=== PATIENT | female | born 1950 | race Caucasian/White ===

== ENCOUNTER → 2018-07-03 | Outpatient (CLI) | payer MEDICARE, BC ==
[2018-01-06 14:38] VITALS: BP 146/64
[~2018-07-03] MED LIST: ASPI81TA50 PO; CARV3.1210 PO; CEPH-264 PO; DOXY100T PO; ECONAZOLE NITRATE TP; FERR325T14 PO; FLUT1DIS3 INH; FURO40TA4 PO; GLYB5TAB3 PO; HYDR-2761 PO; HYDR12.58 PO; INSU100I13 SQ; Ipratropium/Albuterol Sulfate NEB; LEVO200T PO; METF10007 PO; METF500T16 PO; MULT1TAB52 PO; POTA10TA12 PO; PRAV80TA2 PO; PRED20TA PO; TIOT18CA IH; VENTOLIN HFA18 GM IH
--- NOTE | 2018-07-14 09:59 | SLEEP ---
DATE OF STUDY: 07/03/2018 ATTENDING PHYSICIAN: Dr. Jasper Lowry. The patient is 67 years old who weighs 259 pounds with a BMI of 43. The patient's Chaseley score was 3. The patient uses oxygen at 2 liters continuously at home. The patient underwent sleep study at [facility]. During the night study, the patient spent 415 minutes in bed and slept for 342 minutes with a sleep efficiency of 82%. Sleep latency was 10 minutes with an absent REM sleep. Overall, sleep architecture showed increased stage 1 and stage 2 sleep, normal slow wave and absent REM sleep. During the night study, the patient had no obstructive mixed or central apneas. There were 57 hypopneas. The patient's apnea hypopnea index was 10 per hour, supine index 8 per hour. No REM sleep observed. EKG monitoring revealed normal sinus rhythm, average heart rate was 79 beats per minute. No sustained arrhythmias observed. Nocturnal oximetry study revealed a mean oxygen saturation of 90% with lowest of 75%. 83% of time oxygen saturation remained between 80% and 89% and 16% of time between 70% and 79%. No PLMS were observed. Due to low AHI, the patient did not meet the split night criteria for CPAP initiation. IMPRESSION: 1. Mild sleep apnea-hypopnea syndrome at an apnea hypopnea index of 10 per hour. Absence of rapid eye movement sleep can underestimate the severity of sleep apnea. 2. Moderate to severe nocturnal hypoxia secondary to obstructive sleep apnea and suspected hypoventilation. The patient uses oxygen 2 liters at home continuously and sleep study was performed on room air. 3. No clinically significant periodic limb movements. RECOMMENDATION: 1. The patient has mild sleep apnea. If the patient is clinically symptomatic, then it can be treated with either oral appliance or a trial of CPAP titration. 2. Weight loss is strongly advised. 3. Avoid CONFIGURATION DEVELOPER depressants. 4. The patient should remain on oxygen at nighttime. If the patient undergoes CPAP titration study, then the exact flow of oxygen can be determined at that time. 5. Avoid CONFIGURATION DEVELOPER depressants. 6. Caution regarding driving until symptoms of sleep apnea resolve with above recommendations. EFRA BROWNLEE MD DR: SOLANGE/vishnu JOB#: [id number] / [id number] JASPER Addison MD, SABATO MD
== END | disposition home or self-care (01) ==
LOC: RT 18:00
PROVIDERS: ATTEND Internal Medicine Pulmonary Disease
DX: G47.33 Obstructive sleep apnea (adult) (pediatric) (principal); G47.34 Idiopathic sleep related nonobstructive alveolar hypoventilation
CPT/HCPCS: 95810

== ENCOUNTER 2018-09-15 11:58 | Inpatient (IN) | payer MEDICARE, BC ==
[~2018-09-15] VITALS: Ht 163.8 cm; Wt 119.7 kg
[2018-09-15] MEDS ORDERED: ASPIRIN CHEWABLE 81 MG TABLET. PO ONE (12:30)
[2018-09-15] MEDS ORDERED: IPRATRPIUM/ALBUTEROL 0.5/2.5MG 3 ML NEBU. NEB ONE (12:30)
--- NOTE | 2018-09-15 12:47 | PHYS DOC ---
Past Medical History Past Medical History: CAD, CHF, COPD, Diabetes-Type II, High Cholesterol, Heart Disease, Hypertension, Hypothyroid, Other Additional Past Medical Histor: home oxygen use Past Surgical History: Coronary Bypass Surgery, Tonsillectomy, Other Additional Past Surgical Histo: bilat knee scope, heart cath Alcohol Use: None Drug Use: None Adult General Chief Complaint Chief Complaint: SHORTNESS OF BREATH HPI HPI Patient is a 67-year-old female who presents to the emergency department for evaluation of increasing shortness of breath over the past 24 hours. She has had a mild cough, nonproductive. She denies any chest pain. She reports worsening or shortness of breath with exertion, but no chest pain, either exertional or pleuritic, and no orthopnea. She has, however, had increasing pedal edema. She did increase her oxygen at home from 2.5-3 L, with some improvement in her symptoms. Other than the stated above, there are no alleviating or exacerbating factors to the patient's symptoms. Review of Systems Review of Systems Constitutional: Denies fever or chills [] Eyes: Denies change in visual acuity, redness, or eye pain [] HENT: Denies nasal congestion or sore throat [] Respiratory: No additional information not addressed in HPI [] Cardiovascular: No additional information not addressed in HPI [] GI: Denies abdominal pain, nausea, vomiting, bloody stools or diarrhea [] : Denies dysuria or hematuria [] Musculoskeletal: Denies back pain or joint pain [] Integument: Denies rash or skin lesions [] Neurologic: Denies headache, focal weakness or sensory changes [] Endocrine: Denies polyuria or polydipsia [] All other systems were reviewed and found to be within normal limits, except as documented in this note. Current Medications Current Medications Current Medications Medications (Trade) Dose Ordered Sig/Hannah Start Time Stop Time Status Last Admin Dose Admin Albuterol/ Ipratropium (Duoneb) 3 ml 1X ONCE 09/15/18 12:30 09/15/18 12:31 DC 09/15/18 12:43 3 ML Aspirin (Children'S Aspirin) 324 mg 1X ONCE 09/15/18 12:30 09/15/18 12:31 DC 09/15/18 12:33 324 MG Azithromycin 250 ml @ 250 mls/hr 1X ONCE 09/15/18 13:45 3/12/19 14:44 Ceftriaxone Sodium (Rocephin) 1 gm 1X ONCE 09/15/18 13:45 09/15/18 13:46 DC Furosemide (Lasix) 40 mg 1X ONCE 09/15/18 14:15 09/15/18 14:16 Allergies Allergies Allergies Coded Allergies Type Severity Reaction Last Updated Verified No Known Medication Allergies Allergy Unknown 01/05/18 Yes Penicillins Adverse Reaction Mild yeast infections 09/06/15 Yes Physical Exam Physical Exam PHYSICAL EXAM: CONSTITUTIONAL: Well developed, well nourished HEAD: normocephalic, atraumatic EENT: PERRL, EOMI. Conjunctivae normal color, sclerae non-icteric; moist mucous membranes. NECK: Supple, non-tender; no meningismus. LUNGS: There are globally diminished breath sounds, without rales, wheezes, or rhonchi. HEART: Regular rate and rhythm, there is a soft holosystolic murmur. CHEST: No deformity; non-tender ABDOMEN: The abdomen is soft, and non-tender, no masses or bruits. EXTREM: Normal ROM; no deformity, no calf tenderness. Normal pulses palpable in all extremities. There is 1-2+ bilateral pitting pedal edema. SKIN: No rash; no diaphoresis NEURO: Alert; normal speech and cognition; CN's grossly intact; strength grossly intact without focal deficit. BACK: No CVA TTP. Current Patient Data Vital Signs Vital Signs Date Time Temp Pulse Resp B/P (MAP) Pulse Ox O2 Delivery O2 Flow Rate FiO2 09/15/18 12:44 Nasal Cannula 2.0 09/15/18 12:00 98.9 95 26 177/70 (105) 96 98.9 Lab Values Laboratory Tests Test 09/15/18 12:45 White Blood Count 4.6 x10^3/uL (4.0-11.0) Red Blood Count 4.70 x10^6/uL (3.50-5.40) Hemoglobin 13.2 g/dL (12.0-15.5) Hematocrit 40.5 % (36.0-47.0) Mean Corpuscular Volume 86 fL (79-100) Mean Corpuscular Hemoglobin 28 pg (25-35) Mean Corpuscular Hemoglobin Concent 33 g/dL (31-37) Red Cell Distribution Width 16.0 % (11.5-14.5) H Platelet Count 120 x10^3/uL (140-400) L Neutrophils (%) (Auto) 71 % (31-73) Lymphocytes (%) (Auto) 17 % (24-48) L Monocytes (%) (Auto) 12 % (0-9) H Eosinophils (%) (Auto) 0 % (0-3) Basophils (%) (Auto) 1 % (0-3) Neutrophils # (Auto) 3.3 x10^3uL (1.8-7.7) Lymphocytes # (Auto) 0.8 x10^3/uL (1.0-4.8) L Monocytes # (Auto) 0.5 x10^3/uL (0.0-1.1) Eosinophils # (Auto) 0.0 x10^3/uL (0.0-0.7) Basophils # (Auto) 0.0 x10^3/uL (0.0-0.2) Prothrombin Time 15.2 SEC (11.7-14.0) H Prothrombin Time INR 1.2 (0.8-1.1) H Sodium Level 136 mmol/L (136-145) Potassium Level 3.9 mmol/L (3.5-5.1) Chloride Level 97 mmol/L (98-107) L Carbon Dioxide Level 31 mmol/L (21-32) Anion Gap 8 (6-14) Blood Urea Nitrogen 15 mg/dL (7-20) Creatinine 0.8 mg/dL (0.6-1.0) Estimated GFR (Cockcroft-Gault) 71.8 BUN/Creatinine Ratio 19 (6-20) Glucose Level 200 mg/dL (70-99) H Calcium Level 8.5 mg/dL (8.5-10.1) Total Bilirubin 1.0 mg/dL (0.2-1.0) Aspartate Amino Transferase (AST) 18 U/L (15-37) Alanine Aminotransferase (ALT) 18 U/L (14-59) Alkaline Phosphatase 84 U/L (46-116) Creatine Kinase 58 U/L (26-192) Creatine Kinase MB (Mass) 0.8 ng/mL (0.0-3.6) Creatine Kinase MB Relative Index % (0-4) Troponin I Quantitative 0.032 ng/mL (0.000-0.055) PV-Agk-U-Type Natriuretic Peptide 5627 pg/mL (0-124) H Total Protein 6.3 g/dL (6.4-8.2) L Albumin 3.7 g/dL (3.4-5.0) Albumin/Globulin Ratio 1.4 (1.0-1.7) Laboratory Tests 09/15/18 12:45 Laboratory Tests 09/15/18 12:45 EKG EKG [Normal sinus rhythm at a rate of 72 beats for minute, right axis deviation, first-degree AV block with otherwise normal intervals. There is inferior T-wave inversion and nonspecific ST/T changes, not significantly changed compared to patient's prior EKG from 01/05/18.] Radiology/Procedures Radiology/Procedures [PROCEDURE: PORTABLE CHEST 1V Single view chest dated 09/15/2018. Comparison made to 01/05/2018. CLINICAL INDICATION: Shortness of breath. FINDINGS: Single upright portable exam performed. Heart size mildly enlarged. Patient is status post median sternotomy. There is fullness of the bilateral hilum, unchanged. Some hazy increased density at the lateral left base with blunting of left costophrenic sulcus. Lungs are otherwise clear. No consolidation or pneumothorax. Prominent interstitial markings, unchanged. IMPRESSION: 1. Mild hazy increased density at the lateral left base, atelectasis versus early pneumonia. 2. Otherwise stable findings compared to 01/05/2018.] Course & Med Decision Making Course & Med Decision Making Pertinent Labs and Imaging studies reviewed. (See chart for details) [2:10 PM: The patient's condition remained stable. Her BNP is about 4 times higher than it was about 8 months ago. The exact etiology of her shortness of breath is unclear, as she is feeling better with a DuoNeb. This might be a CHF exacerbation, bronchitis/pneumonia/COPD, or both. I discussed the case with her PCP, who will admit her for further evaluation and treatment.] Dragon Disclaimer Dragon Disclaimer This electronic medical record was generated, in whole or in part, using a voice recognition dictation system. Departure Departure Impression: Primary Impression: Dyspnea Additional Impressions: COPD (chronic obstructive pulmonary disease) CHF (congestive heart failure) Disposition: ADMITTED INPATIENT Admitting Physician: Mike Lowry Condition: STABLE Referrals: MIKE LOWRY MD (PCP) Problem Qualifiers GREENGART,SABINO MD Sep 15, 2018 12:47
[2018-09-15 12:55] LABS: BASO % 1 % (0-3); EOS % 0 % (0-3); HEMATOCRIT 40.5 % (36.0-47.0); HEMOGLOBIN 13.2 g/dL (12.0-15.5); LYMPH # 0.8 x10^3/uL (1.0-4.8); LYMPH % 17 % (24-48); MEAN CORPUSCULAR HEMOGLOBIN 28 pg (25-35); MEAN CORPUSCULAR HGB CONC 33 g/dL (31-37); MEAN CORPUSCULAR VOLUME 86 fL (79-100); MONO # 0.5 x10^3/uL (0.0-1.1); MONO % 12 % (0-9); NEUT # 3.3 x10^3uL (1.8-7.7); NEUT % 71 % (31-73); PLATELET COUNT 120 x10^3/uL (140-400); WHITE BLOOD COUNT 4.6 x10^3/uL (4.0-11.0)
[2018-09-15 13:04] LABS: CALCIUM 8.5 mg/dL (8.5-10.1); CREATININE 0.8 mg/dL (0.6-1.0); GFR 71.8; POTASSIUM 3.9 mmol/L (3.5-5.1); PROTHROMBIN TIME PATIENT 15.2 SEC (11.7-14.0)
[2018-09-15 13:10] LABS: ALBUMIN 3.7 g/dL (3.4-5.0); ALBUMIN/GLOBULIN RATIO 1.4 (1.0-1.7); TOTAL PROTEIN 6.3 g/dL (6.4-8.2)
[2018-09-15 13:18] LABS: CREATINE KINASE 58 U/L (26-192)
--- NOTE | 2018-09-15 13:38 | EKG ---
[facility] [address] [place] [address] Test Date: 2018-09-15 Test Time: 12:42:12 Pat Name: WILDA GRECO Department: Room: Gender: F Jar Filler: : 1950 Requested By: JASPER WISE Order Number: [id number] Reading MD: Mamadou James MD Measurements Intervals [place] Rate: 73 P: 66 AR: 238 QRS: 141 QRSD: 92 T: -10 QT: 388 QTc: 431 Interpretive Statements SINUS RHYTHM PROLONGED AR INTERVAL LIMB LEAD MISPLACEMENT NON-SPECIFIC ST/T CHANGES Electronically Signed On 09-24-2018 9:28:38 CDT by Mamadou James MD
[2018-09-15] MEDS ORDERED: AZITHRMYCN 500MG IVPB FOR OMNI 250 ML IV ONE (13:45)
[2018-09-15] MEDS ORDERED: cefTRIAXone IV Push 1 GM VIAL. IVP ONE (13:45)
[2018-09-15] MEDS ORDERED: FUROSEMIDE 40 MG/4 ML VIAL. IVP ONE (14:15)
[2018-09-15 19:00] VITALS: BP 147/73
[2018-09-15] MEDS: IPRATRPIUM/ALBUTEROL 0.5/2.5MG 3 ML NEBU. NEB SCH (19:34)
[2018-09-15] MEDS: CARVEDILOL 3.125 MG TABLET. PO SCH (21:32)
[2018-09-15] MEDS: hydroCHLOROthiazide 12.5 MG CAPSULE PO SCH (21:32)
[2018-09-15] MEDS: ATORVASTATIN CALCIUM 20 MG TABLET PO SCH (21:32)
[2018-09-15] MEDS: INSULIN GLARGINE 300 UNITS/3 ML INSULN.PEN. SQ SCH (21:35)
[2018-09-15 23:00] VITALS: BP 165/67
[2018-09-16 03:00] VITALS: BP 128/62
[2018-09-16] MEDS: LEVOTHYROXINE 125 MCG TABLET PO SCH (05:57)
[2018-09-16] MEDS: IPRATRPIUM/ALBUTEROL 0.5/2.5MG 3 ML NEBU. NEB SCH ×4 (07:42→19:52)
[2018-09-16 07:48] VITALS: BP 116/53
[2018-09-16] MEDS: MULTIVITAMIN with MINERAL TABLET. PO SCH (08:29)
[2018-09-16] MEDS: ASPIRIN ENTERIC COATED 81 MG TABLET.DR. PO SCH (08:29)
[2018-09-16] MEDS: POTASSIUM CHLORIDE 10 MEQ TABLET.ER. PO SCH (08:30)
[2018-09-16] MEDS ORDERED: NON FORMULARY ITEM (Tiotropium Bromide (Spiriva) 1 CAP) IH SCH (09:00)
[2018-09-16] MEDS ORDERED: FUROSEMIDE 40 MG/4 ML VIAL. IVP ONE (09:00)
--- NOTE | 2018-09-16 09:02 | PDOC ---
Provider Note Provider Note [id number] JASPER HANNAH MD Sep 16, 2018 09:02
--- NOTE | 2018-09-16 10:12 | HP ---
ADMIT DATE: 09/16/2018 CHIEF COMPLAINT: Weakness and shortness of breath. HISTORY OF PRESENT ILLNESS: A 67-year-old white female with known oxygen-dependent COPD and pulmonary hypertension, and diabetes, came in with 2 days of weakness, achiness, fatigue and scant cough. She is short of breath and felt somewhat better after DuoNeb treatments and Lasix. Chest x-ray raised the question of interstitial edema with no obvious infiltrates. She denies chills, fever, hemoptysis, chest pain, orthopnea, or other symptoms, but has been exposed to flu. She states she was tested for flu in the ER, but no report is available of that. PAST HISTORY: Last echo in 2015 showed a good ejection fraction of 55% with pulmonary hypertension present. She has had a coronary bypass in the past since then. ALLERGIES: To PENICILLIN noted. She is insulin-dependent diabetic with good control. Recent A1c 6.7. SOCIAL HISTORY: Quit smoking years ago. . Nondrinker. FAMILY HISTORY: Unremarkable. REVIEW OF SYSTEMS: No other complaints. OBJECTIVE: ENT: All within normal limits. NECK: No masses, nodes or bruits in the neck. CARDIOVASCULAR: Regular rate. Heart rate regular and not rapid. LUNGS: Few basilar crackles, faint expiratory wheezes. ABDOMEN: Obese, soft, benign and nontender. EXTREMITIES: 2+ pretibial edema, pitting in nature bilaterally. Good pedal pulses. NEUROLOGIC: Physiologic, nonfocal, oriented x 4. ASSESSMENT: Malaise and dyspnea. Could be a viral syndrome given her recent exposure to flu. No overt signs of pneumonia or congestive heart failure. PLAN: Lasix because of edema. We will do a flu test and follow clinically. May benefit from another echo. JASPER HANNAH MD DR: EVANGELINA/vishnu JOB#: [id number] / [id number]
[2018-09-16 10:52] LABS: INFLUENZA A PATIENT NEGATIVE (NEGATIVE); INFLUENZA B PATIENT NEGATIVE (NEGATIVE)
[2018-09-16 11:00] VITALS: BP 120/51
[2018-09-16 14:27] VITALS: BP 131/63
[2018-09-16 19:00] VITALS: BP 148/68
[2018-09-16] MEDS ORDERED: SODIUM CHLORIDE 0.65% NASAL SPRAY 45ML BOTTLE. NS PRN (19:15)
[2018-09-16] MEDS ORDERED: SODIUM CHL/ALOE VERA NASAL GEL 14.1GM TUBE. NS PRN (19:15)
[2018-09-16] MEDS: hydroCHLOROthiazide 12.5 MG CAPSULE PO SCH (21:17)
[2018-09-16] MEDS: ATORVASTATIN CALCIUM 20 MG TABLET PO SCH (21:17)
[2018-09-16] MEDS: BENZONATATE 100 MG CAPSULE. PO SCH (21:18)
[2018-09-16] MEDS: CARVEDILOL 3.125 MG TABLET. PO SCH (21:18)
[2018-09-16] MEDS: INSULIN GLARGINE 300 UNITS/3 ML INSULN.PEN. SQ SCH (21:20)
[2018-09-16] MEDS: ACETAMINOPHEN 325 MG TABLET. PO PRN (22:07)
[2018-09-16 23:00] VITALS: BP 131/77
[2018-09-17] MEDS ORDERED: DEXTROSE 50% 25 GM / 50ML DISP.SYRIN. IV PRN (02:45)
[2018-09-17 03:02] VITALS: BP 103/38
[2018-09-17] MEDS: LEVOTHYROXINE 125 MCG TABLET PO SCH (05:23)
[2018-09-17] MEDS ORDERED: FLUTICASONE 50MCG/NASAL SPRAY 16GM BOTTLE. NS PRN (05:45)
[2018-09-17 07:00] VITALS: BP 136/64
[2018-09-17] MEDS: IPRATRPIUM/ALBUTEROL 0.5/2.5MG 3 ML NEBU. NEB SCH ×4 (08:07→20:35)
--- NOTE | 2018-09-17 08:59 | PDOC ---
Provider Note Provider Note feels worse despite lasix, scant cough/sputum- low grade temp x 1 - crackles and a few wheezes- will repeat cbc/cxr/procal, add rocephin and pred for now JASPER HANNAH MD Sep 17, 2018 08:59
--- NOTE | 2018-09-17 09:04 | NUR ---
SW following pt for anticipated dc needs. Chart reviewed. Pt lives home alone and rehab screen indicate no skilled needs as pt is independent with ADLs. Will continue to assess needs.
[2018-09-17] MEDS: ASPIRIN ENTERIC COATED 81 MG TABLET.DR. PO SCH (09:32)
[2018-09-17] MEDS: POTASSIUM CHLORIDE 10 MEQ TABLET.ER. PO SCH (09:33)
[2018-09-17] MEDS: MULTIVITAMIN with MINERAL TABLET. PO SCH (09:33)
[2018-09-17] MEDS: BENZONATATE 100 MG CAPSULE. PO SCH ×3 (09:34→21:15)
[2018-09-17 10:44] LABS: HEMATOCRIT 38.5 % (36.0-47.0); HEMOGLOBIN 12.9 g/dL (12.0-15.5); RED BLOOD COUNT 4.51 x10^6/uL (3.50-5.40); RED CELL DISTRIBUTION WIDTH 16.3 % (11.5-14.5); WHITE BLOOD COUNT 5.4 x10^3/uL (4.0-11.0)
[2018-09-17 11:00] VITALS: BP 134/62
[2018-09-17] MEDS: LACTOBACILLUS RHAMNOSUS GG 1 CAPSULE. PO SCH ×2 (11:02→21:13)
[2018-09-17] MEDS: cefTRIAXone IV Push 1 GM VIAL. IVP SCH (11:20)
[2018-09-17 15:00] VITALS: BP 142/64
--- NOTE | 2018-09-17 16:06 | RAD ---
Chest, 2 views, 09/17/2018: HISTORY: Shortness of breath Comparison is made to a study from 09/15/2018. There has been a previous median sternotomy. The heart is enlarged. The pulmonary vascularity is at the upper limits of normal. No pulmonary infiltrate is seen. There is no evidence of pleural fluid. IMPRESSION: 1. Cardiomegaly with borderline vascular congestion. 2. No acute infiltrates. Electronically signed by: Robbie Palomino MD (09/17/2018 4:03 PM) [facility]
[2018-09-17 19:00] VITALS: BP 145/68
[2018-09-17] MEDS: hydroCHLOROthiazide 12.5 MG CAPSULE PO SCH (21:13)
[2018-09-17] MEDS: CARVEDILOL 3.125 MG TABLET. PO SCH (21:14)
[2018-09-17] MEDS: ATORVASTATIN CALCIUM 20 MG TABLET PO SCH (21:16)
[2018-09-17] MEDS: INSULIN GLARGINE 300 UNITS/3 ML INSULN.PEN. SQ SCH (21:20)
[2018-09-17] MEDS: ACETAMINOPHEN 325 MG TABLET. PO PRN (21:23)
[2018-09-17 23:00] VITALS: BP 137/67
[2018-09-18 03:00] VITALS: BP 129/65
[2018-09-18] MEDS: LEVOTHYROXINE 125 MCG TABLET PO SCH (05:14)
[2018-09-18 07:00] VITALS: BP 142/67
[2018-09-18] MEDS: predniSONE 10 MG TABLET PO SCH (07:59)
[2018-09-18] MEDS: MULTIVITAMIN with MINERAL TABLET. PO SCH (08:00)
[2018-09-18] MEDS: POTASSIUM CHLORIDE 10 MEQ TABLET.ER. PO SCH (08:00)
[2018-09-18] MEDS: LACTOBACILLUS RHAMNOSUS GG 1 CAPSULE. PO SCH ×2 (08:00→22:32)
[2018-09-18] MEDS: BENZONATATE 100 MG CAPSULE. PO SCH ×3 (08:00→22:33)
[2018-09-18] MEDS: ASPIRIN ENTERIC COATED 81 MG TABLET.DR. PO SCH (08:00)
[2018-09-18] MEDS: cefTRIAXone IV Push 1 GM VIAL. IVP SCH (08:01)
[2018-09-18] MEDS: IPRATRPIUM/ALBUTEROL 0.5/2.5MG 3 ML NEBU. NEB SCH ×4 (08:19→21:04)
--- NOTE | 2018-09-18 08:47 | PDOC ---
Provider Note Provider Note feels better- low temp- exam same, wbc/proclac ok- cxr ok- cont rocephin/pred, likely dc 09/19 JASPER HANNAH MD Sep 18, 2018 08:47
[2018-09-18] MEDS: ACETAMINOPHEN 325 MG TABLET. PO PRN (10:17)
[2018-09-18 11:00] VITALS: BP 128/67
[2018-09-18] MEDS ORDERED: FUROSEMIDE 40 MG/4 ML VIAL. IVP ONE (16:45)
--- NOTE | 2018-09-18 16:56 | PDOC2 ---
SHY PARRISH PIPELINES LABORER 09/18/18 1656: CARDIAC CONSULT DATE OF CONSULT Date of Consult DATE: 09/18/18 TIME: 16:24 REASON FOR CONSULT Reason for Consult: CHF REFERRING PHYSICIAN Referring Physician: Alen SOURCE Source: Chart review, Patient HISTORY OF PRESENT ILLNESS HISTORY OF PRESENT ILLNESS This is a pleasant 67 yo female admitted for complains of SOA. She has been increasingly SOA at home despite her O2. She uses about 2-3 LPM continuously but did not increase her rate. She also has longstanding hx of severe pulmonary HTN and COPD, unclear about the stage and she does not have any rescue inhalers nor nebulizers to utilize at home. In the last week she has been feeling weak, no chills and no fever till she got admitted. She has been coughing but very hard to expectorate. She was admitted in 09/15 and was treated for AECOPD. She was also suspected for CHF and hence was given lasix. Reports no orthopnea but + for increased leg swelling. She does have lasix at home but only takes this as PRN. Denies any further smoking quit in 2006. No CP nor palpiations. She was seen in our office by Dr. Cao to which at that time she was doing ok. Currently she still has cough and her leg edema improved as she felt is not as tight as before and also her SOA is better. Reports no excessive salt intake and drinks about 2.5 L a day. PAST MEDICAL HISTORY Cardiovascular: CAD, HTN, Hyperlipidemia, Pulmonary hypertension Pulmonary: COPD, Other (SIMI) CENTRAL NERVOUS SYSTEM: Other (No pertinent history) Psych: Depression Musculoskeletal: Osteoarthritis, Other (morbid obesity) Endocrine: Diabetes (2), Hypothyroidism PAST SURGICAL HISTORY Past Surgical History: Arthroscopy (left and right knee), CABG (RAI to LAD, SVG to OM, diagonal and RCA on 02/28/2014) FAMILY HISTORY Family History: Coronary Artery Disease (father) SOCIAL HISTORY Smoke: Quit (quit in 2006 40 pk yr) ALCOHOL: none Drugs: None Lives: Alone CURRENT MEDICATIONS CURRENT MEDICATIONS Current Medications Medications (Trade) Dose Ordered Sig/Hannah Route PRN Reason Start Time Stop Time Status Last Admin Dose Admin Prednisone (Prednisone) 50 mg DAILY08 PO 09/18/18 08:00 09/18/18 07:59 ALLERGIES ALLERGIES: Coded Allergies: No Known Medication Allergies (Verified Allergy, Unknown, 01/05/18) Penicillins (Verified Adverse Reaction, Mild, yeast infections, 09/06/15) ROS Review of System 14 point ROS evaluated with pertinent positives noted per HPI PHYSICAL EXAM General: Alert, Oriented X3, Cooperative, No acute distress HEENT: Atraumatic, Mucous membr. moist/pink Lungs: Other (diffuse crackles with basilar exp wheeze) Heart: Regular rate (SR), Other (3/6 pansystolic murmur to LLS border) Abdomen: Soft, No tenderness, Other (obese) Extremities: No cyanosis, Other (2+ pedal edema bilaterally) Skin: No breakdown, No significant lesion Neuro: Normal speech, Sensation intact Psych/Mental Status: Mental status NL, Mood NL MUSCULOSKELETAL: Osteoarthritic changes both hands VITALS VITALS Vital Signs Date Time Temp Pulse Resp B/P (MAP) Pulse Ox O2 Delivery O2 Flow Rate FiO2 09/18/18 11:31 95 Nasal Cannula 3.0 09/18/18 11:00 98.5 67 20 128/67 (87) 98.5 LABS Lab: Laboratory Tests Test 09/17/18 16:39 09/17/18 20:26 09/18/18 07:51 09/18/18 11:22 Glucose (Fingerstick) 162 mg/dL (70-99) 247 mg/dL (70-99) 152 mg/dL (70-99) 193 mg/dL (70-99) ECHOCARDIOGRAM ECHOCARDIOGRAM <Conclusion> The Ejection Fraction is 50%. There is mild to moderate concentric left ventricular hypertrophy. There is a flattened septum consistent with right ventricle pressure overload. There is hypokinesis in the septal wall. There is moderate diastolic dysfunction of the LV The right ventricle is dilated. Systolic function is reduced. The left atrium is mildly dilated. The right atrium is moderately dilated. The aortic valve is calcified but opens well. Doppler and Color-flow revealed mild mitral regurgitation. Doppler and Color Flow revealed moderate to severe tricuspid regurgitation. There is severe pulmonary hypertension. The PA pressure was estimated at 91 mmHg. Doppler and Color Flow revealed mild pulmonic valvular regurgitation. There is no evidence of significant pericardial effusion. DATE: 07/03/151904 HEART CATH HEART CATH Coronary Angiography The patient's coronary anatomy is right dominant. The left main coronary artery is a medium size vessel with moderate diffused disease. There is a 75% stenosis in the distal segment. The left main trifurcates to the left anterior descending, circumflex, and ramus. The left anterior descending artery is a medium size vessel with stenosis. There is a 100% stenosis in the proximal segment. The first diagonal branch is a small size vessel with intimal irregularities and without significant stenosis. The second diagonal branch is a medium size vessel with moderate diffused disease. There is a 70% stenosis in the proximal segment. The third diagonal branch is a small size vessel with intimal irregularities and without significant stenosis. The circumflex artery is a small size vessel with moderate-severe diffused disease. There is a 80% stenosis in the proximal segment. The first obtuse marginal branch is a small size vessel with moderate diffused disease. The second obtuse marginal branch is a small size vessel with mild-moderate diffused disease. There is a 60% stenosis in the proximal segment. The third obtuse marginal branch is a small size vessel with severe diffused disease. The ramus intermedius artery is a medium size vessel with mild diffused disease. There is a 50% stenosis in the proximal segment. The right coronary artery is a medium size vessel with moderate-severe diffused disease. There is a 90% stenosis in the mid segment. The right posterior descending artery is a medium size vessel with mild diffused disease. The right posterolateral branch is a small size vessel with moderate diffused disease. The left internal mammary artery to the mid left anterior descending artery segment is patent . The saphenous vein graft to the distal right coronary artery is patent . The saphenous vein graft to the second diagonal branch segment is patent . Left Ventriculography The left ventricle is normal in size with normal contractility. The left ventricular ejection fraction is estimated to be 60%. The left ventricular end diastolic pressure is 25 mmHg. There was no gradient across the aortic valve upon pullback. Right Heart Cath Findings The Right Atrial Pressure is 21/20/17 mmHg. The Right Ventricular Pressure is 95 /21 mmHg. The Pulmonary Artery Pressure is 94/36/59 mmHg. The Pulmonary Catheter Wedge Pressure is 21/20/19 mmHg. Aorta The ascending aortogram showed an aorta that was normal in size and no other graft was seen other than the ones the previously mentioned Conclusion This patient has severe duckwater vessel coronary artery disease and no apparent significant graft disease. There is severe pulmonary hypertension with a PA pressure of 95 mmHg systolic. The left ventricular systolic function was normal. I would recommend the patient to see the event sales representative and see what their recommendations are with regards to further workup and treatment. DATE: 08/10/15 1840 ASSESSMENT/PLAN ASSESSMENT/PLAN 1. AECOPD: does not have any rescue inhalers or nebulizers at home 2. Severe pulmonary HTN 3. SIMI: uses 2-3 LPM at home, no CPAP 4. Morbid obesity 5. Acute on chronic diastolic CHF: improving with lasix, induced by above. 6. CAD: past CABG 2013 and LHC in 2016, clinically stable. 7. HTN: controlled 8. DM2 9. HLP Recommendations 1. BMP and Mg today. Repeat BMP in AM and check lipids. 2. Lasix IV today pending lytes, then start PO tomorrow 3. TTE. Continue secondary prevention measures. 4. Will defer home rescue inhalers/nebulizers to PCP. Encouraged to follow up with outpt event sales representative. 5. Needing wt loss, may benefit on pulmonary rehab and CPAP use. 6. outpt MPI has been scheduled from last weeks appt. HAYLIE CAO MD 09/18/182032: CARDIAC CONSULT ASSESSMENT/PLAN ASSESSMENT/PLAN Patient seen and examined. Agree with AUTOMOTIVE TIRE WORKER's assessment and plan. Acute on chronic diastolic HF improving with lasix CAD status clinically stable Continue current treatment for acute COPD exacerbation Plan ischemic evaluation as outpatient. Thank you for your consultation SHY PARRISH APRN Sep 18, 2018 16:56 HAYLIE CAO MD Sep 18, 2018 20:33
[2018-09-18 17:45] LABS: CALCIUM 8.5 mg/dL (8.5-10.1); CREATININE 0.9 mg/dL (0.6-1.0); GFR 62.6; POTASSIUM 4.2 mmol/L (3.5-5.1)
[2018-09-18] MEDS ORDERED: INSULIN LISPRO 300 UNITS/3 ML INSULN.PEN. SQ ONE (17:45)
[2018-09-18 19:00] VITALS: BP 158/83
[2018-09-18] MEDS ORDERED: INSULIN GLARGINE 300 UNITS/3 ML INSULN.PEN. SQ SCH ×2 (20:00)
[2018-09-18] MEDS: hydroCHLOROthiazide 12.5 MG CAPSULE PO SCH (22:32)
[2018-09-18] MEDS: ATORVASTATIN CALCIUM 20 MG TABLET PO SCH (22:33)
[2018-09-18] MEDS: CARVEDILOL 3.125 MG TABLET. PO SCH (22:34)
[2018-09-18 23:00] VITALS: BP 154/64
[2018-09-19 03:55] VITALS: BP 169/70
[2018-09-19 04:44] LABS: CALCIUM 8.7 mg/dL (8.5-10.1); GFR 55.5; POTASSIUM 3.8 mmol/L (3.5-5.1)
[2018-09-19 04:45] LABS: CHOLESTEROL/HDL RATIO 2.8
[2018-09-19] MEDS: LEVOTHYROXINE 125 MCG TABLET PO SCH (06:31)
[2018-09-19 07:00] VITALS: BP 132/56
[2018-09-19] MEDS: IPRATRPIUM/ALBUTEROL 0.5/2.5MG 3 ML NEBU. NEB SCH ×2 (07:23→11:50)
[2018-09-19] MEDS: ASPIRIN ENTERIC COATED 81 MG TABLET.DR. PO SCH (08:20)
[2018-09-19] MEDS: predniSONE 10 MG TABLET PO SCH (08:20)
[2018-09-19] MEDS: LACTOBACILLUS RHAMNOSUS GG 1 CAPSULE. PO SCH (08:20)
[2018-09-19] MEDS: MULTIVITAMIN with MINERAL TABLET. PO SCH (08:21)
[2018-09-19] MEDS: POTASSIUM CHLORIDE 10 MEQ TABLET.ER. PO SCH (08:21)
[2018-09-19] MEDS: cefTRIAXone IV Push 1 GM VIAL. IVP SCH (08:21)
[2018-09-19] MEDS: BENZONATATE 100 MG CAPSULE. PO SCH (08:21)
[2018-09-19 11:00] VITALS: BP 125/56
--- NOTE | 2018-09-19 11:51 | DISCH ---
DISCHARGE INSTRUCTIONS Condition on Discharge Condition on Discharge: Stable Activity After Discharge Activity Instructions for Disc: No restrictions, Other, see below Lifting Instructions after Dis: Do not lift >10 pounds Exercise Instruction after Dis: Progress as tolerated Driving Instructions after Dis: Other, see below Weight Bearing Status after Di: Other, see below Diet after Discharge Diet after Discharge: Cardiac, Diabetic No Calorie Level Diet Texture: Regular Swallowing Supervision: None needed Wound Incision Care Wound/Incision Care: Other, see below Wound Care Equipment: Dressings Checks after Discharge Checks after discharge: Check blood press - daily, Check blood sugar, ac/hs, Check your Temp as needed Follow-Up Follow up with: dr duane Campos w Treatment/Equipment after DC Adaptive Equipment Issued: None Discharge Respiratory Equipmen: Oxygen JASPER HANNAH MD Sep 19, 2018 11:51
--- NOTE | 2018-09-19 11:56 | PDOC ---
Provider Note Provider Note [id number] JASPER HANNAH MD Sep 19, 2018 11:56
--- NOTE | 2018-09-19 12:09 | DS ---
DATE OF DISCHARGE: 09/19/2018 HOSPITAL SUMMARY: A 67-year-old white female admitted with cough, wheezing, low-grade fever and malaise. Chest x-ray x 2 showed no pulmonary infiltrates. Flu test was negative. CBC and chemistry profile were all unremarkable. Blood cultures had no growth. She was treated with IV steroids and Rocephin and has been feeling better since the addition of the prednisone as well. Lasix was given IV because of peripheral edema, but congestive heart failure was not felt to be a component of this. She has been afebrile for 48 hours, breathing much better and feels comfortable to be discharged and followed as an outpatient. FINAL DIAGNOSES: 1. Acute exacerbation of chronic obstructive pulmonary disease. 2. Empxk-ae-lflsxrn diastolic congestive heart failure, stable. 3. Insulin-dependent diabetes. OPERATIONS, PROCEDURES AND COMPLICATIONS: None. CONSULTATIONS: Dr. Christine's group. DISPOSITION: She will take 6 more days of prednisone taper, Vantin 200 mg twice a day for 5 more days and she wants to try Combivent inhaler at home to use q.i.d. p.r.n. Rest of home meds remain the same. Office followup in 1 week. JASPER HANNAH MD DR: EVANGELINA/vishnu JOB#: [id number] / [id number]
--- NOTE | 2018-09-19 13:11 | NUR ---
Discharge Note: WILDA GRECO Discharge instructions and discharge home medications reviewed with Patient and a copy given. All questions have been answered and understanding verbalized. The following instructions and handouts were given: discharge instructions, education and follow up information. Discontinued lines and drains: Peripheral IV discontinued intact. Patient discharged to Home or Self Care with Family Member via Wheelchair off unit by RN.
== END 2018-09-19 13:12 | disposition home or self-care (01) | DRG 190 ==
LOC: ER 11:58 → 5 NORTH 14:20
PROVIDERS: ADMIT Family Medicine; ATTEND Family Medicine
DX: J44.1 Chronic obstructive pulmonary disease with (acute) exacerbation (principal); I50.33 Acute on chronic diastolic (congestive) heart failure; Z68.41 Body mass index [BMI] 40.0-44.9, adult; I11.0 Hypertensive heart disease with heart failure; I27.20 Pulmonary hypertension, unspecified; E66.01 Morbid (severe) obesity due to excess calories; Z99.81 Dependence on supplemental oxygen; I25.10 Atherosclerotic heart disease of native coronary artery without angina pectoris; E11.9 Type 2 diabetes mellitus without complications; E78.00 Pure hypercholesterolemia, unspecified; E03.9 Hypothyroidism, unspecified; E78.5 Hyperlipidemia, unspecified; G47.33 Obstructive sleep apnea (adult) (pediatric); F32.9 Major depressive disorder, single episode, unspecified; M19.90 Unspecified osteoarthritis, unspecified site; Z20.828 Contact with and (suspected) exposure to other viral communicable diseases; Z95.1 Presence of aortocoronary bypass graft; Z88.0 Allergy status to penicillin; Z79.4 Long term (current) use of insulin; Z87.891 Personal history of nicotine dependence; Z82.49 Family history of ischemic heart disease and other diseases of the circulatory system
CPT/HCPCS: 36415; 71045; 71046; 80048; 80053; 80061; 82553; 82962; 83735; 83880; 84145; 84484; 85025; 85027; 85610; 87040; 87804; 93005; 94640; 94760; 96374; 96375; J0456; J0696; J1815; J1940; J7512; J7620; 99285-25

== ENCOUNTER 2018-11-02 10:00 | Outpatient (CLI) | payer MEDICARE, BC ==
[2018-11-02] VITALS (8 sets, daily range): BP systolic 117–188; BP diastolic 57–117
[~2018-11-02] VITALS: Ht 162.6 cm; Wt 114.3 kg
[2018-11-02 10:46] LABS: HEMATOCRIT 39.2 % (36.0-47.0); HEMOGLOBIN 13.2 g/dL (12.0-15.5); RED BLOOD COUNT 4.56 x10^6/uL (3.50-5.40); RED CELL DISTRIBUTION WIDTH 16.8 % (11.5-14.5); WHITE BLOOD COUNT 6.5 x10^3/uL (4.0-11.0)
[2018-11-02 10:57] LABS: PROTHROMBIN TIME PATIENT 13.4 SEC (11.7-14.0)
[2018-11-02 11:01] LABS: CALCIUM 9.1 mg/dL (8.5-10.1); CREATININE 0.9 mg/dL (0.6-1.0); GFR 62.6; POTASSIUM 4.2 mmol/L (3.5-5.1)
[2018-11-02] MEDS ORDERED: LIDOCAINE 1% Multi-Dose 20 ML VIAL. ONE (11:26)
[2018-11-02] MEDS ORDERED: IODIXANOL 320 MG/ML 100 ML VIAL. ONE ×2 (11:26→12:25)
[2018-11-02] MEDS ORDERED: MIDAZOLAM HCL/PF 2 MG/2 ML VIAL. ONE (11:28)
[2018-11-02] MEDS ORDERED: fentaNYL PF VIAL 100 MCG/2 ML VIAL ONE ×2 (11:28→12:35)
[2018-11-02] MEDS ORDERED: fentaNYL PF VIAL 100 MCG/2 ML VIAL IV ONE (12:30)
[2018-11-02] MEDS ORDERED: LIDOCAINE 1% Multi-Dose 20 ML VIAL. INJ ONE (12:30)
[2018-11-02] MEDS ORDERED: IODIXANOL 320 MG/ML 100 ML VIAL. IART ONE (12:30)
[2018-11-02] MEDS ORDERED: MIDAZOLAM HCL/PF 2 MG/2 ML VIAL. IV ONE (12:30)
[2018-11-02] MEDS ORDERED: ADENOSINE 90 MG/30 ML VIAL. IV ONE ×2 (12:53→13:02)
[2018-11-02] MEDS ORDERED: ADENOSINE 90 MG in IV NORMAL SALINE 50ML 90 ML IV ONE (13:15)
--- NOTE | 2018-11-02 14:24 | CARD ---
MR#: [id number] Date of Study: 11/02/2018 Ordering Physician: HAYLIE KRAUSE, Referring Physician: HAYLIE KRAUSE Tech: RT Dejah (R) APPROVED REPORT Technologist: RT Dejah (R) Nurse: Yoon Francisco R.N. Procedure(s) performed: Right heart catheterization, right ventriculogram and assessment of vasoreact ivity with adenosine infusion Sedation Time: 100 minutes Fluoro Time: 38.3 Minutes Dose: 74.55 Gycm2 Contrast 70 Visi 320 INDICATION The indication(s) include : Pulmonary hypertension. PROCEDURE NARRATIVE After explaining the risks, benefits and alternative options, informed consent was obtained from lennie ent. She was brought to the cardiac Chief Sustainability Officer and her right groin was prepped and draped in the usual fashion. 20 mL of 2% lidocaine was infiltrated into the skin and subcutaneous tissues for local anest hesia. Venous access was obtained in the right common femoral vein an 8 Macedonian sheath was inserted. S mehnaz initial attempts to advance a 7.5 Macedonian Arlington-Domenic catheter into the pulmonary artery were uns uccessful probably due to elevated pressures in the primary vasculature. A 6 Macedonian pigtail catheter was positioned the right ventricle and right ventriculography was performed that showed dilated pulmo nary vasculature with aneurysmal looking main pulmonary artery. Attempts to advance a 6 Macedonian multip urpose catheter into the pulmonary artery again were unsuccessful. A 7 Macedonian Maurilio catheter was then advanced into the pulmonary artery with the help of a Glidewire. Contrast injections were performed in the pulmonary artery to better identify the pulmonary vasculature. The catheter was then exchanged over a 0.025 inch guidewire to the Arlington-Domenic catheter and intracardiac pressures, oxygen saturations and cardiac output by thermodilution method measured. Patient was then administered intravenous manjinder osine infusion per protocol to test vasoreactivity. Patient tolerated the procedure well. Hemostasis was achieved using manual compression. There were no immediate complications. FINDINGS 1. Intracardiac pressures: Mean right atrial pressure 15 mmHg, right ventricular pressure 107/16 mm Hg, coronary artery pressure 103/28 mmHg with mean PA pressure 57 mmHg and primary capillary wedge pr essure 6 mmHg. Pulmonary vascular resistance 9 Wood units. This is consistent with severe pulmonary h ypertension. 2. Oxygen saturations: Right atrium 67.9%, pulmonary artery 71.8%. No evidence of intracardiac shun t. 3. Cardiac output by thermodilution method 5.6 L/m and by Hilary method 4.2 L/m. 4. Vasoreactivity testing after intravenous adenosine infusion per protocol did not show any change in the mean PA pressure. Conclusion Severe pulmonary hypertension without any Vasoreactivity. No evidence of intracardial shunt. Recommendations Medical Therapy Signed by : Haylie Krause, Electronically Approved : 11/02/2018 14:24:05
--- NOTE | 2018-11-02 16:09 | NUR ---
pt A&O x 3. denies pain at this time. rt groin site is clean and dry. no bleeding noted. site is soft and non tender. ambulated to BR w/o problem. tolerating po well. VSS after pt took her home meds. d/c instructions given- questions answered. out to vehicle per w/c. family to drive her home
== END 2018-11-02 16:13 | disposition home or self-care (01) ==
LOC: CCL 10:00
PROVIDERS: ATTEND Internal Medicine Cardiovascular Disease
DX: I27.0 Primary pulmonary hypertension (principal); J44.9 Chronic obstructive pulmonary disease, unspecified; E78.5 Hyperlipidemia, unspecified; E11.9 Type 2 diabetes mellitus without complications; Z95.1 Presence of aortocoronary bypass graft; Z98.890 Other specified postprocedural states; Z86.79 Personal history of other diseases of the circulatory system; Z79.82 Long term (current) use of aspirin; Z79.84 Long term (current) use of oral hypoglycemic drugs; F32.9 Major depressive disorder, single episode, unspecified; Z82.49 Family history of ischemic heart disease and other diseases of the circulatory system; Z87.891 Personal history of nicotine dependence; E03.9 Hypothyroidism, unspecified; Z88.0 Allergy status to penicillin
CPT/HCPCS: 36415; 80048; 85027; 85610; 93451; 93566; 93568; 99152; 99153; C1769; C1773; C1892; J0153; J1644; J2250; J3010; Q9967; 75741

== ENCOUNTER 2018-11-20 17:33 | Inpatient (IN) | payer MEDICARE, BC ==
[~2018-11-20] VITALS: Ht 162.6 cm; Wt 116.1 kg
[2018-11-20] MEDS ORDERED: ONDANSETRON PF 4 MG/2 ML VIAL. IV ONE (18:30)
[2018-11-20] MEDS ORDERED: fentaNYL PF VIAL 100 MCG/2 ML VIAL IV ONE (18:30)
[2018-11-20 18:57] LABS: BASO # 0.1 x10^3/uL (0.0-0.2); BASO % 1 % (0-3); EOS # 0.1 x10^3/uL (0.0-0.7); EOS % 1 % (0-3); HEMATOCRIT 38.9 % (36.0-47.0); LYMPH # 1.9 x10^3/uL (1.0-4.8); LYMPH % 14 % (24-48); MEAN CORPUSCULAR HEMOGLOBIN 29 pg (25-35); MEAN CORPUSCULAR HGB CONC 34 g/dL (31-37); MEAN CORPUSCULAR VOLUME 86 fL (79-100); MONO % 7 % (0-9); NEUT # 10.3 x10^3uL (1.8-7.7); NEUT % 77 % (31-73); PLATELET COUNT 247 x10^3/uL (140-400); RED BLOOD COUNT 4.51 x10^6/uL (3.50-5.40); RED CELL DISTRIBUTION WIDTH 16.6 % (11.5-14.5); WHITE BLOOD COUNT 13.4 x10^3/uL (4.0-11.0)
[2018-11-20 19:06] LABS: CALCIUM 9.2 mg/dL (8.5-10.1); CREATININE 0.9 mg/dL (0.6-1.0); GFR 62.6
[2018-11-20 19:11] LABS: ALBUMIN 3.8 g/dL (3.4-5.0); TOTAL PROTEIN 7.6 g/dL (6.4-8.2)
[2018-11-20 19:52] LABS: BILIRUBIN,URINE NEGATIVE (NEG); CLARITY,URINE CLEAR; COLOR,URINE YELLOW; NITRITE,URINE NEGATIVE (NEG); PROTEIN,URINE NEGATIVE (NEG-TRACE)
[2018-11-20 20:00] LABS: BACTERIA,URINE FEW /HPF (0-FEW); RBC,URINE 0 /HPF (0-2); SQUAMOUS EPITHELIAL CELL,UR OCC /LPF
--- NOTE | 2018-11-20 20:09 | PHYS DOC ---
Past Medical History Past Medical History: CAD, CHF, COPD, Diabetes-Type II, High Cholesterol, Heart Disease, Hypertension, Hypothyroid, Other Additional Past Medical Histor: home oxygen use, PULMONARY HYPERTENSION (VIGNESH PHAM) Past Surgical History: Coronary Bypass Surgery, Tonsillectomy, Other Additional Past Surgical Histo: bilat knee scope, heart cath (VIGNESH PHAM) Alcohol Use: None Drug Use: None (VIGNESH PHAM) Adult General Chief Complaint Chief Complaint: ABDOMINAL PAIN HPI HPI Patient is a 67 year old F who arrives with pain in RUQ region with radiation up to under R breast. She denies N/V/D. She denies fevers. She states this pain came on at 0300 this morning and hasn't let up. She has a hx of similar pain over the last week but this has been more severe today. (VIGNESH PHAM) Review of Systems Review of Systems Constitutional: Denies fever. Reports chills HENT: Denies sore throat, reports congestion. Respiratory: Reports cough. Cardiovascular: Denies chest pain. GI: Denies nausea, vomiting, bloody stools or diarrhea. Reports RUQ abd pain. : Denies dysuria or hematuria Musculoskeletal: Denies back pain or joint pain Integument: Denies rash or skin lesions Neurologic: Denies headache, focal weakness or sensory changes Endocrine: Denies polyuria or polydipsia All other systems were reviewed and found to be within normal limits, except as documented in this note. (VIGNESH PHAM) Current Medications Current Medications Current Medications Medications (Trade) Dose Ordered Sig/Hannah Start Time Stop Time Status Last Admin Dose Admin Albuterol Sulfate (Ventolin Neb Soln) 2.5 mg 1X ONCE 11/20/18 21:30 11/20/18 21:31 DC 11/20/18 21:29 2.5 MG Azithromycin (Zithromax) 500 mg 1X ONCE 11/20/18 21:30 11/20/18 21:31 DC 11/20/18 21:44 500 MG Ceftriaxone Sodium (Rocephin) 1 gm 1X ONCE 11/20/18 21:30 11/20/18 21:31 DC 11/20/18 21:48 1 GM Dextrose (Dextrose 50%-Water Syringe) 12.5 gm PRN Q15MIN PRN 11/20/18 21:45 11/24/18 11:55 DC Fentanyl Citrate (Fentanyl 2ml Vial) 50 mcg PRN Q2HR PRN 11/20/18 21:45 11/21/18 21:44 DC Info (CONTRAST GIVEN -- Rx MONITORING) 1 each PRN DAILY PRN 11/20/18 20:30 11/22/18 20:29 DC Iohexol (Omnipaque 300 Mg/ml) 75 ml 1X ONCE 11/20/18 20:15 11/20/18 20:27 DC 11/20/18 20:31 75 ML Methylprednisolone Sodium Succinate (SOLU-Medrol 125MG VIAL) 125 mg 1X ONCE 11/20/18 21:30 11/20/18 21:31 DC 11/20/18 21:46 125 MG Ondansetron HCl (Zofran) 4 mg PRN Q8HRS PRN 11/20/18 21:45 11/21/18 21:44 DC (RENETTA MÉNDEZ DO) Allergies Allergies Allergies Coded Allergies Type Severity Reaction Last Updated Verified Penicillins Adverse Reaction Mild yeast infections 09/06/15 Yes (RENETTA MÉNDEZ DO) Physical Exam Physical Exam Constitutional: Well developed, well nourished, no acute distress. Pt appears uncomfortable. HENT: Normocephalic, atraumatic, bilateral external ears normal, oropharynx moist, no oral exudates, nose normal. Neck: Normal range of motion, no tenderness, supple, no stridor. Cardiovascular:Heart rate regular rhythm, no murmur Lungs & Thorax: R lower chest pain, worse with deep breath and cough. Abdomen: Bowel sounds normal, soft, no tenderness, no masses, no pulsatile masses. Skin: Warm, dry, no erythema, no rash. Back: No tenderness, no CVA tenderness. Extremities: No tenderness, no cyanosis, no clubbing, ROM intact, no edema. Neurologic: Alert and oriented X 3, normal motor function, normal sensory function, no focal deficits noted. Psychologic: Affect normal, judgement normal, mood normal. (VIGNESH PHAM) Current Patient Data Vital Signs Vital Signs Date Time Temp Pulse Resp B/P (MAP) Pulse Ox O2 Delivery O2 Flow Rate FiO2 11/20/18 21:34 86 Nasal Cannula 3.0 11/20/18 19:50 80 26 148/66 (93) 11/20/18 17:44 99.0 99.0 (RENETTA MÉNDEZ DO) Lab Values Laboratory Tests Test 11/20/18 18:50 11/20/18 19:00 11/20/18 22:00 White Blood Count 13.4 x10^3/uL (4.0-11.0) H Red Blood Count 4.51 x10^6/uL (3.50-5.40) Hemoglobin 13.0 g/dL (12.0-15.5) Hematocrit 38.9 % (36.0-47.0) Mean Corpuscular Volume 86 fL (79-100) Mean Corpuscular Hemoglobin 29 pg (25-35) Mean Corpuscular Hemoglobin Concent 34 g/dL (31-37) Red Cell Distribution Width 16.6 % (11.5-14.5) H Platelet Count 247 x10^3/uL (140-400) Neutrophils (%) (Auto) 77 % (31-73) H Lymphocytes (%) (Auto) 14 % (24-48) L Monocytes (%) (Auto) 7 % (0-9) Eosinophils (%) (Auto) 1 % (0-3) Basophils (%) (Auto) 1 % (0-3) Neutrophils # (Auto) 10.3 x10^3uL (1.8-7.7) H Lymphocytes # (Auto) 1.9 x10^3/uL (1.0-4.8) Monocytes # (Auto) 1.0 x10^3/uL (0.0-1.1) Eosinophils # (Auto) 0.1 x10^3/uL (0.0-0.7) Basophils # (Auto) 0.1 x10^3/uL (0.0-0.2) Sodium Level 139 mmol/L (136-145) Potassium Level 4.0 mmol/L (3.5-5.1) Chloride Level 98 mmol/L (98-107) Carbon Dioxide Level 34 mmol/L (21-32) H Anion Gap 7 (6-14) Blood Urea Nitrogen 18 mg/dL (7-20) Creatinine 0.9 mg/dL (0.6-1.0) Estimated GFR (Cockcroft-Gault) 62.6 BUN/Creatinine Ratio 20 (6-20) Glucose Level 233 mg/dL (70-99) H Calcium Level 9.2 mg/dL (8.5-10.1) Total Bilirubin 1.0 mg/dL (0.2-1.0) Aspartate Amino Transferase (AST) 14 U/L (15-37) L Alanine Aminotransferase (ALT) 17 U/L (14-59) Alkaline Phosphatase 104 U/L (46-116) Total Protein 7.6 g/dL (6.4-8.2) Albumin 3.8 g/dL (3.4-5.0) Albumin/Globulin Ratio 1.0 (1.0-1.7) Lipase 99 U/L (73-393) Urine Color Yellow Urine Clarity Clear Urine pH 8.0 Urine Specific [place] 1.015 Urine Protein Negative mg/dL (NEG-TRACE) Urine Glucose (UA) 250 mg/dL (NEG) Urine Ketones (Stick) Negative mg/dL (NEG) Urine Blood Negative (NEG) Urine Nitrite Negative (NEG) Urine Bilirubin Negative (NEG) Urine Urobilinogen Dipstick 1.0 mg/dL (0.2 mg/dL) Urine Leukocyte Esterase Negative (NEG) Urine RBC 0 /HPF (0-2) Urine WBC 1-4 /HPF (0-4) Urine Squamous Epithelial Cells Occ /LPF Urine Bacteria Few /HPF (0-FEW) Lactic Acid Level 1.1 mmol/L (0.4-2.0) Troponin I Quantitative 0.023 ng/mL (0.000-0.055) XT-Qcy-R-Type Natriuretic Peptide 2958 pg/mL (0-124) H Laboratory Tests 11/20/18 18:50 Laboratory Tests 11/20/18 18:50 Microbiology 11/20/18 Blood Culture - Preliminary, Resulted NO GROWTH AFTER 3 DAYS (RENETTA MÉNDEZ DO) EKG EKG [] (VIGNESH PHAM) Radiology/Procedures Radiology/Procedures CT shows R sided pneumonia (VIGNESH PHAM) Course & Med Decision Making Course & Med Decision Making Pertinent Labs and Imaging studies reviewed. (See chart for details) Location of discomfort correlates with pneumonia found on imaging. Antibiotics started in ER, neb treatment and with leukocytosis and feeling quite ill, will admit to Dr. Lowry for further care. Spoke with him on the phone and he accepts admission. (VIGNESH PHAM) Dragon Disclaimer Dragon Disclaimer This electronic medical record was generated, in whole or in part, using a voice recognition dictation system. (VIGNESH PHAM) Departure Departure Impression: Primary Impression: Pneumonia Disposition: ADMITTED INPATIENT Admitting Physician: Jasper Lowry (VIGNESH PHAM) Condition: IMPROVED Referrals: JASPER LOWRY MD (PCP) Attending Signature Attending Signature I have reviewed the PA/PIECER's note and plan of care. I was available for consultation as needed during the patient's visit in the emergency department. I agree with the clinical impression, plan, and disposition. (RENETTA MÉNDEZ DO) VIGNESH PHAM November 20, 2018 20:09 RENETTA MÉNDEZ DO November 24, 2018 12:19
[2018-11-20] MEDS ORDERED: IOHEXOL 300 MG/ML 100ML VIAL. IV ONE (20:15)
[2018-11-20] MEDS ORDERED: CONTRAST GIVEN. MC PRN (20:30)
--- NOTE | 2018-11-20 20:52 | RAD ---
CT scan of the abdomen and pelvis with contrast 11/20/2018 CLINICAL HISTORY: Right upper quadrant abdominal pain. TECHNIQUE: After the intravenous administration 75 cc of Omnipaque 300, contiguous, 5 mm axial sections were obtained through the abdomen and pelvis. One or more of the following individualized dose reduction techniques were utilized for this study: 1. Automated exposure control. 2. Adjustment of the mA and/or kV according to patient size. 3. Use of iterative reconstruction technique. FINDINGS: Comparison study is dated 05/04/2009. Images through the lung bases demonstrate mild to moderate cardiomegaly. A right middle lobe infiltrate is seen which measures 6.7 cm in greatest diameter. Dependent subsegmental atelectasis is seen involving both lower lobes, right greater than left. A 5 mm calcified granuloma is seen involving the left lower lobe. The liver parenchyma has a decreased attenuation consistent with fatty infiltration. The spleen is mildly enlarged measuring 14.3 cm in length. The pancreas, adrenal glands and kidneys are within normal limits. Atherosclerotic calcification of the abdominal aorta is seen. The abdominal aorta is tortuous but tapers normally. The gallbladder is contracted. No free fluid or free air is seen within the abdomen. There is no evidence of bowel obstruction. Multiple diverticula are seen involving the colon. No inflammatory changes are seen in the adjacent fat. Images through the pelvis demonstrate the urinary bladder distended with urine. Calcifications are seen within the pelvis consistent with phleboliths. No free fluid is seen. No adnexal mass is noted. Degenerative changes are seen involving the thoracic and throughout the lumbar spine and both hips. IMPRESSION: 1. Right middle lobe infiltrate. 2. No acute abnormality is seen involving the abdomen or pelvis. Electronically signed by: Moses Slaughter MD (11/20/2018 8:49 PM) [facility]
[2018-11-20] MEDS ORDERED: cefTRIAXone IV Push 1 GM VIAL. IVP ONE (21:30)
[2018-11-20] MEDS ORDERED: AZITHROMYCIN 250 MG TABLET. PO ONE (21:30)
[2018-11-20] MEDS ORDERED: ALBUTEROL SULFATE 2.5 MG/3 ML NEBU. NEB ONE (21:30)
[2018-11-20] MEDS ORDERED: methylPREDNISolone SOD SUCC PF 125 MG/2 ML VIAL. IV ONE (21:30)
[2018-11-20] MEDS ORDERED: DEXTROSE 50% 25 GM / 50ML DISP.SYRIN. IV PRN (21:45)
[2018-11-20] MEDS ORDERED: fentaNYL PF VIAL 100 MCG/2 ML VIAL IV PRN (21:45)
[2018-11-20] MEDS ORDERED: ONDANSETRON PF 4 MG/2 ML VIAL. IV PRN (21:45)
[2018-11-20] MEDS ORDERED: BENZ200C47 PO (22:55)
[2018-11-20] MEDS ORDERED: FURO40TA4 PO (23:00)
[2018-11-20 23:30] VITALS: BP 119/48
--- NOTE | 2018-11-20 23:45 | RAD ---
PA and lateral chest radiographs 11/20/2018 CLINICAL HISTORY: Cough and right-sided chest pain. PA and lateral digital radiographs of the chest were obtained. Comparison study is dated 09/17/2018. The patient is post CABG procedure. The cardiac silhouette is mildly enlarged. Atherosclerotic calcification of thoracic aorta is seen. A right middle lobe infiltrate is seen. No pneumothorax or pleural effusion is noted. The osseous structures are unchanged. IMPRESSION: Right middle lobe infiltrate. Electronically signed by: Moses Slaughter MD (11/20/2018 11:42 PM) [facility]
[2018-11-21] MEDS: ATORVASTATIN CALCIUM 20 MG TABLET PO SCH ×2 (00:07→20:03)
[2018-11-21] MEDS: BENZONATATE 100 MG CAPSULE. PO SCH ×4 (00:07→20:03)
[2018-11-21] MEDS: hydroCHLOROthiazide 12.5 MG CAPSULE PO SCH ×2 (00:07→20:02)
[2018-11-21] MEDS: INSULIN GLARGINE 300 UNITS/3 ML INSULN.PEN. SQ SCH ×2 (00:15→20:11)
[2018-11-21 03:45] VITALS: BP 136/63
[2018-11-21] MEDS: LEVOTHYROXINE 100 MCG TABLET PO SCH (06:30)
[2018-11-21 07:05] VITALS: BP 130/63
[2018-11-21] MEDS: ASPIRIN ENTERIC COATED 81 MG TABLET.DR. PO SCH (08:00)
--- NOTE | 2018-11-21 08:00 | NUR ---
Rounded on patient; blanket given to patient per request.
[2018-11-21] MEDS: CARVEDILOL 3.125 MG TABLET. PO SCH ×2 (08:11→17:06)
[2018-11-21] MEDS: FUROSEMIDE 40 MG TABLET. PO SCH (08:11)
[2018-11-21] MEDS: MULTIVITAMIN with MINERAL TABLET. PO SCH (08:12)
[2018-11-21] MEDS: POTASSIUM CHLORIDE 10 MEQ TABLET.ER. PO SCH (08:13)
[2018-11-21] MEDS: INSULIN LISPRO 300 UNITS/3 ML INSULN.PEN. SQ SCH ×3 (08:20→17:52)
--- NOTE | 2018-11-21 08:30 | NUR ---
Rounded on patient; emptied BSC of urine.
[2018-11-21 11:00] VITALS: BP 127/48
--- NOTE | 2018-11-21 11:39 | HP ---
ADMIT DATE: 11/20/2018 CHIEF COMPLAINT AND HISTORY OF PRESENT ILLNESS: This is a 67-year-old white female, patient of Dr. Mike Garcia, admitted through the Emergency Room with right upper quadrant pain starting earlier on the day of admission upon awakening. She has had a little bit of a cough, which she has attributed to allergies for the last several days prior to this. She thought it was her gallbladder, was found to have a right middle lobe pneumonia in the Emergency Room and admitted for the same. PAST MEDICAL HISTORY: Remarkable for coronary artery disease, COPD, CHF, diabetes, hyperlipidemia, hypertension, hypothyroidism, pulmonary hypertension with home O2 use. PAST SURGICAL HISTORY: She has had a prior bilateral knee scopes, coronary artery bypass, tonsillectomy. MEDICATIONS: Brought with the patient, listed on the computer and have been addressed. ALLERGIES: She has no known drug allergies. SOCIAL HISTORY: Noncontributory. FAMILY HISTORY: Noncontributory. REVIEW OF SYSTEMS: Negative for shortness of breath, fevers, chills, any relation to her pain related to eating. She again has been coughing, but has attributed this to allergies. PHYSICAL EXAMINATION: GENERAL: She is a well-developed, well-nourished white female, in no acute distress. VITAL SIGNS: Stable. She is afebrile since admission. HEAD, EYES, EARS, NOSE AND THROAT: Unremarkable. O2 is in place. NECK: Supple without adenopathy or thyromegaly. CHEST: Clear to auscultation and percussion. HEART: Regular rate and rhythm without S3, S4, or murmur. ABDOMEN: Soft, nontender, without hepatosplenomegaly or masses. EXTREMITIES: Without cyanosis, clubbing, edema. NEUROLOGIC: She is intact. LABORATORY DATA: She does request a regular diet as she controls her sugars fine at home with the same. Initial white count is elevated at 13,400 with a left shift. Chemistry panel is unremarkable with the exception of a sugar of 233 and urinalysis is unremarkable. Imaging include CT scan of abdomen and pelvis with no intra-abdominal or pelvic pathology, but the right pneumonia. Chest x-ray shows right middle lobe infiltrate in addition. IMPRESSION: 1. Pneumonia. 2. Pain related to pneumonia. 3. Multiple other problems as listed above. PLAN: The patient has been admitted. Antibiotics will be ordered as only one dose was given in the Emergency Room and the patient will be monitored, managed and treated appropriately. LISA LEACH MD DR: Tara JOB#: [id number] / [id number]
--- NOTE | 2018-11-21 12:03 | NUR ---
Humalog sliding scale - Non-administered due to Dr. Rush ordered a One-time increased dose of 10 Units for BS=386 Addendum: 11/21/18 at 1726 by KAREEM RUIZ RN NIA NOLAN
[2018-11-21] MEDS: IPRATRPIUM/ALBUTEROL 0.5/2.5MG 3 ML NEBU. NEB SCH ×3 (12:06→20:06)
[2018-11-21] MEDS ORDERED: INSULIN LISPRO 300 UNITS/3 ML INSULN.PEN. SQ ONE ×2 (12:15→17:45)
--- NOTE | 2018-11-21 15:00 | NUR ---
Rounded on patient; emptied BSC of urine.
[2018-11-21 15:09] VITALS: BP 120/44
--- NOTE | 2018-11-21 17:26 | NUR ---
Paged Dr. Rush for additional insulin - OG=400. TORBV give 15 Units total, see eMar.
--- NOTE | 2018-11-21 18:30 | NUR ---
Patient requested pain medication for headache; paged Dr. Rush.
[2018-11-21 19:33] VITALS: BP 136/70
[2018-11-21] MEDS ORDERED: ACETAMINOPHEN 325 MG TABLET. PO PRN (19:45)
[2018-11-21] MEDS: LACTOBACILLUS RHAMNOSUS GG 1 CAPSULE. PO SCH (20:02)
[2018-11-21] MEDS: cefTRIAXone IV Push 1 GM VIAL. IVP SCH (20:03)
[2018-11-21] MEDS: AZITHROMYCIN 500 MG in IV NORMAL SALINE 250ML 250 ML IV SCH (20:12)
[2018-11-21] MEDS ORDERED: AZITHRMYCN 500MG IVPB FOR OMNI 250 ML IV SCH (21:00)
[2018-11-21 23:02] VITALS: BP 113/48
[2018-11-22 02:55] VITALS: BP 149/61
[2018-11-22] MEDS: LEVOTHYROXINE 100 MCG TABLET PO SCH (05:48)
[2018-11-22 07:00] VITALS: BP 128/63
[2018-11-22] MEDS: IPRATRPIUM/ALBUTEROL 0.5/2.5MG 3 ML NEBU. NEB SCH ×4 (07:21→20:00)
[2018-11-22] MEDS: ASPIRIN ENTERIC COATED 81 MG TABLET.DR. PO SCH (08:00)
[2018-11-22] MEDS: MULTIVITAMIN with MINERAL TABLET. PO SCH (08:30)
[2018-11-22] MEDS: LACTOBACILLUS RHAMNOSUS GG 1 CAPSULE. PO SCH ×2 (08:30→20:39)
[2018-11-22] MEDS: FUROSEMIDE 40 MG TABLET. PO SCH (08:31)
[2018-11-22] MEDS: BENZONATATE 100 MG CAPSULE. PO SCH ×3 (08:31→20:39)
[2018-11-22] MEDS: POTASSIUM CHLORIDE 10 MEQ TABLET.ER. PO SCH (08:31)
[2018-11-22] MEDS: CARVEDILOL 3.125 MG TABLET. PO SCH ×2 (08:32→17:40)
[2018-11-22] MEDS: INSULIN LISPRO 300 UNITS/3 ML INSULN.PEN. SQ SCH ×3 (08:42→17:46)
[2018-11-22 11:35] VITALS: BP 100/53
[2018-11-22] MEDS ORDERED: ACETAMINOPHEN 325 MG TABLET. PO PRN (11:45)
[2018-11-22] MEDS: DOCUSATE SODIUM 100 MG CAPSULE. PO SCH (12:02)
[2018-11-22 15:00] VITALS: BP 135/56
[2018-11-22 19:46] VITALS: BP 131/61
[2018-11-22] MEDS: ATORVASTATIN CALCIUM 20 MG TABLET PO SCH (20:39)
[2018-11-22] MEDS: hydroCHLOROthiazide 12.5 MG CAPSULE PO SCH (20:39)
[2018-11-22] MEDS: AZITHROMYCIN 500 MG in IV NORMAL SALINE 250ML 250 ML IV SCH (20:40)
[2018-11-22] MEDS: INSULIN GLARGINE 300 UNITS/3 ML INSULN.PEN. SQ SCH (20:46)
[2018-11-22] MEDS: cefTRIAXone IV Push 1 GM VIAL. IVP SCH (20:47)
[2018-11-22 23:49] VITALS: BP 146/78
--- NOTE | 2018-11-23 00:13 | PN ---
DATE: 11/22/2018 LOCATION OF THE PATIENT: She is in room 665. SUBJECTIVE: The patient is awake and alert but has not had a bowel movement in a couple of days and would like a stool softener and some Tylenol for headache and will comply with the same. She is still coughing. Her pain, however, in the right upper quadrant, right chest area has markedly decreased. OBJECTIVE: VITAL SIGNS: Stable. She is afebrile. She is awake and alert. CHEST: Essentially clear. HEART: Regular. ABDOMEN: Benign. She attributes her elevated blood sugars, which have been quite elevated to steroids and pneumonia, which I would agree as she states at home she usually runs very good blood sugars on her current regimen of just Lantus daily. IMPRESSION: 1. Right middle lobe pneumonia with resultant pain with improvement. 2. Diabetes with high blood sugars, likely related to infection and steroids. PLAN: We will continue to do sliding scale insulin in the interim and we will add Tylenol and Colace to her regimen. We will repeat a CBC with leukocytosis, present on admission and a chest x-ray tomorrow. LISA LEACH MD DR: JACQUE/vishnu JOB#: [id number] / [id number]
[2018-11-23 03:44] VITALS: BP 139/68
[2018-11-23] MEDS: LEVOTHYROXINE 100 MCG TABLET PO SCH (06:08)
[2018-11-23 07:00] VITALS: BP 124/59
[2018-11-23 07:20] LABS: BASO % 0 % (0-3); EOS # 0.1 x10^3/uL (0.0-0.7); EOS % 2 % (0-3); HEMATOCRIT 34.2 % (36.0-47.0); HEMOGLOBIN 11.8 g/dL (12.0-15.5); LYMPH # 1.7 x10^3/uL (1.0-4.8); LYMPH % 24 % (24-48); MEAN CORPUSCULAR HEMOGLOBIN 30 pg (25-35); MEAN CORPUSCULAR HGB CONC 35 g/dL (31-37); MEAN CORPUSCULAR VOLUME 86 fL (79-100); MONO # 0.6 x10^3/uL (0.0-1.1); MONO % 9 % (0-9); NEUT # 4.6 x10^3uL (1.8-7.7); NEUT % 65 % (31-73); PLATELET COUNT 193 x10^3/uL (140-400); RED BLOOD COUNT 3.95 x10^6/uL (3.50-5.40); RED CELL DISTRIBUTION WIDTH 16.4 % (11.5-14.5); WHITE BLOOD COUNT 7.1 x10^3/uL (4.0-11.0)
[2018-11-23] MEDS: IPRATRPIUM/ALBUTEROL 0.5/2.5MG 3 ML NEBU. NEB SCH ×4 (07:48→20:24)
--- NOTE | 2018-11-23 07:56 | PDOC ---
Provider Note Provider Note feels better ,less pleuritic pain, lots of sputum- rales RLL, labs ok, wbc lower- will review cxr, likely dc in am- needs to be in hospital re RT, dose of meds JASPER HANNAH MD November 23, 2018 07:56
--- NOTE | 2018-11-23 08:01 | RAD ---
Portable chest, 11/23/2018: HISTORY: Pneumonia Comparison is made to a study from 11/20/2018. There has been a previous median sternotomy. The heart is moderately enlarged. There is calcific plaquing of the aorta. The pulmonary vascularity is within normal limits. Right middle lobe infiltrate has largely cleared. No new pulmonary abnormality is seen. There is no evidence of pleural fluid. IMPRESSION: 1. Unchanged cardiomegaly. 2. Resolving right middle lobe infiltrate. Electronically signed by: Robbie Palomino MD (11/23/2018 7:58 AM) [facility]
[2018-11-23] MEDS: POTASSIUM CHLORIDE 10 MEQ TABLET.ER. PO SCH (08:30)
[2018-11-23] MEDS: FUROSEMIDE 40 MG TABLET. PO SCH (08:30)
[2018-11-23] MEDS: LACTOBACILLUS RHAMNOSUS GG 1 CAPSULE. PO SCH ×2 (08:31→20:42)
[2018-11-23] MEDS: ASPIRIN ENTERIC COATED 81 MG TABLET.DR. PO SCH (08:31)
[2018-11-23] MEDS: CARVEDILOL 3.125 MG TABLET. PO SCH ×2 (08:32→17:46)
[2018-11-23] MEDS: DOCUSATE SODIUM 100 MG CAPSULE. PO SCH (08:33)
[2018-11-23] MEDS: MULTIVITAMIN with MINERAL TABLET. PO SCH (08:33)
[2018-11-23 11:00] VITALS: BP 142/67
[2018-11-23 15:00] VITALS: BP 124/66
--- NOTE | 2018-11-23 15:17 | NUR ---
SW following pt for anticipated dc needs. Chart reviewed. Pt lives at home alone and denied need for PT/OT intervention. No other needs noted at this time.
--- NOTE | 2018-11-23 17:30 | NUR ---
Called Dr. Lowry RE: [phone]; waiting director of professional services back.
--- NOTE | 2018-11-23 17:52 | NUR ---
Telephone call back from Dr. Lowry RE: [phone] at dinner time; Dr. Lowry said the long-term blood sugar A1C is stable at < 7 and the current higher blood sugar is temporary due to health plan of care medications and/or health condition, therefore no further insulin orders are given at this time.
[2018-11-23 19:00] VITALS: BP 135/52
[2018-11-23] MEDS: ATORVASTATIN CALCIUM 20 MG TABLET PO SCH (20:41)
[2018-11-23] MEDS: hydroCHLOROthiazide 12.5 MG CAPSULE PO SCH (20:41)
[2018-11-23] MEDS: cefTRIAXone IV Push 1 GM VIAL. IVP SCH (20:42)
[2018-11-23] MEDS: INSULIN GLARGINE 300 UNITS/3 ML INSULN.PEN. SQ SCH (20:49)
[2018-11-23 23:00] VITALS: BP 124/51
[2018-11-24 03:01] VITALS: BP 122/58
[2018-11-24] MEDS: LEVOTHYROXINE 100 MCG TABLET PO SCH (05:07)
[2018-11-24 07:00] VITALS: BP 154/59
[2018-11-24] MEDS: IPRATRPIUM/ALBUTEROL 0.5/2.5MG 3 ML NEBU. NEB SCH (07:36)
--- NOTE | 2018-11-24 08:02 | PDOC ---
Provider Note Provider Note [id number] JASPER HANNAH MD November 24, 2018 08:02
[2018-11-24] MEDS: DOCUSATE SODIUM 100 MG CAPSULE. PO SCH (08:18)
[2018-11-24] MEDS: ASPIRIN ENTERIC COATED 81 MG TABLET.DR. PO SCH (08:18)
[2018-11-24] MEDS: FUROSEMIDE 40 MG TABLET. PO SCH (08:18)
[2018-11-24] MEDS: MULTIVITAMIN with MINERAL TABLET. PO SCH (08:18)
[2018-11-24 08:19] VITALS: BP 122/58
[2018-11-24] MEDS: CARVEDILOL 3.125 MG TABLET. PO SCH (08:19)
[2018-11-24] MEDS: LACTOBACILLUS RHAMNOSUS GG 1 CAPSULE. PO SCH (08:19)
[2018-11-24] MEDS: POTASSIUM CHLORIDE 10 MEQ TABLET.ER. PO SCH (08:19)
--- NOTE | 2018-11-24 09:48 | DS ---
DATE OF DISCHARGE: 11/24/2018 HOSPITAL SUMMARY: A 67-year-old white female with oxygen dependent COPD, presented with cough, pleuritic right-sided upper chest pain and evidence of right middle lobe pneumonia on chest x-ray. Chemistry profile was unremarkable except for elevated blood sugars. CBC and urine normal except for a blood sugar present. Blood culture had no growth. Chest x-ray showed a right middle lobe pneumonia, by the 20th was improving and abdominal CT was normal. She received IV Rocephin and azithromycin while in the hospital and is feeling better, afebrile and pain is largely resolved and comfortable to be followed as an outpatient at this point. FINAL DIAGNOSES: 1. Right middle lobe pneumonia. 2. Type 2 insulin-dependent diabetes mellitus. 3. Oxygen-dependent chronic obstructive pulmonary disease. OPERATIONS, PROCEDURES, COMPLICATIONS AND CONSULTATIONS: None. DISPOSITION: She will take Levaquin 500 mg daily for 5 more days as she has AN ALLERGY TO PENICILLIN. Office followup in 1-2 weeks with another chest x-ray to prove there is no postobstructive infiltrate persisting. She has had screening CTs in the past. No sign of lung cancer so far. Diabetes followup as well. JASPER HANNAH MD DR: EVANGELINA/vishnu JOB#: [id number] / [id number]
--- NOTE | 2018-11-24 10:30 | NUR ---
DISCHARGE INSTRUCTIONS GIVEN, QUESTIONS AND CONCERNS ANSWERED, PATIENT VERBALIZED UNDERSTANDING OF DISCHARGE INFORMATION INCLUDING TAKING ALL MEDICATIONS INSTRUCTED AND FOLLOWING UP WITH HER PRIMARY PROVIDER IN 1-2 WEEKS. SALINE LOCK REMOVED PER THIS [employer] ELECTRICAL DESIGNER, BANDAGE APPLIED.
--- NOTE | 2018-11-24 11:00 | NUR ---
PATIENT LEAVES THE UNIT PER W/C ACCOMPANIED BY THIS TALKBACK HOST AND HER DAUGHTER, EMOTIONAL SUPPORT GIVEN, F/U APPOINTMENTS ENCOURAGED.
== END 2018-11-24 11:00 | disposition home or self-care (01) | DRG 871 ==
LOC: ER 17:33 → 6 SOUTH 22:00
PROVIDERS: ADMIT Family Medicine; ATTEND Family Medicine
DX: A41.9 Sepsis, unspecified organism (principal); J18.1 Lobar pneumonia, unspecified organism; J44.0 Chronic obstructive pulmonary disease with (acute) lower respiratory infection; E11.9 Type 2 diabetes mellitus without complications; I50.9 Heart failure, unspecified; I11.0 Hypertensive heart disease with heart failure; I25.10 Atherosclerotic heart disease of native coronary artery without angina pectoris; E78.00 Pure hypercholesterolemia, unspecified; E78.5 Hyperlipidemia, unspecified; E03.9 Hypothyroidism, unspecified; I27.20 Pulmonary hypertension, unspecified; Z79.4 Long term (current) use of insulin; Z99.81 Dependence on supplemental oxygen; Z95.1 Presence of aortocoronary bypass graft
CPT/HCPCS: 36415; 71045; 71046; 74177; 80053; 81001; 82962; 83605; 83690; 83880; 84484; 85025; 87040; 94640; 94760; 96374; 96375; J0456; J0696; J1815; J2405; J2930; J3010; J7050; J7613; J7620; Q0144; Q9967; 99285-25; J7030

== ENCOUNTER → 2018-12-18 | Outpatient (CLI) | payer MEDICARE, BC ==
[2018-11-24 08:19] VITALS: BP 122/58
[~2018-12-18] MED LIST changes: +BENZ200C47 PO
--- NOTE | 2018-12-18 17:26 | KCIC ---
BILATERAL SCREENING MAMMOGRAM History: Routine screening. Comparison: Bilateral mammogram September 29, 2013. Technique: Routine bilateral digital mammogram views were obtained. Findings: Breast Tissue Density B : There are scattered areas of fibroglandular density. Arterial and nonarterial calcifications are redemonstrated. There are no dominant masses, suspicious microcalcifications, or architectural distortion. IMPRESSION: No mammographic evidence of malignancy. Recommend routine screening. BI-RADS category 2: Benign findings. The images were reviewed with computer aided detection. Patient information is entered into the reminder system with a target due date for the next screening mammogram. Mammography is the most sensitive method for finding small breast cancers, but it does not detect them all and is not a substitute for careful clinical examination. A negative mammogram does not negate a clinically suspicious finding and should not result in delay in biopsying a clinically suspicious abnormality. "Our facility is accredited by the [employer] Mammography Program." Electronically signed by: Moises Singh MD (12/18/2018 5:23 PM) [id number]
== END | disposition home or self-care (01) ==
LOC: KCIC MAMMO 09:48
PROVIDERS: ATTEND Obstetrics & Gynecology
DX: Z12.31 Encounter for screening mammogram for malignant neoplasm of breast (principal); N64.89 Other specified disorders of breast
CPT/HCPCS: 77067

== ENCOUNTER → 2018-12-18 | Outpatient (CLI) | payer MEDICARE, BC ==
[2018-11-24 08:19] VITALS: BP 122/58
--- NOTE | 2018-12-18 16:17 | KCIC ---
Limited abdominal ultrasound HISTORY: Right upper quadrant pain. FINDINGS: Pancreas, inferior vena cava and liver are poorly visualized due to body habitus and bowel gas. The visualized liver does appear to be enlarged at about 20 cm with heterogeneous echotexture compatible with fatty infiltration. No evidence of gallstone or gallbladder wall thickening. No evidence of biliary ductal dilatation. Right kidney measures 11.9 seen longitudinal without hydronephrosis. IMPRESSION: 1. Poor visualization of structures due to body habitus and bowel gas. 2. No evidence of gallstone or gallbladder wall thickening. 3. Hepatomegaly with steatosis. Abdominal aorta aneurysm screening ultrasound Proximal and mid aorta are patent and ectatic without gross aneurysm. Calcified atherosclerotic plaque is seen. The distal aorta is obscured by bowel gas and body habitus. The proximal common iliac arteries are visualized and are patent. IMPRESSION: No evidence of proximal or mid abdominal aortic aneurysm. Distal aorta not visualized due to bowel gas and body habitus. Electronically signed by: Andrey Lua MD (12/18/2018 4:15 PM) [id number]
== END | disposition home or self-care (01) ==
LOC: KCIC US 09:40
PROVIDERS: ATTEND Internal Medicine
DX: Z13.6 Encounter for screening for cardiovascular disorders (principal); E88.89 Other specified metabolic disorders; I77.819 Aortic ectasia, unspecified site; I70.0 Atherosclerosis of aorta; R16.0 Hepatomegaly, not elsewhere classified
CPT/HCPCS: 76705; 76770

== ENCOUNTER 2020-10-12 04:09 | Emergency (ER) | payer MEDICARE, BC ==
[~2020-10-12] VITALS: Ht 162.6 cm; Wt 113.3 kg
[~2020-10-12 04:09] MED LIST changes: +ALBU1.25 NEB; +APIX5TAB PO; +FLUT9.9S NS; +INSU100I17 SQ; +IPRA4AER IH; +LACT1CAP29 PO; +LACT1CAP6 PO; +LEVO-101 PO; +LEVO112T49 PO; +METO25TA4 PO; +MULT-245 PO; +MULT-445 PO; -MULT1TAB52 PO; +NAPR-695 PO
[2020-10-12] MEDS ORDERED: OXYMETAZOLINE 0.05% NASAL SPRAY 30ML BOTTLE. NS ONE (05:30)
--- NOTE | 2020-10-12 06:00 | PHYS DOC ---
Past Medical History Past Medical History: CAD, CHF, COPD, Diabetes-Type II, High Cholesterol, Heart Disease, Hypertension, Hypothyroid, Other Additional Past Medical Histor: home oxygen use, PULMONARY HYPERTENSION (ELIS BRAY DO) Past Surgical History: Coronary Bypass Surgery, Tonsillectomy, Other Additional Past Surgical Histo: bilat knee scope, heart cath (ELSI BRAY DO) Smoking Status: Former Smoker Alcohol Use: None Drug Use: None (ELSI BRAY DO) General Adult EDM: Chief Complaint: NOSEBLEED HPI: HPI: 69 yo F with multiple medical comorbidities, on home oxygen, presents the ED with complaints of right sided nosebleed that started around 130 this morning. Patient states she is not on humidified oxygen and while picking her nose her nosebleed started. Denies being on any blood thinners, has not required any hospitalizations. Daughter is present in ED and reports patient has a history of frequent nosebleeds. Is on 6L NC with no humidifier. Pt does not want rhino rocket. (ELSI BRAY DO) Review of Systems: Review of Systems: Constitutional: Denies fever or chills. [] Eyes: Denies change in visual acuity. [] HENT: Denies nasal congestion or sore throat. [] Respiratory: Denies cough or shortness of breath. [] Cardiovascular: Denies chest pain or edema. [] GI: Denies abdominal pain, nausea, vomiting, bloody stools or diarrhea. [] : Denies dysuria. [] Musculoskeletal: Denies back pain or joint pain. [] Integument: Denies rash. [] Neurologic: Denies headache, focal weakness or sensory changes. [] Endocrine: Denies polyuria or polydipsia. [] Lymphatic: Denies swollen glands. [] Psychiatric: Denies depression or anxiety. [] (ELSI BRAY DO) Heart Score: C/O Chest Pain: No Risk Factors: Risk Factors: DM, Current or recent (<one month) smoker, HTN, HLP, family history of CAD, obesity. Risk Scores: Score 0 - 3: 2.5% MACE over next 6 weeks - Discharge Home Score 4 - 6: 20.3% MACE over next 6 weeks - Admit for Clinical Observation Score 7 - 10: 72.7% MACE over next 6 weeks - Early Invasive Strategies (ELSI BRAY DO) C/O Chest Pain: N/A (CAIT PATTERSON MD) Current Medications: Current Medications Medications (Trade) Dose Ordered Sig/Hannah Start Time Stop Time Status Last Admin Dose Admin Oxymetazoline HCl (Afrin) 2 spray 1X ONCE 10/12/20 05:30 10/12/20 05:31 DC 10/12/20 05:13 2 SPRAY (ELSI BRAY DO) Allergies: Allergies: Allergies Coded Allergies Type Severity Reaction Last Updated Verified Penicillins Adverse Reaction Mild yeast infections 09/06/15 Yes (ELSI BRAY DO) Physical Exam: PE: Constitutional: Well developed, well nourished, no acute distress, non-toxic appearance. HENT: Normocephalic, atraumatic, left nare with no active bleeding, right nare with very scant blood in nare, no brisk bleeding in oropharynx-patient actively clearing blood clots Eyes: EOMI, conjunctiva normal, no discharge. Neck: Normal range of motion, supple, Cardiovascular: S1/2 present, regular rhythm Lungs & Thorax: Speaking in full sentences, bilateral equal chest rise, no tachypnea or increased work of breathing Skin: Warm, dry, no erythema, no rash. [] Extremities: No tenderness, no cyanosis, Neurologic: Alert and oriented X 3, normal motor function, normal sensory function, no focal deficits noted. [] Psychologic: Affect normal, judgement normal, mood normal. [] (ELSI BRAY DO) Current Patient Data: Vital Signs: Vital Signs Date Time Temp Pulse Resp B/P (MAP) Pulse Ox O2 Delivery O2 Flow Rate FiO2 10/12/20 05:10 70 22 96 10/12/20 04:20 98.6 123/56 (78) Nasal Cannula 6.0 98.6 (ELSI BRAY DO) EKG: EKG: [] (ELSI BRAY DO) Radiology/Procedures: Radiology/Procedures: [] (ELSI BRAY DO) Course & Med Decision Making: Course & Med Decision Making Pertinent Labs and Imaging studies reviewed. (See chart for details) Concern for right sided epistaxis, treated with afrin and direct pressure. At shift change patient coughed and blood clot was removed, started to rebleed. Patient is adamant against Rhino Rocket placement. Will order TXA and soaked either cotton ball or gauze and apply with direct pressure. Due to shift change patient was signed out to oncoming physician Dr. Patterson for further medical management and evaluation. (ELSI BRAY DO) Course & Med Decision Making Accepted care at shift change. Patient is still having nasal bleeding attempted to place packing infused with TXA, after 20 minutes was removed and patient continued having bleeding. Use a nasal speculum and attempted cauterization with silver nitrate stick, unable to reach the bleeding area. Patient is resistant to a Rhino Rocket placement. Discussed we will try 1 more time with packing with TXA. After that event observation patient is not bleeding. Discussed we will leave TXA infused packing in the nare due to her rebleeding. Patient stating that she has had a Rhino Rocket placed she will have to be admitted that she cannot manage this at home. Discussed that 24 hours should help and that she can have her primary care remove the packing in the office tomorrow. Discussed that she will need to use her humidifier for her oxygen as well as apply Vaseline to the septum her nares to prevent nosebleeds and drying out from oxygen. (CAIT PATTERSON MD) Dragon Disclaimer: Dragon Disclaimer: This electronic medical record was generated, in whole or in part, using a voice recognition dictation system. (ELSI BRAY DO) Departure Departure Impression: Primary Impression: Anterior epistaxis Disposition: 01 DC HOME SELF CARE/HOMELESS Condition: STABLE Referrals: JASPER HANNAH MD (PCP) Patient Instructions: Nosebleed ELSI BRAY DO Oct 12, 2020 06:00 CAIT PATTERSON MD Oct 12, 2020 09:01
[2020-10-12] MEDS ORDERED: TRANEXAMIC ACID 1,000 MG/10 ML VIAL. TOP ONE (06:30)
[2020-10-12 07:10] VITALS: BP 171/72
[2020-10-12] MEDS ORDERED: SILVER NITRATE STICK TP ONE (07:30)
== END 2020-10-12 09:15 | disposition home or self-care (01) ==
LOC: ER 04:09
DX: R04.0 Epistaxis (principal); I11.0 Hypertensive heart disease with heart failure; I50.9 Heart failure, unspecified; E11.9 Type 2 diabetes mellitus without complications; E03.9 Hypothyroidism, unspecified; J44.9 Chronic obstructive pulmonary disease, unspecified; Z90.89 Acquired absence of other organs; Z98.890 Other specified postprocedural states; Z87.891 Personal history of nicotine dependence; Z88.0 Allergy status to penicillin
CPT/HCPCS: 30901; 99285; J3490

== ENCOUNTER → 2021-02-12 | Outpatient (CLI) | payer MEDICARE, BC ==
[~2021-02-12] MED LIST changes: -LACT1CAP29 PO; +LACT1CAP37 PO
--- NOTE | 2021-02-12 15:07 | KCIC ---
CT of the chest without contrast: Clinical History: Reason: Mediastinal abnormality seen on recent outside study. / Spl. Instructions: Pt. on O2 / History: Past smoker of 40 yrs., quit 2006, SOA. Axial helical images of the chest were obtained without contrast. FINDINGS: There is a anterior mediastinal mass directly anterior to the superior vena cava that measures 6.6 cm x 6.9 cm x 7.3 cm. This slightly compresses the SVC. There is no fat plane between this mass and the SVC or the ascending aorta and this mass abuts the pleura anteriorly and medially. Linear opacities in the lung bases are likely discoid atelectasis. There is a nodular opacity in the left lung base that measures 1.1 x 1.7 cm. There is evidence of previous median sternotomy. There is significant coronary artery calcifications. The aorta has normal caliber. There is no discrete lymphadenopathy. Impression: 1. Large anterior mediastinal mass mildly compressing the SVC. This is likely primary lung cancer suc h as bronchogenic carcinoma. 2. Pulmonary nodule left lung base is nonspecific and could be discoid atelectasis or scar. A second primary cancer is not excluded. 3. Atherosclerotic disease and prior median sternotomy. End impression PQRS Compliance Statement: One or more of the following individualized dose reduction techniques were utilized for this examinat ion: 1. Automated exposure control 2. Adjustment of the mA and/or kV according to patient size 3. Use of iterative reconstruction technique Electronically signed by: Young Avery III, MD (02/12/2021 3:05 PM) [facility]
== END ==
LOC: KCIC CT 10:09
PROVIDERS: ATTEND Physician Assistant Medical
DX: R91.1 Solitary pulmonary nodule (principal); I25.10 Atherosclerotic heart disease of native coronary artery without angina pectoris; I70.90 Unspecified atherosclerosis; Q34.1 Congenital cyst of mediastinum
CPT/HCPCS: 71250

== ENCOUNTER 2021-03-01 08:47 | Outpatient (CLI) | payer MEDICARE, BC ==
[~2021-03-01] VITALS: Ht 162.6 cm; Wt 101.4 kg
[2021-03-01] VITALS (9 sets, daily range): BP systolic 117–178; BP diastolic 66–91
[~2021-03-01 08:47] MED LIST changes: +LIDOCAINE WITH 8.4% SOD BICARB 3 ML DISP.SYRIN. ONE
[2021-03-01 09:31] LABS: BASO # 0.1 x10^3/uL (0.0-0.2); BASO % 1 % (0-3); EOS # 0.2 x10^3/uL (0.0-0.7); EOS % 3 % (0-3); HEMATOCRIT 36.3 % (36.0-47.0); HEMOGLOBIN 12.3 g/dL (12.0-15.5); LYMPH # 1.3 x10^3/uL (1.0-4.8); LYMPH % 16 % (24-48); MEAN CORPUSCULAR HEMOGLOBIN 27 pg (25-35); MEAN CORPUSCULAR HGB CONC 34 g/dL (31-37); MEAN CORPUSCULAR VOLUME 81 fL (79-100); MONO # 0.7 x10^3/uL (0.0-1.1); MONO % 8 % (0-9); NEUT # 5.9 x10^3/uL (1.8-7.7); NEUT % 73 % (31-73); PLATELET COUNT 253 x10^3/uL (140-400); RED CELL DISTRIBUTION WIDTH 18.2 % (11.5-14.5); WHITE BLOOD COUNT 8.1 x10^3/uL (4.0-11.0)
[2021-03-01 09:39] LABS: BLOOD UREA NITROGEN 17 mg/dL (7-20); BUN/CREATININE RATIO 21 (6-20); CALCIUM 9.1 mg/dL (8.5-10.1); CARBON DIOXIDE > 45 mmol/L (21-32); CHLORIDE 95 mmol/L (98-107); CREATININE 0.8 mg/dL (0.6-1.0); GFR 71.1; GLUCOSE 158 mg/dL (70-99); POTASSIUM 3.8 mmol/L (3.5-5.1); SODIUM 137 mmol/L (136-145)
[2021-03-01 09:45] LABS: ALBUMIN 3.5 g/dL (3.4-5.0); ALBUMIN/GLOBULIN RATIO 1.2 (1.0-1.7); ALK PHOS 135 U/L (46-116); ALT (SGPT) 23 U/L (14-59); AST (SGOT) 17 U/L (15-37); TOTAL BILIRUBIN 0.7 mg/dL (0.2-1.0); TOTAL PROTEIN 6.5 g/dL (6.4-8.2)
[2021-03-01 09:47] LABS: PROTHROMBIN TIME PATIENT 13.8 SEC (11.7-14.0)
[2021-03-01] MEDS ORDERED: METO25TA4 PO (09:51)
[2021-03-01] MEDS ORDERED: MIDAZOLAM HCL/PF 2 MG/2 ML VIAL. ONE (10:22)
[2021-03-01] MEDS ORDERED: fentaNYL PF VIAL 100 MCG/2 ML VIAL ONE (10:22)
[2021-03-01] MEDS ORDERED: fentaNYL PF VIAL 100 MCG/2 ML VIAL IV ONE (10:45)
[2021-03-01] MEDS ORDERED: LIDOCAINE WITH 8.4% SOD BICARB 3 ML DISP.SYRIN. IJ ONE (10:45)
[2021-03-01] MEDS ORDERED: MIDAZOLAM HCL/PF 2 MG/2 ML VIAL. IV ONE (10:45)
--- NOTE | 2021-03-01 12:00 | NUR ---
Discharge Note: WILDA GRECO Discharge instructions and discharge home medications reviewed with Patient and daughter Adele; and a copy given. All questions have been answered and understanding verbalized. The following instructions and handouts were given: Moderate sedation and biopsy aftercare Discontinued lines and drains: left hand IV dc'd, tip intact, and bandage applied. Patient discharged to home with daughter and grandson via personal vehicle.
--- NOTE | 2021-03-02 08:32 | RAD ---
CT-guided biopsy, right mediastinal mass March 01, 2021 INDICATION: Mediastinal mass Consent: The procedure was explained in its entirety to the patient or the patients designated repres entative by a member of the treatment team, including a discussion of the risks, benefits and commonl y accepted alternatives to the procedure, as well as the expected consequences of no therapy whatsoev er. Discussion of the risks included, but was not limited to, those that are most frequent and thos e that are rare but possibly severe or life-threatening, as well as the possibility of unforeseen com plications. Discussion: The patient is rotated to the CT scanner and placed in the supine position. A timeout pro cedure was performed. CAD imaging redemonstrates a smoothly marginated anterior mediastinal mass shani uring approximately 7 cm in diameter. The overlying skin was prepped and draped using sterile barrier technique. 1% lidocaine was administered for local anesthesia. Under intermittent CT guidance a 17-g auge needle was advanced to the mass. Core biopsy samples were obtained and sent for culture, cytolog y, and flow cytometry. The guiding needle was removed. Manual pressure was held. Repeat CT demonstrat es no evidence of immediate complication. Sedation: The procedure was performed under conscious sedation including continuous cardiopulmonary m onitoring via a dedicated sedation nurse. Kqvy-xq-lzzt sedation time: 13 minutes IMPRESSION: CT-guided biopsy, anterior right mediastinal mass CT DOSING PQRS STATEMENT: One or more of the following individualized dose reduction techniques were utilized for this examinat ion: 1. Automated exposure control 2. Adjustment of the mA and/or kV according to patient size 3. Use of iterative reconstruction technique Electronically signed by: Ramy Daniels MD (03/02/2021 8:30 AM) [id number]
== END 2021-03-01 12:00 | disposition home or self-care (01) ==
LOC: INTRAD 08:47
PROVIDERS: ATTEND Internal Medicine Critical Care Medicine
DX: J98.59 Other diseases of mediastinum, not elsewhere classified (principal); R91.8 Other nonspecific abnormal finding of lung field; J44.9 Chronic obstructive pulmonary disease, unspecified; E11.9 Type 2 diabetes mellitus without complications; E03.9 Hypothyroidism, unspecified; F41.9 Anxiety disorder, unspecified; F32.9 Major depressive disorder, single episode, unspecified; M19.90 Unspecified osteoarthritis, unspecified site; I25.10 Atherosclerotic heart disease of native coronary artery without angina pectoris; I11.0 Hypertensive heart disease with heart failure; I50.9 Heart failure, unspecified; E78.00 Pure hypercholesterolemia, unspecified; Z87.01 Personal history of pneumonia (recurrent); Z87.891 Personal history of nicotine dependence; Z79.899 Other long term (current) drug therapy; Z95.1 Presence of aortocoronary bypass graft; Z98.890 Other specified postprocedural states
CPT/HCPCS: 32408; 36415; 80053; 85025; 85610; 87071; 87075; 99152; J2250; J3010; J3490; 88184; 88185

== ENCOUNTER 2021-05-07 15:26 | Inpatient (IN) | payer MEDICARE, BC ==
[~2021-05-07] VITALS: Ht 162.6 cm; Wt 104.3 kg
[~2021-05-07 15:26] MED LIST changes: -LIDOCAINE WITH 8.4% SOD BICARB 3 ML DISP.SYRIN. ONE; +LORA5TAB2 PO
[2021-05-07 16:37] LABS: BILIRUBIN,URINE NEGATIVE (NEG); CLARITY,URINE CLEAR; COLOR,URINE YELLOW; NITRITE,URINE NEGATIVE (NEG); PH,URINE 7.5 (<5.0-8.0); PROTEIN,URINE NEGATIVE (NEG-TRACE)
[2021-05-07 16:49] LABS: BASO % 1 % (0-3); EOS # 0.1 x10^3/uL (0.0-0.7); EOS % 1 % (0-3); HEMOGLOBIN 11.2 g/dL (12.0-15.5); LYMPH # 1.3 x10^3/uL (1.0-4.8); LYMPH % 16 % (24-48); MEAN CORPUSCULAR HEMOGLOBIN 27 pg (25-35); MEAN CORPUSCULAR HGB CONC 33 g/dL (31-37); MEAN CORPUSCULAR VOLUME 82 fL (79-100); MONO # 0.7 x10^3/uL (0.0-1.1); MONO % 9 % (0-9); NEUT # 5.9 x10^3/uL (1.8-7.7); NEUT % 74 % (31-73); PLATELET COUNT 223 x10^3/uL (140-400); RED BLOOD COUNT 4.13 x10^6/uL (3.50-5.40); RED CELL DISTRIBUTION WIDTH 18.2 % (11.5-14.5)
--- NOTE | 2021-05-07 16:53 | RAD ---
XR CHEST 1V History: Shortness of breath. Comparison: 05/02/2021. CT 02/12/2021. Technique: Portable AP radiograph of the chest. Findings: Lungs are adequately inflated. Large anterior right lung-mediastinal mass redemonstrated. There are a dditional bilateral basilar lung opacities. No pneumothorax. Enlarged cardiac silhouette. Postsurgica l changes from CABG. Degenerative changes of the shoulders. Soft tissues are unremarkable. Impression: 1. Redemonstrated large right lung-anterior mediastinal mass concerning for malignancy. 2. Bibasilar opacities may represent atelectasis or consolidation. Electronically signed by: Artem Hernandez MD (05/07/2021 4:50 PM) [id number]
[2021-05-07 16:58] LABS: PROTHROMBIN TIME PATIENT 13.6 SEC (11.7-14.0)
[2021-05-07 17:05] LABS: BACTERIA,URINE FEW /HPF (0-FEW)
[2021-05-07 17:06] LABS: RBC,URINE 0 /HPF (0-2)
--- NOTE | 2021-05-07 17:17 | PHYS DOC ---
Past Medical History Past Medical History: CAD, CHF, COPD, Diabetes-Type II, High Cholesterol, Heart Disease, Hypertension, Hypothyroid, Other Additional Past Medical Histor: home oxygen use, PULMONARY HYPERTENSION ,CABG 2013 Past Surgical History: Coronary Bypass Surgery, Tonsillectomy, Other Additional Past Surgical Histo: bilat knee scope, heart cath Smoking Status: Former Smoker Alcohol Use: None Drug Use: None General Adult EDM: Chief Complaint: SHORTNESS OF BREATH HPI: HPI: Patient is a 70 year [id number] female presents to the emergency department chief complaint of increased shortness of breath and lower extremity edema since being discharged from the hospital a few days ago. Patient reports she was admitted for CHF exacerbation, was discharged to home, reports her white spooler wanted her on a higher dose of Lasix and potassium however her primary care physician wanted her on a lower dose, she may have become confused on her dos ing, now thinks that she is in a COPD attack. Patient denies chest pain or chest discomfort, reports shortness of breath and lower extremity swelling. Patient denies recent fever or chills. Patient denies any cough worse than normal. Reports she has received the COVID-19 vaccination series. Patient denies other physical complaints or physical concerns. Review of Systems: Review of Systems: 14 body systems of review of systems have been reviewed. See HPI for pertinent positives and negative responses, otherwise all other systems are negative, nonpertinent or noncontributory. Constitutional: Negative except as outlined in HPI above. Skin: Negative except as outlined in HPI above. Eyes: Negative except as outlined in HPI above. HENT: Negative except as outlined in HPI above. Respiratory: Negative except as outlined in HPI above. Cardiovascular: Negative except as outlined in HPI above. GI: Negative except as outlined in HPI above. : Negative except as outlined in HPI above. Musculoskeletal: Negative except as outlined in HPI above. Integument: Negative except as outlined in HPI above. Neurologic: Negative except as outlined in HPI above. Endocrine: Negative except as outlined in HPI above. Lymphatic: Negative except as outlined in HPI above. Psychiatric: Negative except as outlined in HPI above. Heart Score: C/O Chest Pain: No Risk Factors: Risk Factors: DM, Current or recent (<one month) smoker, HTN, HLP, family history of CAD, obesity. Risk Scores: Score 0 - 3: 2.5% MACE over next 6 weeks - Discharge Home Score 4 - 6: 20.3% MACE over next 6 weeks - Admit for Clinical Observation Score 7 - 10: 72.7% MACE over next 6 weeks - Early Invasive Strategies Allergies: Allergies: Allergies Coded Allergies Type Severity Reaction Last Updated Verified Penicillins Adverse Reaction Mild yeast infections 09/06/15 Yes Physical Exam: PE: Constitutional: Well developed, well nourished, no acute distress, non-toxic appearance. 70-year-old female in no apparent distress. Patient is wearing nasal cannula at 3 L which she reports her normal setting at home. HENT: Normocephalic, atraumatic. Eyes: Conjunctiva normal, no discharge. Neck: Normal range of motion, no stridor. Cardiovascular: No cyanosis appreciated, distal cap refill less than 2 seconds. Lungs & Thorax: Patient does not appear to be in respiratory distress, no audible adventitious lung sounds appreciated however inspiratory/expiratory crackles are appreciated throughout lung berger per auscultation. The patient is not hypoxic. Is 100% on her normal 3 L O2 at all times per nasal cannula. Normal work of breathing Abdomen: Nontender, no abnormalities noted. Skin: Warm, dry, no erythema, no rash. Back: No tenderness, no deformities. Extremities: No tenderness, no cyanosis, no clubbing, ROM intact, bilateral 3+ pitting edema from knee to feet bilaterally. 1+ pedal pulses bilaterally. Distal cap refill is less than 2 seconds. Skin is intact. Neurologic: Alert and oriented X 3, normal motor function, normal sensory function, no focal deficits noted. Psychologic: Affect normal, judgement normal, mood normal. Current Patient Data: Labs: Laboratory Tests Test 05/07/21 16:25 05/07/21 16:40 Urine Collection Type Unknown Urine Color Yellow Urine Clarity Clear Urine pH 7.5 (<5.0-8.0) Urine Specific [place] 1.010 (1.000-1.030) Urine Protein Negative mg/dL (NEG-TRACE) Urine Glucose (UA) 250 mg/dL (NEG) Urine Ketones (Stick) Negative mg/dL (NEG) Urine Blood Negative (NEG) Urine Nitrite Negative (NEG) Urine Bilirubin Negative (NEG) Urine Urobilinogen Dipstick 1.0 mg/dL (0.2 mg/dL) Urine Leukocyte Esterase Negative (NEG) Urine RBC 0 /HPF (0-2) Urine WBC 1-4 /HPF (0-4) Urine Squamous Epithelial Cells Mod /LPF Urine Bacteria Few /HPF (0-FEW) White Blood Count 8.0 x10^3/uL (4.0-11.0) Red Blood Count 4.13 x10^6/uL (3.50-5.40) Hemoglobin 11.2 g/dL (12.0-15.5) L Hematocrit 34.0 % (36.0-47.0) L Mean Corpuscular Volume 82 fL (79-100) Mean Corpuscular Hemoglobin 27 pg (25-35) Mean Corpuscular Hemoglobin Concent 33 g/dL (31-37) Red Cell Distribution Width 18.2 % (11.5-14.5) H Platelet Count 223 x10^3/uL (140-400) Neutrophils (%) (Auto) 74 % (31-73) H Lymphocytes (%) (Auto) 16 % (24-48) L Monocytes (%) (Auto) 9 % (0-9) Eosinophils (%) (Auto) 1 % (0-3) Basophils (%) (Auto) 1 % (0-3) Neutrophils # (Auto) 5.9 x10^3/uL (1.8-7.7) Lymphocytes # (Auto) 1.3 x10^3/uL (1.0-4.8) Monocytes # (Auto) 0.7 x10^3/uL (0.0-1.1) Eosinophils # (Auto) 0.1 x10^3/uL (0.0-0.7) Basophils # (Auto) 0.0 x10^3/uL (0.0-0.2) Prothrombin Time 13.6 SEC (11.7-14.0) Prothrombin Time INR 1.0 (0.8-1.1) Laboratory Tests 05/07/21 16:40 Vital Signs: Vital Signs Date Time Temp Pulse Resp B/P (MAP) Pulse Ox O2 Delivery O2 Flow Rate FiO2 05/07/21 15:45 98.1 65 18 151/73 (99) 100 Nasal Cannula 3.0 98.1 EKG: EKG: EKG performed at 1654 by ED nursing staff shows a normal sinus rhythm, HI interval 0.230, QTc interval 0.427, heart rate 63 bpm, no acute STEMI, no ACS, no acute ischemia appreciated, EKG interpreted by ED attending physician Dr. Smith. Radiology/Procedures: Radiology/Procedures: PATIENT: WILDA GRECO ACCOUNT: [id number] : 1950 LOCATION: ER AGE: 70 SEX: F EXAM STATUS: PRE ER ORD. PHYSICIAN: RENETTA SCHULTZ APRN REASON: Shortness of breath PROCEDURE: CHEST AP ONLY XR CHEST 1V History: Shortness of breath. Comparison: 05/02/2021. CT 02/12/2021. Technique: Portable AP radiograph of the chest. Findings: Lungs are adequately inflated. Large anterior right lung-mediastinal mass redemonstrated. There are additional bilateral basilar lung opacities. No pneumothorax. Enlarged cardiac silhouette. Postsurgical changes from CABG. Degenerative changes of the shoulders. Soft tissues are unremarkable. Impression: 1. Redemonstrated large right lung-anterior mediastinal mass concerning for malignancy. 2. Bibasilar opacities may represent atelectasis or consolidation. Electronically signed by: Artem Hernandez MD (05/07/2021 4:50 PM) [id number] Course & Med Decision Making: Course & Med Decision Making Pertinent Labs and Imaging studies reviewed. (See chart for details) 70-year-old female, vital signs reviewed, presents emergency department concerning a C OPD exacerbation. Physical examination is consistent with patient's fears, will order chest x-ray, EKG, cardiac enzymes, to include BNP, CBC, CMP. PT INR. Patient has a history of type 2 diabetes, COPD, CHF and on 3 L nasal cannula at home. Patient is afebrile and hemodynamically stable satting 100% on her home O2 setting at 3 L per nasal cannula. Patient is not tachycardic and in normal work of breathing. However patient's proBNP elevated, with bilateral lower extremity pitting edema and inspiratory expiratory crackles lung sounds throughout recommended admission to the telemetry unit. Patient is amenable to ED planning. Called and discussed patient case and ED work-up with patient's primary care physician Dr. Hannah who agreed patient's case warrants admission to the telemetry unit, with patient in no apparent respiratory distress, discussed with Dr. Hannah chemistry levels along with pro-NT BNP, Dr. Hannah elected to defer immediate Lasix treatment at this time will reevaluate to consider further Lasix dosing. Patient awaiting room number from household worker at this time. Hannahon Disclaimer: Macy Disclaimer: This electronic medical record was generated, in whole or in part, using a voice recognition dictation system. Departure Departure Impression: Primary Impression: COPD exacerbation Disposition: ADMITTED INPATIENT (Admit to Jasper Hannah to telemetry unit for COPD exacerbation for) Admitting Physician: Jasper Hannah Condition: GUARDED Referrals: JASPER HANNAH MD (PCP) RENETTA SCHULTZ APRN May 07, 2021 17:17
[2021-05-07 17:40] LABS: CALCIUM 8.8 mg/dL (8.5-10.1); CREATININE 0.8 mg/dL (0.6-1.0); GFR 71.1; POTASSIUM 5.3 mmol/L (3.5-5.1)
[2021-05-07 17:46] LABS: ALBUMIN 3.1 g/dL (3.4-5.0); ALBUMIN/GLOBULIN RATIO 0.9 (1.0-1.7); TOTAL BILIRUBIN 0.7 mg/dL (0.2-1.0); TOTAL PROTEIN 6.7 g/dL (6.4-8.2)
[2021-05-07 17:57] LABS: CREATINE KINASE 45 U/L (26-192)
[2021-05-07] MEDS ORDERED: INSULIN GLARGINE SYRINGE. SQ SCH (21:40)
[2021-05-07] MEDS ORDERED: METOPROLOL TART IMMED RELEASE 25 MG TABLET. PO ONE (21:45)
[2021-05-07] MEDS: ATORVASTATIN CALCIUM 20 MG TABLET PO SCH (22:13)
[2021-05-07 23:30] VITALS: BP 186/86
[2021-05-08 03:14] VITALS: BP 135/70
--- NOTE | 2021-05-08 04:58 | EKG ---
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
[2021-05-08 07:00] VITALS: BP 129/59
[2021-05-08] MEDS: ALBUTEROL SULFATE 2.5 MG/3 ML NEBU. NEB SCH ×4 (08:30→21:11)
--- NOTE | 2021-05-08 08:55 | HP ---
DATE OF SERVICE: 05/08/2021 ADMIT DATE: 05/07/2021 CHIEF COMPLAINT: Swelling in legs. HISTORY OF PRESENT ILLNESS: The patient has a history of cor pulmonale, large mediastinal cyst, COPD and chronic edema. She was here last week for weakness which was felt to be due to hyponatremia from diuretic use, taking Lasix twice a day. This resolved with reduction in Lasix. She has had increasing swelling since then. She has used metolazone at home times in the past for swelling, but has not taken any for 2 weeks. In addition, she has a large mediastinal mass per CT and had a biopsy of this in February of this year, which apparently was inconclusive. She has seen a cardiovascular surgeon at [facility] and he declined surgical approach due to high risk. Etiology of this mass is not known to this dictator at this time. PAST MEDICAL HISTORY: Meds listed per the chart. No other serious medical problems. She has a good ejection fraction and cardiac history has been previously documented, atrial fibrillation and cor pulmonale. SOCIAL HISTORY: Quit smoking some years ago, lives alone, , nondrinker. FAMILY HISTORY: Unremarkable. REVIEW OF SYSTEMS: No other complaints. OBJECTIVE: ENT: All within normal limits. NECK: No masses, nodes or bruits. LUNGS: Decreased breath sounds. No wheezing or tachypnea. CARDIOVASCULAR: Regular rate. No irregular beat or murmur. ABDOMEN: Soft, benign and nontender. EXTREMITIES: 2+ pretibial edema diffusely. Good pedal pulses. No joint or skin lesions. NEUROLOGIC: Physiologic. ASSESSMENT: Edema primarily due to cor pulmonale from known chronic obstructive pulmonary disease. She also has mediastinal mass, was indeterminate, quite possibly malignancy but apparently was nonoperable. Known chronic obstructive pulmonary disease, oxygen dependent and other medical problems including mild diabetes, stable. PLAN: Per orders. We will add metolazone at this point. JOY DR: Dave TID: [id number]
[2021-05-08] MEDS: POTASSIUM CHLORIDE 10 MEQ TABLET.ER. PO SCH (09:00)
--- NOTE | 2021-05-08 09:23 | PDOC ---
PULMONARY PROGRESS NOTES DATE: 05/08/21 TIME: 09:22 Vitals Vital Signs Date Time Temp Pulse Resp B/P (MAP) Pulse Ox O2 Delivery O2 Flow Rate FiO2 05/08/21 08:00 Nasal Cannula 3.0 05/08/21 07:00 97.4 67 20 129/59 (82) 99 97.4 General: Alert, Oriented X4 Lungs: Clear Cardiovascular: S1, S2, Other Abdomen: Soft Extremities: No Edema Labs Laboratory Tests Test 05/07/21 16:25 05/07/21 16:40 05/07/21 19:20 05/08/21 08:08 Urine Collection Type Unknown Urine Color Yellow Urine Clarity Clear Urine pH 7.5 (<5.0-8.0) Urine Specific [place] 1.010 (1.000-1.030) Urine Protein Negative mg/dL (NEG-TRACE) Urine Glucose (UA) 250 mg/dL (NEG) Urine Ketones (Stick) Negative mg/dL (NEG) Urine Blood Negative (NEG) Urine Nitrite Negative (NEG) Urine Bilirubin Negative (NEG) Urine Urobilinogen Dipstick 1.0 mg/dL (0.2 mg/dL) Urine Leukocyte Esterase Negative (NEG) Urine RBC 0 /HPF (0-2) Urine WBC 1-4 /HPF (0-4) Urine Squamous Epithelial Cells Mod /LPF Urine Bacteria Few /HPF (0-FEW) White Blood Count 8.0 x10^3/uL (4.0-11.0) Red Blood Count 4.13 x10^6/uL (3.50-5.40) Hemoglobin 11.2 g/dL (12.0-15.5) Hematocrit 34.0 % (36.0-47.0) Mean Corpuscular Volume 82 fL (79-100) Mean Corpuscular Hemoglobin 27 pg (25-35) Mean Corpuscular Hemoglobin Concent 33 g/dL (31-37) Red Cell Distribution Width 18.2 % (11.5-14.5) Platelet Count 223 x10^3/uL (140-400) Neutrophils (%) (Auto) 74 % (31-73) Lymphocytes (%) (Auto) 16 % (24-48) Monocytes (%) (Auto) 9 % (0-9) Eosinophils (%) (Auto) 1 % (0-3) Basophils (%) (Auto) 1 % (0-3) Neutrophils # (Auto) 5.9 x10^3/uL (1.8-7.7) Lymphocytes # (Auto) 1.3 x10^3/uL (1.0-4.8) Monocytes # (Auto) 0.7 x10^3/uL (0.0-1.1) Eosinophils # (Auto) 0.1 x10^3/uL (0.0-0.7) Basophils # (Auto) 0.0 x10^3/uL (0.0-0.2) Prothrombin Time 13.6 SEC (11.7-14.0) Prothromb Time International Ratio 1.0 (0.8-1.1) Sodium Level 134 mmol/L (136-145) Potassium Level 5.3 mmol/L (3.5-5.1) Chloride Level 90 mmol/L (98-107) Carbon Dioxide Level 44 mmol/L (21-32) Anion Gap 0 (6-14) Blood Urea Nitrogen 20 mg/dL (7-20) Creatinine 0.8 mg/dL (0.6-1.0) Estimated GFR (Cockcroft-Gault) 71.1 BUN/Creatinine Ratio 25 (6-20) Glucose Level 283 mg/dL (70-99) Calcium Level 8.8 mg/dL (8.5-10.1) Total Bilirubin 0.7 mg/dL (0.2-1.0) Aspartate Amino Transf (AST/SGOT) 17 U/L (15-37) Alanine Aminotransferase (ALT/SGPT) 29 U/L (14-59) Alkaline Phosphatase 150 U/L (46-116) Creatine Kinase 45 U/L (26-192) Creatine Kinase MB (Mass) 2.0 ng/mL (0.0-3.6) Creatine Kinase MB Relative Index % (0-4) JR-Rnd-G-Type Natriuretic Peptide 4353 pg/mL (0-124) Total Protein 6.7 g/dL (6.4-8.2) Albumin 3.1 g/dL (3.4-5.0) Albumin/Globulin Ratio 0.9 (1.0-1.7) SARS-CoV-2 Antigen (Rapid) Negative (NEGATIVE) Glucose (Fingerstick) 153 mg/dL (70-99) Laboratory Tests Test 05/07/21 16:25 05/07/21 16:40 05/07/21 19:20 05/08/21 08:08 Urine Collection Type Unknown Urine Color Yellow Urine Clarity Clear Urine pH 7.5 (<5.0-8.0) Urine Specific [place] 1.010 (1.000-1.030) Urine Protein Negative mg/dL (NEG-TRACE) Urine Glucose (UA) 250 mg/dL (NEG) Urine Ketones (Stick) Negative mg/dL (NEG) Urine Blood Negative (NEG) Urine Nitrite Negative (NEG) Urine Bilirubin Negative (NEG) Urine Urobilinogen Dipstick 1.0 mg/dL (0.2 mg/dL) Urine Leukocyte Esterase Negative (NEG) Urine RBC 0 /HPF (0-2) Urine WBC 1-4 /HPF (0-4) Urine Squamous Epithelial Cells Mod /LPF Urine Bacteria Few /HPF (0-FEW) White Blood Count 8.0 x10^3/uL (4.0-11.0) Red Blood Count 4.13 x10^6/uL (3.50-5.40) Hemoglobin 11.2 g/dL (12.0-15.5) Hematocrit 34.0 % (36.0-47.0) Mean Corpuscular Volume 82 fL (79-100) Mean Corpuscular Hemoglobin 27 pg (25-35) Mean Corpuscular Hemoglobin Concent 33 g/dL (31-37) Red Cell Distribution Width 18.2 % (11.5-14.5) Platelet Count 223 x10^3/uL (140-400) Neutrophils (%) (Auto) 74 % (31-73) Lymphocytes (%) (Auto) 16 % (24-48) Monocytes (%) (Auto) 9 % (0-9) Eosinophils (%) (Auto) 1 % (0-3) Basophils (%) (Auto) 1 % (0-3) Neutrophils # (Auto) 5.9 x10^3/uL (1.8-7.7) Lymphocytes # (Auto) 1.3 x10^3/uL (1.0-4.8) Monocytes # (Auto) 0.7 x10^3/uL (0.0-1.1) Eosinophils # (Auto) 0.1 x10^3/uL (0.0-0.7) Basophils # (Auto) 0.0 x10^3/uL (0.0-0.2) Prothrombin Time 13.6 SEC (11.7-14.0) Prothromb Time International Ratio 1.0 (0.8-1.1) Sodium Level 134 mmol/L (136-145) Potassium Level 5.3 mmol/L (3.5-5.1) Chloride Level 90 mmol/L (98-107) Carbon Dioxide Level 44 mmol/L (21-32) Anion Gap 0 (6-14) Blood Urea Nitrogen 20 mg/dL (7-20) Creatinine 0.8 mg/dL (0.6-1.0) Estimated GFR (Cockcroft-Gault) 71.1 BUN/Creatinine Ratio 25 (6-20) Glucose Level 283 mg/dL (70-99) Calcium Level 8.8 mg/dL (8.5-10.1) Total Bilirubin 0.7 mg/dL (0.2-1.0) Aspartate Amino Transf (AST/SGOT) 17 U/L (15-37) Alanine Aminotransferase (ALT/SGPT) 29 U/L (14-59) Alkaline Phosphatase 150 U/L (46-116) Creatine Kinase 45 U/L (26-192) Creatine Kinase MB (Mass) 2.0 ng/mL (0.0-3.6) Creatine Kinase MB Relative Index % (0-4) TB-Ube-P-Type Natriuretic Peptide 4353 pg/mL (0-124) Total Protein 6.7 g/dL (6.4-8.2) Albumin 3.1 g/dL (3.4-5.0) Albumin/Globulin Ratio 0.9 (1.0-1.7) SARS-CoV-2 Antigen (Rapid) Negative (NEGATIVE) Glucose (Fingerstick) 153 mg/dL (70-99) Medications Active Scripts Medications Dose Route/Sig Max Daily Dose Days Date Category Dose Instructions Children's Claritin (Loratadine) 5 Mg Tab.chew 1 Tab PO DAILY 30 05/03/21 Reported Metoprolol Tartrate 25 Mg Tablet 0.5 Tab PO BID 03/01/21 Reported Lantus Solostar (Insulin Glargine,Hum.rec.anlog) 100 Unit/1 Ml Insuln.pen 50 Unit SQ QHS 30 09/14/19 Rx Synthroid (Levothyroxine Sodium) 100 Mcg Tablet 100 Mcg PO DAILY06 30 09/13/19 Rx Take in combination with 112mcg tablet to equal 212mcg daily Levothyroxine Sodium 112 Mcg Tablet 112 Mcg PO DAILY06 30 09/13/19 Rx Take in combination with 100mcg tablet to equal 212mcg daily Albuterol Sulfate Neb Soln (Albuterol Sulfate) 1.25 Mg/3 Ml Vial.neb 1 Vial NEB Q6HRS 09/11/19 Reported Combivent Respimat Inhal (Ipratropium/Albuterol Sulfate) 4 Gm Aer.w.adap 2 Inh IH PRN DAILY PRN 09/11/19 Reported Pravastatin Sodium 80 Mg Tablet 1 Tab PO QHS 09/11/19 Reported Multi Vitamin Daily (Multivitamin) 1 Each Tablet 1 Tab PO DAILY 30 09/11/19 Reported Klor-Con 10 (Potassium Chloride) 10 Meq Tablet.er 10 Meq PO DAILY 03/05/14 Reported Impression . FULL CONSULT DICTATED THANKS WILLIAM CANELA MD May 08, 2021 09:23
[2021-05-08] MEDS: LEVOTHYROXINE 100 MCG TABLET PO SCH (09:35)
[2021-05-08] MEDS: METOPROLOL TART IMMED RELEASE 25 MG TABLET. PO SCH ×2 (09:35→19:57)
[2021-05-08] MEDS: LEVOTHYROXINE 112 MCG TABLET PO SCH (09:35)
[2021-05-08] MEDS: metOLazone 2.5 MG TABLET PO SCH (09:35)
[2021-05-08 11:00] VITALS: BP 146/76
--- NOTE | 2021-05-08 11:41 | NUR ---
SS following for discharge planning. SS reviewed pt chart and discussed with pt RN. Pt is from home and is currently requiring oxygen at three liters nasal canula. COVID19 negative. Pt has home oxygen. SS will continue to follow for discharge planning.
[2021-05-08] MEDS ORDERED: NON FORMULARY ITEM (Albuterol Sulfate (Albuterol Sulfate Neb Soln) 1 VIAL) NEB SCH (12:00)
--- NOTE | 2021-05-08 12:03 | NUR ---
Telemetry strips interpreted by MADELAINE Reddy
[2021-05-08] MEDS: FUROSEMIDE 40 MG TABLET. PO SCH (13:04)
[2021-05-08 15:00] VITALS: BP 152/61
[2021-05-08 19:00] VITALS: BP 146/77
[2021-05-08] MEDS: ATORVASTATIN CALCIUM 20 MG TABLET PO SCH (19:57)
--- NOTE | 2021-05-08 20:34 | CONS ---
DATE OF CONSULTATION: 05/08/2021 ATTENDING PHYSICIAN: Dr. Mike Lowry. CONSULTING PHYSICIAN: Shayne Kamara MD REASON FOR CONSULTATION: The patient is seen in pulmonary consultation at the request of Dr. Lowry for increasing shortness of breath. HISTORY OF PRESENT ILLNESS: The patient is a 70-year-old that follows Dr. Willis in the office. She has underlying history of severe pulmonary hypertension, who normally follows at [facility]. She has mild sleep apnea, does not require CPAP, wears 3 liters of oxygen supplementation. In the past, she has had abnormal CT chest, which revealed a large anterior mediastinal mass, mildly compressing the superior vena cava. The patient presented today with increasing shortness of breath, lower extremity edema. She has been compliant with Lasix. She quit tobacco 40 years ago. She has no fever, chills, night sweats. No COVID-19 exposures. She has been vaccinated against COVID-19. PAST MEDICAL HISTORY: Severe pulmonary hypertension, mild obstructive sleep apnea. Previous history of abnormal CT chest revealing mediastinal mass. She has had previous biopsy, which was nondiagnostic, she had coronary artery bypass grafting in 2013. PAST SURGICAL HISTORY: Coronary artery bypass grafting, tonsillectomy. SOCIAL HISTORY: She quit tobacco 4 years ago. REVIEW OF SYSTEMS: As indicated above, otherwise a 10-point system was reviewed and negative. FAMILY HISTORY: Noncontributory. CURRENT MEDICATIONS: List was reviewed. PHYSICAL EXAMINATION: VITAL SIGNS: Stable. O2 saturation currently on 3 liters was greater than 92%. HEENT: Eyes, the sclerae were nonicteric. NECK: Unable to assess JVD secondary to body habitus. No lymphadenopathy. CHEST: Full expansion. LUNGS: Adequate flow with no wheezes. CARDIOVASCULAR: Regular rate and rhythm with S1, S2, no S3. ABDOMEN: Soft, obese. EXTREMITIES: 1+ edema. LABORATORY DATA: Serology for COVID-19 was negative. Electrolytes were noted. Potassium was 5.3, white count was 8.0. Chest x-ray reviewed, some bibasilar opacities, infiltrates. There is a large right lung mediastinal mass. IMPRESSION: 1. Progressive dyspnea secondary to acute on chronic cor pulmonale. 2. Previously abnormal CT chest revealing a large anterior mediastinal mass. The patient has had a previous CT-guided biopsy, which was nondiagnostic. 3. Obesity. 4. Mild obstructive sleep apnea. 5. Severe pulmonary hypertension. 6. Chronic respiratory failure. 7. Chronic obstructive pulmonary disease. PLAN: 1. Recommend continue diuresis. 2. Continue oxygen supplementation. 3. The patient to follow up in the office with Dr. iWllis regarding her anterior mediastinal mass, she had previous evaluation by a thoracic surgeon. It was felt that she was not an operative candidate considering her comorbidities. I do appreciate the privilege in sharing in this patient's care. JONE DR: Ramin TID: [id number]
[2021-05-08] MEDS ORDERED: NON FORMULARY ITEM (Pravastatin Sodium 1 TAB) PO SCH (21:00)
[2021-05-08] MEDS: INSULIN GLARGINE SYRINGE. SQ SCH (21:19)
[2021-05-08 22:38] VITALS: BP 133/54
[2021-05-09 02:25] VITALS: BP 134/78
[2021-05-09] MEDS: LEVOTHYROXINE 112 MCG TABLET PO SCH (05:27)
[2021-05-09] MEDS: LEVOTHYROXINE 100 MCG TABLET PO SCH (05:28)
[2021-05-09 07:00] VITALS: BP 134/67
[2021-05-09] MEDS: ALBUTEROL SULFATE 2.5 MG/3 ML NEBU. NEB SCH ×4 (07:29→21:01)
--- NOTE | 2021-05-09 07:46 | PDOC ---
Provider Note Date of Service: DATE: 05/09/21 TIME: 07:45 Provider Note good diuresis on metolozone, vss, lab pending- vss, no change in exam- will use metolozone 1 more day, likely dc in am Justifications for Admission Other Justification JASPER HANNAH MD May 09, 2021 07:46
[2021-05-09] MEDS: POTASSIUM CHLORIDE 10 MEQ TABLET.ER. PO SCH (07:59)
[2021-05-09] MEDS: METOPROLOL TART IMMED RELEASE 25 MG TABLET. PO SCH ×2 (08:01→20:08)
[2021-05-09] MEDS: FUROSEMIDE 40 MG TABLET. PO SCH (08:02)
[2021-05-09] MEDS: metOLazone 2.5 MG TABLET PO SCH (08:02)
[2021-05-09 08:48] LABS: CALCIUM 8.4 mg/dL (8.5-10.1); CREATININE 0.6 mg/dL (0.6-1.0); GFR 99.1
[2021-05-09] MEDS ORDERED: FLU VACC QUAD 21-22 (6MOS+) PF 0.5 ML SYRINGE. VAX IM ONE (09:00)
[2021-05-09] MEDS ORDERED: FUROSEMIDE 40 MG TABLET. PO SCH (09:00)
--- NOTE | 2021-05-09 09:19 | PDOC ---
PULMONARY PROGRESS NOTES DATE: 05/09/21 TIME: 09:19 Subjective Patient no better today continues to be short of breath, not responding to oral diuresis Vitals Vital Signs Date Time Temp Pulse Resp B/P (MAP) Pulse Ox O2 Delivery O2 Flow Rate FiO2 05/09/21 08:01 74 134/78 05/09/21 08:00 Nasal Cannula 3.0 05/09/21 07:29 97 05/09/21 07:00 98.3 20 98.3 ROS: No Nausea, No Chest Pain, No Abdominal Pain, No Increase Cough General: Alert Lungs: Crackles Cardiovascular: S1, S2, Other Abdomen: Soft Neuro Exam: Alert Extremities: Other (Marked edema) Skin: Warm Labs Laboratory Tests Test 05/07/21 16:25 05/07/21 16:40 05/07/21 19:20 05/08/21 08:08 Urine Collection Type Unknown Urine Color Yellow Urine Clarity Clear Urine pH 7.5 (<5.0-8.0) Urine Specific [place] 1.010 (1.000-1.030) Urine Protein Negative mg/dL (NEG-TRACE) Urine Glucose (UA) 250 mg/dL (NEG) Urine Ketones (Stick) Negative mg/dL (NEG) Urine Blood Negative (NEG) Urine Nitrite Negative (NEG) Urine Bilirubin Negative (NEG) Urine Urobilinogen Dipstick 1.0 mg/dL (0.2 mg/dL) Urine Leukocyte Esterase Negative (NEG) Urine RBC 0 /HPF (0-2) Urine WBC 1-4 /HPF (0-4) Urine Squamous Epithelial Cells Mod /LPF Urine Bacteria Few /HPF (0-FEW) White Blood Count 8.0 x10^3/uL (4.0-11.0) Red Blood Count 4.13 x10^6/uL (3.50-5.40) Hemoglobin 11.2 g/dL (12.0-15.5) Hematocrit 34.0 % (36.0-47.0) Mean Corpuscular Volume 82 fL (79-100) Mean Corpuscular Hemoglobin 27 pg (25-35) Mean Corpuscular Hemoglobin Concent 33 g/dL (31-37) Red Cell Distribution Width 18.2 % (11.5-14.5) Platelet Count 223 x10^3/uL (140-400) Neutrophils (%) (Auto) 74 % (31-73) Lymphocytes (%) (Auto) 16 % (24-48) Monocytes (%) (Auto) 9 % (0-9) Eosinophils (%) (Auto) 1 % (0-3) Basophils (%) (Auto) 1 % (0-3) Neutrophils # (Auto) 5.9 x10^3/uL (1.8-7.7) Lymphocytes # (Auto) 1.3 x10^3/uL (1.0-4.8) Monocytes # (Auto) 0.7 x10^3/uL (0.0-1.1) Eosinophils # (Auto) 0.1 x10^3/uL (0.0-0.7) Basophils # (Auto) 0.0 x10^3/uL (0.0-0.2) Prothrombin Time 13.6 SEC (11.7-14.0) Prothromb Time International Ratio 1.0 (0.8-1.1) Sodium Level 134 mmol/L (136-145) Potassium Level 5.3 mmol/L (3.5-5.1) Chloride Level 90 mmol/L (98-107) Carbon Dioxide Level 44 mmol/L (21-32) Anion Gap 0 (6-14) Blood Urea Nitrogen 20 mg/dL (7-20) Creatinine 0.8 mg/dL (0.6-1.0) Estimated GFR (Cockcroft-Gault) 71.1 BUN/Creatinine Ratio 25 (6-20) Glucose Level 283 mg/dL (70-99) Calcium Level 8.8 mg/dL (8.5-10.1) Total Bilirubin 0.7 mg/dL (0.2-1.0) Aspartate Amino Transf (AST/SGOT) 17 U/L (15-37) Alanine Aminotransferase (ALT/SGPT) 29 U/L (14-59) Alkaline Phosphatase 150 U/L (46-116) Creatine Kinase 45 U/L (26-192) Creatine Kinase MB (Mass) 2.0 ng/mL (0.0-3.6) Creatine Kinase MB Relative Index % (0-4) NH-Ojr-Y-Type Natriuretic Peptide 4353 pg/mL (0-124) Total Protein 6.7 g/dL (6.4-8.2) Albumin 3.1 g/dL (3.4-5.0) Albumin/Globulin Ratio 0.9 (1.0-1.7) SARS-CoV-2 RNA (THEODORE) Negative (Negative) SARS-CoV-2 Antigen (Rapid) Negative (NEGATIVE) Glucose (Fingerstick) 153 mg/dL (70-99) Test 05/08/21 11:18 05/08/21 16:35 05/08/21 21:09 05/09/21 07:45 Glucose (Fingerstick) 227 mg/dL (70-99) 282 mg/dL (70-99) 329 mg/dL (70-99) Sodium Level 135 mmol/L (136-145) Potassium Level 3.0 mmol/L (3.5-5.1) Chloride Level 90 mmol/L (98-107) Carbon Dioxide Level 44 mmol/L (21-32) Anion Gap 1 (6-14) Blood Urea Nitrogen 18 mg/dL (7-20) Creatinine 0.6 mg/dL (0.6-1.0) Estimated GFR (Cockcroft-Gault) 99.1 Glucose Level 74 mg/dL (70-99) Calcium Level 8.4 mg/dL (8.5-10.1) Laboratory Tests Test 05/08/21 11:18 05/08/21 16:35 05/08/21 21:09 05/09/21 07:45 Glucose (Fingerstick) 227 mg/dL (70-99) 282 mg/dL (70-99) 329 mg/dL (70-99) Sodium Level 135 mmol/L (136-145) Potassium Level 3.0 mmol/L (3.5-5.1) Chloride Level 90 mmol/L (98-107) Carbon Dioxide Level 44 mmol/L (21-32) Anion Gap 1 (6-14) Blood Urea Nitrogen 18 mg/dL (7-20) Creatinine 0.6 mg/dL (0.6-1.0) Estimated GFR (Cockcroft-Gault) 99.1 Glucose Level 74 mg/dL (70-99) Calcium Level 8.4 mg/dL (8.5-10.1) Medications Active Scripts Medications Dose Route/Sig Max Daily Dose Days Date Category Dose Instructions Children's Claritin (Loratadine) 5 Mg Tab.chew 1 Tab PO DAILY 30 05/03/21 Reported Metoprolol Tartrate 25 Mg Tablet 0.5 Tab PO BID 03/01/21 Reported Lantus Solostar (Insulin Glargine,Hum.rec.anlog) 100 Unit/1 Ml Insuln.pen 50 Unit SQ QHS 30 09/14/19 Rx Synthroid (Levothyroxine Sodium) 100 Mcg Tablet 100 Mcg PO DAILY06 09/13/19 Rx Take in combination with 112mcg tablet to equal 212mcg daily Levothyroxine Sodium 112 Mcg Tablet 112 Mcg PO DAILY06 09/13/19 Rx Take in combination with 100mcg tablet to equal 212mcg daily Albuterol Sulfate Neb Soln (Albuterol Sulfate) 1.25 Mg/3 Ml Vial.neb 1 Vial NEB Q6HRS 09/11/19 Reported Combivent Respimat Inhal (Ipratropium/Albuterol Sulfate) 4 Gm Aer.w.adap 2 Inh IH PRN DAILY PRN 09/11/19 Reported Pravastatin Sodium 80 Mg Tablet 1 Tab PO QHS 09/11/19 Reported Multi Vitamin Daily (Multivitamin) 1 Each Tablet 1 Tab PO DAILY 30 09/11/19 Reported Klor-Con 10 (Potassium Chloride) 10 Meq Tablet.er 10 Meq PO DAILY 03/05/14 Reported Impression . IMPRESSION: 1. Progressive dyspnea secondary to acute on chronic cor pulmonale. 2. Previously abnormal CT chest revealing a large anterior mediastinal mass. The patient has had a previous CT-guided biopsy, which was nondiagnostic. 3. Obesity. 4. Mild obstructive sleep apnea. 5. Severe pulmonary hypertension. 6. Chronic respiratory failure. 7. Chronic obstructive pulmonary disease. Plan . Updated 05/09 diuresis Continue oxygen supplementation Apparently patient has had previous right heart catheterization confirming pulmonary hypertension, she did not respond to vasodilators. May need referral to a tertiary center for pulmonary hypertension, will discuss with Dr. Willis upon discharge PLAN: 1. Recommend continue diuresis. 2. Continue oxygen supplementation. 3. The patient to follow up in the office with Dr. Willis regarding her anterior mediastinal mass, she had previous evaluation by a thoracic surgeon. It was felt that she was not an operative candidate considering her comorbidities. I do appreciate the privilege in sharing in this patient's care. WILLIAM CANELA MD May 09, 2021 09:19
[2021-05-09 11:00] VITALS: BP 123/65
--- NOTE | 2021-05-09 11:57 | NUR ---
NURSING FOR SS PT REQUESTS SOME ASSISTANCE WITH SECURING IN-HOME HELP UPON DISCHARGE.
--- NOTE | 2021-05-09 12:35 | PDOC2 ---
SHY PARRISH [employer] 05/09/21 1235: CARDIAC CONSULT DATE OF CONSULT Date of Consult DATE: 05/09/21 TIME: 12:15 REASON FOR CONSULT Reason for Consult: CHF REFERRING PHYSICIAN Referring Physician: Alen SOURCE Source: Chart review, Patient HISTORY OF PRESENT ILLNESS HISTORY OF PRESENT ILLNESS This is a 70 yo female admitted for complains of increasing SOA and leg swelling. She was here on 05/02 for CHF but was cardiology was not consulted at that time and discharged on 05/05. She is now back with same symptoms as it was a week ago. No fever or chills. She has been vaccinated. Denies any chest pain or palpitations. No dizziness or passing out. PAST MEDICAL HISTORY Past Medical History Cardiovascular: CAD, HTN, Hyperlipidemia, Pulmonary hypertension, cardiomyopathy, severe pulmonary HTN, PAFIB Pulmonary: COPD CENTRAL NERVOUS SYSTEM: No pertinent history Psych: Depression Musculoskeletal: Osteoarthritis, Other Endocrine: Diabetes, Hypothyroidism PAST SURGICAL HISTORY Past Surgical History Arthroscopy, CABG FAMILY HISTORY Family History: Coronary Artery Disease SOCIAL HISTORY Smoke: No ALCOHOL: none Drugs: None Lives: with Family CURRENT MEDICATIONS CURRENT MEDICATIONS Current Medications Medications (Trade) Dose Ordered Sig/Hannah Route PRN Reason Start Time Stop Time Status Last Admin Dose Admin Influenza Virus Vaccine Quadrival (Flulaval Quad [id number] Syringe) 0.5 ml ONCE ONCE VAX IM 05/09/21 09:00 05/09/21 09:01 DC 05/09/21 08:04 Insulin Glargine (Lantus Syringe) 50 unit QHS SQ 05/08/21 21:00 05/08/21 21:19 Furosemide (Lasix) 40 mg DAILY PO 05/08/21 13:00 05/09/21 08:02 ALLERGIES ALLERGIES: Coded Allergies: Penicillins (Verified Adverse Reaction, Mild, yeast infections, 09/06/15) ROS Review of System 14 point ROS evaluated with pertinent positives noted per HPI PHYSICAL EXAM General: Alert, Oriented X3, Cooperative, No acute distress HEENT: Atraumatic, Mucous membr. moist/pink Lungs: Other (diminished throughout) Heart: Regular rate (SR), Other (distant heart sounds) Abdomen: Soft, No tenderness Extremities: No cyanosis, Other (3-4+ bilateral LE pitting edema) Skin: No breakdown Neuro: Normal speech, Sensation intact Psych/Mental Status: Mental status NL, Mood NL MUSCULOSKELETAL: Osteoarthritic changes both hands VITALS/I&O VITALS/I&O: Vital Signs Date Time Temp Pulse Resp B/P (MAP) Pulse Ox O2 Delivery O2 Flow Rate FiO2 05/09/21 11:20 Nasal Cannula 3.0 05/09/21 11:00 98.1 83 20 123/65 (84) 91 98.1 l I & O 05/08/21 05/08/21 05/09/21 15:00 23:00 07:00 Intake Total 400 ml 300 ml Output Total 125 ml 1050 ml 600 ml Balance -125 ml -650 ml -300 ml LABS Lab: Laboratory Tests Test 05/08/21 16:35 05/08/21 21:09 05/09/21 07:45 05/09/21 11:37 Glucose (Fingerstick) 282 mg/dL (70-99) H 329 mg/dL (70-99) H 152 mg/dL (70-99) H Sodium Level 135 mmol/L (136-145) L Potassium Level 3.0 mmol/L (3.5-5.1) L Chloride Level 90 mmol/L (98-107) L Carbon Dioxide Level 44 mmol/L (21-32) H Anion Gap 1 (6-14) L Blood Urea Nitrogen 18 mg/dL (7-20) Creatinine 0.6 mg/dL (0.6-1.0) Estimated GFR (Cockcroft-Gault) 99.1 Glucose Level 74 mg/dL (70-99) Calcium Level 8.4 mg/dL (8.5-10.1) L Laboratory Tests 05/09/21 07:45 ECHOCARDIOGRAM ECHOCARDIOGRAM <Conclusion> Left ventricle systolic function is mildly impaired. The Ejection Fraction is 45%. There is a flattened interventricular septum consistent with right ventricle volume/pressure overload. Transmitral Doppler flow pattern is Grade II-pseudonormal filling dynamics. Trace mitral regurgitation. Mild tricuspid regurgitation. There is severe pulmonary hypertension. The PA pressure was estimated at 97 mmHg. There is no evidence of significant pericardial effusion. DATE: 09/28/19 1423 STRESS TEST STRESS TEST Conclusion 1. Regadenoson cardioisotope stress test did not show any evidence of ischemia or infarct. 2. Normal left ventricular systolic function with ejection fraction calculated at 69%. 3. Low risk for cardiac events. DATE: 10/06/18 1315 HEART CATH HEART CATH FINDINGS 1. Intracardiac pressures: Mean right atrial pressure 15 mmHg, right ventricular pressure 107/16 mmHg, coronary artery pressure 103/28 mmHg with mean PA pressure 57 mmHg and primary capillary wedge pressure 6 mmHg. Pulmonary vascular resistance 9 Wood units. This is consistent with severe pulmonary hypertension. 2. Oxygen saturations: Right atrium 67.9%, pulmonary artery 71.8%. No evidence of intracardiac shunt. 3. Cardiac output by thermodilution method 5.6 L/m and by Hilary method 4.2 L/m. 4. Vasoreactivity testing after intravenous adenosine infusion per protocol did not show any change in the mean PA pressure. Conclusion Severe pulmonary hypertension without any Vasoreactivity. No evidence of intracardial shunt. Recommendations Medical Therapy DATE: 11/02/181423 ASSESSMENT/PLAN ASSESSMENT/PLAN 1. Acute on chronic cor pulmonale 2. Acute on chronic systolic/diastolic CHF 3. COPD with severe pulmonary HTN 4. CAD: past CABG, clinically stable 5. Anterior mediastinal mass: followed by pulmonary 6. HTN controlled 7. DM2/HLP 8. PAFIB: Maintaining SR Recommendations 1. Lasix therapy 2. Continue metoprolol. ASA for stroke prevention. Eliquis was discontinued before due to significant epistaxis 3. Will need LAAO, she will be following up with for this 4. Secondary prevention measures 5. TTE today HAYLIE CAO MD 05/09/212030: CARDIAC CONSULT ASSESSMENT/PLAN ASSESSMENT/PLAN Patient seen and examined. Agree with DIRECTOR OF SPECIAL SERVICES's assessment and plan. Continue gentle diuresis for acute on chronic diast HF/cor pulmonale 2D echo showed normal LV systolic function with severe pulm HTN She was evaluated at [facility] pulm HTN clinic in the past - meds proved expensive for her She did receive watchman device at [facility] and is being followed by [facility] CAD clinically stable Thank you for your consultation SHY PARRISH APRN May 09, 2021 12:35 HAYLIE CAO MD May 09, 2021 20:31
[2021-05-09] MEDS ORDERED: POTASSIUM CHLORIDE 20 MEQ TABLET.ER. PO ONE (12:45)
[2021-05-09] MEDS: ASPIRIN ENTERIC COATED 81 MG TABLET.DR. PO SCH (13:13)
[2021-05-09] MEDS ORDERED: FUROSEMIDE 40 MG/4 ML VIAL. IVP ONE (13:15)
--- NOTE | 2021-05-09 14:47 | NUR ---
SS following up with discharge planning. SS reviewed pt chart and discussed with pt RN. Pt is currently requiring oxygen at three liters nasal canula. COVID19 negative. Pt has home oxygen. Pulmonology following. Pt has 3+ edema. Cardiology consulted. Pt on PO Lasix. TTE ordered. SS will continue to follow for discharge planning.
[2021-05-09 15:00] VITALS: BP 142/83
--- NOTE | 2021-05-09 16:51 | CARD ---
MR#: [id number] Date of Study: 05/09/2021 Ordering Physician: SHY PARRISH, Referring Physician: SHY PARRISH Tech: Malu Toussaint [facility] APPROVED REPORT EXAM: Two-dimensional and M-mode echocardiogram with Doppler and color Doppler. Other Information Quality : Technically LimitedHR: 93bpm Rhythm : NSR INDICATION Congestive Heart Failure RISK FACTORS Hypertension Obesity Smoking 2D DIMENSIONS RVDd4.2 (2.9-3.5cm)Left Atrium(2D)4.4 (1.6-4.0cm) IVSd1.3 (0.7-1.1cm)Aortic Root(2D)2.8 (2.0-3.7cm) LVDd3.7 (3.9-5.9cm)LVOT Diameter2.1 (1.8-2.4cm) PWd1.6 (0.7-1.1cm)LVDs1.5 (2.5-4.0cm) FS (%) 58.9 %SV52.1 ml LVEF(%)89.2 (>50%) Aortic Valve AoV Peak Thor.206.6cm/sAoV VTI38.4cm AO Peak GR.17.1mmHgLVOT Peak Thor.130.5cm/s AO Mean GR.8mmHgAVA (VMAX)2.16cm2 Mitral Valve MV E Macyxnkq331.2cm/sMV DECEL YRMR841st MV A Vmtmakxo998.6cm/sE/A Ratio1.2 Pulmonary Valve PV Peak Nxgfvwew063.7cm/s Tricuspid Valve TR P. Wlqryvxr371gi/sTR Peak Gr.63mmHg LEFT VENTRICLE The left ventricle is normal size. There is mild to moderate concentric left ventricular hypertrophy. The left ventricular systolic function is normal. Estimated ejection fraction 55% Transmitral Doppl er flow pattern is Grade II-pseudonormal filling dynamics. RIGHT VENTRICLE The right ventricle is moderately dilated. There is flattening of the ventricular septum demonstratin g right ventricular volume/pressure overload. The right ventricle is mildly hypertrophied. Systolic f unction is mildly reduced. AORTIC VALVE The aortic valve is normal in structure and function. Doppler and Color Flow revealed no significant aortic regurgitation. There is no significant aortic valvular stenosis. MITRAL VALVE The mitral valve is normal in structure and function. There is no evidence of mitral valve prolapse. There is no mitral valve stenosis. Doppler and Color Flow revealed no mitral valve regurgitation note d. TRICUSPID VALVE The tricuspid valve is normal in structure and function. Doppler and Color Flow revealed trace to mil d tricuspid regurgitation. Estimated PAP 77-80 mmHg. There is no tricuspid valve stenosis. GREAT VESSELS The aortic root is normal in size. The ascending aorta is normal in size. The IVC is dilated and martinez apses <50% with inspiration. PERICARDIAL EFFUSION There is no evidence of significant pericardial effusion. Critical Notification Critical Value: No <Conclusion> The left ventricular systolic function is normal. Estimated ejection fraction 55% Flattening of interventricular septum consistent with RV pressure/volume overload. Mild tricuspid regurgitation. Severe pulmonary hypertension with estimated PAP 77-80 mmHg. There is no evidence of significant pericardial effusion. Signed by : Socrates Krause, Electronically Approved : 05/09/2021 16:50:39
[2021-05-09 19:00] VITALS: BP 138/59
[2021-05-09] MEDS: ATORVASTATIN CALCIUM 20 MG TABLET PO SCH (20:07)
[2021-05-09] MEDS: INSULIN GLARGINE SYRINGE. SQ SCH (20:10)
[2021-05-09 22:11] VITALS: BP 144/71
[2021-05-10] VITALS (7 sets, daily range): BP systolic 105–148; BP diastolic 49–76
[2021-05-10] MEDS: LEVOTHYROXINE 100 MCG TABLET PO SCH (04:24)
[2021-05-10] MEDS: LEVOTHYROXINE 112 MCG TABLET PO SCH (04:24)
[2021-05-10] MEDS: ALBUTEROL SULFATE 2.5 MG/3 ML NEBU. NEB SCH ×4 (08:37→20:37)
[2021-05-10] MEDS ORDERED: FUROSEMIDE 40 MG/4 ML VIAL. IVP SCH ×2 (09:00→16:00)
[2021-05-10] MEDS: metOLazone 2.5 MG TABLET PO SCH (09:00)
--- NOTE | 2021-05-10 09:01 | PDOC ---
Provider Note Date of Service: DATE: 05/10/21 TIME: 09:00 Provider Note GOOD DIURESIS, k+ DOWN TO 3- WILL ADD MORE KCL USING DAILY METOLOZONE- SHE WANTS TO CONSIDER REHAB SHE LIVES ALONE, PT CONSULTED- GOOD ECHO NOTED Justifications for Admission Other Justification JASPER HANNAH MD May 10, 2021 09:01
--- NOTE | 2021-05-10 09:18 | PDOC ---
PULMONARY PROGRESS NOTES DATE: 05/10/21 TIME: 09:18 Subjective Patient feels better, responding to diuresis. Vitals Vital Signs Date Time Temp Pulse Resp B/P (MAP) Pulse Ox O2 Delivery O2 Flow Rate FiO2 05/10/21 08:39 96 Nasal Cannula 3.0 05/10/21 07:00 98.0 72 18 124/51 (75) 98.0 ROS: No Nausea, No Chest Pain, No Abdominal Pain, No Increase Cough General: Alert Lungs: Crackles Cardiovascular: S1, S2, Other Abdomen: Soft Neuro Exam: Alert Extremities: Other (Marked edema) Skin: Warm Labs Laboratory Tests Test 05/08/21 11:18 05/08/21 16:35 05/08/21 21:09 05/09/21 07:45 Glucose (Fingerstick) 227 mg/dL (70-99) 282 mg/dL (70-99) 329 mg/dL (70-99) Sodium Level 135 mmol/L (136-145) Potassium Level 3.0 mmol/L (3.5-5.1) Chloride Level 90 mmol/L (98-107) Carbon Dioxide Level 44 mmol/L (21-32) Anion Gap 1 (6-14) Blood Urea Nitrogen 18 mg/dL (7-20) Creatinine 0.6 mg/dL (0.6-1.0) Estimated GFR (Cockcroft-Gault) 99.1 Glucose Level 74 mg/dL (70-99) Calcium Level 8.4 mg/dL (8.5-10.1) Test 05/09/21 11:37 05/09/21 16:47 05/09/21 19:56 05/10/21 06:37 Glucose (Fingerstick) 152 mg/dL (70-99) 246 mg/dL (70-99) 289 mg/dL (70-99) 56 mg/dL (70-99) Test 05/10/21 06:45 05/10/21 07:18 Glucose (Fingerstick) 58 mg/dL (70-99) 103 mg/dL (70-99) Laboratory Tests Test 05/09/21 11:37 05/09/21 16:47 05/09/21 19:56 05/10/21 06:37 Glucose (Fingerstick) 152 mg/dL (70-99) 246 mg/dL (70-99) 289 mg/dL (70-99) 56 mg/dL (70-99) Test 05/10/21 06:45 05/10/21 07:18 Glucose (Fingerstick) 58 mg/dL (70-99) 103 mg/dL (70-99) Medications Active Scripts Medications Dose Route/Sig Max Daily Dose Days Date Category Dose Instructions Children's Claritin (Loratadine) 5 Mg Tab.chew 1 Tab PO DAILY 30 05/03/21 Reported Metoprolol Tartrate 25 Mg Tablet 0.5 Tab PO BID 03/01/21 Reported Lantus Solostar (Insulin Glargine,Hum.rec.anlog) 100 Unit/1 Ml Insuln.pen 50 Unit SQ QHS 30 09/14/19 Rx Synthroid (Levothyroxine Sodium) 100 Mcg Tablet 100 Mcg PO DAILY06 09/13/19 Rx Take in combination with 112mcg tablet to equal 212mcg daily Levothyroxine Sodium 112 Mcg Tablet 112 Mcg PO DAILY06 09/13/19 Rx Take in combination with 100mcg tablet to equal 212mcg daily Albuterol Sulfate Neb Soln (Albuterol Sulfate) 1.25 Mg/3 Ml Vial.neb 1 Vial NEB Q6HRS 09/11/19 Reported Combivent Respimat Inhal (Ipratropium/Albuterol Sulfate) 4 Gm Aer.w.adap 2 Inh IH PRN DAILY PRN 09/11/19 Reported Pravastatin Sodium 80 Mg Tablet 1 Tab PO QHS 09/11/19 Reported Multi Vitamin Daily (Multivitamin) 1 Each Tablet 1 Tab PO DAILY 30 09/11/19 Reported Klor-Con 10 (Potassium Chloride) 10 Meq Tablet.er 10 Meq PO DAILY 03/05/14 Reported Impression . IMPRESSION: 1. Progressive dyspnea secondary to acute on chronic cor pulmonale. 2. Previously abnormal CT chest revealing a large anterior mediastinal mass. The patient has had a previous CT-guided biopsy, which was nondiagnostic. 3. Obesity. 4. Mild obstructive sleep apnea. 5. Severe pulmonary hypertension. 6. Chronic respiratory failure. 7. Chronic obstructive pulmonary disease. Plan . Updated 05/10 Continue diuresis Discussed with Dr. Willis Continue oxygen supplementation Updated 05/09 diuresis Continue oxygen supplementation Apparently patient has had previous right heart catheterization confirming pulmonary hypertension, she did not respond to vasodilators. May need referral to a tertiary center for pulmonary hypertension, will discuss with Dr. Willis upon discharge PLAN: 1. Recommend continue diuresis. 2. Continue oxygen supplementation. 3. The patient to follow up in the office with Dr. Willis regarding her anterior mediastinal mass, she had previous evaluation by a thoracic surgeon. It was felt that she was not an operative candidate considering her comorbidities. I do appreciate the privilege in sharing in this patient's care. WILLIAM CANELA MD May 10, 2021 09:18
[2021-05-10] MEDS: METOPROLOL TART IMMED RELEASE 25 MG TABLET. PO SCH ×2 (10:16→21:12)
[2021-05-10] MEDS: POTASSIUM CHLORIDE 10 MEQ TABLET.ER. PO SCH ×3 (10:18→21:13)
[2021-05-10] MEDS: ASPIRIN ENTERIC COATED 81 MG TABLET.DR. PO SCH (10:18)
--- NOTE | 2021-05-10 11:01 | PDOC ---
SHY PARRISH CONCILIATOR 05/10/21 1101: CARDIO Progress Notes Date and Time Date of Service 05/10/2021 Time of Evaluation 1040 Subjective Subjective: No Chest Pain, No shortness of breath, No Palpitations Vitals Vitals Vital Signs Date Time Temp Pulse Resp B/P (MAP) Pulse Ox O2 Delivery O2 Flow Rate FiO2 05/10/21 10:45 98.3 69 18 140/63 (88) 93 Nasal Cannula 3.0 98.3 Weight Weight [ ] Input and Output Intake and Output Intake and Output 05/10/21 07:00 Intake Total 1070 ml Output Total 3350 ml Balance -2280 ml Intake Oral 1070 ml Output Urine Total 3350 ml # Voids 2 Laboratory Labs Laboratory Tests Test 05/09/21 11:37 05/09/21 16:47 05/09/21 19:56 05/10/21 06:37 Glucose (Fingerstick) 152 mg/dL (70-99) 246 mg/dL (70-99) 289 mg/dL (70-99) 56 mg/dL (70-99) Test 05/10/21 06:45 05/10/21 07:18 Glucose (Fingerstick) 58 mg/dL (70-99) 103 mg/dL (70-99) Physical Exam HEENT: Neck Supple W Full Motion Chest: Symmetric LUNGS: Other (diminished) Heart: RRR (SR) Abdomen: Soft N/T Extremities: Other (4+ bilateral LE pitting edema) Neurology: alert, oriented, follow commands Assessment Assessment 1. Acute on chronic cor pulmonale 2. Acute on chronic diastolic CHF: EF is nml 3. COPD with severe pulmonary HTN: follow with [facility] unable to afford [facility] meds 4. CAD: past CABG, clinically stable 5. Anterior mediastinal mass: followed by pulmonary 6. HTN controlled 7. DM2/HLP 8. PAFIB: Maintaining SR. S/P watchman device follows with Recommendations 1. Lasix therapy, BMP 2. Continue metoprolol. Continue ASA. Eliquis was discontinued before due to significant epistaxis 3. Secondary prevention measures Justicifation of Admission Dx: Justifications for Admission: Justification of Admission Dx: Yes HAYLIE CAO MD 05/11/21 0833: CARDIO Progress Notes Assessment Assessment Patient seen and examined 05/10/2021. Agree with CHANGE CONTROL ANALYST's assessment and plan. Continue gentle diuresis for acute on chronic diast HF/cor pulmonale 2D echo showed normal LV systolic function with severe pulm HTN She was evaluated at pulm HTN clinic in the past - meds proved expensive for her She did receive watchman device at [facility] and is being followed by [facility] CAD clinically stable SHY PARRISH APRN May 10, 2021 11:01 HAYLIE CAO MD May 11, 2021 08:33
[2021-05-10 11:34] LABS: BLOOD UREA NITROGEN 18 mg/dL (7-20); CALCIUM 8.4 mg/dL (8.5-10.1); CHLORIDE 86 mmol/L (98-107); CREATININE 0.7 mg/dL (0.6-1.0); GLUCOSE 171 mg/dL (70-99); POTASSIUM 3.4 mmol/L (3.5-5.1); SODIUM 135 mmol/L (136-145)
[2021-05-10 11:35] LABS: CARBON DIOXIDE > 45 mmol/L (21-32)
[2021-05-10] MEDS: FUROSEMIDE 40 MG/4 ML VIAL. IVP SCH ×2 (11:45→16:02)
--- NOTE | 2021-05-10 13:32 | NUR ---
SS following up with discharge planning. SS reviewed pt chart and discussed with pt RN. Pt is currently requiring oxygen at three liters nasal canula. COVID19 negative. Pt has home oxygen. Cardiology and Pulmonology consulted. Pt on IV Lasix. PT ordered. SS will continue to follow for discharge planning.
[2021-05-10] MEDS ORDERED: INSULIN GLARGINE SYRINGE. SQ SCH (21:00)
[2021-05-10] MEDS: ATORVASTATIN CALCIUM 20 MG TABLET PO SCH (21:12)
[2021-05-11 02:24] VITALS: BP 138/71
[2021-05-11] MEDS: POTASSIUM CHLORIDE 10 MEQ TABLET.ER. PO SCH ×3 (04:04→21:04)
[2021-05-11] MEDS: LEVOTHYROXINE 100 MCG TABLET PO SCH (04:04)
[2021-05-11] MEDS: LEVOTHYROXINE 112 MCG TABLET PO SCH (04:04)
[2021-05-11 07:15] VITALS: BP 121/62
[2021-05-11] MEDS: ALBUTEROL SULFATE 2.5 MG/3 ML NEBU. NEB SCH ×4 (07:42→20:36)
--- NOTE | 2021-05-11 08:09 | PDOC ---
Provider Note Date of Service: DATE: 05/11/21 TIME: 08:07 Provider Note vss, good diuresis w/ dual diuretics- bmp still ok, K+ better- she wants to consider REHAB, rest same Justifications for Admission Other Justification JASPER HANNAH MD May 11, 2021 08:09
[2021-05-11] MEDS: FUROSEMIDE 40 MG/4 ML VIAL. IVP SCH ×5 (08:11→21:03)
[2021-05-11] MEDS: metOLazone 2.5 MG TABLET PO SCH (08:11)
[2021-05-11] MEDS: ASPIRIN ENTERIC COATED 81 MG TABLET.DR. PO SCH (08:11)
[2021-05-11] MEDS: METOPROLOL TART IMMED RELEASE 25 MG TABLET. PO SCH ×2 (08:12→21:05)
--- NOTE | 2021-05-11 08:17 | NUR ---
NURSING PT REFUSED DOSE OF IV LASIX THIS AM. STATES "I FEEL SO DRY. LILLIANE CAN BE UPSET IF HE WANTS."
--- NOTE | 2021-05-11 08:32 | PDOC ---
PULMONARY PROGRESS NOTES DATE: 05/11/21 TIME: 08:32 Subjective Patient with productive cough, continues to be short of breath Vitals Vital Signs Date Time Temp Pulse Resp B/P (MAP) Pulse Ox O2 Delivery O2 Flow Rate FiO2 05/11/21 08:12 94 121/62 05/11/21 07:42 99 Nasal Cannula 3.0 05/11/21 07:15 99.0 18 99.0 ROS: No Nausea, No Chest Pain, No Abdominal Pain, No Increase Cough General: Alert Lungs: Crackles Cardiovascular: S1, S2, Other Abdomen: Soft Neuro Exam: Alert Extremities: Other (Marked edema) Skin: Warm Labs Laboratory Tests Test 05/09/21 11:37 05/09/21 16:47 05/09/21 19:56 05/10/21 06:37 Glucose (Fingerstick) 152 mg/dL (70-99) 246 mg/dL (70-99) 289 mg/dL (70-99) 56 mg/dL (70-99) Test 05/10/21 06:45 05/10/21 07:18 05/10/21 11:08 05/10/21 11:39 Glucose (Fingerstick) 58 mg/dL (70-99) 103 mg/dL (70-99) 208 mg/dL (70-99) Sodium Level 135 mmol/L (136-145) Potassium Level 3.4 mmol/L (3.5-5.1) Chloride Level 86 mmol/L (98-107) Carbon Dioxide Level > 45 mmol/L (21-32) Anion Gap (6-14) Blood Urea Nitrogen 18 mg/dL (7-20) Creatinine 0.7 mg/dL (0.6-1.0) Estimated GFR (Cockcroft-Gault) 83.0 Glucose Level 171 mg/dL (70-99) Calcium Level 8.4 mg/dL (8.5-10.1) Magnesium Level 1.9 mg/dL (1.8-2.4) Test 05/10/21 17:18 05/10/21 20:27 05/11/21 06:25 05/11/21 07:07 Glucose (Fingerstick) 171 mg/dL (70-99) 344 mg/dL (70-99) 166 mg/dL (70-99) Potassium Level 3.0 mmol/L (3.5-5.1) Laboratory Tests Test 05/10/21 11:08 05/10/21 11:39 05/10/21 17:18 05/10/21 20:27 Sodium Level 135 mmol/L (136-145) Potassium Level 3.4 mmol/L (3.5-5.1) Chloride Level 86 mmol/L (98-107) Carbon Dioxide Level > 45 mmol/L (21-32) Anion Gap (6-14) Blood Urea Nitrogen 18 mg/dL (7-20) Creatinine 0.7 mg/dL (0.6-1.0) Estimated GFR (Cockcroft-Gault) 83.0 Glucose Level 171 mg/dL (70-99) Calcium Level 8.4 mg/dL (8.5-10.1) Magnesium Level 1.9 mg/dL (1.8-2.4) Glucose (Fingerstick) 208 mg/dL (70-99) 171 mg/dL (70-99) 344 mg/dL (70-99) Test 05/11/21 06:25 05/11/21 07:07 Potassium Level 3.0 mmol/L (3.5-5.1) Glucose (Fingerstick) 166 mg/dL (70-99) Medications Active Scripts Medications Dose Route/Sig Max Daily Dose Days Date Category Dose Instructions Children's Claritin (Loratadine) 5 Mg Tab.chew 1 Tab PO DAILY 30 05/03/21 Reported Metoprolol Tartrate 25 Mg Tablet 0.5 Tab PO BID 03/01/21 Reported Lantus Solostar (Insulin Glargine,Hum.rec.anlog) 100 Unit/1 Ml Insuln.pen 50 Unit SQ QHS 30 09/14/19 Rx Synthroid (Levothyroxine Sodium) 100 Mcg Tablet 100 Mcg PO DAILY06 30 09/13/19 Rx Take in combination with 112mcg tablet to equal 212mcg daily Levothyroxine Sodium 112 Mcg Tablet 112 Mcg PO DAILY06 09/13/19 Rx Take in combination with 100mcg tablet to equal 212mcg daily Albuterol Sulfate Neb Soln (Albuterol Sulfate) 1.25 Mg/3 Ml Vial.neb 1 Vial NEB Q6HRS 09/11/19 Reported Combivent Respimat Inhal (Ipratropium/Albuterol Sulfate) 4 Gm Aer.w.adap 2 Inh IH PRN DAILY PRN 09/11/19 Reported Pravastatin Sodium 80 Mg Tablet 1 Tab PO QHS 09/11/19 Reported Multi Vitamin Daily (Multivitamin) 1 Each Tablet 1 Tab PO DAILY 30 09/11/19 Reported Klor-Con 10 (Potassium Chloride) 10 Meq Tablet.er 10 Meq PO DAILY 03/05/14 Reported Impression . IMPRESSION: 1. Progressive dyspnea secondary to acute on chronic cor pulmonale. 2. Previously abnormal CT chest revealing a large anterior mediastinal mass. The patient has had a previous CT-guided biopsy, which was nondiagnostic. 3. Obesity. 4. Mild obstructive sleep apnea. 5. Severe pulmonary hypertension. 6. Chronic respiratory failure. 7. Chronic obstructive pulmonary disease. 8. Acute exacerbation of COPD Plan . Updated 05/11 steroids and antibiotics Continue diuresis Continue oxygen supplementation updated 05/10 Continue diuresis Discussed with Dr. Willis Continue oxygen supplementation WILLIAM CANELA MD May 11, 2021 08:32
--- NOTE | 2021-05-11 10:42 | PDOC ---
SHY PARRISH CLIENT SERVICES REPRESENTATIVE 05/11/21 1042: CARDIO Progress Notes Date and Time Date of Service 05/11/2021 Time of Evaluation 1040 Subjective Subjective: No Chest Pain, No shortness of breath, No Palpitations Vitals Vitals Vital Signs Date Time Temp Pulse Resp B/P (MAP) Pulse Ox O2 Delivery O2 Flow Rate FiO2 05/11/21 08:12 94 121/62 05/11/21 08:00 Nasal Cannula 3.0 05/11/21 07:42 99 05/11/21 07:15 99.0 18 99.0 Weight Weight [ ] Input and Output Intake and Output Intake and Output 05/11/21 07:00 Intake Total 350 ml Output Total 2400 ml Balance -2050 ml Intake Oral 350 ml Output Urine Total 2400 ml # Bowel Movements 4 Laboratory Labs Laboratory Tests Test 05/10/21 11:08 05/10/21 11:39 05/10/21 17:18 05/10/21 20:27 Sodium Level 135 mmol/L (136-145) Potassium Level 3.4 mmol/L (3.5-5.1) Chloride Level 86 mmol/L (98-107) Carbon Dioxide Level > 45 mmol/L (21-32) Anion Gap (6-14) Blood Urea Nitrogen 18 mg/dL (7-20) Creatinine 0.7 mg/dL (0.6-1.0) Estimated GFR (Cockcroft-Gault) 83.0 Glucose Level 171 mg/dL (70-99) Calcium Level 8.4 mg/dL (8.5-10.1) Magnesium Level 1.9 mg/dL (1.8-2.4) Glucose (Fingerstick) 208 mg/dL (70-99) 171 mg/dL (70-99) 344 mg/dL (70-99) Test 05/11/21 06:25 05/11/21 07:07 Potassium Level 3.0 mmol/L (3.5-5.1) Glucose (Fingerstick) 166 mg/dL (70-99) Physical Exam HEENT: Neck Supple W Full Motion Chest: Symmetric LUNGS: Other (diminished) Heart: RRR (SR) Abdomen: Soft N/T Extremities: Other (4+ bilateral LE pitting edema) Neurology: alert, oriented, follow commands Assessment Assessment 1. Acute on chronic cor pulmonale 2. Acute on chronic diastolic CHF: EF is nml 3. COPD with severe pulmonary HTN: follow with unable to afford PHTN meds 4. CAD: past CABG, clinically stable 5. Anterior mediastinal mass: followed by pulmonary 6. HTN controlled 7. DM2/HLP 8. PAFIB: Maintaining SR. S/P watchman device follows with Recommendations 1. Lasix therapy, K replacement. Discussed diuretic therapy as she keeps on refusing aggressive diurese begging for half dose 2. Continue metoprolol. Continue ASA. Eliquis was discontinued before due to significant epistaxis 3. Secondary prevention measures Justicifation of Admission Dx: Justifications for Admission: Justification of Admission Dx: Yes HAYLIE CAO MD 05/11/21 1551: CARDIO Progress Notes Assessment Assessment Patient seen and examined. Agree with WELDER FIRST CLASS's assessment and plan. Continue gentle diuresis for acute on chronic diast HF/cor pulmonale 2D echo showed normal LV systolic function with severe pulm HTN She was evaluated at pulm HTN clinic in the past - meds proved expensive for her She did receive watchman device at [facility] and is being followed by [facility] CAD clinically stable SHY PARRISH APRN May 11, 2021 10:42 HAYLIE CAO MD May 11, 2021 15:51
[2021-05-11 10:45] VITALS: BP 141/95
[2021-05-11] MEDS ORDERED: FUROSEMIDE 20 MG/2 ML VIAL. IVP ONE (10:45)
[2021-05-11] MEDS ORDERED: predniSONE 10 MG TABLET PO ONE (12:00)
--- NOTE | 2021-05-11 12:00 | NUR ---
SS following up with discharge planning. SS reviewed pt chart and discussed with pt RN. Pt is currently requiring oxygen at three liters nasal canula. Pt has home oxygen. Pt on IV Lasix. COVID19 negative. PT/OT ordered. PT recommended [facility]. SS met with pt to discuss discharge planning and [facility]. Pt declining [facility] at this time. Pt reported that she was at home with [facility], ; fax [phone], but lately has been unsatisfied with there care. Pt requesting home healthcare at this time and requested informational visit with other home healthcare company. Pt had no preference of company. Referral sent to [facility], ; fax [phone]. SS will continue to follow for discharge planning .
[2021-05-11] MEDS: DOXYCYCLINE HYCLATE 100 MG TABLET PO SCH ×2 (12:10→21:03)
[2021-05-11 15:15] VITALS: BP 119/64
[2021-05-11 18:55] VITALS: BP 121/64
[2021-05-11] MEDS: ATORVASTATIN CALCIUM 20 MG TABLET PO SCH (21:03)
[2021-05-11] MEDS: INSULIN GLARGINE SYRINGE. SQ SCH (21:12)
[2021-05-11 22:23] VITALS: BP 119/62
[2021-05-12 03:05] VITALS: BP 139/59
[2021-05-12] MEDS: LEVOTHYROXINE 112 MCG TABLET PO SCH (04:52)
[2021-05-12] MEDS: LEVOTHYROXINE 100 MCG TABLET PO SCH (04:52)
[2021-05-12] MEDS: POTASSIUM CHLORIDE 10 MEQ TABLET.ER. PO SCH ×4 (04:52→21:24)
[2021-05-12 07:00] VITALS: BP 151/79
--- NOTE | 2021-05-12 07:16 | PDOC ---
PULMONARY PROGRESS NOTES DATE: 05/12/21 TIME: 07:15 Subjective sob better has occ cough on home 02 3lpm Vitals Vital Signs Date Time Temp Pulse Resp B/P (MAP) Pulse Ox O2 Delivery O2 Flow Rate FiO2 05/12/21 03:05 98.3 70 18 139/59 (85) 99 Nasal Cannula 3.0 98.3 ROS: No Nausea, No Chest Pain, No Abdominal Pain, No Increase Cough General: Alert Lungs: Crackles Cardiovascular: S1, S2, Other Abdomen: Soft Neuro Exam: Alert Extremities: Other (Marked edema) Skin: Warm Labs Laboratory Tests Test 05/10/21 07:18 05/10/21 11:08 05/10/21 11:39 05/10/21 17:18 Glucose (Fingerstick) 103 mg/dL (70-99) 208 mg/dL (70-99) 171 mg/dL (70-99) Sodium Level 135 mmol/L (136-145) Potassium Level 3.4 mmol/L (3.5-5.1) Chloride Level 86 mmol/L (98-107) Carbon Dioxide Level > 45 mmol/L (21-32) Anion Gap (6-14) Blood Urea Nitrogen 18 mg/dL (7-20) Creatinine 0.7 mg/dL (0.6-1.0) Estimated GFR (Cockcroft-Gault) 83.0 Glucose Level 171 mg/dL (70-99) Calcium Level 8.4 mg/dL (8.5-10.1) Magnesium Level 1.9 mg/dL (1.8-2.4) Test 05/10/21 20:27 05/11/21 06:25 05/11/21 07:07 05/11/21 11:32 Glucose (Fingerstick) 344 mg/dL (70-99) 166 mg/dL (70-99) 258 mg/dL (70-99) Potassium Level 3.0 mmol/L (3.5-5.1) Test 05/11/21 16:52 05/11/21 20:50 Glucose (Fingerstick) 375 mg/dL (70-99) 437 mg/dL (70-99) Laboratory Tests Test 05/11/21 11:32 05/11/21 16:52 05/11/21 20:50 Glucose (Fingerstick) 258 mg/dL (70-99) 375 mg/dL (70-99) 437 mg/dL (70-99) Medications Active Scripts Medications Dose Route/Sig Max Daily Dose Days Date Category Dose Instructions Children's Claritin (Loratadine) 5 Mg Tab.chew 1 Tab PO DAILY 30 05/03/21 Reported Metoprolol Tartrate 25 Mg Tablet 0.5 Tab PO BID 03/01/21 Reported Lantus Solostar (Insulin Glargine,Hum.rec.anlog) 100 Unit/1 Ml Insuln.pen 50 Unit SQ QHS 30 09/14/19 Rx Synthroid (Levothyroxine Sodium) 100 Mcg Tablet 100 Mcg PO DAILY06 09/13/19 Rx Take in combination with 112mcg tablet to equal 212mcg daily Levothyroxine Sodium 112 Mcg Tablet 112 Mcg PO DAILY06 09/13/19 Rx Take in combination with 100mcg tablet to equal 212mcg daily Albuterol Sulfate Neb Soln (Albuterol Sulfate) 1.25 Mg/3 Ml Vial.neb 1 Vial NEB Q6HRS 09/11/19 Reported Combivent Respimat Inhal (Ipratropium/Albuterol Sulfate) 4 Gm Aer.w.adap 2 Inh IH PRN DAILY PRN 09/11/19 Reported Pravastatin Sodium 80 Mg Tablet 1 Tab PO QHS 09/11/19 Reported Multi Vitamin Daily (Multivitamin) 1 Each Tablet 1 Tab PO DAILY 30 09/11/19 Reported Klor-Con 10 (Potassium Chloride) 10 Meq Tablet.er 10 Meq PO DAILY 03/05/14 Reported Impression . IMPRESSION: 1. Progressive dyspnea secondary to acute on chronic cor pulmonale. 2. Previously abnormal CT chest revealing a large anterior mediastinal mass. The patient has had a previous CT-guided biopsy, which was nondiagnostic. 3. Obesity. 4. Mild obstructive sleep apnea. 5. Severe pulmonary hypertension. 6. Chronic respiratory failure. 7. Chronic obstructive pulmonary disease. 8. Acute exacerbation of COPD Plan . Updated 05/12 02 titration cont steroids pred 20 mg daily cont antibiotics Continue diuresis monitor k, cr Continue oxygen supplementation discussed w pt Updated 05/11 steroids and antibiotics Continue diuresis Continue oxygen supplementation updated 05/10 Continue diuresis Discussed with Dr. Willis Continue oxygen supplementation LORI BOTELLO MD May 12, 2021 07:16
[2021-05-12] MEDS: DOXYCYCLINE HYCLATE 100 MG TABLET PO SCH ×2 (08:30→21:24)
[2021-05-12] MEDS: predniSONE 20 MG TABLET PO SCH (08:30)
[2021-05-12] MEDS: ASPIRIN ENTERIC COATED 81 MG TABLET.DR. PO SCH (08:30)
[2021-05-12] MEDS: metOLazone 2.5 MG TABLET PO SCH (08:30)
[2021-05-12] MEDS: FUROSEMIDE 40 MG/4 ML VIAL. IVP SCH ×2 (08:31→21:24)
[2021-05-12] MEDS: METOPROLOL TART IMMED RELEASE 25 MG TABLET. PO SCH ×2 (08:31→21:25)
[2021-05-12 08:38] LABS: BLOOD UREA NITROGEN 17 mg/dL (7-20); CALCIUM 8.8 mg/dL (8.5-10.1); CHLORIDE 86 mmol/L (98-107); CREATININE 0.7 mg/dL (0.6-1.0); GLUCOSE 190 mg/dL (70-99); SODIUM 132 mmol/L (136-145)
[2021-05-12 08:39] LABS: CARBON DIOXIDE > 45 mmol/L (21-32)
[2021-05-12] MEDS: ALBUTEROL SULFATE 2.5 MG/3 ML NEBU. NEB SCH ×4 (08:57→21:10)
--- NOTE | 2021-05-12 09:23 | PDOC ---
Provider Note Date of Service: DATE: 05/12/21 TIME: 09:22 Provider Note feels ok, good diuresis- K+ still low 3 , inc po to qid- likely dc in am as she is declining rehab Justifications for Admission Other Justification JASPER HANNAH MD May 12, 2021 09:23
[2021-05-12 11:00] VITALS: BP 122/48
--- NOTE | 2021-05-12 12:28 | PDOC ---
PROGRESS NOTES Date of Service: DATE: 05/12/21 TIME: 12:28 Subjective Subjective Continues to feel better with improvement in dyspnea and edema Objective Objective Vital Signs Date Time Temp Pulse Resp B/P (MAP) Pulse Ox O2 Delivery O2 Flow Rate FiO2 05/12/21 11:39 Nasal Cannula 3.0 05/12/21 11:00 98.1 71 18 122/48 (72) 93 98.1 Intake and Output 05/12/21 06:59 Intake Total 1460 ml Output Total 2125 ml Balance -665 ml Intake Oral 1460 ml Output Urine Total 2125 ml # Voids 4 # Bowel Movements 6 Physical Exam Abdomen: Soft, No tenderness Heart: Regular rate (SR), Other (distant heart sounds) Extremities: No cyanosis, Other (3-4+ bilateral LE pitting edema) General: Alert, Oriented X3, Cooperative, No acute distress HEENT: Atraumatic, Mucous membr. moist/pink Lungs: Other (diminished throughout) MUSCULOSKELETAL: Osteoarthritic changes both hands Neuro: Normal speech, Sensation intact Psych/Mental Status: Mental status NL, Mood NL Skin: No breakdown Assessment Assessment 1. Acute on chronic cor pulmonale 2. Acute on chronic diastolic CHF: EF is nml 3. COPD with severe pulmonary HTN: follow [facility] unable to afford [employer] meds 4. CAD: past CABG, clinically stable 5. Anterior mediastinal mass: followed by pulmonary 6. HTN controlled 7. DM2/HLP 8. PAFIB: Maintaining SR. S/P watchman device follows with Recommendations 1. Lasix therapy, K replacement. 2. Continue metoprolol. Continue ASA. Eliquis was discontinued before due to significant epistaxis 3. Secondary prevention measures Comment Review of Relevant I have reviewed the following items yoselyn (where applicable) has been applied. Labs Laboratory Tests Test 05/11/21 16:52 05/11/21 20:50 05/12/21 06:30 05/12/21 07:53 Glucose (Fingerstick) 375 mg/dL (70-99) 437 mg/dL (70-99) 173 mg/dL (70-99) Sodium Level 132 mmol/L (136-145) Potassium Level 3.0 mmol/L (3.5-5.1) Chloride Level 86 mmol/L (98-107) Carbon Dioxide Level > 45 mmol/L (21-32) Anion Gap (6-14) Blood Urea Nitrogen 17 mg/dL (7-20) Creatinine 0.7 mg/dL (0.6-1.0) Estimated GFR (Cockcroft-Gault) 83.0 Glucose Level 190 mg/dL (70-99) Calcium Level 8.8 mg/dL (8.5-10.1) Magnesium Level 2.0 mg/dL (1.8-2.4) Test 05/12/21 11:24 Glucose (Fingerstick) 226 mg/dL (70-99) Medications Current Medications Furosemide (Lasix) 40 mg BID IVP Last administered on 05/12/21at 08:31; Start 05/11/21 at 21:00 Insulin Glargine (Lantus Syringe) 42 unit QHS SQ Last administered on 05/11/21at 21:12; Start 05/11/21 at 21:00 Potassium Chloride (Klor-Con) 20 meq QID PO ; Start 05/12/21 at 13:00 Prednisone (Prednisone) 20 mg DAILY PO Last administered on 05/12/21at 08:30; Start 05/12/21 at 09:00 Vitals/I & O Vital Sign - Last 24 Hours 05/11/21 05/11/21 05/11/21 05/11/21 15:15 18:55 20:00 20:40 Temp 97.3 98.8 97.3 98.8 Pulse 90 92 Resp 18 16 B/P (MAP) 119/64 (82) 121/64 (83) Pulse Ox 96 93 95 O2 Delivery Nasal Cannula Nasal Cannula Nasal Cannula Nasal Cannula O2 Flow Rate 3.0 3.0 3.0 3.0 05/11/21 05/11/21 05/12/21 05/12/21 21:05 22:23 03:05 07:00 Temp 98.5 98.3 97.8 98.5 98.3 97.8 Pulse 92 84 70 64 Resp 18 18 18 B/P (MAP) 121/64 119/62 (81) 139/59 (85) 151/79 (103) Pulse Ox 93 99 95 O2 Delivery Nasal Cannula Nasal Cannula Nasal Cannula O2 Flow Rate 3.0 3.0 3.0 05/12/21 05/12/21 05/12/21 05/12/21 08:00 08:31 08:59 11:00 Temp 98.1 98.1 Pulse 64 71 Resp 18 B/P (MAP) 151/79 122/48 (72) Pulse Ox 96 93 O2 Delivery Nasal Cannula Nasal Cannula Nasal Cannula O2 Flow Rate 3.0 3.0 3.0 05/12/21 11:39 O2 Delivery Nasal Cannula O2 Flow Rate 3.0 Intake and Output 05/11/21 05/11/21 05/12/21 14:59 22:59 06:59 Intake Total 660 ml 280 ml 520 ml Output Total 200 ml 1925 ml Balance 660 ml 80 ml -1405 ml HAYLIE CAO MD May 12, 2021 12:28
[2021-05-12 15:00] VITALS: BP 129/61
[2021-05-12 19:48] VITALS: BP 145/68
[2021-05-12] MEDS: ATORVASTATIN CALCIUM 20 MG TABLET PO SCH (21:25)
[2021-05-12] MEDS: INSULIN GLARGINE SYRINGE. SQ SCH (21:31)
[2021-05-12 22:36] VITALS: BP 142/62
[2021-05-13 02:47] VITALS: BP 146/58
[2021-05-13] MEDS: LEVOTHYROXINE 100 MCG TABLET PO SCH (03:08)
[2021-05-13] MEDS: LEVOTHYROXINE 112 MCG TABLET PO SCH (03:08)
[2021-05-13 07:00] VITALS: BP 118/58
--- NOTE | 2021-05-13 07:33 | PDOC ---
PULMONARY PROGRESS NOTES DATE: 05/13/21 TIME: 07:32 Subjective feels better sob better has occ cough on home 02 3lpm Vitals Vital Signs Date Time Temp Pulse Resp B/P (MAP) Pulse Ox O2 Delivery O2 Flow Rate FiO2 05/13/21 02:47 98.5 66 16 146/58 (87) 99 Nasal Cannula 3.0 98.5 ROS: No Nausea, No Chest Pain, No Abdominal Pain, No Increase Cough General: Alert Lungs: Crackles Cardiovascular: S1, S2, Other Abdomen: Soft Neuro Exam: Alert Extremities: Other (Marked edema) Skin: Warm Labs Laboratory Tests Test 05/11/21 11:32 05/11/21 16:52 05/11/21 20:50 05/12/21 06:30 Glucose (Fingerstick) 258 mg/dL (70-99) 375 mg/dL (70-99) 437 mg/dL (70-99) Sodium Level 132 mmol/L (136-145) Potassium Level 3.0 mmol/L (3.5-5.1) Chloride Level 86 mmol/L (98-107) Carbon Dioxide Level > 45 mmol/L (21-32) Anion Gap (6-14) Blood Urea Nitrogen 17 mg/dL (7-20) Creatinine 0.7 mg/dL (0.6-1.0) Estimated GFR (Cockcroft-Gault) 83.0 Glucose Level 190 mg/dL (70-99) Calcium Level 8.8 mg/dL (8.5-10.1) Magnesium Level 2.0 mg/dL (1.8-2.4) Test 05/12/21 07:53 05/12/21 11:24 05/12/21 16:38 05/12/21 21:05 Glucose (Fingerstick) 173 mg/dL (70-99) 226 mg/dL (70-99) 381 mg/dL (70-99) 451 mg/dL (70-99) Test 05/13/21 03:45 05/13/21 07:19 Potassium Level 3.0 mmol/L (3.5-5.1) Glucose (Fingerstick) 185 mg/dL (70-99) Laboratory Tests Test 05/12/21 07:53 05/12/21 11:24 05/12/21 16:38 05/12/21 21:05 Glucose (Fingerstick) 173 mg/dL (70-99) 226 mg/dL (70-99) 381 mg/dL (70-99) 451 mg/dL (70-99) Test 05/13/21 03:45 05/13/21 07:19 Potassium Level 3.0 mmol/L (3.5-5.1) Glucose (Fingerstick) 185 mg/dL (70-99) Medications Active Scripts Medications Dose Route/Sig Max Daily Dose Days Date Category Dose Instructions Children's Claritin (Loratadine) 5 Mg Tab.chew 1 Tab PO DAILY 30 05/03/21 Reported Metoprolol Tartrate 25 Mg Tablet 0.5 Tab PO BID 03/01/21 Reported Lantus Solostar (Insulin Glargine,Hum.rec.anlog) 100 Unit/1 Ml Insuln.pen 50 Unit SQ QHS 30 09/14/19 Rx Synthroid (Levothyroxine Sodium) 100 Mcg Tablet 100 Mcg PO DAILY06 30 09/13/19 Rx Take in combination with 112mcg tablet to equal 212mcg daily Levothyroxine Sodium 112 Mcg Tablet 112 Mcg PO DAILY06 30 09/13/19 Rx Take in combination with 100mcg tablet to equal 212mcg daily Albuterol Sulfate Neb Soln (Albuterol Sulfate) 1.25 Mg/3 Ml Vial.neb 1 Vial NEB Q6HRS 09/11/19 Reported Combivent Respimat Inhal (Ipratropium/Albuterol Sulfate) 4 Gm Aer.w.adap 2 Inh IH PRN DAILY PRN 09/11/19 Reported Pravastatin Sodium 80 Mg Tablet 1 Tab PO QHS 09/11/19 Reported Multi Vitamin Daily (Multivitamin) 1 Each Tablet 1 Tab PO DAILY 30 09/11/19 Reported Klor-Con 10 (Potassium Chloride) 10 Meq Tablet.er 10 Meq PO DAILY 03/05/14 Reported Impression . IMPRESSION: 1. Progressive dyspnea secondary to acute on chronic cor pulmonale. 2. Previously abnormal CT chest revealing a large anterior mediastinal mass. The patient has had a previous CT-guided biopsy, which was nondiagnostic. 3. Obesity. 4. Mild obstructive sleep apnea. 5. Severe pulmonary hypertension. 6. Chronic respiratory failure. 7. Chronic obstructive pulmonary disease. 8. Acute exacerbation of COPD Plan . Updated titration on home o2 3 lpm cont steroids pred 20 mg daily w taper cont antibiotics for total of 7 days Continue diuresis monitor k, cr Continue oxygen supplementation discussed w pt Updated 05/12 02 titration cont steroids pred 20 mg daily cont antibiotics Continue diuresis monitor k, cr Continue oxygen supplementation discussed w pt Updated 05/11 steroids and antibiotics Continue diuresis Continue oxygen supplementation updated 05/10 Continue diuresis Discussed with Dr. Willis Continue oxygen supplementation LORI BOTELLO MD May 13, 2021 07:33
[2021-05-13] MEDS: ALBUTEROL SULFATE 2.5 MG/3 ML NEBU. NEB SCH ×4 (07:45→21:06)
[2021-05-13] MEDS: metOLazone 2.5 MG TABLET PO SCH (08:34)
[2021-05-13] MEDS: DOXYCYCLINE HYCLATE 100 MG TABLET PO SCH ×2 (08:34→20:07)
[2021-05-13] MEDS: METOPROLOL TART IMMED RELEASE 25 MG TABLET. PO SCH ×2 (08:35→20:07)
[2021-05-13] MEDS: POTASSIUM CHLORIDE 10 MEQ TABLET.ER. PO SCH ×4 (08:35→20:08)
[2021-05-13] MEDS: ASPIRIN ENTERIC COATED 81 MG TABLET.DR. PO SCH (08:35)
[2021-05-13] MEDS: predniSONE 20 MG TABLET PO SCH (08:35)
[2021-05-13] MEDS: FUROSEMIDE 40 MG/4 ML VIAL. IVP SCH ×2 (08:36→20:08)
--- NOTE | 2021-05-13 09:25 | PDOC ---
Provider Note Date of Service: DATE: 05/13/21 TIME: 09:25 Provider Note vss, K+ still low 3- she declines dc today, will go home in am, add more kcl Justifications for Admission Other Justification JASPER HANNAH MD May 13, 2021 09:25
--- NOTE | 2021-05-13 09:35 | PDOC ---
PROGRESS NOTES Date of Service: DATE: 05/13/21 TIME: 09:35 Subjective Subjective Continues to feel better with improvement in dyspnea Objective Objective Vital Signs Date Time Temp Pulse Resp B/P (MAP) Pulse Ox O2 Delivery O2 Flow Rate FiO2 05/13/21 08:35 81 118/58 05/13/21 07:46 98 Nasal Cannula 3.0 05/13/21 07:00 97.7 18 97.7 Intake and Output 05/13/21 06:59 Intake Total 780 ml Output Total 3350 ml Balance -2570 ml Intake Oral 780 ml Output Urine Total 3350 ml # Voids 3 # Bowel Movements 5 Physical Exam Abdomen: Soft, No tenderness Heart: Regular rate (SR), Other (distant heart sounds) Extremities: No cyanosis, Other (3-4+ bilateral LE pitting edema) General: Alert, Oriented X3, Cooperative, No acute distress HEENT: Atraumatic, Mucous membr. moist/pink Lungs: Other (diminished throughout) MUSCULOSKELETAL: Osteoarthritic changes both hands Neuro: Normal speech, Sensation intact Psych/Mental Status: Mental status NL, Mood NL Skin: No breakdown Assessment Assessment 1. Acute on chronic cor pulmonale 2. Acute on chronic diastolic CHF: EF is nml 3. COPD with severe pulmonary HTN: follow [facility] unable to afford PHTN meds 4. CAD: past CABG, clinically stable 5. Anterior mediastinal mass: followed by pulmonary 6. HTN controlled 7. DM2/HLP 8. PAFIB: Maintaining SR. S/P watchman device follows with Recommendations 1. Lasix therapy, K replacement. 2. Continue metoprolol. Continue ASA. Eliquis was discontinued before due to significant epistaxis 3. Secondary prevention measures 4. Possible DC home tomorrow Comment Review of Relevant I have reviewed the following items yoselyn (where applicable) has been applied. Labs Laboratory Tests Test 05/12/21 11:24 05/12/21 16:38 05/12/21 21:05 05/13/21 03:45 Glucose (Fingerstick) 226 mg/dL (70-99) 381 mg/dL (70-99) 451 mg/dL (70-99) Potassium Level 3.0 mmol/L (3.5-5.1) Test 05/13/21 07:19 Glucose (Fingerstick) 185 mg/dL (70-99) Medications Current Medications Insulin Glargine (Lantus Syringe) 44 unit QHS SQ ; Start 05/13/21 at 21:00 Potassium Chloride (Klor-Con) 20 meq QID PO Last administered on 05/13/21at 08:35; Start 05/12/21 at 13:00; Stop 05/13/21 at 09:25; Status DC Potassium Chloride (Klor-Con) 30 meq QID PO ; Start 05/13/21 at 13:00 Vitals/I & O Vital Sign - Last 24 Hours 05/12/21 05/12/21 05/12/21 05/12/21 11:00 11:39 15:00 15:58 Temp 98.1 97.7 98.1 97.7 Pulse 71 81 Resp 18 18 B/P (MAP) 122/48 (72) 129/61 (83) Pulse Ox 93 96 O2 Delivery Nasal Cannula Nasal Cannula Nasal Cannula Nasal Cannula O2 Flow Rate 3.0 3.0 3.0 3.0 05/12/21 05/12/21 05/12/21 05/12/21 19:48 20:00 20:02 21:25 Temp 98.2 98.2 Pulse 87 87 Resp 18 B/P (MAP) 145/68 (93) 145/68 Pulse Ox 93 O2 Delivery Nasal Cannula Nasal Cannula Nasal Cannula O2 Flow Rate 3.0 3.0 3.0 05/12/21 05/13/21 05/13/21 05/13/21 22:36 02:47 07:00 07:46 Temp 98.6 98.5 97.7 98.6 98.5 97.7 Pulse 77 66 81 Resp 20 16 18 B/P (MAP) 142/62 (88) 146/58 (87) 118/58 (78) Pulse Ox 96 99 95 98 O2 Delivery Nasal Cannula Nasal Cannula Nasal Cannula Nasal Cannula O2 Flow Rate 3.0 3.0 3.0 3.0 05/13/21 08:35 Pulse 81 B/P (MAP) 118/58 Intake and Output 05/12/21 05/12/21 05/13/21 14:59 22:59 06:59 Intake Total 480 ml 300 ml 0 ml Output Total 750 ml 1400 ml 1200 ml Balance -270 ml -1100 ml -1200 ml HAYLIE CAO MD May 13, 2021 09:35
[2021-05-13 11:00] VITALS: BP 129/61
[2021-05-13 14:39] VITALS: BP 111/59
[2021-05-13] MEDS ORDERED: INSULIN LISPRO 300 UNITS/3 ML VIAL. SQ ONE (16:30)
[2021-05-13 19:16] VITALS: BP 147/63
[2021-05-13] MEDS: ATORVASTATIN CALCIUM 20 MG TABLET PO SCH (20:07)
[2021-05-13] MEDS ORDERED: INSULIN GLARGINE SYRINGE. SQ SCH (21:00)
[2021-05-13 22:36] VITALS: BP 143/63
[2021-05-14 02:52] VITALS: BP 120/63
[2021-05-14] MEDS: LEVOTHYROXINE 112 MCG TABLET PO SCH (05:48)
[2021-05-14] MEDS: LEVOTHYROXINE 100 MCG TABLET PO SCH (05:48)
[2021-05-14 07:00] VITALS: BP 124/66
[2021-05-14] MEDS: ALBUTEROL SULFATE 2.5 MG/3 ML NEBU. NEB SCH ×2 (07:35→11:38)
--- NOTE | 2021-05-14 08:03 | SNU/HH DC ---
DISCHARGE WITH HOME HEALTH DISCHARGE INFORMATION: Condition on Discharge: Stable CODE STATUS: Code Status: Full HOME HEALTH: Face to Face: I certify this patient is under my care and that I, or a nurse practitioner or physician's certified nursing assistant instructor working with me, had a face to face encounter that meets the physician face to face encounter requirements with this patient on []. Medical Complications: COPD RN For Eval/Treatment: Yes Physical Therapy For: Evalulation/Treatment Pt Meets Homebound Status: Limited distance walking POST DISCHARGE ORDERS: Activity Instructions for Disc: Activity as tolerated Weight Bearing Status after Di: As tolerated Wound/Incision Care: No wound care needed CHECKS AFTER DISCHARGE: Checks after discharge: Check blood sugar, ac/hs TREATMENT/EQUIPMENT ORDERS: Adaptive Equipment Issued: None Discharge Respiratory Equipmen: Oxygen CERTIFICATION STATEMENT: Certification Statement: Certification Statement: Based on the above finding, I certify that this patient is confined to the home and needs intermittent jail care, physical therapy and/or speech therapy, or continues to need occupational therapy.~ This patient is under my care, and I have initiated the establishment of the plan of care.~ This patient will be followed by myself or a community physician who will periodically review the plan of care. Home Meds Active Scripts Insulin Glargine,Hum.rec.anlog (LANTUS SOLOSTAR) 100 Unit/1 Ml Insuln.pen, 50 UNIT SQ QHS for diabetes for 30 Days, #5 SYR 5 Refills Prov:ALEXUS LAZARO MD 09/14/19 Levothyroxine Sodium (SYNTHROID) 100 Mcg Tablet, 100 MCG PO DAILY06 for thyroid for 30 Days, #30 TAB 2 Refills Take in combination with 112mcg tablet to equal 212mcg daily Prov:ALEXUS LAZARO MD 09/13/19 Levothyroxine Sodium (LEVOTHYROXINE SODIUM) 112 Mcg Tablet, 112 MCG PO DAILY06 for thyroid for 30 Days, #30 TAB 2 Refills Take in combination with 100mcg tablet to equal 212mcg daily Prov:ALEXUS LAZARO MD 09/13/19 Reported Medications Loratadine (CHILDREN'S CLARITIN) 5 Mg Tab.chew, 1 TAB PO DAILY for allergy symptoms for 30 Days, #30 TAB 0 Refills 05/03/21 Metoprolol Tartrate (METOPROLOL TARTRATE) 25 Mg Tablet, 0.5 TAB PO BID for heart rate, #180 TAB 1 Refill 03/01/21 Albuterol Sulfate (ALBUTEROL SULFATE NEB SOLN) 1.25 Mg/3 Ml Vial.neb, 1 VIAL NEB Q6HRS for , #150 ML 09/11/19 Ipratropium/Albuterol Sulfate (COMBIVENT RESPIMAT INHAL) 4 Gm Aer.w.adap, 2 INH IH PRN DAILY PRN for SHORTNESS OF BREATH, INHALER 09/11/19 Pravastatin Sodium (PRAVASTATIN SODIUM) 80 Mg Tablet, 1 TAB PO QHS for , #90 TAB 1 Refill 09/11/19 Multivitamin (MULTI VITAMIN DAILY) 1 Each Tablet, 1 TAB PO DAILY for for 30 Days, #30 TAB 0 Refills 09/11/19 Potassium Chloride (KLOR-CON 10) 10 Meq Tablet.er, 10 MEQ PO DAILY for SUPPLEMENT, TAB 03/05/14 JASPER HANNAH MD May 14, 2021 08:03
--- NOTE | 2021-05-14 08:07 | PDOC ---
Provider Note Date of Service: DATE: 05/14/21 TIME: 08:06 Provider Note [id number] Justifications for Admission Other Justification JASPER HANNAH MD May 14, 2021 08:07
--- NOTE | 2021-05-14 08:28 | DS ---
DATE OF DISCHARGE: 05/14/2021 HOSPITAL SUMMARY: The patient came back in with known pulmonary hypertension and cor pulmonale with ongoing edema. Chemistry profile reflected potassium low from diuretic use and at discharge it was 3.0. Renal function was normal. Bicarbonate was high consistent with metabolic compensation. CBC unremarkable as was urinalysis and COVID serology was negative. Chest x-ray showed large right lung anterior mediastinal mass that has been previously biopsied with nondiagnostic tissue, but is still concerning for possible malignancy. She received IV Lasix and oral metolazone daily with gradual, but really good diuresis and significant reduction in swelling. She is comfortable to be followed as an outpatient at this point. FINAL DIAGNOSES: 1. Edema secondary to cor pulmonale. 2. Hypokalemia, drug-induced. OPERATIONS, PROCEDURES AND COMPLICATIONS: None. CONSULTATION: Dr. Willis and Dr. Christine. DISPOSITION: She will increase metolazone from once a week to 3 times a week for now as a more effective drug. Continue Lasix 40 mg daily each afternoon. She will take potassium 20 mEq q.i.d. for 4 more days to replace and then twice a day after that with repeat potassium level in 3 days when she sees Dr. Valdez in our office. Rest of home meds remain the same and she and Dr. Willis are going to discuss possible repeat attempt at lung mass biopsy per Interventional Radiology as certainly at least reasonably possible. This is a nonresectable malignancy. Prognosis is guarded for this reason. NISH DR: Dave TID: [id number]
--- NOTE | 2021-05-14 08:29 | PDOC ---
PULMONARY PROGRESS NOTES DATE: 05/14/21 TIME: 08:27 Subjective feels better sob better has occ cough on home 02 3lpm Vitals Vital Signs Date Time Temp Pulse Resp B/P (MAP) Pulse Ox O2 Delivery O2 Flow Rate FiO2 05/14/21 07:36 96 Nasal Cannula 3.0 05/14/21 02:52 98.0 62 18 120/63 (82) 98.0 ROS: No Nausea, No Chest Pain, No Abdominal Pain, No Increase Cough General: Alert Lungs: Crackles Cardiovascular: S1, S2, Other Abdomen: Soft Neuro Exam: Alert Extremities: Other (Marked edema) Skin: Warm Labs Laboratory Tests Test 05/12/21 11:24 05/12/21 16:38 05/12/21 21:05 05/13/21 03:45 Glucose (Fingerstick) 226 mg/dL (70-99) 381 mg/dL (70-99) 451 mg/dL (70-99) Potassium Level 3.0 mmol/L (3.5-5.1) Test 05/13/21 07:19 05/13/21 10:53 05/13/21 16:08 05/13/21 20:35 Glucose (Fingerstick) 185 mg/dL (70-99) 259 mg/dL (70-99) 369 mg/dL (70-99) 416 mg/dL (70-99) Test 05/14/21 04:55 05/14/21 07:55 Potassium Level 3.0 mmol/L (3.5-5.1) Glucose (Fingerstick) 167 mg/dL (70-99) Laboratory Tests Test 05/13/21 10:53 05/13/21 16:08 05/13/21 20:35 05/14/21 04:55 Glucose (Fingerstick) 259 mg/dL (70-99) 369 mg/dL (70-99) 416 mg/dL (70-99) Potassium Level 3.0 mmol/L (3.5-5.1) Test 05/14/21 07:55 Glucose (Fingerstick) 167 mg/dL (70-99) Medications Active Scripts Medications Dose Route/Sig Max Daily Dose Days Date Category Dose Instructions Children's Claritin (Loratadine) 5 Mg Tab.chew 1 Tab PO DAILY 30 05/03/21 Reported Metoprolol Tartrate 25 Mg Tablet 0.5 Tab PO BID 03/01/21 Reported Lantus Solostar (Insulin Glargine,Hum.rec.anlog) 100 Unit/1 Ml Insuln.pen 50 Unit SQ QHS 30 09/14/19 Rx Synthroid (Levothyroxine Sodium) 100 Mcg Tablet 100 Mcg PO DAILY06 09/13/19 Rx Take in combination with 112mcg tablet to equal 212mcg daily Levothyroxine Sodium 112 Mcg Tablet 112 Mcg PO DAILY06 09/13/19 Rx Take in combination with 100mcg tablet to equal 212mcg daily Albuterol Sulfate Neb Soln (Albuterol Sulfate) 1.25 Mg/3 Ml Vial.neb 1 Vial NEB Q6HRS 09/11/19 Reported Combivent Respimat Inhal (Ipratropium/Albuterol Sulfate) 4 Gm Aer.w.adap 2 Inh IH PRN DAILY PRN 09/11/19 Reported Pravastatin Sodium 80 Mg Tablet 1 Tab PO QHS 09/11/19 Reported Multi Vitamin Daily (Multivitamin) 1 Each Tablet 1 Tab PO DAILY 30 09/11/19 Reported Klor-Con 10 (Potassium Chloride) 10 Meq Tablet.er 10 Meq PO DAILY 03/05/14 Reported Impression . IMPRESSION: 1. Progressive dyspnea secondary to acute on chronic cor pulmonale. 2. Previously abnormal CT chest revealing a large anterior mediastinal mass. The patient has had a previous CT-guided biopsy, which was nondiagnostic. 3. Obesity. 4. Mild obstructive sleep apnea. 5. Severe pulmonary hypertension/ intolerant to vasodilators 6. Chronic respiratory failure. 7. Chronic obstructive pulmonary disease. 8. Acute exacerbation of COPD Plan . Updated 05/14 02 titration on home o2 3 lpm cont steroids pred 20 mg daily w taper cont antibiotics for total of 7 days Continue diuresis monitor k, cr Continue oxygen supplementation d/w patient . will re attempt another ct guided bx as OP/ possible radiation. thoracic surgery declined invasive bx due to severe pulm htn ok to dc home today f/u with me as OP discussed w pt Updated 05/13 02 titration on home o2 3 lpm cont steroids pred 20 mg daily w taper cont antibiotics for total of 7 days Continue diuresis monitor k, cr Continue oxygen supplementation discussed w pt Updated 05/12 02 titration cont steroids pred 20 mg daily cont antibiotics Continue diuresis monitor k, cr Continue oxygen supplementation discussed w pt Updated 05/11 steroids and antibiotics Continue diuresis Continue oxygen supplementation updated 05/10 Continue diuresis Discussed with Dr. Willis Continue oxygen supplementation EFRA WILLIS MD May 14, 2021 08:29
[2021-05-14] MEDS: metOLazone 2.5 MG TABLET PO SCH (08:40)
[2021-05-14] MEDS: DOXYCYCLINE HYCLATE 100 MG TABLET PO SCH (08:40)
[2021-05-14] MEDS: ASPIRIN ENTERIC COATED 81 MG TABLET.DR. PO SCH (08:40)
[2021-05-14] MEDS: POTASSIUM CHLORIDE 10 MEQ TABLET.ER. PO SCH (08:41)
[2021-05-14] MEDS: METOPROLOL TART IMMED RELEASE 25 MG TABLET. PO SCH (08:41)
--- NOTE | 2021-05-14 10:38 | PDOC ---
PROGRESS NOTES Date of Service: DATE: 05/14/21 TIME: 10:38 Subjective Subjective Feeling better with improvement in dyspnea and edema Objective Objective Vital Signs Date Time Temp Pulse Resp B/P (MAP) Pulse Ox O2 Delivery O2 Flow Rate FiO2 05/14/21 08:41 66 124/66 05/14/21 08:00 Nasal Cannula 3.0 05/14/21 07:36 96 05/14/21 07:00 96.9 18 96.9 Intake and Output 05/14/21 07:00 Intake Total 360 ml Output Total 2300 ml Balance -1940 ml Intake Oral 360 ml Output Urine Total 2300 ml # Voids 2 Physical Exam Abdomen: Soft, No tenderness Heart: Regular rate (SR), Other (distant heart sounds) Extremities: No cyanosis, Other (3-4+ bilateral LE pitting edema) General: Alert, Oriented X3, Cooperative, No acute distress HEENT: Atraumatic, Mucous membr. moist/pink Lungs: Other (diminished throughout) MUSCULOSKELETAL: Osteoarthritic changes both hands Neuro: Normal speech, Sensation intact Psych/Mental Status: Mental status NL, Mood NL Skin: No breakdown Assessment Assessment 1. Acute on chronic cor pulmonale 2. Acute on chronic diastolic CHF: EF is nml 3. COPD with severe pulmonary HTN: follow [facility] unable to afford [employer] meds 4. CAD: past CABG, clinically stable 5. Anterior mediastinal mass: followed by pulmonary 6. HTN controlled 7. DM2/HLP 8. PAFIB: Maintaining SR. S/P watchman device follows with Recommendations 1. Lasix therapy, K replacement. 2. Continue metoprolol. Continue ASA. Eliquis was discontinued before due to significant epistaxis 3. Secondary prevention measures 4. DC home today. Follow-up as scheduled. Comment Review of Relevant I have reviewed the following items yoselyn (where applicable) has been applied. Labs Laboratory Tests Test 05/13/21 10:53 05/13/21 16:08 05/13/21 20:35 05/14/21 04:55 Glucose (Fingerstick) 259 mg/dL (70-99) 369 mg/dL (70-99) 416 mg/dL (70-99) Potassium Level 3.0 mmol/L (3.5-5.1) Test 05/14/21 07:55 Glucose (Fingerstick) 167 mg/dL (70-99) Medications Current Medications Insulin Glargine (Lantus Syringe) 44 unit QHS SQ Last administered on 05/13/21at 21:06; Start 05/13/21 at 21:00 Insulin Human Lispro (HumaLOG) 10 units 1X ONCE SQ Last administered on 05/13/21at 16:43; Start 05/13/21 at 16:30; Stop 05/13/21 at 16:31; Status DC Lactobacillus Rhamnosus (Culturelle) 1 cap BID PO ; Start 05/14/21 at 21:00 Potassium Chloride (Klor-Con) 30 meq QID PO Last administered on 05/14/21at 08 :41; Start 05/13/21 at 13:00 Vitals/I & O Vital Sign - Last 24 Hours 05/13/21 05/13/21 05/13/21 05/13/21 11:00 11:23 14:39 15:24 Temp 97.5 97.8 97.5 97.8 Pulse 74 78 Resp 18 18 B/P (MAP) 129/61 (83) 111/59 (76) Pulse Ox 94 93 O2 Delivery Nasal Cannula Nasal Cannula Nasal Cannula Nasal Cannula O2 Flow Rate 3.0 3.0 3.0 3.0 05/13/21 05/13/21 05/13/21 05/13/21 19:16 20:00 20:07 21:08 Temp 98.1 98.1 Pulse 78 78 Resp 16 B/P (MAP) 147/63 (91) 147/63 Pulse Ox 95 99 O2 Delivery Nasal Cannula Nasal Cannula Nasal Cannula O2 Flow Rate 3.0 3.0 3.0 05/13/21 05/14/21 05/14/21 05/14/21 22:36 02:52 07:00 07:36 Temp 98.4 98.0 96.9 98.4 98.0 96.9 Pulse 70 62 66 Resp 16 18 18 B/P (MAP) 143/63 (89) 120/63 (82) 124/66 (85) Pulse Ox 95 99 96 96 O2 Delivery Nasal Cannula Nasal Cannula Nasal Cannula Nasal Cannula O2 Flow Rate 3.0 3.0 3.0 3.0 05/14/21 05/14/21 08:00 08:41 Pulse 66 B/P (MAP) 124/66 O2 Delivery Nasal Cannula O2 Flow Rate 3.0 Intake and Output 05/13/21 05/13/21 05/14/21 15:00 23:00 07:00 Intake Total 180 ml 180 ml 0 ml Output Total 1600 ml 700 ml Balance 180 ml -1420 ml -700 ml HAYLIE CAO MD May 14, 2021 10:38
--- NOTE | 2021-05-14 10:57 | NUR ---
SS following up with discharge planning. SS reviewed pt chart and discussed with pt RN. Pt is currently requiring oxygen at three liters nasal canula. COVID19 negative. Pt has home oxygen. Pt declined jail unit. Pt requesting to discharge to home with [facility], ; fax [phone]. Discharge orders received and phoned and faxed to [facility]. Pt's RN notified.
[2021-05-14 11:00] VITALS: BP 129/62
--- NOTE | 2021-05-14 12:15 | NUR ---
DISCHARGE INSTRUCTIONS GIVEN, QUESTIONS AND CONCERNS ANSWERED, PATIENT VERBALIZED UNDERSTANDING OF DISCHARGE INFORMATION INCLUDING TAKING ALL MEDICATIONS INSTRUCTED AND FOLLOWING UP WITH HER PRIMARY PROVIDER IN 1-2 WEEKS AND /ROLA INSTRUCTED. ALL PERSONAL BELONGINGS GATHERED BY THE PATIENT AND PLACED IN BAGS FOR DISCHARGE. SALINE LOCK REMOVED FROM PATIENTS' LEFT HAND PER THIS ANTENNA DESIGN ENGINEER, PATIENT TOLERATED WITHOUT COMPLAINTS.
[2021-05-14] MEDS ORDERED: LACTOBACILLUS RHAMNOSUS GG 1 CAPSULE. PO SCH (21:00)
== END 2021-05-14 12:50 | disposition home health service (06) | DRG 291 ==
LOC: ER 15:26 → ED HOLD 18:00 → 6 SOUTH 21:27
PROVIDERS: ADMIT Family Medicine; ATTEND Family Medicine
DX: I11.0 Hypertensive heart disease with heart failure (principal); I50.43 Acute on chronic combined systolic (congestive) and diastolic (congestive) heart failure; J44.1 Chronic obstructive pulmonary disease with (acute) exacerbation; J96.11 Chronic respiratory failure with hypoxia; I42.9 Cardiomyopathy, unspecified; I48.0 Paroxysmal atrial fibrillation; E03.9 Hypothyroidism, unspecified; E11.9 Type 2 diabetes mellitus without complications; E66.9 Obesity, unspecified; E78.00 Pure hypercholesterolemia, unspecified; E78.5 Hyperlipidemia, unspecified; E87.6 Hypokalemia; G47.33 Obstructive sleep apnea (adult) (pediatric); I25.10 Atherosclerotic heart disease of native coronary artery without angina pectoris; I27.20 Pulmonary hypertension, unspecified; Z82.49 Family history of ischemic heart disease and other diseases of the circulatory system; Z87.891 Personal history of nicotine dependence; Z95.1 Presence of aortocoronary bypass graft; Z95.818 Presence of other cardiac implants and grafts; Z99.81 Dependence on supplemental oxygen; F32.A Depression, unspecified; M19.90 Unspecified osteoarthritis, unspecified site; Z60.2 Problems related to living alone; Z68.39 Body mass index [BMI] 39.0-39.9, adult; I27.81 Cor pulmonale (chronic)
CPT/HCPCS: 36415; 71045; 80048; 80053; 81001; 82553; 82962; 83735; 83880; 84132; 85025; 85610; 87426; 90471; 90686; 93005; 93306; 94640; 94760; 96372; 99285; J1815; J1940; J7512; U0003; U0005; 97530-GP; G0378; J7613

== ENCOUNTER → 2021-08-20 | Outpatient (CLI) | payer MEDICARE, BC ==
[2021-07-09 10:59] VITALS: BP 137/60
[~2021-08-20] MED LIST changes: +METO2.5T PO; +OMEG1CAP27 PO
--- NOTE | 2021-08-20 12:38 | RAD ---
EXAM: PET/CT skull base to thighs. HISTORY: Lung cancer restaging. TECHNIQUE: CT of the entire body was performed for the purposes of attenuation correction. 13 mCi F-1 8 fluorodeoxyglucose were administered intravenously. Blood glucose level at the time of administrati on was 80 mg/dL. After 45 minutes uptake, positron emission tomography of the entire body was perform ed. The PET and CT data were fused and interpreted in combination on a dedicated workstation. Reporte d standard uptake values (SUV) are the maximum SUV within a lesional volumetric region of interest. S UV normalization is via body mass. COMPARISON: 02/12/2021. FINDINGS: Mediastinal blood pool SUV reference value: 4.6. There is a large right superior paramediastinal radiotracer avid mass with central photopenia. This m easures 9.7 cm in maximum dimension with a maximum SUV of 16.4. There is increased radiotracer activi ty within the right hilum with an SUV of 5.6, possibly due to lesion extension or associated metastat ic lymphadenopathy. There is no additional radiotracer avid mediastinal or hilar lymph node. There is a small focus of increased radiotracer activity within SUV of 9.0 within the distal sigmoid colon at the level of a diverticulum. This may be inflammatory in etiology. There is physiologic acti vity within the bowel and renal collecting system. There is muscular activity involving the vocal cor ds. The CT portion of the exam demonstrates a right superior paramediastinal mass measuring approximately 9.7 cm in maximum transaxial dimension with internal necrosis. The right hilar lymph nodes are not c learly separable from this lesion. There is a 2.8 cm soft tissue lesion within the right paratracheal region likely due to lesion extension or an abutting lymph node. There is a small right pleural effu clinton. There is no pneumothorax. There is medial right middle lobe and left infrahilar atelectasis or infiltrate. There is cardiomegaly. There is coronary artery calcification. There is a suspected left atrial appen dage closure device. There is evidence of prior CABG. There is aortic and aortic branch vessel athero sclerosis. The visualized portions of the brain are unremarkable. There are small maxillary sinus mucous retenti on cysts. There are calcifications within the deep lobes of the parotid glands. There is heavily calc ified atherosclerotic plaque involving the carotid bifurcations. There is no convincing neck lymphade nopathy. There is hepatomegaly. There is suggestion of hepatic surface nodularity. No focal hepatic lesion is seen on this noncontrast exam. The gallbladder, pancreas and adrenal glands are unremarkable. There i s splenomegaly. There is no suspicious renal lesion or hydronephrosis. There is moderate colonic stool. There is colonic diverticulosis. There is mild bladder wall thickeni ng likely due to relative under distention. There are uterine fibroids. The adnexal regions are unrem arkable. There is an infrarenal abdominal aortic aneurysm measuring 3.5 cm. There is aortobiiliac ath erosclerosis. There is degenerative change involving the spine, hips and shoulders. There is scarring within the medial proximal left thigh, likely due to prior vascular surgery. IMPRESSION: 1. Large right superior para mediastinal radiotracer avid mass with internal necrosis measuring 9.7 c m in maximum dimension with an SUV of 16.4. This is increased compared to a measurement of 6.3 cm on a study performed 02/12/2021. The lesion appears to involve the right hilum or there is associated radi otracer avid right hilar lymphadenopathy with a maximum SUV of 5.6. No additional radiotracer avid ly mph node is seen. 2. Small focus of increased radiotracer activity within SUV of 9.0 associated with the distal sigmoid colon, likely due to inflammation at the level of a diverticulum. There is no convincing mass in thi s location on CT. However, correlate with prior colonoscopy findings can be performed to confirm dre gnity. 3. Medial right middle lobe and left infrahilar atelectasis or interstitial infiltrate. This is not a ssociated with significant increased tracer activity above the blood pool. 4. 3.5 cm abdominal aortic aneurysm. 5. Note is made of a previously demonstrated groundglass opacity at the lateral left lung base demons trates no convincing correlate on the current exam. This may be obscured due to aforementioned atelec tasis or infiltrate. 6. Small right pleural effusion. 7. Hepatomegaly and suspected hepatic cirrhosis with changes due to portal hypertension, including sp lenomegaly. Evaluation for lesions in the setting of cirrhosis is limited in the absence of contrast. Electronically signed by: Laine Salinas MD (08/20/2021 12:35 PM) [id number]
== END ==
LOC: PETSC 09:53
PROVIDERS: ATTEND Internal Medicine Critical Care Medicine
DX: C38.1 Malignant neoplasm of anterior mediastinum (principal); I71.4 Abdominal aortic aneurysm, without rupture; J98.11 Atelectasis; R16.0 Hepatomegaly, not elsewhere classified; J90 Pleural effusion, not elsewhere classified; I51.7 Cardiomegaly; I25.10 Atherosclerotic heart disease of native coronary artery without angina pectoris; J34.1 Cyst and mucocele of nose and nasal sinus; I70.0 Atherosclerosis of aorta; K11.8 Other diseases of salivary glands; K57.30 Diverticulosis of large intestine without perforation or abscess without bleeding; R16.1 Splenomegaly, not elsewhere classified; D25.9 Leiomyoma of uterus, unspecified; M47.819 Spondylosis without myelopathy or radiculopathy, site unspecified; M16.0 Bilateral primary osteoarthritis of hip; M19.011 Primary osteoarthritis, right shoulder; M19.012 Primary osteoarthritis, left shoulder; Z95.1 Presence of aortocoronary bypass graft
CPT/HCPCS: 78815; A9552

== ENCOUNTER 2021-08-22 01:06 | Inpatient (IN) | payer MEDICARE, BC ==
[~2021-08-22] VITALS: Ht 162.6 cm; Wt 105.4 kg
[~2021-08-22 01:06] MED LIST changes: -METO2.5T PO; -OMEG1CAP27 PO
--- NOTE | 2021-08-22 01:33 | ED.ADGEN ---
Past Medical History Past Medical History: CAD, CHF, COPD, Diabetes-Type II, High Cholesterol, Heart Disease, Hypertension, Hypothyroid, Other Additional Past Medical Histor: home oxygen use, PULMONARY HYPERTENSION ,CABG 2013 Past Surgical History: Coronary Bypass Surgery, Tonsillectomy, Other Additional Past Surgical Histo: bilat knee scope, heart cath Smoking Status: Former Smoker Alcohol Use: None Drug Use: None General Adult EDM: Chief Complaint: SHORTNESS OF BREATH HPI: HPI: Patient is a 70 year old female coming in from home via EMS for shortness of breath. Patient has a history of COPD and CHF. Patient states that worsening orthopnea. Is on 3 L nasal cannula all the time and has not had to go up on it. Has baseline lower extremity edema. Has had a productive cough of mucus. No fevers or chills. Review of Systems: Review of Systems: All other systems within normal limits except for as noted in the HPI Allergies: Allergies: Allergies Coded Allergies Type Severity Reaction Last Updated Verified Penicillins Adverse Reaction Mild yeast infections 09/06/15 Yes Physical Exam: PE: Constitutional: Well developed, well nourished, no acute distress, non-toxic appearance. [] HENT: Normocephalic, atraumatic, bilateral external ears normal, nose normal. [] Eyes: PERRLA, conjunctiva normal, no discharge. [] Neck: No rigidity, supple, no stridor. [] Cardiovascular: Regular rate and rhythm, brisk cap refill [] Lungs & Thorax: Non labored symmetric respirations, no tachypnea or respiratory distress [] Abdomen: Soft, nondistended. Skin: Warm, dry, no erythema, no rash. [] Back: Unremarkable Extremities: No deformities, range of motion grossly intact, no lower extremity edema [] Neurologic: Alert and oriented X 3, no focal deficits noted. [] Psychologic: Affect normal, judgement normal, mood normal. [] Current Patient Data: Labs: Laboratory Tests Test 08/22/21 02:00 White Blood Count 13.0 x10^3/uL (4.0-11.0) H Red Blood Count 3.92 x10^6/uL (3.50-5.40) Hemoglobin 10.7 g/dL (12.0-15.5) L Hematocrit 32.0 % (36.0-47.0) L Mean Corpuscular Volume 82 fL (79-100) Mean Corpuscular Hemoglobin 27 pg (25-35) Mean Corpuscular Hemoglobin Concent 33 g/dL (31-37) Red Cell Distribution Width 18.3 % (11.5-14.5) H Platelet Count 253 x10^3/uL (140-400) Neutrophils (%) (Auto) 82 % (31-73) H Lymphocytes (%) (Auto) 9 % (24-48) L Monocytes (%) (Auto) 8 % (0-9) Eosinophils (%) (Auto) 0 % (0-3) Basophils (%) (Auto) 1 % (0-3) Neutrophils # (Auto) 10.6 x10^3/uL (1.8-7.7) H Lymphocytes # (Auto) 1.2 x10^3/uL (1.0-4.8) Monocytes # (Auto) 1.1 x10^3/uL (0.0-1.1) Eosinophils # (Auto) 0.0 x10^3/uL (0.0-0.7) Basophils # (Auto) 0.1 x10^3/uL (0.0-0.2) Sodium Level 132 mmol/L (136-145) L Potassium Level 4.4 mmol/L (3.5-5.1) Chloride Level 83 mmol/L (98-107) L Carbon Dioxide Level > 45 mmol/L (21-32) H Anion Gap (6-14) Blood Urea Nitrogen 21 mg/dL (7-20) H Creatinine 0.7 mg/dL (0.6-1.0) Estimated GFR (Cockcroft-Gault) 83.0 BUN/Creatinine Ratio 30 (6-20) H Glucose Level 380 mg/dL (70-99) H Calcium Level 8.5 mg/dL (8.5-10.1) Phosphorus Level 2.7 mg/dL (2.6-4.7) Magnesium Level 2.1 mg/dL (1.8-2.4) Total Bilirubin 0.8 mg/dL (0.2-1.0) Aspartate Amino Transferase (AST) 34 U/L (15-37) Alanine Aminotransferase (ALT) 24 U/L (14-59) Alkaline Phosphatase 209 U/L (46-116) H Troponin I High Sensitivity 39 ng/L (4-50) HP-Pyc-M-Type Natriuretic Peptide 4415 pg/mL (0-124) H Total Protein 6.0 g/dL (6.4-8.2) L Albumin 2.5 g/dL (3.4-5.0) L Albumin/Globulin Ratio 0.7 (1.0-1.7) L Laboratory Tests 08/22/21 02:00 Laboratory Tests 08/22/21 02:00 Vital Signs: Vital Signs Date Time Temp Pulse Resp B/P (MAP) Pulse Ox O2 Delivery O2 Flow Rate FiO2 08/22/21 02:43 78 23 159/67 (97) 96 Nasal Cannula 3.0 08/22/21 01:10 98.6 98.6 EKG: EKG: Sinus rhythm, heart rate 76, right axis deviation, no STEMI [] Heart Score: C/O Chest Pain: No HEART Score for Chest Pain: HEART Score for Chest Pain Response (Comments) Value History Slighlty/Non-Suspicious 0 ECG Nonspecific Repolarizatio 1 Age > 65 2 Risk Factors >3 Risk Factors or Hx CAD 2 Troponin < Normal Limit 0 Total 5 Risk Factors: Risk Factors: DM, Current or recent (<one month) smoker, HTN, HLP, family history of CAD, obesity. Risk Scores: Score 0 - 3: 2.5% MACE over next 6 weeks - Discharge Home Score 4 - 6: 20.3% MACE over next 6 weeks - Admit for Clinical Observation Score 7 - 10: 72.7% MACE over next 6 weeks - Early Invasive Strategies Radiology/Procedures: Radiology/Procedures: [facility] [address] [place], [place] [id number] IMAGING REPORT Signed PATIENT: WILDA GRECO ACCOUNT: [id number] : 1950 LOCATION: ER AGE: 70 SEX: F EXAM STATUS: PRE ER ORD. PHYSICIAN: CAIT STEWART MD REASON: chf PROCEDURE: CHEST AP ONLY XR CHEST 1V INDICATION: chf COMPARISON STUDY: PET/CT 08/20/2021. FINDINGS: Lungs: Normal lung volume. Right perihilar mass. Indistinct central vasculature. Pleura: No pleural effusion or pneumothorax. Heart and Mediastinum: Cardiomegaly. Atherosclerotic thoracic aorta. Median sternotomy. IMPRESSION: 1. Indistinct central vasculature, which may reflect interstitial edema. 2. Right perihilar mass consistent with known lung cancer, better characterized on recent PET/CT Electronically signed by: Lisa Youngblood MD (08/22/2021 1:59 AM) [facility] DICTATED and SIGNED BY: LISA YOUNGBLOOD MD DATE: 08/22/21 [id number] [] Course & Med Decision Making: Course & Med Decision Making Pertinent Labs and Imaging studies reviewed. (See chart for details) Patient has elevated white count and a right middle lobe infiltrate that was identified on PET scan that was performed yesterday. [] Dragon Disclaimer: Dragon Disclaimer: This electronic medical record was generated, in whole or in part, using a voice recognition dictation system. Departure Departure Impression: Primary Impression: CHF (congestive heart failure) Additional Impressions: COPD (chronic obstructive pulmonary disease) Pneumonia Disposition: ADMITTED INPATIENT Admitting Physician: Jasper Hannah Condition: STABLE Referrals: JASPER HANNAH MD (PCP) Problem Qualifiers CAIT STEWART MD Aug 22, 2021 01:33
--- NOTE | 2021-08-22 02:02 | RAD ---
XR CHEST 1V INDICATION: chf COMPARISON STUDY: PET/CT 08/20/2021. FINDINGS: Lungs: Normal lung volume. Right perihilar mass. Indistinct central vasculature. Pleura: No pleural effusion or pneumothorax. Heart and Mediastinum: Cardiomegaly. Atherosclerotic thoracic aorta. Median sternotomy. IMPRESSION: 1. Indistinct central vasculature, which may reflect interstitial edema. 2. Right perihilar mass consistent with known lung cancer, better characterized on recent PET/CT Electronically signed by: Haim Youngblood MD (08/22/2021 1:59 AM) [facility]
[2021-08-22 02:08] LABS: BASO # 0.1 x10^3/uL (0.0-0.2); BASO % 1 % (0-3); EOS % 0 % (0-3); HEMOGLOBIN 10.7 g/dL (12.0-15.5); LYMPH # 1.2 x10^3/uL (1.0-4.8); LYMPH % 9 % (24-48); MEAN CORPUSCULAR HEMOGLOBIN 27 pg (25-35); MEAN CORPUSCULAR HGB CONC 33 g/dL (31-37); MEAN CORPUSCULAR VOLUME 82 fL (79-100); MONO # 1.1 x10^3/uL (0.0-1.1); MONO % 8 % (0-9); NEUT # 10.6 x10^3/uL (1.8-7.7); NEUT % 82 % (31-73); PLATELET COUNT 253 x10^3/uL (140-400); RED BLOOD COUNT 3.92 x10^6/uL (3.50-5.40); RED CELL DISTRIBUTION WIDTH 18.3 % (11.5-14.5)
[2021-08-22 02:21] LABS: BLOOD UREA NITROGEN 21 mg/dL (7-20); BUN/CREATININE RATIO 30 (6-20); CALCIUM 8.5 mg/dL (8.5-10.1); CHLORIDE 83 mmol/L (98-107); CREATININE 0.7 mg/dL (0.6-1.0); GLUCOSE 380 mg/dL (70-99); POTASSIUM 4.4 mmol/L (3.5-5.1); SODIUM 132 mmol/L (136-145)
[2021-08-22 02:23] LABS: CARBON DIOXIDE > 45 mmol/L (21-32)
[2021-08-22 02:26] LABS: ALBUMIN 2.5 g/dL (3.4-5.0); ALBUMIN/GLOBULIN RATIO 0.7 (1.0-1.7); ALK PHOS 209 U/L (46-116); ALT (SGPT) 24 U/L (14-59); AST (SGOT) 34 U/L (15-37); MAGNESIUM 2.1 mg/dL (1.8-2.4); PHOSPHORUS 2.7 mg/dL (2.6-4.7); TOTAL BILIRUBIN 0.8 mg/dL (0.2-1.0)
[2021-08-22 03:09] LABS: INFLUENZA A PATIENT NEGATIVE (NEGATIVE); INFLUENZA B PATIENT NEGATIVE (NEGATIVE)
[2021-08-22] MEDS ORDERED: MORPHINE SULFATE 2 MG/ML INJ. IVP PRN (03:15)
[2021-08-22] MEDS ORDERED: ONDANSETRON PF 4 MG/2 ML VIAL. IVP PRN (03:15)
[2021-08-22] MEDS ORDERED: ACETAMINOPHEN 325 MG TABLET. PO PRN (03:15)
--- NOTE | 2021-08-22 03:46 | EKG ---
[facility] [address] [place] [address] Test Date: 2021-08-22 Test Time: 01:44:23 Pat Name: WILDA GRECO Department: Room: Gender: F Judge Clerk: : 1950 Requested By: CAIT STEWART Order Number: [id number] Reading MD: Socrates Krause Measurements Intervals [place] Rate: 76 P: SD: QRS: 129 QRSD: 92 T: -8 QT: 470 QTc: 534 Interpretive Statements SINUS RHYTHM ST & T ABNORMALITY, CONSIDER INFERIOR ISCHEMIA OR LEFT VENTRICULAR STRAIN Electronically Signed On 08-22-2021 19:58:05 DOUBLER OPERATOR by Socrates Krause
[2021-08-22 04:50] VITALS: BP 146/63
[2021-08-22] MEDS ORDERED: INSU100I13 SQ (05:24)
[2021-08-22] MEDS ORDERED: METO2.5T PO (05:32)
[2021-08-22] MEDS ORDERED: FURO40TA4 PO (05:32)
[2021-08-22] MEDS ORDERED: OMEG1CAP27 PO (05:32)
[2021-08-22 07:00] VITALS: BP 115/42
--- NOTE | 2021-08-22 08:56 | PDOC ---
Provider Note Date of Service: DATE: 08/22/21 TIME: 08:56 Provider Note dictated Justifications for Admission Other Justification JASPER HANNAH MD Aug 22, 2021 08:56
[2021-08-22] MEDS ORDERED: metOLazone 2.5 MG TABLET PO PRN (09:00)
[2021-08-22] MEDS ORDERED: NON FORMULARY ITEM (Albuterol Sulfate (Albuterol Sulfate Neb Soln) 1 VIAL) NEB PRN (09:00)
[2021-08-22] MEDS: LEVOTHYROXINE 100 MCG TABLET PO SCH (09:41)
[2021-08-22] MEDS: FUROSEMIDE 40 MG TABLET. PO SCH ×2 (09:41→16:38)
[2021-08-22] MEDS: LEVOTHYROXINE 112 MCG TABLET PO SCH (09:41)
[2021-08-22] MEDS: POTASSIUM CHLORIDE 10 MEQ TABLET.ER. PO SCH ×3 (09:41→21:12)
[2021-08-22] MEDS: METOPROLOL TART IMMED RELEASE 25 MG TABLET. PO SCH ×2 (09:42→21:12)
--- NOTE | 2021-08-22 10:58 | HP ---
DATE OF SERVICE: 08/22/2021 ADMIT DATE: 08/22/2021 CHIEF COMPLAINT: Cough, hemoptysis. HISTORY OF PRESENT ILLNESS: This lady with known , came in, was told in the ER that we diagnosed with . He had a negative lung biopsy of a right mediastinal lung mass about 6 months ago and had a PET scan done [address] Willis and it has not been totally resolved yet. The result shows a 9 cm necrotic mass in the right lung, mediastinum, highly suspicious for primary lung cancer. She has been losing weight, though I'm not sure what amount and has just general fatigue. PAST MEDICAL HISTORY: Multiple meds listed per the chart. She has known cor pulmonale and sees Dr. Krause as well. SOCIAL HISTORY: Quit smoking many years ago, . Lives by herself to my knowledge. FAMILY HISTORY: Unremarkable. REVIEW OF SYSTEMS: No other complaints except as above. OBJECTIVE: ENT: All within normal limits. NECK: No masses, nodes or bruits. LUNGS: Decreased breath sounds. No wheezes or rhonchi. CARDIOVASCULAR: Regular rate. No irregular beat or tachycardia. ABDOMEN: Obese, soft, nontender. EXTREMITIES: Reasonably good pedal pulses, mild ankle edema, no acute findings. NEUROLOGIC: Physiologic. ASSESSMENT: Right lung mass suspicious for primary cancer per PET scan despite prior negative biopsies. The weight loss and hemoptysis supports this as well. PLAN: As ordered. We will need a bronchoscopy or perhaps a repeat lung biopsy to make a correct diagnosis. BALA DR: EVANGELINA/vishnu TID: [id number]
[2021-08-22 11:00] VITALS: BP 127/67
--- NOTE | 2021-08-22 13:11 | NUR ---
SW following. Discussed with RN, pt from home, 3L (uses oxygen at home), cardiac diet, Rapid COVID-19 negative. PT/OT ordered. RN advised no SW needs at this time. SW will continue to follow.
--- NOTE | 2021-08-22 14:13 | PDOC ---
PULMONARY PROGRESS NOTES DATE: 08/22/21 TIME: 14:13 Vitals Vital Signs Date Time Temp Pulse Resp B/P (MAP) Pulse Ox O2 Delivery O2 Flow Rate FiO2 08/22/21 11:00 98.1 73 18 127/67 (87) 94 98.1 08/22/21 08:00 Nasal Cannula 3.0 General: Alert Lungs: Crackles Cardiovascular: S1, S2, Other Abdomen: Soft Extremities: Other Labs Laboratory Tests Test 08/22/21 02:00 08/22/21 02:48 08/22/21 07:25 White Blood Count 13.0 x10^3/uL (4.0-11.0) Red Blood Count 3.92 x10^6/uL (3.50-5.40) Hemoglobin 10.7 g/dL (12.0-15.5) Hematocrit 32.0 % (36.0-47.0) Mean Corpuscular Volume 82 fL (79-100) Mean Corpuscular Hemoglobin 27 pg (25-35) Mean Corpuscular Hemoglobin Concent 33 g/dL (31-37) Red Cell Distribution Width 18.3 % (11.5-14.5) Platelet Count 253 x10^3/uL (140-400) Neutrophils (%) (Auto) 82 % (31-73) Lymphocytes (%) (Auto) 9 % (24-48) Monocytes (%) (Auto) 8 % (0-9) Eosinophils (%) (Auto) 0 % (0-3) Basophils (%) (Auto) 1 % (0-3) Neutrophils # (Auto) 10.6 x10^3/uL (1.8-7.7) Lymphocytes # (Auto) 1.2 x10^3/uL (1.0-4.8) Monocytes # (Auto) 1.1 x10^3/uL (0.0-1.1) Eosinophils # (Auto) 0.0 x10^3/uL (0.0-0.7) Basophils # (Auto) 0.1 x10^3/uL (0.0-0.2) Sodium Level 132 mmol/L (136-145) Potassium Level 4.4 mmol/L (3.5-5.1) Chloride Level 83 mmol/L (98-107) Carbon Dioxide Level > 45 mmol/L (21-32) Anion Gap (6-14) Blood Urea Nitrogen 21 mg/dL (7-20) Creatinine 0.7 mg/dL (0.6-1.0) Estimated GFR (Cockcroft-Gault) 83.0 BUN/Creatinine Ratio 30 (6-20) Glucose Level 380 mg/dL (70-99) Calcium Level 8.5 mg/dL (8.5-10.1) Phosphorus Level 2.7 mg/dL (2.6-4.7) Magnesium Level 2.1 mg/dL (1.8-2.4) Total Bilirubin 0.8 mg/dL (0.2-1.0) Aspartate Amino Transf (AST/SGOT) 34 U/L (15-37) Alanine Aminotransferase (ALT/SGPT) 24 U/L (14-59) Alkaline Phosphatase 209 U/L (46-116) Troponin I High Sensitivity 39 ng/L (4-50) JH-Xmz-S-Type Natriuretic Peptide 4415 pg/mL (0-124) Total Protein 6.0 g/dL (6.4-8.2) Albumin 2.5 g/dL (3.4-5.0) Albumin/Globulin Ratio 0.7 (1.0-1.7) Influenza Type A Antigen Negative (NEGATIVE) Influenza Type B Antigen Negative (NEGATIVE) SARS-CoV-2 Antigen (Rapid) Negative (NEGATIVE) Glucose (Fingerstick) 275 mg/dL (70-99) Laboratory Tests Test 08/22/21 02:00 08/22/21 02:48 08/22/21 07:25 White Blood Count 13.0 x10^3/uL (4.0-11.0) Red Blood Count 3.92 x10^6/uL (3.50-5.40) Hemoglobin 10.7 g/dL (12.0-15.5) Hematocrit 32.0 % (36.0-47.0) Mean Corpuscular Volume 82 fL (79-100) Mean Corpuscular Hemoglobin 27 pg (25-35) Mean Corpuscular Hemoglobin Concent 33 g/dL (31-37) Red Cell Distribution Width 18.3 % (11.5-14.5) Platelet Count 253 x10^3/uL (140-400) Neutrophils (%) (Auto) 82 % (31-73) Lymphocytes (%) (Auto) 9 % (24-48) Monocytes (%) (Auto) 8 % (0-9) Eosinophils (%) (Auto) 0 % (0-3) Basophils (%) (Auto) 1 % (0-3) Neutrophils # (Auto) 10.6 x10^3/uL (1.8-7.7) Lymphocytes # (Auto) 1.2 x10^3/uL (1.0-4.8) Monocytes # (Auto) 1.1 x10^3/uL (0.0-1.1) Eosinophils # (Auto) 0.0 x10^3/uL (0.0-0.7) Basophils # (Auto) 0.1 x10^3/uL (0.0-0.2) Sodium Level 132 mmol/L (136-145) Potassium Level 4.4 mmol/L (3.5-5.1) Chloride Level 83 mmol/L (98-107) Carbon Dioxide Level > 45 mmol/L (21-32) Anion Gap (6-14) Blood Urea Nitrogen 21 mg/dL (7-20) Creatinine 0.7 mg/dL (0.6-1.0) Estimated GFR (Cockcroft-Gault) 83.0 BUN/Creatinine Ratio 30 (6-20) Glucose Level 380 mg/dL (70-99) Calcium Level 8.5 mg/dL (8.5-10.1) Phosphorus Level 2.7 mg/dL (2.6-4.7) Magnesium Level 2.1 mg/dL (1.8-2.4) Total Bilirubin 0.8 mg/dL (0.2-1.0) Aspartate Amino Transf (AST/SGOT) 34 U/L (15-37) Alanine Aminotransferase (ALT/SGPT) 24 U/L (14-59) Alkaline Phosphatase 209 U/L (46-116) Troponin I High Sensitivity 39 ng/L (4-50) YT-Cua-O-Type Natriuretic Peptide 4415 pg/mL (0-124) Total Protein 6.0 g/dL (6.4-8.2) Albumin 2.5 g/dL (3.4-5.0) Albumin/Globulin Ratio 0.7 (1.0-1.7) Influenza Type A Antigen Negative (NEGATIVE) Influenza Type B Antigen Negative (NEGATIVE) SARS-CoV-2 Antigen (Rapid) Negative (NEGATIVE) Glucose (Fingerstick) 275 mg/dL (70-99) Medications Active Scripts Medications Dose Route/Sig Max Daily Dose Days Date Category Dose Instructions Metolazone 2.5 Mg Tablet 1 Tab PO PRN DAILY PRN 08/22/21 Reported Furosemide 40 Mg Tablet 1 Tab PO BID 08/22/21 Reported Fish Oil 1,000 Mg Softgel ([place]-3 Fatty Acids/Fish Oil) 1 Each Capsule 1 Cap PO DAILY 30 08/22/21 Reported WITH MEALS Lantus Solostar (Insulin Glargine,Hum.rec.anlog) 100 Unit/1 Ml Insuln.pen 47 Unit SQ QHS 08/22/21 Reported Children's Claritin (Loratadine) 5 Mg Tab.chew 1 Tab PO BID 30 05/03/21 Reported Metoprolol Tartrate 25 Mg Tablet 0.5 Tab PO BID 03/01/21 Reported Synthroid (Levothyroxine Sodium) 100 Mcg Tablet 100 Mcg PO DAILY06 09/13/19 Rx Take in combination with 112mcg tablet to equal 212mcg daily Levothyroxine Sodium 112 Mcg Tablet 112 Mcg PO DAILY06 30 09/13/19 Rx Take in combination with 100mcg tablet to equal 212mcg daily Albuterol Sulfate Neb Soln (Albuterol Sulfate) 1.25 Mg/3 Ml Vial.neb 1 Vial NEB PRN Q6HRS PRN 09/11/19 Reported Combivent Respimat Inhal (Ipratropium/Albuterol Sulfate) 4 Gm Aer.w.adap 2 Inh IH PRN DAILY PRN 09/11/19 Reported Pravastatin Sodium 80 Mg Tablet 1 Tab PO QHS 09/11/19 Reported Multi Vitamin Daily (Multivitamin) 1 Each Tablet 1 Tab PO DAILY 30 09/11/19 Reported Klor-Con 10 (Potassium Chloride) 10 Meq Tablet.er 20 Meq PO TID 03/05/14 Reported Impression . Full note to be dictated Abnormal CT chest mediastinal mass Hemoptysis Positive PET scan Reviewed risk benefits and alternatives to bronchoscopy, will proceed with bronchoscopy tomorrow WILLIAM CANELA MD Aug 22, 2021 14:13
[2021-08-22 15:00] VITALS: BP 131/65
[2021-08-22 20:34] VITALS: BP 118/52
[2021-08-22] MEDS: ATORVASTATIN CALCIUM 20 MG TABLET PO SCH (21:12)
[2021-08-22] MEDS: INSULIN GLARGINE SYRINGE. SQ SCH (21:13)
[2021-08-22 23:21] VITALS: BP 110/54
[2021-08-23] VITALS (7 sets, daily range): BP systolic 102–136; BP diastolic 49–75
[2021-08-23] MEDS: LEVOTHYROXINE 112 MCG TABLET PO SCH (02:52)
[2021-08-23] MEDS: LEVOTHYROXINE 100 MCG TABLET PO SCH (02:52)
[2021-08-23] MEDS ORDERED: IV RINGERS,LACTATED 1000ML 1,000 ML IV SCH (07:00)
--- NOTE | 2021-08-23 08:40 | PDOC ---
Provider Note Date of Service: DATE: 08/23/21 TIME: 08:39 Provider Note large Rsided mass, + per PET, prior bx neg but certainly tumor- she has lost weight , 3 weeks hemoptysis, for bronch today Justifications for Admission Other Justification JASPER HANNAH MD Aug 23, 2021 08:40
--- NOTE | 2021-08-23 08:46 | PDOC ---
PULMONARY PROGRESS NOTES DATE: 08/23/21 TIME: 08:46 Subjective Patient continues to have periods of hemoptysis On further discussion she had nasal bleed, that was cauterized Vitals Vital Signs Date Time Temp Pulse Resp B/P (MAP) Pulse Ox O2 Delivery O2 Flow Rate FiO2 08/23/21 03:20 98.6 72 16 112/51 (71) 93 Room Air 98.6 08/22/21 23:21 3.0 ROS: No Nausea, No Chest Pain, No Abdominal Pain General: Alert Lungs: Crackles Cardiovascular: S1, S2, Other Abdomen: Soft Neuro Exam: Alert Extremities: Other Skin: Warm Labs Laboratory Tests Test 08/22/21 02:00 08/22/21 02:48 08/22/21 07:25 08/22/21 21:09 White Blood Count 13.0 x10^3/uL (4.0-11.0) Red Blood Count 3.92 x10^6/uL (3.50-5.40) Hemoglobin 10.7 g/dL (12.0-15.5) Hematocrit 32.0 % (36.0-47.0) Mean Corpuscular Volume 82 fL (79-100) Mean Corpuscular Hemoglobin 27 pg (25-35) Mean Corpuscular Hemoglobin Concent 33 g/dL (31-37) Red Cell Distribution Width 18.3 % (11.5-14.5) Platelet Count 253 x10^3/uL (140-400) Neutrophils (%) (Auto) 82 % (31-73) Lymphocytes (%) (Auto) 9 % (24-48) Monocytes (%) (Auto) 8 % (0-9) Eosinophils (%) (Auto) 0 % (0-3) Basophils (%) (Auto) 1 % (0-3) Neutrophils # (Auto) 10.6 x10^3/uL (1.8-7.7) Lymphocytes # (Auto) 1.2 x10^3/uL (1.0-4.8) Monocytes # (Auto) 1.1 x10^3/uL (0.0-1.1) Eosinophils # (Auto) 0.0 x10^3/uL (0.0-0.7) Basophils # (Auto) 0.1 x10^3/uL (0.0-0.2) Sodium Level 132 mmol/L (136-145) Potassium Level 4.4 mmol/L (3.5-5.1) Chloride Level 83 mmol/L (98-107) Carbon Dioxide Level > 45 mmol/L (21-32) Anion Gap (6-14) Blood Urea Nitrogen 21 mg/dL (7-20) Creatinine 0.7 mg/dL (0.6-1.0) Estimated GFR (Cockcroft-Gault) 83.0 BUN/Creatinine Ratio 30 (6-20) Glucose Level 380 mg/dL (70-99) Calcium Level 8.5 mg/dL (8.5-10.1) Phosphorus Level 2.7 mg/dL (2.6-4.7) Magnesium Level 2.1 mg/dL (1.8-2.4) Total Bilirubin 0.8 mg/dL (0.2-1.0) Aspartate Amino Transf (AST/SGOT) 34 U/L (15-37) Alanine Aminotransferase (ALT/SGPT) 24 U/L (14-59) Alkaline Phosphatase 209 U/L (46-116) Troponin I High Sensitivity 39 ng/L (4-50) JW-Vlo-S-Type Natriuretic Peptide 4415 pg/mL (0-124) Total Protein 6.0 g/dL (6.4-8.2) Albumin 2.5 g/dL (3.4-5.0) Albumin/Globulin Ratio 0.7 (1.0-1.7) Influenza Type A Antigen Negative (NEGATIVE) Influenza Type B Antigen Negative (NEGATIVE) SARS-CoV-2 Antigen (Rapid) Negative (NEGATIVE) Glucose (Fingerstick) 275 mg/dL (70-99) 396 mg/dL (70-99) Test 08/23/21 07:09 Glucose (Fingerstick) 211 mg/dL (70-99) Laboratory Tests Test 08/22/21 21:09 08/23/21 07:09 Glucose (Fingerstick) 396 mg/dL (70-99) 211 mg/dL (70-99) Medications Active Scripts Medications Dose Route/Sig Max Daily Dose Days Date Category Dose Instructions Metolazone 2.5 Mg Tablet 1 Tab PO PRN DAILY PRN 08/22/21 Reported Furosemide 40 Mg Tablet 1 Tab PO BID 08/22/21 Reported Fish Oil 1,000 Mg Softgel ([place]-3 Fatty Acids/Fish Oil) 1 Each Capsule 1 Cap PO DAILY 30 08/22/21 Reported WITH MEALS Lantus Solostar (Insulin Glargine,Hum.rec.anlog) 100 Unit/1 Ml Insuln.pen 47 Unit SQ QHS 08/22/21 Reported Children's Claritin (Loratadine) 5 Mg Tab.chew 1 Tab PO BID 30 05/03/21 Reported Metoprolol Tartrate 25 Mg Tablet 0.5 Tab PO BID 03/01/21 Reported Synthroid (Levothyroxine Sodium) 100 Mcg Tablet 100 Mcg PO DAILY06 30 09/13/19 Rx Take in combination with 112mcg tablet to equal 212mcg daily Levothyroxine Sodium 112 Mcg Tablet 112 Mcg PO DAILY06 09/13/19 Rx Take in combination with 100mcg tablet to equal 212mcg daily Albuterol Sulfate Neb Soln (Albuterol Sulfate) 1.25 Mg/3 Ml Vial.neb 1 Vial NEB PRN Q6HRS PRN 09/11/19 Reported Combivent Respimat Inhal (Ipratropium/Albuterol Sulfate) 4 Gm Aer.w.adap 2 Inh IH PRN DAILY PRN 09/11/19 Reported Pravastatin Sodium 80 Mg Tablet 1 Tab PO QHS 09/11/19 Reported Multi Vitamin Daily (Multivitamin) 1 Each Tablet 1 Tab PO DAILY 30 09/11/19 Reported Klor-Con 10 (Potassium Chloride) 10 Meq Tablet.er 20 Meq PO TID 03/05/14 Reported Impression . Note dictated Hemoptysis, may be related to epistaxis Abnormal CT chest mediastinal mass, status post previous biopsying nondiagnostic Hemoptysis rule out endobronchial lesion Positive PET scan see report Severe pulmonary arterial hypertension Mild obstructive sleep apnea COPD Plan . Reviewed risk benefits and alternatives to bronchoscopy patient consented Proceed with bronc Continue current support Started on Levaquin Continue to WILLIAM Perez MD Aug 23, 2021 08:46
[2021-08-23] MEDS: POTASSIUM CHLORIDE 10 MEQ TABLET.ER. PO SCH ×3 (09:00→21:51)
[2021-08-23] MEDS: FUROSEMIDE 40 MG TABLET. PO SCH ×2 (09:00→16:54)
[2021-08-23] MEDS ORDERED: MULTIVITAMIN with MINERAL TABLET. PO SCH (09:00)
[2021-08-23] MEDS: METOPROLOL TART IMMED RELEASE 25 MG TABLET. PO SCH ×2 (09:00→21:51)
[2021-08-23] MEDS ORDERED: PROPOFOL 10 MG/ML (20ML) VIAL. IV ONE (09:54)
[2021-08-23] MEDS ORDERED: LIDOCAINE 4% TOPICAL 50 ML SOLUTION. MM PRN (10:30)
[2021-08-23] MEDS ORDERED: LIDOCAINE 1% Multi-Dose 20 ML VIAL. INJ PRN (10:30)
[2021-08-23] MEDS ORDERED: EPINEPHrine 1 MG/ML VIAL INJ PRN (10:30)
[2021-08-23] MEDS ORDERED: LIDOCAINE 2% VISCOUS 100 ML BOTTLE. MM PRN (10:30)
[2021-08-23] MEDS ORDERED: ALBUTEROL SULFATE 2.5 MG/3 ML NEBU. NEB PRN (10:30)
[2021-08-23] MEDS: ALBUTEROL SULFATE 2.5 MG/3 ML NEBU. NEB PRN (11:14)
--- NOTE | 2021-08-23 12:43 | PDOC4 ---
Procedure Note Procedure: Bronchoscopy, bronchoalveolar lavage Indications: Patient with a large mediastinal mass presents with hemoptysis risk benefits and alternatives reviewed with patient and she consented Complications: No immediate complications Procedural Details: Patient prepped in usual fashion, Patient sedated with the aid of anesthesia. Vital signs and O2 saturation were maintained within normal limits throughout the procedure. The bronchoscope was passed through the left nares. The vocal cords were visualized moving b ilaterally without any dysfunction. The vocal cords were anesthetized with a total of 5 cc of 4% lidocaine. The bronchoscope was passed through the vocal cords into the proximal trachea. The distal trachea appeared to be normal the right and left segments and subsegments appeared to be normal there was no endobronchial lesion there was no evidence of active bleeding. Upon withdrawing the scope. I inspected the airways there was no evidence of active bleeding. There was an area within the left nares that appeared to be bleeding. I suspect the patient is bleeding from the nares, and coughing up blood as a result. I inspected the posterior pharynx, I did not appreciate any masses, the piriform sinuses were clear. Conclusions: 1. Slight bleeding from the left nares 2. Normal vocal cord 3. Normal posterior pharynx and piriform sinuses 4. No endobronchial lesion 5. No evidence of bleeding within the segments and subsegments of the bronchial tubes We will await BAL performed of the right middle lobe WILLIAM CANELA MD Aug 23, 2021 12:43
--- NOTE | 2021-08-23 13:46 | NUR ---
SS following up with discharge planning. SS reviewed pt chart and discussed with pt RN. Pt is currently requiring oxygen at five liters nasal canula. COVID19 negative. Pt has home oxygen. Bronchoscopy today. PT/OT ordered. SS will continue to follow for discharge planning.
--- NOTE | 2021-08-23 17:48 | CONS ---
DATE OF CONSULTATION: 08/23/2021 ATTENDING PHYSICIAN: Mike Lowry MD REASON FOR CONSULTATION: The patient is seen in pulmonary consultation at the request of Dr. Lowry for hemoptysis, increasing shortness of breath. HISTORY OF PRESENT ILLNESS: The patient is a 70-year-old that has had a previously abnormal CT chest revealing large anterior mediastinal mass, mild compression of the SVC. She has had previous biopsy, which was nondiagnostic. She also has severe pulmonary arterial hypertension, did not tolerate the vasodilators. She is normally on home on oxygen supplementation at 3 liters 24/. She has underlying COPD, quit tobacco many years ago and also mildly obstructive sleep apnea, not requiring treatment. The patient presented with increasing shortness of breath and hemoptysis. No fever, chills or night sweats. She denies any COVID-19 exposures. She was admitted. I was asked to see her in consultation. Her serology for SARS-CoV-2 was negative. I reviewed her imaging studies. The x-ray shows some mild interstitial edema. No change in the right perihilar mass compatible with the previously described anterior mediastinal mass on CT chest. PAST MEDICAL HISTORY: 1. As indicated above, severe pulmonary arterial hypertension, not responsive to vasodilators, mild obstructive sleep apnea. 2. Previously abnormal CT revealing mediastinal mass. She had previous biopsy, which was nondiagnostic, she has been referred to a thoracic surgeon who declined who stated that she was too high risk for possibility of thoracotomy. She has had previous coronary artery bypass grafting in 2013. In addition, she has severe pulmonary arterial hypertension. PAST SURGICAL HISTORY: As above, coronary artery bypass grafting. SOCIAL HISTORY: She quit tobacco 4 years ago. REVIEW OF SYSTEMS: As indicated above, otherwise other systems were reviewed and negative. CURRENT MEDICATIONS: List was reviewed. She is not taking any anticoagulation. Currently, she is on furosemide, insulin, levothyroxine, Zaroxolyn, potassium supplement. PHYSICAL EXAMINATION: VITAL SIGNS: Stable since admission, she has been afebrile. She is currently on 3 liters of oxygen supplementation. HEENT: Eyes: The sclerae were nonicteric. NECK: Jugular venous distention was not elevated. No lymphadenopathy. CHEST: Full expansion. LUNGS: Diminished breath sounds throughout both lung berger. CARDIOVASCULAR: Regular rate and rhythm with S1, S2. No S3. ABDOMEN: Soft. EXTREMITIES: No clubbing, cyanosis or edema. NEUROLOGIC: The patient was awake, alert, following commands. A detailed neuro exam was not performed. IMPRESSION: 1. Hemoptysis. 2. Progressive dyspnea secondary to acute on chronic cor pulmonale. 3. Previously abnormal CT chest revealing large anterior mediastinal mass. Biopsy was nondiagnostic. 4. Mild obstructive sleep apnea. 5. Severe pulmonary arterial hypertension. 6. Chronic obstructive pulmonary disease. 7. Chronic respiratory failure. DISCUSSION: Considering the patient's previously abnormal CT of the chest revealing large anterior mediastinal mass, biopsy was nondiagnostic, now she presents with hemoptysis. We will proceed with diagnostic bronchoscopy. I reviewed the risks, benefits and alternatives to the procedure. She has consented. The patient underwent a PET scan on the 08/20 revealing large right superior paramediastinal uptake with internal necrosis measuring 9.7 cm in dimension. The SUV was 16.4. This has increased in comparison to previous measurement of 6.3 cm on the study from 02/12/2021. There was also uptake in the right lymph node area. Maximum SUV of 5.6. There was a small foci of uptake in the distal sigmoid colon, patient informed me that she had colonoscopy which was negative. There was persistent ground-glass opacities lateral left lung and a small right-sided effusion. PLAN: 1. As indicated above, we will proceed with diagnostic bronchoscopy. 2. Monitor for further hemoptysis. 3. Oxygen supplementation. 4. Empiric antibiotics. 5. Continue home meds. 6. Continue Lasix. I do appreciate the privilege in sharing in patient's care. REBEKAH MORAN: Ramin TID: [id number]
[2021-08-23] MEDS: metOLazone 2.5 MG TABLET PO SCH (18:00)
--- NOTE | 2021-08-23 19:22 | NUR ---
Nurse's note: The patient underwent bronchoscopy today; was back on the unit at 1310. She denies pain, VS were stable O2 sat at 94-95% on 5 liters O2. This nurse gave updates to her daughter. The patient is requesting ENT consult while in-patient, will notify attending physician. Currently, unable to page the Dr, phone number not accepting calls.
[2021-08-23] MEDS: MULTIVITAMIN with MINERAL TABLET. PO SCH (21:00)
[2021-08-23] MEDS: IPRATRPIUM/ALBUTEROL 0.5/2.5MG 3 ML NEBU. NEB SCH (21:03)
[2021-08-23] MEDS: ATORVASTATIN CALCIUM 20 MG TABLET PO SCH (21:51)
[2021-08-23] MEDS: IBUPROFEN 400 MG TABLET. PO PRN (21:51)
[2021-08-23] MEDS: INSULIN GLARGINE SYRINGE. SQ SCH (21:56)
[2021-08-24 03:00] VITALS: BP_SYST 72
[2021-08-24] MEDS: LEVOTHYROXINE 100 MCG TABLET PO SCH (06:06)
[2021-08-24] MEDS: LEVOTHYROXINE 112 MCG TABLET PO SCH (06:06)
[2021-08-24 07:00] VITALS: BP 118/62
[2021-08-24] MEDS: IPRATRPIUM/ALBUTEROL 0.5/2.5MG 3 ML NEBU. NEB SCH ×2 (07:40→11:07)
[2021-08-24] MEDS: POTASSIUM CHLORIDE 10 MEQ TABLET.ER. PO SCH ×3 (08:50→21:26)
[2021-08-24] MEDS: FUROSEMIDE 40 MG TABLET. PO SCH (08:56)
[2021-08-24] MEDS: METOPROLOL TART IMMED RELEASE 25 MG TABLET. PO SCH ×2 (08:56→21:24)
[2021-08-24] MEDS ORDERED: CYCLOBENZAPRINE 10 MG TABLET. PO PRN (09:00)
--- NOTE | 2021-08-24 09:02 | PDOC ---
Provider Note Date of Service: DATE: 08/24/21 TIME: 09:01 Provider Note bronch neg, still has some blood and necrotic medis. mass , likely needs repeat ct guide bx of same- pulm to eval next step Justifications for Admission Other Justification JASPER HANNAH MD Aug 24, 2021 09:02
--- NOTE | 2021-08-24 10:22 | PDOC ---
PULMONARY PROGRESS NOTES DATE: 08/24/21 TIME: 10:22 Subjective Patient more short of breath today, no epistaxis Vitals Vital Signs Date Time Temp Pulse Resp B/P (MAP) Pulse Ox O2 Delivery O2 Flow Rate FiO2 08/24/21 08:56 85 118/62 08/24/21 07:40 95 Nasal Cannula 5.0 08/24/21 07:00 97.6 21 97.6 ROS: No Nausea, No Chest Pain, No Abdominal Pain General: Alert Lungs: Crackles Cardiovascular: S1, S2, Other Abdomen: Soft Neuro Exam: Alert Extremities: Other Skin: Warm Labs Laboratory Tests Test 08/22/21 21:09 08/23/21 07:09 08/23/21 17:06 08/23/21 21:11 Glucose (Fingerstick) 396 mg/dL (70-99) 211 mg/dL (70-99) 256 mg/dL (70-99) 335 mg/dL (70-99) Test 08/24/21 04:49 08/24/21 07:58 Glucose (Fingerstick) 246 mg/dL (70-99) 207 mg/dL (70-99) Laboratory Tests Test 08/23/21 17:06 08/23/21 21:11 08/24/21 04:49 08/24/21 07:58 Glucose (Fingerstick) 256 mg/dL (70-99) 335 mg/dL (70-99) 246 mg/dL (70-99) 207 mg/dL (70-99) Medications Active Scripts Medications Dose Route/Sig Max Daily Dose Days Date Category Dose Instructions Metolazone 2.5 Mg Tablet 1 Tab PO PRN DAILY PRN 08/22/21 Reported Furosemide 40 Mg Tablet 1 Tab PO BID 08/22/21 Reported Fish Oil 1,000 Mg Softgel ([place]-3 Fatty Acids/Fish Oil) 1 Each Capsule 1 Cap PO DAILY 30 08/22/21 Reported WITH MEALS Lantus Solostar (Insulin Glargine,Hum.rec.anlog) 100 Unit/1 Ml Insuln.pen 47 Unit SQ QHS 08/22/21 Reported Children's Claritin (Loratadine) 5 Mg Tab.chew 1 Tab PO BID 30 05/03/21 Reported Metoprolol Tartrate 25 Mg Tablet 0.5 Tab PO BID 03/01/21 Reported Synthroid (Levothyroxine Sodium) 100 Mcg Tablet 100 Mcg PO DAILY06 09/13/19 Rx Take in combination with 112mcg tablet to equal 212mcg daily Levothyroxine Sodium 112 Mcg Tablet 112 Mcg PO DAILY06 09/13/19 Rx Take in combination with 100mcg tablet to equal 212mcg daily Albuterol Sulfate Neb Soln (Albuterol Sulfate) 1.25 Mg/3 Ml Vial.neb 1 Vial NEB PRN Q6HRS PRN 09/11/19 Reported Combivent Respimat Inhal (Ipratropium/Albuterol Sulfate) 4 Gm Aer.w.adap 2 Inh IH PRN DAILY PRN 09/11/19 Reported Pravastatin Sodium 80 Mg Tablet 1 Tab PO QHS 09/11/19 Reported Multi Vitamin Daily (Multivitamin) 1 Each Tablet 1 Tab PO DAILY 30 09/11/19 Reported Klor-Con 10 (Potassium Chloride) 10 Meq Tablet.er 20 Meq PO TID 03/05/14 Reported Impression . IMPRESSION: 1. Hemoptysis./Pseudohemoptysis from epistaxis 2. Progressive dyspnea secondary to acute on chronic cor pulmonale. 3. Previously abnormal CT chest revealing large anterior mediastinal mass. Biopsy was nondiagnostic. 4. Mild obstructive sleep apnea. 5. Severe pulmonary arterial hypertension. 6. Chronic obstructive pulmonary disease. 7. Chronic respiratory failure. 8. Status post bronchoscopy, see report DISCUSSION: Considering the patient's previously abnormal CT of the chest revealing large anterior mediastinal mass, biopsy was nondiagnostic, now she presents with hemoptysis. We will proceed with diagnostic bronchoscopy. I reviewed the risks, benefits and alternatives to the procedure. She has consented. The patient underwent a PET scan on the 08/20 revealing large right superior paramediastinal uptake with internal necrosis measuring 9.7 cm in dimension. The SUV was 16.4. This has increased in comparison to previous measurement of 6.3 cm on the study from 02/12/2021. There was also uptake in the right lymph node area. Maximum SUV of 5.6. There was a small foci of uptake in the distal sigmoid colon, patient informed me that she had colonoscopy which was negative. There was persistent ground-glass opacities lateral left lung and a small right-sided effusion. Plan . Updated 08/24 Patient more short of breath today Pseudohemoptysis related to epistaxis No further epistaxis Continue empiric antibiotics Follow-up on cultures from BAL so far negative PLAN: 1. As indicated above, we will proceed with diagnostic bronchoscopy. 2. Monitor for further hemoptysis. 3. Oxygen supplementation. 4. Empiric antibiotics. 5. Continue home meds. 6. Continue Lasix. I do appreciate the privilege in sharing in patient's care. WILLIAM CANELA MD Aug 24, 2021 10:22
[2021-08-24 11:00] VITALS: BP 99/53
--- NOTE | 2021-08-24 12:37 | PDOC2 ---
SHY PARRISH [place] OPERATOR 08/24/21 1237: CARDIAC CONSULT DATE OF CONSULT Date of Consult DATE: 08/24/21 TIME: 12:18 REASON FOR CONSULT Reason for Consult: cor pulmonale REFERRING PHYSICIAN Referring Physician: Alen SOURCE Source: Chart review, Patient HISTORY OF PRESENT ILLNESS HISTORY OF PRESENT ILLNESS This is a 70 yo female admitted for complains of shortness of breath. Still SOA at home despite 4LPM of O2. She has multiple chronic disease that predisposes her to CHF exacerbation including severe pulmonary HTN, COPD and previously noted possible cirrhosis per PET scan. Her cough has been productive but no fever or chills. She remains SOA and has orthopnea. Denies any chest pain or palpitations. PAST MEDICAL HISTORY Past Medical History Cardiovascular: CAD, HTN, Hyperlipidemia, Pulmonary hypertension, cardiomyopathy, severe pulmonary HTN, PAFIB Pulmonary: COPD, mediastinal mass CENTRAL NERVOUS SYSTEM: No pertinent history Psych: Depression Musculoskeletal: Osteoarthritis, Other Endocrine: Diabetes, Hypothyroidism PAST SURGICAL HISTORY Past Surgical History Arthroscopy, CABG, LAAO FAMILY HISTORY Family History: Heart Disease SOCIAL HISTORY Smoke: No ALCOHOL: none Drugs: None Lives: with Family CURRENT MEDICATIONS CURRENT MEDICATIONS Current Medications Medications (Trade) Dose Ordered Sig/Hannah Route PRN Reason Start Time Stop Time Status Last Admin Dose Admin Levofloxacin (Levaquin) 500 mg DAILY06 PO 08/23/21 13:00 08/24/21 06:06 Albuterol/ Ipratropium (Duoneb) 3 ml RTQID NEB 08/23/21 20:00 08/24/21 07:40 Ibuprofen (Motrin) 400 mg PRN QID PRN PO INFLAMMATION 08/23/21 20:00 08/23/21 21:51 ALLERGIES ALLERGIES: Coded Allergies: Penicillins (Verified Adverse Reaction, Mild, yeast infections, 08/23/21) ROS Review of System 14 point ROS evaluated with pertinent positives noted per HPI PHYSICAL EXAM General: Alert, Oriented X3, Cooperative, mild distress HEENT: Atraumatic, Mucous membr. moist/pink Lungs: Other (diminished bases with upper rhonchi) Heart: Regular rate (SR), Other (distant heart sounds) Abdomen: Soft, No tenderness Extremities: No cyanosis, Other (2+ bilateral Le pitting edema) Skin: No breakdown, No significant lesion Neuro: Sensation intact Psych/Mental Status: Mental status NL, Mood NL MUSCULOSKELETAL: Osteoarthritic changes both hands VITALS/I&O VITALS/I&O: Vital Signs Date Time Temp Pulse Resp B/P (MAP) Pulse Ox O2 Delivery O2 Flow Rate FiO2 08/24/21 08:56 85 118/62 08/24/21 07:40 95 Nasal Cannula 5.0 08/24/21 07:00 97.6 21 97.6 I & O 08/23/21 08/23/21 08/24/21 15:00 23:00 07:00 Intake Total 150 ml Output Total 300 ml Balance 150 ml -300 ml LABS Lab: Laboratory Tests Test 08/23/21 17:06 08/23/21 21:11 08/24/21 04:49 08/24/21 07:58 Glucose (Fingerstick) 256 mg/dL (70-99) H 335 mg/dL (70-99) H 246 mg/dL (70-99) H 207 mg/dL (70-99) H Test 08/24/21 12:05 Glucose (Fingerstick) 319 mg/dL (70-99) H ECHOCARDIOGRAM ECHOCARDIOGRAM <Conclusion> The left ventricular systolic function is normal. Estimated ejection fraction 55% Flattening of interventricular septum consistent with RV pressure/volume overload. Mild tricuspid regurgitation. Severe pulmonary hypertension with estimated PAP 77-80 mmHg. There is no evidence of significant pericardial effusion. DATE: 05/09/21 [id number] HEART CATH HEART CATH FINDINGS 1. Intracardiac pressures: Mean right atrial pressure 15 mmHg, right ventricular pressure 107/16 mmHg, coronary artery pressure 103/28 mmHg with mean PA pressure 57 mmHg and primary capillary wedge pressure 6 mmHg. Pulmonary vascular resistance 9 Wood units. This is consistent with severe pulmonary hypertension. 2. Oxygen saturations: Right atrium 67.9%, pulmonary artery 71.8%. No evidence of intracardiac shunt. 3. Cardiac output by thermodilution method 5.6 L/m and by Hilary method 4.2 L/m. 4. Vasoreactivity testing after intravenous adenosine infusion per protocol did not show any change in the mean PA pressure. Conclusion Severe pulmonary hypertension without any Vasoreactivity. No evidence of intracardial shunt. Recommendations Medical Therapy DATE: 11/02/18 1423 ASSESSMENT/PLAN ASSESSMENT/PLAN 1. Acute on chronic respiratory failure with multiple culprits as noted below 2. AECOPD 3. Acute on chronic cor pulmonale 4. Severe pulmonary HTN: no vasoreactivity per recent RHC 5. Mediastinal mass: S/P bronchoscopy 6. Possible cirrhosis per recent PET scan, defer to PCP 7. PAFIB: could not ascertain burden. SR 8. CAD: past CABG 9. S/P Watchman device 10. DM2/HLP 11. Possible epistaxis: holding ASA Recommendations Switch to Lasix IV therapy. BMP and Mg today Reinforced importance of 2 Gm Na diet and 2000cc FR Daily weight monitoring Continue metoprolol. Consider MCOT ASA therapy resume if no further nosebleed Secondary prevention measures Follow up in our office with Dr. Cao as scheduled HAYLIE CAO MD 08/24/21 1430: CARDIAC CONSULT ASSESSMENT/PLAN ASSESSMENT/PLAN Patient seen and examined. Agree with HAT BLOCKER's assessment and plan. Acute on chronic cor pulmonale -continue diuresis with intravenous Lasix Patient has known history of severe pulmonary hypertension PAF, presently sinus rhythm CAD s/p CABG, clinically stable Thank you for your consultation SHY PARRISH APRN Aug 24, 2021 12:37 HAYLIE CAO MD Aug 24, 2021 14:30
[2021-08-24] MEDS ORDERED: COMBIVENT INH PRN (13:00)
--- NOTE | 2021-08-24 13:07 | NUR ---
SW following. Discussed with RN, pt from home, 3L (uses oxygen at home), regular diet. Cardiology consulted today. Pt refusing to participate with therapy. Pt will have to discharge home when medically stable if continues to refuse therapy. Rapid COVID-19 negative. SW will continue to follow.
[2021-08-24 15:00] VITALS: BP 112/60
[2021-08-24 15:07] LABS: CALCIUM 7.7 mg/dL (8.5-10.1); CREATININE 0.9 mg/dL (0.6-1.0); GFR 62.1; MAGNESIUM 2.3 mg/dL (1.8-2.4); POTASSIUM 5.2 mmol/L (3.5-5.1)
[2021-08-24] MEDS: FUROSEMIDE 40 MG/4 ML VIAL. IVP SCH (16:54)
[2021-08-24 19:00] VITALS: BP 125/59
[2021-08-24] MEDS: MULTIVITAMIN with MINERAL TABLET. PO SCH (21:23)
[2021-08-24] MEDS: ATORVASTATIN CALCIUM 20 MG TABLET PO SCH (21:23)
[2021-08-24] MEDS: INSULIN GLARGINE SYRINGE. SQ SCH (21:30)
[2021-08-24 23:00] VITALS: BP 112/58
[2021-08-25 03:30] VITALS: BP 107/54
[2021-08-25] MEDS: LEVOTHYROXINE 112 MCG TABLET PO SCH (05:35)
[2021-08-25] MEDS: LEVOTHYROXINE 100 MCG TABLET PO SCH (05:35)
[2021-08-25 07:00] VITALS: BP 122/62
--- NOTE | 2021-08-25 07:30 | PDOC ---
PULMONARY PROGRESS NOTES DATE: 08/25/21 TIME: 07:28 Subjective on 02 5 lpm + epistaxis sob better on home 02 3 lpm ent cauterized r nose 3 wks ago Vitals Vital Signs Date Time Temp Pulse Resp B/P (MAP) Pulse Ox O2 Delivery O2 Flow Rate FiO2 08/25/21 03:30 97.6 88 20 107/54 (71) 91 Nasal Cannula 97.6 08/24/21 20:00 5.0 ROS: No Nausea, No Chest Pain, No Abdominal Pain General: Alert HEENT: Other (nc at [facility] ) Lungs: Crackles Cardiovascular: S1, S2, Other Abdomen: Soft Neuro Exam: Alert Extremities: Other Skin: Warm Labs Laboratory Tests Test 08/23/21 17:06 08/23/21 21:11 08/24/21 04:49 08/24/21 07:58 Glucose (Fingerstick) 256 mg/dL (70-99) 335 mg/dL (70-99) 246 mg/dL (70-99) 207 mg/dL (70-99) Test 08/24/21 12:05 08/24/21 14:10 08/24/21 17:15 08/24/21 20:46 Glucose (Fingerstick) 319 mg/dL (70-99) 297 mg/dL (70-99) 353 mg/dL (70-99) Sodium Level 134 mmol/L (136-145) Potassium Level 5.2 mmol/L (3.5-5.1) Chloride Level 87 mmol/L (98-107) Carbon Dioxide Level 45 mmol/L (21-32) Anion Gap 2 (6-14) Blood Urea Nitrogen 23 mg/dL (7-20) Creatinine 0.9 mg/dL (0.6-1.0) Estimated GFR (Cockcroft-Gault) 62.1 Glucose Level 375 mg/dL (70-99) Calcium Level 7.7 mg/dL (8.5-10.1) Magnesium Level 2.3 mg/dL (1.8-2.4) Laboratory Tests Test 08/24/21 07:58 08/24/21 12:05 08/24/21 14:10 08/24/21 17:15 Glucose (Fingerstick) 207 mg/dL (70-99) 319 mg/dL (70-99) 297 mg/dL (70-99) Sodium Level 134 mmol/L (136-145) Potassium Level 5.2 mmol/L (3.5-5.1) Chloride Level 87 mmol/L (98-107) Carbon Dioxide Level 45 mmol/L (21-32) Anion Gap 2 (6-14) Blood Urea Nitrogen 23 mg/dL (7-20) Creatinine 0.9 mg/dL (0.6-1.0) Estimated GFR (Cockcroft-Gault) 62.1 Glucose Level 375 mg/dL (70-99) Calcium Level 7.7 mg/dL (8.5-10.1) Magnesium Level 2.3 mg/dL (1.8-2.4) Test 08/24/21 20:46 Glucose (Fingerstick) 353 mg/dL (70-99) Medications Active Scripts Medications Dose Route/Sig Max Daily Dose Days Date Category Dose Instructions Metolazone 2.5 Mg Tablet 1 Tab PO PRN DAILY PRN 08/22/21 Reported Furosemide 40 Mg Tablet 1 Tab PO BID 08/22/21 Reported Fish Oil 1,000 Mg Softgel ([place]-3 Fatty Acids/Fish Oil) 1 Each Capsule 1 Cap PO DAILY 30 08/22/21 Reported WITH MEALS Lantus Solostar (Insulin Glargine,Hum.rec.anlog) 100 Unit/1 Ml Insuln.pen 47 Unit SQ QHS 08/22/21 Reported Children's Claritin (Loratadine) 5 Mg Tab.chew 1 Tab PO BID 30 05/03/21 Reported Metoprolol Tartrate 25 Mg Tablet 0.5 Tab PO BID 03/01/21 Reported Synthroid (Levothyroxine Sodium) 100 Mcg Tablet 100 Mcg PO DAILY06 30 09/13/19 Rx Take in combination with 112mcg tablet to equal 212mcg daily Levothyroxine Sodium 112 Mcg Tablet 112 Mcg PO DAILY06 30 09/13/19 Rx Take in combination with 100mcg tablet to equal 212mcg daily Albuterol Sulfate Neb Soln (Albuterol Sulfate) 1.25 Mg/3 Ml Vial.neb 1 Vial NEB PRN Q6HRS PRN 09/11/19 Reported Combivent Respimat Inhal (Ipratropium/Albuterol Sulfate) 4 Gm Aer.w.adap 2 Inh IH PRN DAILY PRN 09/11/19 Reported Pravastatin Sodium 80 Mg Tablet 1 Tab PO QHS 09/11/19 Reported Multi Vitamin Daily (Multivitamin) 1 Each Tablet 1 Tab PO DAILY 30 09/11/19 Reported Klor-Con 10 (Potassium Chloride) 10 Meq Tablet.er 20 Meq PO TID 03/05/14 Reported Impression . IMPRESSION: 1. Hemoptysis./Pseudohemoptysis from epistaxis 2. Progressive dyspnea secondary to acute on chronic cor pulmonale. 3. Previously abnormal CT chest revealing large anterior mediastinal mass. Biopsy was nondiagnostic. 4. Mild obstructive sleep apnea. 5. Severe pulmonary arterial hypertension. 6. Chronic obstructive pulmonary disease. 7. Chronic respiratory failure. 8. Status post bronchoscopy, see report DISCUSSION: Considering the patient's previously abnormal CT of the chest revealing large anterior mediastinal mass, biopsy was nondiagnostic, now she presents with hemoptysis. We will proceed with diagnostic bronchoscopy. I reviewed the risks, benefits and alternatives to the procedure. She has consented. The patient underwent a PET scan on the 08/20 revealing large right superior paramediastinal uptake with internal necrosis measuring 9.7 cm in dimension. The SUV was 16.4. This has increased in comparison to previous measurement of 6.3 cm on the study from 02/12/2021. There was also uptake in the right lymph node area. Maximum SUV of 5.6. There was a small foci of uptake in the distal sigmoid colon, patient informed me that she had colonoscopy which was negative. There was persistent ground-glass opacities lateral left lung and a small right-sided effusion. Plan . Updated 08/25 02 titration Pseudohemoptysis related to epistaxis will monitor Continue empiric antibiotics Follow-up on cultures from BAL so far negative discussed w pt rn Updated 08/24 Patient more short of breath today Pseudohemoptysis related to epistaxis No further epistaxis Continue empiric antibiotics Follow-up on cultures from BAL so far negative PLAN: 1. As indicated above, we will proceed with diagnostic bronchoscopy. 2. Monitor for further hemoptysis. 3. Oxygen supplementation. 4. Empiric antibiotics. 5. Continue home meds. 6. Continue Lasix. I do appreciate the privilege in sharing in patient's care. LORI BOTELLO MD Aug 25, 2021 07:30
[2021-08-25] MEDS: metOLazone 2.5 MG TABLET PO SCH (08:42)
[2021-08-25] MEDS: METOPROLOL TART IMMED RELEASE 25 MG TABLET. PO SCH ×2 (08:42→20:53)
[2021-08-25] MEDS: POTASSIUM CHLORIDE 10 MEQ TABLET.ER. PO SCH ×3 (08:43→20:54)
[2021-08-25] MEDS: FUROSEMIDE 40 MG/4 ML VIAL. IVP SCH ×2 (08:43→14:02)
[2021-08-25] MEDS: ALBUTEROL SULFATE 2.5 MG/3 ML NEBU. NEB PRN (10:35)
--- NOTE | 2021-08-25 10:54 | PN ---
DATE: 08/25/2021 DAILY PROGRESS NOTE LOCATION: She is in room 519. SUBJECTIVE: This 70-year-old female hospitalized with hemoptysis and has developed some acute on chronic respiratory failure. She has a large mediastinal mass that has grown to 9 cm with nondiagnostic biopsy done apparently at [facility]. She has had weight loss associated with this. She has also had her nose cauterized several times for nosebleeds and there is a question this could be nasal. She did cough up blood while I was in the room. Blood sugars are elevated. I see no medicines for the same and we will start her on metformin for the same. OBJECTIVE: VITAL SIGNS: Stable. She is afebrile. GENERAL: She is awake and alert. CHEST: Reveals bilateral crackles. HEART: Regular rate and rhythm. ABDOMEN: Benign. EXTREMITIES: Without cyanosis, clubbing or edema. NEUROLOGIC: She is intact. She is COVID and influenza negative and had an elevated white count of 13,000 with a left shift on admission. Pulmonary and Cardiology are following as she has a long history of severe pulmonary hypertension. ASSESSMENT: 1. Hemoptysis. 2. Acute on chronic respiratory failure. 3. Mediastinal necrotic mass. 4. Bronchoscopy showed no endobronchial lesions. PLAN: Continue present care. Probably needs a rebiopsy if possible of the mediastinal mass. O2 titration to the patient's needs. SWAPNIL MORAN: Tara TID: [id number]
--- NOTE | 2021-08-25 11:21 | NUR ---
patients daughter talked to this RN about pt going [facility] at discharge. The patient verbalized to the daughter that she needed to go somewhere and not home. daughter also said that the patient always needs help getting up the 4 steps into the house. pt can step with her right leg but needs help lifting the left leg. RN also stated to the daughter, after reading notes, that if she wishes to go to a rehab facility that she cannot refuse therapy.
[2021-08-25 11:46] VITALS: BP 132/72
--- NOTE | 2021-08-25 14:21 | PDOC ---
PROGRESS NOTES Date of Service: DATE: 08/25/21 TIME: 14:20 Subjective Subjective Dyspnea and edema improving with diuresis Objective Objective Vital Signs Date Time Temp Pulse Resp B/P (MAP) Pulse Ox O2 Delivery O2 Flow Rate FiO2 08/25/21 11:46 97.5 72 20 132/72 (92) 88 Nasal Cannula 4.0 97.5 Intake and Output 08/25/21 07:00 Output Total 200 ml Balance -200 ml Output Urine Total 200 ml # Voids 6 # Bowel Movements 4 Physical Exam Abdomen: Soft, No tenderness Heart: Regular rate (SR), Other (distant heart sounds) Extremities: No cyanosis, Other (1-2+ bilateral Le pitting edema) General: Alert, Oriented X3, Cooperative, mild distress HEENT: Atraumatic, Mucous membr. moist/pink Lungs: Other (diminished bases with upper rhonchi) Neuro: Sensation intact Psych/Mental Status: Mental status NL, Mood NL Skin: No breakdown, No significant lesion Assessment Assessment 1. Acute on chronic respiratory failure, multifactorial. Pulmonary team following. 2. AECOPD 3. Acute on chronic cor pulmonale 4. Severe pulmonary HTN: no vasoreactivity per recent RHC 5. Mediastinal mass: S/P bronchoscopy 6. Possible cirrhosis per recent PET scan, defer to PCP 7. PAFIB: could not ascertain burden. Presently SR 8. CAD: past CABG 9. S/P Watchman device 10. DM2/HLP 11. Possible epistaxis: holding ASA Recommendations Continue intravenous Lasix Reinforced importance of 2 Gm Na diet and 2000cc FR Daily weight monitoring Continue metoprolol. Consider MCOT ASA therapy resume if no further nosebleed Secondary prevention measures Plan Plan of Care Problems Medical Problems: (1) CHF (congestive heart failure) Status: Acute (2) COPD (chronic obstructive pulmonary disease) Status: Acute (3) Pneumonia Status: Acute Comment Review of Relevant I have reviewed the following items yoselyn (where applicable) has been applied. Labs Laboratory Tests Test 08/24/21 17:15 08/24/21 20:46 08/25/21 07:31 08/25/21 10:37 Glucose (Fingerstick) 297 mg/dL (70-99) 353 mg/dL (70-99) 235 mg/dL (70-99) 276 mg/dL (70-99) Microbiology 08/23/21 AFB Specimen Processing Tissue - Final, Resulted 08/23/21 Acid Fast Bacilli Culture, Resulted Pending 08/23/21 Gram Stain - Final, Resulted 08/23/21 Fungal Culture, Resulted Pending 08/23/21 Fungal Culture Result 1, Resulted Pending Vitals/I & O Vital Sign - Last 24 Hours 08/24/21 08/24/21 08/24/21 08/24/21 15:00 19:00 20:00 21:24 Temp 97.7 97.6 97.7 97.6 Pulse 77 91 91 Resp 20 20 B/P (MAP) 112/60 (77) 125/59 (81) 125/59 Pulse Ox 92 92 O2 Delivery Nasal Cannula Nasal Cannula Nasal Cannula O2 Flow Rate 3.0 5.0 08/24/21 08/25/21 08/25/21 08/25/21 23:00 03:30 07:00 08:00 Temp 97.4 97.6 97.7 97.4 97.6 97.7 Pulse 118 88 77 Resp 20 20 20 B/P (MAP) 112/58 (76) 107/54 (71) 122/62 (82) Pulse Ox 91 91 94 O2 Delivery Nasal Cannula Nasal Cannula Nasal Cannula Nasal Cannula O2 Flow Rate 4.0 08/25/21 08/25/21 08/25/21 08/25/21 08:42 08:49 10:35 11:46 Temp 97.5 97.5 Pulse 77 72 Resp 20 B/P (MAP) 122/62 132/72 (92) Pulse Ox 96 89 88 O2 Delivery Nasal Cannula Nasal Cannula Nasal Cannula O2 Flow Rate 5.0 4.0 4.0 Intake and Output 08/24/21 08/24/21 08/25/21 15:00 23:00 07:00 Output Total 200 ml Balance -200 ml HAYLIE CAO MD Aug 25, 2021 14:21
[2021-08-25 14:56] VITALS: BP 128/67
[2021-08-25 19:00] VITALS: BP 116/53
[2021-08-25] MEDS: INSULIN GLARGINE SYRINGE. SQ SCH (20:52)
[2021-08-25] MEDS: MULTIVITAMIN with MINERAL TABLET. PO SCH (20:53)
[2021-08-25] MEDS: ATORVASTATIN CALCIUM 20 MG TABLET PO SCH (20:53)
[2021-08-26] MEDS: LEVOTHYROXINE 100 MCG TABLET PO SCH (05:47)
[2021-08-26] MEDS: LEVOTHYROXINE 112 MCG TABLET PO SCH (05:47)
[2021-08-26 07:00] VITALS: BP 132/70
--- NOTE | 2021-08-26 07:22 | PDOC ---
PULMONARY PROGRESS NOTES DATE: 08/26/21 TIME: 07:21 Subjective on 02 4 lpm + epistaxis less sob better on home 02 3 lpm ent cauterized r nose 3 wks ago Vitals Vital Signs Date Time Temp Pulse Resp B/P (MAP) Pulse Ox O2 Delivery O2 Flow Rate FiO2 08/25/21 20:53 74 128/67 08/25/21 20:00 Nasal Cannula 4.0 08/25/21 19:00 97.2 18 91 97.2 ROS: No Nausea, No Chest Pain, No Abdominal Pain General: Alert HEENT: Other (nc at [facility] ) Lungs: Crackles Cardiovascular: S1, S2, Other Abdomen: Soft Neuro Exam: Alert Extremities: Other Skin: Warm Labs Laboratory Tests Test 08/24/21 07:58 08/24/21 12:05 08/24/21 14:10 08/24/21 17:15 Glucose (Fingerstick) 207 mg/dL (70-99) 319 mg/dL (70-99) 297 mg/dL (70-99) Sodium Level 134 mmol/L (136-145) Potassium Level 5.2 mmol/L (3.5-5.1) Chloride Level 87 mmol/L (98-107) Carbon Dioxide Level 45 mmol/L (21-32) Anion Gap 2 (6-14) Blood Urea Nitrogen 23 mg/dL (7-20) Creatinine 0.9 mg/dL (0.6-1.0) Estimated GFR (Cockcroft-Gault) 62.1 Glucose Level 375 mg/dL (70-99) Calcium Level 7.7 mg/dL (8.5-10.1) Magnesium Level 2.3 mg/dL (1.8-2.4) Test 08/24/21 20:46 08/25/21 07:31 08/25/21 10:37 08/25/21 16:17 Glucose (Fingerstick) 353 mg/dL (70-99) 235 mg/dL (70-99) 276 mg/dL (70-99) 193 mg/dL (70-99) Laboratory Tests Test 08/25/21 07:31 08/25/21 10:37 08/25/21 16:17 Glucose (Fingerstick) 235 mg/dL (70-99) 276 mg/dL (70-99) 193 mg/dL (70-99) Medications Active Scripts Medications Dose Route/Sig Max Daily Dose Days Date Category Dose Instructions Metolazone 2.5 Mg Tablet 1 Tab PO PRN DAILY PRN 08/22/21 Reported Furosemide 40 Mg Tablet 1 Tab PO BID 08/22/21 Reported Fish Oil 1,000 Mg Softgel ([place]-3 Fatty Acids/Fish Oil) 1 Each Capsule 1 Cap PO DAILY 30 08/22/21 Reported WITH MEALS Lantus Solostar (Insulin Glargine,Hum.rec.anlog) 100 Unit/1 Ml Insuln.pen 47 Unit SQ QHS 08/22/21 Reported Children's Claritin (Loratadine) 5 Mg Tab.chew 1 Tab PO BID 30 05/03/21 Reported Metoprolol Tartrate 25 Mg Tablet 0.5 Tab PO BID 03/01/21 Reported Synthroid (Levothyroxine Sodium) 100 Mcg Tablet 100 Mcg PO DAILY06 30 09/13/19 Rx Take in combination with 112mcg tablet to equal 212mcg daily Levothyroxine Sodium 112 Mcg Tablet 112 Mcg PO DAILY06 09/13/19 Rx Take in combination with 100mcg tablet to equal 212mcg daily Albuterol Sulfate Neb Soln (Albuterol Sulfate) 1.25 Mg/3 Ml Vial.neb 1 Vial NEB PRN Q6HRS PRN 09/11/19 Reported Combivent Respimat Inhal (Ipratropium/Albuterol Sulfate) 4 Gm Aer.w.adap 2 Inh IH PRN DAILY PRN 09/11/19 Reported Pravastatin Sodium 80 Mg Tablet 1 Tab PO QHS 09/11/19 Reported Multi Vitamin Daily (Multivitamin) 1 Each Tablet 1 Tab PO DAILY 30 09/11/19 Reported Klor-Con 10 (Potassium Chloride) 10 Meq Tablet.er 20 Meq PO TID 03/05/14 Reported Impression . IMPRESSION: 1. Hemoptysis./Pseudohemoptysis from epistaxis 2. Progressive dyspnea secondary to acute on chronic cor pulmonale. 3. Previously abnormal CT chest revealing large anterior mediastinal mass. Biopsy was nondiagnostic. 4. Mild obstructive sleep apnea. 5. Severe pulmonary arterial hypertension. 6. Chronic obstructive pulmonary disease. 7. Chronic respiratory failure. 8. Status post bronchoscopy, see report DISCUSSION: Considering the patient's previously abnormal CT of the chest revealing large anterior mediastinal mass, biopsy was nondiagnostic, now she presents with hemoptysis. We will proceed with diagnostic bronchoscopy. I reviewed the risks, benefits and alternatives to the procedure. She has consented. The patient underwent a PET scan on the 08/20 revealing large right superior paramediastinal uptake with internal necrosis measuring 9.7 cm in dimension. The SUV was 16.4. This has increased in comparison to previous measurement of 6.3 cm on the study from 02/12/2021. There was also uptake in the right lymph node area. Maximum SUV of 5.6. There was a small foci of uptake in the distal sigmoid colon, patient informed me that she had colonoscopy which was negative. There was persistent ground-glass opacities lateral left lung and a small right-sided effusion. Plan . Updated 08/26 01 titration Pseudohemoptysis related to epistaxis decreased will monitor Continue empiric antibiotics Follow-up on cultures from BAL so far negative discussed w pt rn Updated 08/25 02 titration Pseudohemoptysis related to epistaxis will monitor Continue empiric antibiotics Follow-up on cultures from BAL so far negative discussed w pt rn Updated 08/24 Patient more short of breath today Pseudohemoptysis related to epistaxis No further epistaxis Continue empiric antibiotics Follow-up on cultures from BAL so far negative PLAN: 1. As indicated above, we will proceed with diagnostic bronchoscopy. 2. Monitor for further hemoptysis. 3. Oxygen supplementation. 4. Empiric antibiotics. 5. Continue home meds. 6. Continue Lasix. I do appreciate the privilege in sharing in patient's care. LORI BOTELLO MD Aug 26, 2021 07:22
[2021-08-26] MEDS: POTASSIUM CHLORIDE 10 MEQ TABLET.ER. PO SCH ×3 (09:00→21:09)
[2021-08-26] MEDS: FUROSEMIDE 40 MG/4 ML VIAL. IVP SCH (09:00)
[2021-08-26] MEDS: METOPROLOL TART IMMED RELEASE 25 MG TABLET. PO SCH ×2 (09:00→21:10)
--- NOTE | 2021-08-26 12:09 | PN ---
DATE: 08/26/2021 DAILY PROGRESS NOTE LOCATION: She is in room 519. SUBJECTIVE: This 70-year-old female hospitalized with hemoptysis and has developed some acute on chronic respiratory failure. She has a large mediastinal mass with nondiagnostic biopsy at [facility] recently. She has had weight loss. She has also had her nose cauterized several times for nosebleeds over the last couple of months. She is resting comfortably this morning, diuresing, feels like her breathing is somewhat better. OBJECTIVE: VITAL SIGNS: Stable. She is afebrile. GENERAL: She is awake, alert. CHEST: Reveals distant breath sounds, but clear today. HEART: Regular rate and rhythm. ABDOMEN: Benign. NEUROLOGIC: She is intact. ASSESSMENT: 1. Hemoptysis, could be from epistaxis, although no blood coming out of the nose while she was doing it. 2. Acute on chronic respiratory failure. 3. Necrotic mediastinal mass of uncertain etiology. 4. Bronchoscopy with no endobronchial lesions. PLAN: Continue present antibiotics. O2 titration. She needs to figure out what the mediastinal mass is and likely needs a rebiopsy. SWAPNIL DR: Tara TID: [id number]
--- NOTE | 2021-08-26 12:27 | PDOC ---
PROGRESS NOTES Date of Service: DATE: 08/26/21 TIME: 12:25 Subjective Subjective c/o dyspnea, hemoptysis Objective Objective Vital Signs Date Time Temp Pulse Resp B/P (MAP) Pulse Ox O2 Delivery O2 Flow Rate FiO2 08/26/21 09:00 128 132/70 08/26/21 08:00 Nasal Cannula 3.0 08/26/21 07:41 96 08/26/21 07:00 97.8 17 97.8 Intake and Output 08/26/21 07:00 Intake Total 800 ml Output Total 500 ml Balance 300 ml Intake Oral 800 ml Output Urine Total 500 ml # Voids 8 # Bowel Movements 1 Physical Exam Abdomen: Soft, No tenderness Heart: Regular rate (SR), Other (distant heart sounds) Extremities: No cyanosis, Other (1-2+ bilateral Le pitting edema) General: Alert, Oriented X3, Cooperative, mild distress HEENT: Atraumatic, Mucous membr. moist/pink Lungs: Other (diminished bases with upper rhonchi) Neuro: Sensation intact Psych/Mental Status: Mental status NL, Mood NL Skin: No breakdown, No significant lesion Assessment Assessment 1. Acute on chronic respiratory failure, multifactorial. Pulmonary team following. 2. AECOPD 3. Acute on chronic cor pulmonale 4. Severe pulmonary HTN: no vasoreactivity per recent RHC 5. Mediastinal mass: S/P bronchoscopy 6. Possible cirrhosis per recent PET scan, defer to PCP 7. PAFIB: could not ascertain burden. Presently SR 8. CAD: past CABG 9. S/P Watchman device 10. DM2/HLP 11. Hemoptysis: Patient underwent cauterization by ENT in the recent past. Pulmonary team following. Recommendations Change Lasix to Bumex for better diuresis Reinforced importance of 2 Gm Na diet and 2000cc FR Daily weight monitoring Continue metoprolol. Consider MCOT ASA therapy resume if no further nosebleed Secondary prevention measures Plan Plan of Care Problems Medical Problems: (1) CHF (congestive heart failure) Status: Acute (2) COPD (chronic obstructive pulmonary disease) Status: Acute (3) Pneumonia Status: Acute Comment Review of Relevant I have reviewed the following items yoselyn (where applicable) has been applied. Labs Laboratory Tests Test 08/25/21 16:17 08/26/21 07:51 08/26/21 12:06 Glucose (Fingerstick) 193 mg/dL (70-99) 149 mg/dL (70-99) 266 mg/dL (70-99) Microbiology 08/23/21 AFB Specimen Processing Tissue - Final, Resulted 08/23/21 Acid Fast Bacilli Culture, Resulted Pending 08/23/21 Gram Stain - Final, Resulted 08/23/21 Fungal Culture, Resulted Pending 08/23/21 Fungal Culture Result 1, Resulted Pending Vitals/I & O Vital Sign - Last 24 Hours 08/25/21 08/25/21 08/25/21 08/25/21 14:56 19:00 20:00 20:53 Temp 97.7 97.2 97.7 97.2 Pulse 74 86 74 Resp 20 18 B/P (MAP) 128/67 (87) 116/53 (74) 128/67 Pulse Ox 90 91 O2 Delivery Nasal Cannula Nasal Cannula O2 Flow Rate 4.0 4.0 08/26/21 08/26/21 08/26/21 08/26/21 07:00 07:41 08:00 09:00 Temp 97.8 97.8 Pulse 128 128 Resp 17 B/P (MAP) 132/70 (90) 132/70 Pulse Ox 92 96 O2 Delivery Nasal Cannula Nasal Cannula Nasal Cannula O2 Flow Rate 3.0 5.0 3.0 Intake and Output 08/25/21 08/25/21 08/26/21 15:00 23:00 07:00 Intake Total 450 ml 250 ml 100 ml Output Total 500 ml Balance 450 ml 250 ml -400 ml HAYLIE CAO MD Aug 26, 2021 12:27
[2021-08-26] MEDS: BUMETANIDE 1 MG/4 ML VIAL. IV SCH (14:00)
[2021-08-26 19:00] VITALS: BP 130/73
[2021-08-26] MEDS: LACTOBACILLUS RHAMNOSUS GG 1 CAPSULE. PO SCH (21:00)
[2021-08-26] MEDS: ATORVASTATIN CALCIUM 20 MG TABLET PO SCH (21:09)
[2021-08-26] MEDS: MULTIVITAMIN with MINERAL TABLET. PO SCH (21:09)
[2021-08-26] MEDS: INSULIN GLARGINE SYRINGE. SQ SCH (21:34)
[2021-08-27 07:00] VITALS: BP 137/66
[2021-08-27] MEDS: LEVOTHYROXINE 100 MCG TABLET PO SCH (07:05)
[2021-08-27] MEDS: LEVOTHYROXINE 112 MCG TABLET PO SCH (07:06)
[2021-08-27] MEDS: IBUPROFEN 400 MG TABLET. PO PRN (07:13)
--- NOTE | 2021-08-27 08:56 | PDOC ---
Provider Note Date of Service: DATE: 08/27/21 TIME: 08:55 Provider Note she desires rehab, states she particpate in pt- will discuss w/ dr lyons the need for repeat mediastinal mass biopsy to determine if palliative tx is available Justifications for Admission Other Justification JASPER HANNAH MD Aug 27, 2021 08:56
[2021-08-27] MEDS: metOLazone 2.5 MG TABLET PO SCH (09:00)
[2021-08-27] MEDS: METOPROLOL TART IMMED RELEASE 25 MG TABLET. PO SCH ×2 (09:01→20:53)
[2021-08-27] MEDS: LACTOBACILLUS RHAMNOSUS GG 1 CAPSULE. PO SCH ×2 (09:01→20:53)
[2021-08-27] MEDS: BUMETANIDE 1 MG/4 ML VIAL. IV SCH ×2 (09:01→13:31)
[2021-08-27] MEDS: POTASSIUM CHLORIDE 10 MEQ TABLET.ER. PO SCH ×2 (09:02→13:32)
--- NOTE | 2021-08-27 09:51 | PDOC ---
PULMONARY PROGRESS NOTES DATE: 08/27/21 TIME: 09:42 Subjective continues on O2 4L nc. no epistaxis. complains of mild sob this morning. Vitals Vital Signs Date Time Temp Pulse Resp B/P (MAP) Pulse Ox O2 Delivery O2 Flow Rate FiO2 08/27/21 09:01 72 137/66 08/27/21 07:46 Nasal Cannula 4.0 08/27/21 07:00 97.7 18 90 97.7 ROS: No Nausea, No Chest Pain, No Abdominal Pain General: Alert HEENT: Other (nc at perrl ) Lungs: Crackles Cardiovascular: S1, S2, Other Abdomen: Soft Neuro Exam: Alert Extremities: Other Skin: Warm Labs Laboratory Tests Test 08/25/21 10:37 08/25/21 16:17 08/26/21 07:51 08/26/21 12:06 Glucose (Fingerstick) 276 mg/dL (70-99) 193 mg/dL (70-99) 149 mg/dL (70-99) 266 mg/dL (70-99) Test 08/26/21 17:09 08/26/21 20:17 08/27/21 08:01 Glucose (Fingerstick) 229 mg/dL (70-99) 307 mg/dL (70-99) 151 mg/dL (70-99) Laboratory Tests Test 08/26/21 12:06 08/26/21 17:09 08/26/21 20:17 08/27/21 08:01 Glucose (Fingerstick) 266 mg/dL (70-99) 229 mg/dL (70-99) 307 mg/dL (70-99) 151 mg/dL (70-99) Medications Active Scripts Medications Dose Route/Sig Max Daily Dose Days Date Category Dose Instructions Metolazone 2.5 Mg Tablet 1 Tab PO PRN DAILY PRN 08/22/21 Reported Furosemide 40 Mg Tablet 1 Tab PO BID 08/22/21 Reported Fish Oil 1,000 Mg Softgel ([place]-3 Fatty Acids/Fish Oil) 1 Each Capsule 1 Cap PO DAILY 30 08/22/21 Reported WITH MEALS Lantus Solostar (Insulin Glargine,Hum.rec.anlog) 100 Unit/1 Ml Insuln.pen 47 Unit SQ QHS 08/22/21 Reported Children's Claritin (Loratadine) 5 Mg Tab.chew 1 Tab PO BID 30 05/03/21 Reported Metoprolol Tartrate 25 Mg Tablet 0.5 Tab PO BID 03/01/21 Reported Synthroid (Levothyroxine Sodium) 100 Mcg Tablet 100 Mcg PO DAILY06 09/13/19 Rx Take in combination with 112mcg tablet to equal 212mcg daily Levothyroxine Sodium 112 Mcg Tablet 112 Mcg PO DAILY06 09/13/19 Rx Take in combination with 100mcg tablet to equal 212mcg daily Albuterol Sulfate Neb Soln (Albuterol Sulfate) 1.25 Mg/3 Ml Vial.neb 1 Vial NEB PRN Q6HRS PRN 09/11/19 Reported Combivent Respimat Inhal (Ipratropium/Albuterol Sulfate) 4 Gm Aer.w.adap 2 Inh IH PRN DAILY PRN 09/11/19 Reported Pravastatin Sodium 80 Mg Tablet 1 Tab PO QHS 09/11/19 Reported Multi Vitamin Daily (Multivitamin) 1 Each Tablet 1 Tab PO DAILY 30 09/11/19 Reported Klor-Con 10 (Potassium Chloride) 10 Meq Tablet.er 20 Meq PO TID 03/05/14 Reported Impression . IMPRESSION: 1. Hemoptysis./Pseudohemoptysis from epistaxis 2. Progressive dyspnea secondary to acute on chronic cor pulmonale. 3. Previously abnormal CT chest revealing large anterior mediastinal mass. Biopsy was nondiagnostic. 4. Mild obstructive sleep apnea. 5. Severe pulmonary arterial hypertension. 6. Chronic obstructive pulmonary disease. 7. Chronic respiratory failure. 8. Status post bronchoscopy, see report DISCUSSION: Considering the patient's previously abnormal CT of the chest revealing large anterior mediastinal mass, biopsy was nondiagnostic, now she presents with hemoptysis. We will proceed with diagnostic bronchoscopy. I reviewed the risks, benefits and alternatives to the procedure. She has consented. The patient underwent a PET scan on the 08/20 revealing large right superior paramediastinal uptake with internal necrosis measuring 9.7 cm in dimension. The SUV was 16.4. This has increased in comparison to previous measurement of 6.3 cm on the study from 02/12/2021. There was also uptake in the right lymph node area. Maximum SUV of 5.6. There was a small foci of uptake in the distal sigmoid colon, patient informed me that she had colonoscopy which was negative. There was persistent ground-glass opacities lateral left lung and a small right-sided effusion. Plan . 08/27 titrate O2 as able continue antibiotics, day 6 levaquin pseudohemotysis continues to decrease Will iCloud films to [facility] We will discussed with interventional auxiliary equipment tender, on options Dr. Valdez When patient improves, okay to discharge home she will then follow-up as an outpatient with the interventional radiologist at [facility]. She is not a candidate for direct transfer Updated 08/26 02 titration Pseudohemoptysis related to epistaxis decreased will monitor Continue empiric antibiotics Follow-up on cultures from BAL so far negative discussed w pt WILLIAM Blair MD Aug 27, 2021 09:50
[2021-08-27] MEDS: ALBUTEROL SULFATE 2.5 MG/3 ML NEBU. NEB PRN (10:00)
--- NOTE | 2021-08-27 12:08 | NUR ---
SW following. Discussed with RN, pt from home, uses oxygen at home, regular diet. Pt has been declining therapy since admission, however is now stating she does want to go to SNF - pt declined therapy this morning but said she would work with therapy this afternoon. SW requested PCR COVID for potential placement as pt has only had a rapid COVID. SW will continue to follow.
[2021-08-27 13:29] LABS: ALBUMIN 2.3 g/dL (3.4-5.0); ALBUMIN/GLOBULIN RATIO 0.6 (1.0-1.7); CALCIUM 8.4 mg/dL (8.5-10.1); TOTAL BILIRUBIN 1.1 mg/dL (0.2-1.0); TOTAL PROTEIN 6.1 g/dL (6.4-8.2)
--- NOTE | 2021-08-27 13:33 | NUR ---
Multiple failed attempts to start IV. Paged cardiology to see how they would like to proceed.
[2021-08-27 13:35] LABS: POTASSIUM 6.5 mmol/L (3.5-5.1)
--- NOTE | 2021-08-27 13:45 | NUR ---
Spoke to Stephanie with cardiology. Received orders for oral bumex.
[2021-08-27] MEDS: BUMETANIDE 1 MG TABLET. PO SCH (13:57)
--- NOTE | 2021-08-27 14:05 | NUR ---
Encouraged pt to take metolazone as Dr Lowry requested. Pt declined. Educated pt on importance of taking metolazone. Pt still declines stating she will be fine she only likes to take one diuretic and metolazone makes her feel sick.
[2021-08-27 19:00] VITALS: BP 138/79
[2021-08-27] MEDS: ATORVASTATIN CALCIUM 20 MG TABLET PO SCH (20:53)
[2021-08-27] MEDS: MULTIVITAMIN with MINERAL TABLET. PO SCH (20:53)
[2021-08-27] MEDS: INSULIN GLARGINE SYRINGE. SQ SCH (20:59)
--- NOTE | 2021-08-27 21:44 | PDOC ---
PROGRESS NOTES Date of Service: DATE: 08/27/21 TIME: 21:44 Subjective Subjective Dyspnea and edema improving, no further epistaxis/hemoptysis Objective Objective Vital Signs Date Time Temp Pulse Resp B/P (MAP) Pulse Ox O2 Delivery O2 Flow Rate FiO2 08/27/21 20:53 80 131/56 08/27/21 19:00 98.0 22 91 Nasal Cannula 3.0 98.0 Intake and Output 08/27/21 07:00 Intake Total 550 ml Balance 550 ml Intake Oral 550 ml # Voids 3 # Bowel Movements 3 Physical Exam Abdomen: Soft, No tenderness Heart: Regular rate (SR), Other (distant heart sounds) Extremities: No cyanosis, Other (1-2+ bilateral Le pitting edema) General: Alert, Oriented X3, Cooperative, mild distress HEENT: Atraumatic, Mucous membr. moist/pink Lungs: Other (diminished bases with upper rhonchi) Neuro: Sensation intact Psych/Mental Status: Mental status NL, Mood NL Skin: No breakdown, No significant lesion Assessment Assessment 1. Acute on chronic respiratory failure, multifactorial. Pulmonary team foll owing. 2. AECOPD 3. Acute on chronic cor pulmonale 4. Severe pulmonary HTN: no vasoreactivity per recent RHC 5. Mediastinal mass: S/P bronchoscopy 6. Possible cirrhosis per recent PET scan, defer to PCP 7. PAFIB: could not ascertain burden. Presently SR 8. CAD: past CABG 9. S/P Watchman device 10. DM2/HLP 11. Pseudohemoptysis from epistaxis, patient had cauterization by ENT in the past. Pulmonary team following. Recommendations Continue Bumex for diuresis Continue work-up for mediastinal mass per pulmonary team Plan Plan of Care Problems Medical Problems: (1) CHF (congestive heart failure) Status: Acute (2) COPD (chronic obstructive pulmonary disease) Status: Acute (3) Pneumonia Status: Acute Comment Review of Relevant I have reviewed the following items yoselyn (where applicable) has been applied. Labs Laboratory Tests Test 08/27/21 08:01 08/27/21 11:56 08/27/21 13:00 08/27/21 17:24 Glucose (Fingerstick) 151 mg/dL (70-99) 155 mg/dL (70-99) 141 mg/dL (70-99) Sodium Level 132 mmol/L (136-145) Potassium Level 6.5 mmol/L (3.5-5.1) Chloride Level 90 mmol/L (98-107) Carbon Dioxide Level 39 mmol/L (21-32) Anion Gap 3 (6-14) Blood Urea Nitrogen 46 mg/dL (7-20) Creatinine 1.0 mg/dL (0.6-1.0) Estimated GFR (Cockcroft-Gault) 55.0 BUN/Creatinine Ratio 46 (6-20) Glucose Level 155 mg/dL (70-99) Calcium Level 8.4 mg/dL (8.5-10.1) Total Bilirubin 1.1 mg/dL (0.2-1.0) Aspartate Amino Transf (AST/SGOT) 88 U/L (15-37) Alanine Aminotransferase (ALT/SGPT) 50 U/L (14-59) Alkaline Phosphatase 440 U/L (46-116) Total Protein 6.1 g/dL (6.4-8.2) Albumin 2.3 g/dL (3.4-5.0) Albumin/Globulin Ratio 0.6 (1.0-1.7) Test 08/27/21 20:52 Glucose (Fingerstick) 211 mg/dL (70-99) Microbiology 08/23/21 AFB Specimen Processing Tissue - Final, Resulted 08/23/21 Acid Fast Bacilli Culture, Resulted Pending 08/23/21 Gram Stain - Final, Resulted 08/23/21 Fungal Culture, Resulted Pending 08/23/21 Fungal Culture Result 1, Resulted Pending Medications Current Medications Bumetanide (Bumex) 2 mg DAILY PO Last administered on 08/27/21at 13:57; Start 08/27/21 at 13:45 Vitals/I & O Vital Sign - Last 24 Hours 08/27/21 08/27/21 08/27/21 08/27/21 07:00 07:46 09:01 10:01 Temp 97.7 97.7 Pulse 72 72 Resp 18 B/P (MAP) 137/66 (89) 137/66 Pulse Ox 90 90 O2 Delivery Nasal Cannula Nasal Cannula Nasal Cannula O2 Flow Rate 3.0 4.0 4.0 08/27/21 08/27/21 19:00 20:53 Temp 98.0 98.0 Pulse 81 80 Resp 22 B/P (MAP) 138/79 (98) 131/56 Pulse Ox 91 O2 Delivery Nasal Cannula O2 Flow Rate 3.0 Intake and Output 08/26/21 08/26/21 08/27/21 15:00 23:00 07:00 Intake Total 550 ml Balance 550 ml HAYLIE CAO MD Aug 27, 2021 21:44
[2021-08-27 23:00] VITALS: BP 119/59
--- NOTE | 2021-08-28 00:25 | NUR ---
RT paged for PRN respiratory treatment per Patient's request.
[2021-08-28] MEDS: ALBUTEROL SULFATE 2.5 MG/3 ML NEBU. NEB PRN (00:42)
[2021-08-28 03:00] VITALS: BP 128/67
[2021-08-28] MEDS: IPRATRPIUM/ALBUTEROL 0.5/2.5MG 3 ML NEBU. NEB SCH ×2 (06:18→12:31)
[2021-08-28] MEDS: LEVOTHYROXINE 112 MCG TABLET PO SCH (06:22)
[2021-08-28] MEDS: LEVOTHYROXINE 100 MCG TABLET PO SCH (06:22)
[2021-08-28 07:00] VITALS: BP 123/51
[2021-08-28 07:41] LABS: ALBUMIN 2.4 g/dL (3.4-5.0); ALBUMIN/GLOBULIN RATIO 0.6 (1.0-1.7); CALCIUM 8.2 mg/dL (8.5-10.1); TOTAL BILIRUBIN 0.9 mg/dL (0.2-1.0); TOTAL PROTEIN 6.4 g/dL (6.4-8.2)
--- NOTE | 2021-08-28 08:17 | SNU/HH DC ---
DISCHARGE ORDERS DISCHARGE INFORMATION: FINAL DIAGNOSIS Problems Medical Problems: (1) CHF (congestive heart failure) Status: Acute (2) COPD (chronic obstructive pulmonary disease) Status: Acute (3) Pneumonia Status: Acute CONDITION ON DISCHARGE: Stable CODE STATUS: Code Status: Full SNF: SNF STAY <30 DAYS: Yes POST DISCHARGE ORDERS: ACTIVITY ORDERS: Activity as tolerated WEIGHT BEARING STATUS: Full weight bearing DIET AFTER DISCHARGE: Regular WOUND/INCISION CARE: No wound care needed CHECKS AFTER DISCHARGE: CHECKS AFTER DISCHARGE: Check blood sugar, ac/hs, Check your Temp as needed, Weigh Yourself Daily TREATMENT/EQUIPMENT ORDERS: ADAPTIVE EQUIPMENT NEEDED: None RESPIRATORY EQUIPMENT NEEDED: Oxygen Physical Therapy For: Evalulation/Treatment Occupational Therapy For: Evaluation/Treatment DISCHARGE MEDICATIONS: Home Meds Active Scripts Levothyroxine Sodium (SYNTHROID) 100 Mcg Tablet, 100 MCG PO DAILY06 for thyroid for 30 Days, #30 TAB 2 Refills Take in combination with 112mcg tablet to equal 212mcg daily Prov:ALEXUS LAZARO MD 09/13/19 Levothyroxine Sodium (LEVOTHYROXINE SODIUM) 112 Mcg Tablet, 112 MCG PO DAILY06 for thyroid for 30 Days, #30 TAB 2 Refills Take in combination with 100mcg tablet to equal 212mcg daily Prov:ALEXUS LAZARO MD 09/13/19 Reported Medications Metolazone (METOLAZONE) 2.5 Mg Tablet, 1 TAB PO PRN DAILY PRN for swelling 08/22/21 Furosemide (FUROSEMIDE) 40 Mg Tablet, 1 TAB PO BID for chf 08/22/21 [place]-3 Fatty Acids/Fish Oil (FISH OIL 1,000 MG SOFTGEL) 1 Each Capsule, 1 CAP PO DAILY for vitamin for 30 Days, #30 CAP 0 Refills WITH MEALS 08/22/21 Insulin Glargine,Hum.rec.anlog (LANTUS SOLOSTAR) 100 Unit/1 Ml Insuln.pen, 47 UNIT SQ QHS for diabetes, #15 ML 3 Refills 08/22/21 Loratadine (CHILDREN'S CLARITIN) 5 Mg Tab.chew, 1 TAB PO BID for allergy symptoms for 30 Days, #60 TAB 0 Refills 05/03/21 Metoprolol Tartrate (METOPROLOL TARTRATE) 25 Mg Tablet, 0.5 TAB PO BID for heart rate, #180 TAB 1 Refill 8/26/21 Albuterol Sulfate (ALBUTEROL SULFATE NEB SOLN) 1.25 Mg/3 Ml Vial.neb, 1 VIAL NEB PRN Q6HRS PRN for SHORTNESS OF BREATH, #150 ML 09/11/19 Ipratropium/Albuterol Sulfate (COMBIVENT RESPIMAT INHAL) 4 Gm Aer.w.adap, 2 INH IH PRN DAILY PRN for SHORTNESS OF BREATH, INHALER 09/11/19 Pravastatin Sodium (PRAVASTATIN SODIUM) 80 Mg Tablet, 1 TAB PO QHS for , #90 TAB 1 Refill 09/11/19 Multivitamin (MULTI VITAMIN DAILY) 1 Each Tablet, 1 TAB PO DAILY for for 30 Days, #30 TAB 0 Refills 09/11/19 Potassium Chloride (KLOR-CON 10) 10 Meq Tablet.er, 20 MEQ PO TID for SUPPLEMENT, TAB 03/05/14 JASPER HANNAH MD Aug 28, 2021 08:16
--- NOTE | 2021-08-28 08:19 | PDOC ---
Provider Note Date of Service: DATE: 08/28/21 TIME: 08:17 Provider Note K+ 6.5, now 6 as she has refused her metolozone- is willing to take at different time now- rehab placement pending, meds same , K+ held for now until < 4 Justifications for Admission Other Justification JASPER HANNAH MD Aug 28, 2021 08:18
[2021-08-28] MEDS: LACTOBACILLUS RHAMNOSUS GG 1 CAPSULE. PO SCH (08:23)
[2021-08-28] MEDS: BUMETANIDE 1 MG TABLET. PO SCH (08:23)
[2021-08-28] MEDS: METOPROLOL TART IMMED RELEASE 25 MG TABLET. PO SCH (08:24)
--- NOTE | 2021-08-28 10:40 | PDOC ---
PULMONARY PROGRESS NOTES DATE: 08/28/21 TIME: 10:40 Subjective Feels better today less short of breath no further epistaxis Vitals Vital Signs Date Time Temp Pulse Resp B/P (MAP) Pulse Ox O2 Delivery O2 Flow Rate FiO2 08/28/21 08:24 73 123/57 08/28/21 08:00 Nasal Cannula 4.0 08/28/21 07:00 97.9 18 90 97.9 ROS: No Nausea, No Chest Pain, No Abdominal Pain General: Alert HEENT: Other (nc at perrl ) Lungs: Crackles Cardiovascular: S1, S2, Other Abdomen: Soft Neuro Exam: Alert Extremities: Other Skin: Warm Labs Laboratory Tests Test 08/26/21 12:06 08/26/21 17:09 08/26/21 20:17 08/27/21 08:01 Glucose (Fingerstick) 266 mg/dL (70-99) 229 mg/dL (70-99) 307 mg/dL (70-99) 151 mg/dL (70-99) Test 08/27/21 11:56 08/27/21 12:45 08/27/21 13:00 08/27/21 17:24 Glucose (Fingerstick) 155 mg/dL (70-99) 141 mg/dL (70-99) Coronavirus (COVID-19)(PCR) Not detected (NOT DETECTD) Sodium Level 132 mmol/L (136-145) Potassium Level 6.5 mmol/L (3.5-5.1) Chloride Level 90 mmol/L (98-107) Carbon Dioxide Level 39 mmol/L (21-32) Anion Gap 3 (6-14) Blood Urea Nitrogen 46 mg/dL (7-20) Creatinine 1.0 mg/dL (0.6-1.0) Estimated GFR (Cockcroft-Gault) 55.0 BUN/Creatinine Ratio 46 (6-20) Glucose Level 155 mg/dL (70-99) Calcium Level 8.4 mg/dL (8.5-10.1) Total Bilirubin 1.1 mg/dL (0.2-1.0) Aspartate Amino Transf (AST/SGOT) 88 U/L (15-37) Alanine Aminotransferase (ALT/SGPT) 50 U/L (14-59) Alkaline Phosphatase 440 U/L (46-116) Total Protein 6.1 g/dL (6.4-8.2) Albumin 2.3 g/dL (3.4-5.0) Albumin/Globulin Ratio 0.6 (1.0-1.7) Test 08/27/21 20:52 08/28/21 06:55 08/28/21 07:23 Glucose (Fingerstick) 211 mg/dL (70-99) 169 mg/dL (70-99) Sodium Level 131 mmol/L (136-145) Potassium Level 6.0 mmol/L (3.5-5.1) Chloride Level 87 mmol/L (98-107) Carbon Dioxide Level 38 mmol/L (21-32) Anion Gap 6 (6-14) Blood Urea Nitrogen 41 mg/dL (7-20) Creatinine 1.0 mg/dL (0.6-1.0) Estimated GFR (Cockcroft-Gault) 55.0 BUN/Creatinine Ratio 41 (6-20) Glucose Level 199 mg/dL (70-99) Calcium Level 8.2 mg/dL (8.5-10.1) Total Bilirubin 0.9 mg/dL (0.2-1.0) Aspartate Amino Transf (AST/SGOT) 116 U/L (15-37) Alanine Aminotransferase (ALT/SGPT) 107 U/L (14-59) Alkaline Phosphatase 479 U/L (46-116) Total Protein 6.4 g/dL (6.4-8.2) Albumin 2.4 g/dL (3.4-5.0) Albumin/Globulin Ratio 0.6 (1.0-1.7) Laboratory Tests Test 08/27/21 11:56 08/27/21 12:45 08/27/21 13:00 08/27/21 17:24 Glucose (Fingerstick) 155 mg/dL (70-99) 141 mg/dL (70-99) Coronavirus (COVID-19)(PCR) Not detected (NOT DETECTD) Sodium Level 132 mmol/L (136-145) Potassium Level 6.5 mmol/L (3.5-5.1) Chloride Level 90 mmol/L (98-107) Carbon Dioxide Level 39 mmol/L (21-32) Anion Gap 3 (6-14) Blood Urea Nitrogen 46 mg/dL (7-20) Creatinine 1.0 mg/dL (0.6-1.0) Estimated GFR (Cockcroft-Gault) 55.0 BUN/Creatinine Ratio 46 (6-20) Glucose Level 155 mg/dL (70-99) Calcium Level 8.4 mg/dL (8.5-10.1) Total Bilirubin 1.1 mg/dL (0.2-1.0) Aspartate Amino Transf (AST/SGOT) 88 U/L (15-37) Alanine Aminotransferase (ALT/SGPT) 50 U/L (14-59) Alkaline Phosphatase 440 U/L (46-116) Total Protein 6.1 g/dL (6.4-8.2) Albumin 2.3 g/dL (3.4-5.0) Albumin/Globulin Ratio 0.6 (1.0-1.7) Test 08/27/21 20:52 08/28/21 06:55 08/28/21 07:23 Glucose (Fingerstick) 211 mg/dL (70-99) 169 mg/dL (70-99) Sodium Level 131 mmol/L (136-145) Potassium Level 6.0 mmol/L (3.5-5.1) Chloride Level 87 mmol/L (98-107) Carbon Dioxide Level 38 mmol/L (21-32) Anion Gap 6 (6-14) Blood Urea Nitrogen 41 mg/dL (7-20) Creatinine 1.0 mg/dL (0.6-1.0) Estimated GFR (Cockcroft-Gault) 55.0 BUN/Creatinine Ratio 41 (6-20) Glucose Level 199 mg/dL (70-99) Calcium Level 8.2 mg/dL (8.5-10.1) Total Bilirubin 0.9 mg/dL (0.2-1.0) Aspartate Amino Transf (AST/SGOT) 116 U/L (15-37) Alanine Aminotransferase (ALT/SGPT) 107 U/L (14-59) Alkaline Phosphatase 479 U/L (46-116) Total Protein 6.4 g/dL (6.4-8.2) Albumin 2.4 g/dL (3.4-5.0) Albumin/Globulin Ratio 0.6 (1.0-1.7) Medications Active Scripts Medications Dose Route/Sig Max Daily Dose Days Date Category Dose Instructions Metolazone 2.5 Mg Tablet 1 Tab PO PRN DAILY PRN 08/22/21 Reported Furosemide 40 Mg Tablet 1 Tab PO BID 08/22/21 Reported Fish Oil 1,000 Mg Softgel ([place]-3 Fatty Acids/Fish Oil) 1 Each Capsule 1 Cap PO DAILY 30 08/22/21 Reported WITH MEALS Lantus Solostar (Insulin Glargine,Hum.rec.anlog) 100 Unit/1 Ml Insuln.pen 47 Unit SQ QHS 08/22/21 Reported Children's Claritin (Loratadine) 5 Mg Tab.chew 1 Tab PO BID 30 05/03/21 Reported Metoprolol Tartrate 25 Mg Tablet 0.5 Tab PO BID 03/01/21 Reported Synthroid (Levothyroxine Sodium) 100 Mcg Tablet 100 Mcg PO DAILY06 30 09/13/19 Rx Take in combination with 112mcg tablet to equal 212mcg daily Levothyroxine Sodium 112 Mcg Tablet 112 Mcg PO DAILY06 30 09/13/19 Rx Take in combination with 100mcg tablet to equal 212mcg daily Albuterol Sulfate Neb Soln (Albuterol Sulfate) 1.25 Mg/3 Ml Vial.neb 1 Vial NEB PRN Q6HRS PRN 09/11/19 Reported Combivent Respimat Inhal (Ipratropium/Albuterol Sulfate) 4 Gm Aer.w.adap 2 Inh IH PRN DAILY PRN 09/11/19 Reported Pravastatin Sodium 80 Mg Tablet 1 Tab PO QHS 09/11/19 Reported Multi Vitamin Daily (Multivitamin) 1 Each Tablet 1 Tab PO DAILY 30 09/11/19 Reported Klor-Con 10 (Potassium Chloride) 10 Meq Tablet.er 20 Meq PO TID 03/05/14 Reported Impression . IMPRESSION: 1. Hemoptysis./Pseudohemoptysis from epistaxis 2. Progressive dyspnea secondary to acute on chronic cor pulmonale. 3. Previously abnormal CT chest revealing large anterior mediastinal mass. Biopsy was nondiagnostic. 4. Mild obstructive sleep apnea. 5. Severe pulmonary arterial hypertension., No vasoreactivity on right heart catheterization initial diagnosis made in 2014 6. Chronic obstructive pulmonary disease. 7. Chronic respiratory failure. 8. Status post bronchoscopy, see report, BAL negative for bacterial infection, AFB smear negative DISCUSSION: Considering the patient's previously abnormal CT of the chest revealing large anterior mediastinal mass, biopsy was nondiagnostic, now she presents with hemoptysis. We will proceed with diagnostic bronchoscopy. I reviewed the risks, benefits and alternatives to the procedure. She has consented. The patient underwent a PET scan on the 08/20 revealing large right superior paramediastinal uptake with internal necrosis measuring 9.7 cm in dimension. The SUV was 16.4. This has increased in comparison to previous measurement of 6.3 cm on the study from 02/12/2021. There was also uptake in the right lymph node area. Maximum SUV of 5.6. There was a small foci of uptake in the distal sigmoid colon, patient informed me that she had colonoscopy which was negative. There was persistent ground-glass opacities lateral left lung and a small right-sided effusion. Plan . Updated 08/[address] Lowry today Discussed with interventional mail inserter at [facility], possible outpatient evaluation and biopsy Discussed with patient, she needs to follow-up with me once she gets discharged from [facility] unit 08/27 titrate O2 as able continue antibiotics, day 6 levaquin pseudohemotysis continues to decrease Will iCloud films to [facility] We will discussed with interventional mail inserter, on options Dr. Valdez When patient improves, okay to discharge home she will then follow-up as an o utpatient with the interventional radiologist at [facility]. She is not a candidate for direct transfer WILLIAM CANELA MD Aug 28, 2021 10:40
[2021-08-28 11:00] VITALS: BP 145/68
--- NOTE | 2021-08-28 11:20 | NUR ---
SW following. Discussed with RN, pt from home. Discharge orders for SNF. NENO met with pt, pt agreeable to [facility]. Referral phoned and faxed, pt accepted. NENO notified pt's daughter, Adele (per pt request) ph: [phone], they are working on getting patient into [facility]. COVID-19 negative. Transportation arranged with [facility] transport for 1445. RN notified.
--- NOTE | 2021-08-28 13:50 | PDOC ---
PROGRESS NOTES Date of Service: DATE: 08/28/21 TIME: 13:49 Subjective Subjective No new complaints, edema improved and stable, probably baseline for her Objective Objective Vital Signs Date Time Temp Pulse Resp B/P (MAP) Pulse Ox O2 Delivery O2 Flow Rate FiO2 08/28/21 12:33 90 Nasal Cannula 4.0 08/28/21 11:00 97.6 70 18 145/68 (93) 97.6 Physical Exam Abdomen: Soft, No tenderness Heart: Regular rate (SR), Other (distant heart sounds) Extremities: No cyanosis, Other (1-2+ bilateral Le pitting edema) General: Alert, Oriented X3, Cooperative, mild distress HEENT: Atraumatic, Mucous membr. moist/pink Lungs: Other (diminished bases with upper rhonchi) Neuro: Sensation intact Psych/Mental Status: Mental status NL, Mood NL Skin: No breakdown, No significant lesion Assessment Assessment 1. Acute on chronic respiratory failure, multifactorial. Pulmonary team following. 2. AECOPD 3. Acute on chronic cor pulmonale 4. Severe pulmonary HTN: no vasoreactivity per recent RHC 5. Mediastinal mass: S/P bronchoscopy 6. Possible cirrhosis per recent PET scan, defer to PCP 7. PAFIB: could not ascertain burden. Presently SR 8. CAD: past CABG 9. S/P Watchman device 10. DM2/HLP 11. Pseudohemoptysis from epistaxis, patient had cauterization by ENT in the past. Pulmonary team following. Recommendations Patient lost IV access and unable to get new one - okay to change bumex to PO Continue work-up for mediastinal mass per pulmonary team Plan Plan of Care Problems Medical Problems: (1) CHF (congestive heart failure) Status: Acute (2) COPD (chronic obstructive pulmonary disease) Status: Acute (3) Pneumonia Status: Acute Comment Review of Relevant I have reviewed the following items yoselyn (where applicable) has been applied. Labs Laboratory Tests Test 08/27/21 17:24 08/27/21 20:52 08/28/21 06:55 08/28/21 07:23 Glucose (Fingerstick) 141 mg/dL (70-99) 211 mg/dL (70-99) 169 mg/dL (70-99) Sodium Level 131 mmol/L (136-145) Potassium Level 6.0 mmol/L (3.5-5.1) Chloride Level 87 mmol/L (98-107) Carbon Dioxide Level 38 mmol/L (21-32) Anion Gap 6 (6-14) Blood Urea Nitrogen 41 mg/dL (7-20) Creatinine 1.0 mg/dL (0.6-1.0) Estimated GFR (Cockcroft-Gault) 55.0 BUN/Creatinine Ratio 41 (6-20) Glucose Level 199 mg/dL (70-99) Calcium Level 8.2 mg/dL (8.5-10.1) Total Bilirubin 0.9 mg/dL (0.2-1.0) Aspartate Amino Transf (AST/SGOT) 116 U/L (15-37) Alanine Aminotransferase (ALT/SGPT) 107 U/L (14-59) Alkaline Phosphatase 479 U/L (46-116) Total Protein 6.4 g/dL (6.4-8.2) Albumin 2.4 g/dL (3.4-5.0) Albumin/Globulin Ratio 0.6 (1.0-1.7) Test 08/28/21 11:19 Glucose (Fingerstick) 202 mg/dL (70-99) Microbiology 08/23/21 AFB Specimen Processing Tissue - Final, Resulted 08/23/21 Acid Fast Bacilli Culture, Resulted Pending 08/23/21 Gram Stain - Final, Resulted 08/23/21 Fungal Culture, Resulted Pending 08/23/21 Fungal Culture Result 1, Resulted Pending Medications Current Medications Albuterol/ Ipratropium (Duoneb) 3 ml TID NEB Last administered on 08/28/21at 12:31; Start 08/28/21 at 09:00 Metolazone (Zaroxolyn) 1.25 mg Q48H PO ; Start 08/28/21 at 18:00 Vitals/I & O Vital Sign - Last 24 Hours 08/27/21 08/27/21 08/27/21 08/27/21 19:00 20:10 20:53 23:00 Temp 98.0 98.1 98.0 98.1 Pulse 81 80 68 Resp 22 20 B/P (MAP) 138/79 (98) 131/56 119/59 (79) Pulse Ox 91 96 O2 Delivery Nasal Cannula Nasal Cannula Nasal Cannula O2 Flow Rate 3.0 4.0 4.0 2/2208/28/21 08/28/21 08/28/21 00:46 03:00 06:21 07:00 Temp 98.3 97.9 98.3 97.9 Pulse 63 73 Resp 24 18 B/P (MAP) 128/67 (87) 123/51 (75) Pulse Ox 90 97 90 90 O2 Delivery Nasal Cannula Nasal Cannula Nasal Cannula Nasal Cannula O2 Flow Rate 4.0 4.0 4.0 4.0 08/28/21 08/28/21 08/28/21 08/28/21 08:00 08:24 11:00 12:33 Temp 97.6 97.6 Pulse 73 70 Resp 18 B/P (MAP) 123/57 145/68 (93) Pulse Ox 95 90 O2 Delivery Nasal Cannula Nasal Cannula Nasal Cannula O2 Flow Rate 4.0 4.0 4.0 HAYLIE CAO MD Aug 28, 2021 13:50
--- NOTE | 2021-08-28 15:00 | NUR ---
pt discharged to [facility] via medical transportation. Report called into [facility]. pt transported off the unit via wheelchair with all belongings.
[2021-08-28] MEDS ORDERED: metOLazone 2.5 MG TABLET PO SCH (18:00)
--- NOTE | 2021-08-29 08:58 | DS ---
DATE OF DISCHARGE: 08/28/2021 HOSPITAL SUMMARY: The patient came in with her usual edema, swelling and fluid. She received some diuresis and had reasonably good results. The etiology of her necrotic mediastinal mass is still undetermined and she would transfer to rehab and then consideration for interventional pulmonology evaluation for possible biopsy as an outpatient. Potassium was elevated at 6.5 during the stay as she had declined to use metolazone and then we had to hold her potassium until the level came down to 6 at the time of discharge. FINAL DIAGNOSES: 1. Cor pulmonale secondary to severe pulmonary hypertension. 2. Chronic mediastinal mass, suspected anterior mediastinal malignancy, etiology undetermined. OPERATIONS, PROCEDURES, AND COMPLICATIONS: None. CONSULTATIONS: Dr. Kamara and Dr. Christine. DISPOSITION: Meds remain same per rehab, consideration of possible CT-guided biopsy. Her problems will be discussed with the interventional radiologist here to make a diagnosis of her mediastinal mass, though it is likely she would not be able to tolerate any kind of treatment for same chemoradiation and she is a nonsurgical candidate. ANDI MORAN: Dave TID: [id number]
== END 2021-08-28 15:00 | DRG 204 ==
LOC: ER 01:06 → 5 NORTH 02:45
PROVIDERS: ADMIT Family Medicine; ATTEND Family Medicine
PROC: 0B9D8ZX Drainage of Right Middle Lung Lobe, Via Natural or Artificial Opening Endoscopic, Diagnostic (ICD-10-PCS; principal; 2021-08-23 13:00)
DX: R91.8 Other nonspecific abnormal finding of lung field (principal); J96.20 Acute and chronic respiratory failure, unspecified whether with hypoxia or hypercapnia; R04.2 Hemoptysis; I42.9 Cardiomyopathy, unspecified; J44.0 Chronic obstructive pulmonary disease with (acute) lower respiratory infection; J44.1 Chronic obstructive pulmonary disease with (acute) exacerbation; E03.9 Hypothyroidism, unspecified; E11.9 Type 2 diabetes mellitus without complications; E78.00 Pure hypercholesterolemia, unspecified; E78.5 Hyperlipidemia, unspecified; G47.33 Obstructive sleep apnea (adult) (pediatric); I11.0 Hypertensive heart disease with heart failure; I25.10 Atherosclerotic heart disease of native coronary artery without angina pectoris; I27.21 Secondary pulmonary arterial hypertension; I27.81 Cor pulmonale (chronic); I48.0 Paroxysmal atrial fibrillation; I50.9 Heart failure, unspecified; Z20.822 Contact with and (suspected) exposure to COVID-19; R04.0 Epistaxis; Z87.891 Personal history of nicotine dependence; Z95.1 Presence of aortocoronary bypass graft; Z95.818 Presence of other cardiac implants and grafts; F32.A Depression, unspecified; M19.90 Unspecified osteoarthritis, unspecified site; Z88.0 Allergy status to penicillin
CPT/HCPCS: 31622; 36415; 71045; 78815; 80048; 80053; 82962; 83735; 83880; 84100; 84484; 85025; 87070; 87102; 87116; 87428; 88112; 93005; 94640; 94760; A9552; J1815; J1940; J1956; J2704; J3490; J7120; U0003; 97530-GO; 97530-GP; 97535-GO; 99285-25; G0378; J7613

== ENCOUNTER 2021-08-29 00:40 | Inpatient (IN) | payer MEDICARE, BC ==
[~2021-08-29] VITALS: Ht 162.6 cm; Wt 109.9 kg
[~2021-08-29 00:40] MED LIST changes: +METO2.5T PO; +OMEG1CAP27 PO
--- NOTE | 2021-08-29 01:17 | RAD ---
XR CHEST 1V 08/29/2021 12:56 AM INDICATION: Shortness of air COMPARISON: 08/22/2021 TECHNIQUE: Portable frontal view of the chest is provided. FINDINGS: The cardiomediastinal silhouette is similar in appearance. Median sternotomy changes are present. Inc rease in small left pleural effusion with adjacent compressive atelectasis versus infiltrate. Right h ilar mass appears stable. No pulmonary vascular congestion or pneumothorax. No suspicious osseous abnormality. IMPRESSION: There is suggestion of increased small left pleural effusion with adjacent compressive atelectasis ve rsus infiltrate. Electronically signed by: Yecenia Izquierdo MD (08/29/2021 1:15 AM) JAMI
[2021-08-29 01:19] LABS: BASO # 0.1 x10^3/uL (0.0-0.2); BASO % 1 % (0-3); EOS % 0 % (0-3); HEMOGLOBIN 11.6 g/dL (12.0-15.5); LYMPH # 1.3 x10^3/uL (1.0-4.8); LYMPH % 11 % (24-48); MEAN CORPUSCULAR HEMOGLOBIN 27 pg (25-35); MEAN CORPUSCULAR HGB CONC 32 g/dL (31-37); MEAN CORPUSCULAR VOLUME 83 fL (79-100); MONO # 1.2 x10^3/uL (0.0-1.1); MONO % 10 % (0-9); NEUT # 10.1 x10^3/uL (1.8-7.7); NEUT % 79 % (31-73); PLATELET COUNT 281 x10^3/uL (140-400); RED BLOOD COUNT 4.34 x10^6/uL (3.50-5.40); RED CELL DISTRIBUTION WIDTH 19.3 % (11.5-14.5); WHITE BLOOD COUNT 12.7 x10^3/uL (4.0-11.0)
[2021-08-29 01:29] LABS: CALCIUM 8.3 mg/dL (8.5-10.1); POTASSIUM 5.1 mmol/L (3.5-5.1)
[2021-08-29 01:36] LABS: ALBUMIN 2.8 g/dL (3.4-5.0); ALBUMIN/GLOBULIN RATIO 0.7 (1.0-1.7); TOTAL PROTEIN 6.6 g/dL (6.4-8.2)
[2021-08-29] MEDS ORDERED: FUROSEMIDE 40 MG/4 ML VIAL. IVP ONE (02:15)
--- NOTE | 2021-08-29 03:18 | PHYS DOC ---
Past Medical History Past Medical History: CAD, CHF, COPD, Diabetes-Type II, High Cholesterol, Heart Disease, Hypertension, Hypothyroid, Other Additional Past Medical Histor: 0xygen dependent Past Surgical History: Other Additional Past Surgical Histo: see surgical history Smoking Status: Never Smoker Alcohol Use: None Drug Use: None Adult General Chief Complaint Chief Complaint: SHORTNESS OF BREATH HPI HPI The patient is a comorbid 70-year-old female with multifactorial chronic respiratory failure (COPD, cor pulmonale, severe pulmonary hypertension) on 3 L of nasal cannula oxygen at baseline. Patient also has a history of hypertension, hyperlipidemia, coronary artery disease status post CABG, paroxysmal atrial fibrillation. Ms. Wu was just released from this hospital yesterday to a local rehabilitation facility. No discharge summary is yet available but it appears that she was discharged on oral Bumex, which she states is a new diuretic for her. The patient presents with concern for shortness of breath at the rehabilitation facility. She states that she feels like she cannot get enough air in and like her legs have swollen significantly since yesterday on the new diuretic regimen. She feels fluid overloaded. She is saturating appropriately on her typical home oxygen but states she cannot lay flat and feels quite short of breath. She denies any other focal or specific symptoms and specifically denies fevers, nausea or vomiting, upper respiratory congestion/rhinorrhea, cough, sore throat, chest pain of any kind, abdominal pain of any kind, flank pain, midline back pain, dysuria, hematuria, polyuria or oliguria, weakness, numbness, tingling, pain or swelling to arms or legs. Vital signs are appropriate here and the patient is in no acute distress, appearing slightly tachypneic but speaking comfortably in full sentences. Review of Systems Review of Systems A 12 point review of systems was completed and was negative except where noted in HPI above. Current Medications Current Medications Current Medications Medications (Trade) Dose Ordered Sig/Hannah Start Time Stop Time Status Last Admin Dose Admin Furosemide (Lasix) 40 mg 1X ONCE 08/29/21 02:15 08/29/21 02:16 DC 08/29/21 02:19 40 MG Allergies Allergies Allergies Coded Allergies Type Severity Reaction Last Updated Verified Penicillins Adverse Reaction Mild yeast infections 08/29/21 Yes Physical Exam Physical Exam Older, chronically ill-appearing 70-year-old female appearing nontoxic and in no acute distress. Head is normocephalic and atraumatic. Neck is supple and nontender. Oropharynx is moist. Lungs with mildly diminished breath sounds to all berger but with reasonable air movement bilaterally and no crackles, wheezes or other adventitious sounds heard. Mild tachypnea. There is a normal S1 and S2 without rubs or gallops and capillary refill is appropriate, less than 2 seconds globally. Abdomen is soft, nontender and nondistended. Skin is warm and dry without cyanosis or clubbing. Psychiatrically, the patient demonstrates appropriate mood and affect and is alert. Evaluation of the extremities reveals BUEs and BLEs neurovascularly intact distally with strength 5 out of 5, sensation intact light touch in all nerve distributions, radial, DP and PT pulses 2+ and equal bilaterally, capillary refill less than 2 seconds, hands and feet warm and well-perfused. 2+ dependent pitting peripheral edema to bilateral lower extremities below the level of the knees, symmetric. No calf tenderness or swelling bilaterally. No erythema or significant tenderness to the legs. Homans test is negative bilaterally. Current Patient Data Vital Signs Vital Signs Date Time Temp Pulse Resp B/P (MAP) Pulse Ox O2 Delivery O2 Flow Rate FiO2 08/29/21 02:19 78 22 145/70 (95) 94 Nasal Cannula 4.0 08/29/21 00:40 98.0 98.0 Lab Values Laboratory Tests Test 08/29/21 01:05 White Blood Count 12.7 x10^3/uL (4.0-11.0) H Red Blood Count 4.34 x10^6/uL (3.50-5.40) Hemoglobin 11.6 g/dL (12.0-15.5) L Hematocrit 36.0 % (36.0-47.0) Mean Corpuscular Volume 83 fL (79-100) Mean Corpuscular Hemoglobin 27 pg (25-35) Mean Corpuscular Hemoglobin Concent 32 g/dL (31-37) Red Cell Distribution Width 19.3 % (11.5-14.5) H Platelet Count 281 x10^3/uL (140-400) Neutrophils (%) (Auto) 79 % (31-73) H Lymphocytes (%) (Auto) 11 % (24-48) L Monocytes (%) (Auto) 10 % (0-9) H Eosinophils (%) (Auto) 0 % (0-3) Basophils (%) (Auto) 1 % (0-3) Neutrophils # (Auto) 10.1 x10^3/uL (1.8-7.7) H Lymphocytes # (Auto) 1.3 x10^3/uL (1.0-4.8) Monocytes # (Auto) 1.2 x10^3/uL (0.0-1.1) H Eosinophils # (Auto) 0.0 x10^3/uL (0.0-0.7) Basophils # (Auto) 0.1 x10^3/uL (0.0-0.2) Sodium Level 133 mmol/L (136-145) L Potassium Level 5.1 mmol/L (3.5-5.1) Chloride Level 87 mmol/L (98-107) L Carbon Dioxide Level 45 mmol/L (21-32) H Anion Gap 1 (6-14) L Blood Urea Nitrogen 40 mg/dL (7-20) H Creatinine 1.0 mg/dL (0.6-1.0) Estimated GFR (Cockcroft-Gault) 55.0 BUN/Creatinine Ratio 40 (6-20) H Glucose Level 289 mg/dL (70-99) H Calcium Level 8.3 mg/dL (8.5-10.1) L Total Bilirubin 1.0 mg/dL (0.2-1.0) Aspartate Amino Transferase (AST) 77 U/L (15-37) H Alanine Aminotransferase (ALT) 110 U/L (14-59) H Alkaline Phosphatase 476 U/L (46-116) H Troponin I High Sensitivity 94 ng/L (4-50) H AO-Axf-T-Type Natriuretic Peptide 8176 pg/mL (0-124) H Total Protein 6.6 g/dL (6.4-8.2) Albumin 2.8 g/dL (3.4-5.0) L Albumin/Globulin Ratio 0.7 (1.0-1.7) L Laboratory Tests 08/29/21 01:05 Laboratory Tests 08/29/21 01:05 EKG EKG Sinus rhythm, rate 76, no acute ST elevation, nonspecific ST changes, NJ 168, QRS 94, QTc 393, EP interpretation. Nonischemic tracing. Moderate baseline artifact limits interpretation. Radiology/Procedures Radiology/Procedures XR CHEST 1V 08/29/2021 12:56 AM INDICATION: Shortness of air COMPARISON: 08/22/2021 TECHNIQUE: Portable frontal view of the chest is provided. FINDINGS: The cardiomediastinal silhouette is similar in appearance. Median sternotomy changes are present. Increase in small left pleural effusion with adjacent compr essive atelectasis versus infiltrate. Right hilar mass appears stable. No pulmonary vascular congestion or pneumothorax. No suspicious osseous abnormality. IMPRESSION: There is suggestion of increased small left pleural effusion with adjacent compressive atelectasis versus infiltrate. Electronically signed by: Maryjane Muller MD (08/29/2021 1:15 AM) [facility] DICTATED and SIGNED BY: MARYJANE MULLER MD DATE: 08/29/21 [id number] Course & Med Decision Making Course & Med Decision Making BNP at least twice as high as it was at the patient's recent admission. Left pleural effusion has increased in size somewhat versus what was seen on recent imaging. Peripheral edema is worse than yesterday. Impression is slightly worsened volume overload, perhaps due to insufficient oral diuresis over the last day. Troponin mildly elevated without any chest pain. Will trend. EKG without ST elevation. Have given a dose of IV Lasix and will bring in for further care under Dr. Hannah, who graciously accepts. Dragon Disclaimer Dragon Disclaimer This electronic medical record was generated, in whole or in part, using a voice recognition dictation system. Departure Departure Impression: Primary Impression: Volume overload Additional Impressions: Acute exacerbation of congestive heart failure Chronic respiratory failure Disposition: ADMITTED INPATIENT Admitting Physician: Jasper Hannah Condition: STABLE Referrals: JASPER HANNAH MD (PCP) Problem Qualifiers DAVID MCGRATH MD Aug 29, 2021 03:18
[2021-08-29] MEDS ORDERED: ACETAMINOPHEN 325 MG TABLET. PO PRN (03:30)
[2021-08-29] MEDS ORDERED: ONDANSETRON PF 4 MG/2 ML VIAL. IVP PRN (03:30)
--- NOTE | 2021-08-29 05:08 | EKG ---
[facility] [address] [place] [address] Test Date: 2021-08-29 Test Time: 01:32:26 Pat Name: WILDA GRECO Department: Room: ED HOLD 21 Gender: F [employer]: : 1950 Requested By: DAVID MCGRATH Order Number: [id number] Reading MD: Lawrence Zimmer Measurements Intervals [place] Rate: 76 P: 43 NE: 168 QRS: 124 QRSD: 94 T: -29 QT: 350 QTc: 393 Interpretive Statements SINUS RHYTHM CONSIDER RIGHT VENTRICULAR HYPERTROPHY ST & T ABNORMALITY, CONSIDER INFERIOR ISCHEMIA OR LEFT VENTRICULAR STRAIN Electronically Signed On 09-02-2021 18:11:57 DISPOSAL OPERATOR by Lawrence Zimmer
[2021-08-29 08:00] VITALS: BP 126/64
[2021-08-29] MEDS ORDERED: NON FORMULARY ITEM (Ipratropium/Albuterol Sulfate (Combivent Respimat Inhal) 2 INH) IH PRN (08:30)
--- NOTE | 2021-08-29 08:38 | PDOC ---
Provider Note Date of Service: DATE: 08/29/21 TIME: 08:38 Provider Note [id number] Justifications for Admission Other Justification JASPER HANNAH MD Aug 29, 2021 08:38
--- NOTE | 2021-08-29 08:41 | PDOC ---
Provider Note Date of Service: DATE: 08/29/21 TIME: 08:39 Provider Note [id number] Justifications for Admission Other Justification JASPER HANNAH MD Aug 29, 2021 08:41
[2021-08-29] MEDS ORDERED: ALBUTEROL SULFATE 2.5 MG/3 ML NEBU. NEB PRN (09:00)
[2021-08-29] MEDS: LEVOTHYROXINE 100 MCG TABLET PO SCH (10:03)
[2021-08-29] MEDS: LEVOTHYROXINE 112 MCG TABLET PO SCH (10:03)
[2021-08-29] MEDS: METOPROLOL TART IMMED RELEASE 25 MG TABLET. PO SCH ×2 (10:22→20:56)
[2021-08-29] MEDS: BUMETANIDE 1 MG/4 ML VIAL. IV SCH ×2 (10:23→14:46)
--- NOTE | 2021-08-29 10:25 | PDOC ---
RALF MORRISSEY VP PATIENT 08/29/21 1025: CARDIO Progress Notes Date and Time Date of Service 08/29/21 Time of Evaluation 1020 Subjective Subjective: No Chest Pain, No Palpitations, No Dizziness, Other (breathing improved. C/o cough) Vitals Vitals Vital Signs Date Time Temp Pulse Resp B/P (MAP) Pulse Ox O2 Delivery O2 Flow Rate FiO2 08/29/21 10:22 80 142/73 08/29/21 03:15 18 95 Room Air 08/29/21 02:19 4.0 08/29/21 00:40 98.0 98.0 Weight Weight [ ] Laboratory Labs Laboratory Tests Test 08/29/21 01:05 08/29/21 05:20 08/29/21 08:33 White Blood Count 12.7 x10^3/uL (4.0-11.0) Red Blood Count 4.34 x10^6/uL (3.50-5.40) Hemoglobin 11.6 g/dL (12.0-15.5) Hematocrit 36.0 % (36.0-47.0) Mean Corpuscular Volume 83 fL (79-100) Mean Corpuscular Hemoglobin 27 pg (25-35) Mean Corpuscular Hemoglobin Concent 32 g/dL (31-37) Red Cell Distribution Width 19.3 % (11.5-14.5) Platelet Count 281 x10^3/uL (140-400) Neutrophils (%) (Auto) 79 % (31-73) Lymphocytes (%) (Auto) 11 % (24-48) Monocytes (%) (Auto) 10 % (0-9) Eosinophils (%) (Auto) 0 % (0-3) Basophils (%) (Auto) 1 % (0-3) Neutrophils # (Auto) 10.1 x10^3/uL (1.8-7.7) Lymphocytes # (Auto) 1.3 x10^3/uL (1.0-4.8) Monocytes # (Auto) 1.2 x10^3/uL (0.0-1.1) Eosinophils # (Auto) 0.0 x10^3/uL (0.0-0.7) Basophils # (Auto) 0.1 x10^3/uL (0.0-0.2) Sodium Level 133 mmol/L (136-145) Potassium Level 5.1 mmol/L (3.5-5.1) Chloride Level 87 mmol/L (98-107) Carbon Dioxide Level 45 mmol/L (21-32) Anion Gap 1 (6-14) Blood Urea Nitrogen 40 mg/dL (7-20) Creatinine 1.0 mg/dL (0.6-1.0) Estimated GFR (Cockcroft-Gault) 55.0 BUN/Creatinine Ratio 40 (6-20) Glucose Level 289 mg/dL (70-99) Calcium Level 8.3 mg/dL (8.5-10.1) Total Bilirubin 1.0 mg/dL (0.2-1.0) Aspartate Amino Transf (AST/SGOT) 77 U/L (15-37) Alanine Aminotransferase (ALT/SGPT) 110 U/L (14-59) Alkaline Phosphatase 476 U/L (46-116) Troponin I High Sensitivity 94 ng/L (4-50) 97 ng/L (4-50) LB-Obe-B-Type Natriuretic Peptide 8176 pg/mL (0-124) Total Protein 6.6 g/dL (6.4-8.2) Albumin 2.8 g/dL (3.4-5.0) Albumin/Globulin Ratio 0.7 (1.0-1.7) Glucose (Fingerstick) 148 mg/dL (70-99) Physical Exam HEENT: Neck Supple W Full Motion Chest: Symmetric LUNGS: Other (diminished bases) Heart: RRR Abdomen: Soft N/T, Other (obese) Extremities: Other (1-2+ bilateral LE edema ) Neurology: alert, oriented, follow commands Assessment Assessment Patient discharged to rehab facility yesterday afternoon. Returns to ED 6 hours later with complaints of shortness of breath. Patient reports she was doing well initially upon discharge. Last night, she got up to use to bathroom and became significantly short of breath. Has difficulty breathing and was unable to cath her breath. EMS was called. Assessment 1. Acute on chronic respiratory failure, multifactorial. 2. AECOPD 3. Acute on chronic cor pulmonale; Continue diuresis. Monitor I and O, renal function 4. Severe pulmonary HTN: no vasoreactivity per recent RHC 5. Large mediastinal mass: S/P bronchoscopy. Biopsy nondiagnostic. 6. Possible cirrhosis per recent PET scan, defer to PCP. LFTs mildly elevated 7. PAFIB: could not ascertain burden. Presently SR. S/p Watchman device 8. CAD: past CABG 9. Hyperlipidemia 10. Diabetes, II 11. Pseudohemoptysis from epistaxis, [facility] Justifications for Admission: Justification of Admission Dx: Yes HAYLIE CAO MD 08/29/214: CARDIO Progress Notes Assessment Assessment Patient seen and examined. Agree with MANAGER CRITICAL CARE's assessment and plan as stated above RALF MORRISSEY APRN Aug 29, 2021 10:25 HAYLIE CAO MD Aug 29, 2021 21:44
--- NOTE | 2021-08-29 10:40 | HP ---
DATE OF SERVICE: 08/29/2021 ADMIT DATE: 08/29/2021 CHIEF COMPLAINT: Swelling. HISTORY OF PRESENT ILLNESS: The patient was discharged from [place] to Rehab the day prior to admission, came back in with increasing swelling. She has not been particularly compliant with the diuretic use while in the hospital, increasing swelling, shortness of breath prompted her readmission. PAST MEDICAL HISTORY: Multiple. MEDICATIONS: Listed per the chart. ALLERGIES: PENICILLIN. SOCIAL HISTORY: Nonsmoker lives alone, . FAMILY HISTORY: Unremarkable. REVIEW OF SYSTEMS: No other complaints. OBJECTIVE: ENT: All within normal limits. NECK: No masses, nodes or JVD. LUNGS: Decreased breath sounds bilaterally, scattered wheezes. CARDIOVASCULAR: Regular rate, mild tachycardia. No murmur. Heart tones are distant. ABDOMEN: Obese, soft, nontender. EXTREMITIES: 2+ pitting pretibial edema bilaterally. Pedal pulses are reasonably good. No upper extremity edema. NEUROLOGIC: Physiologic, nonfocal. ASSESSMENT: Chronic peripheral edema secondary to severe intractable pulmonary hypertension from oxygen dependent chronic obstructive pulmonary disease. She also has a necrotic mediastinal mass on CT and PET scans, almost certainly, there is some sort of mediastinal malignancy, whether or other is unclear. Biopsies have been indeterminate. She also has insulin-dependent diabetes. PLAN: IV and oral diuresis. Appropriate consultations, will have interventional radiologist assess, CT for possible consideration of biopsy of her mass if she consents to this. BRYCE MORAN: Dave TID: [id number]
[2021-08-29 11:00] VITALS: BP 142/67
[2021-08-29 14:46] VITALS: BP 130/67
[2021-08-29] MEDS: metOLazone 2.5 MG TABLET PO SCH (16:51)
[2021-08-29 19:00] VITALS: BP 149/74
[2021-08-29] MEDS: ATORVASTATIN CALCIUM 20 MG TABLET PO SCH (20:55)
[2021-08-29] MEDS: INSULIN GLARGINE SYRINGE. SQ SCH (21:02)
[2021-08-29 23:00] VITALS: BP 118/53
[2021-08-30 03:00] VITALS: BP 128/65
[2021-08-30 04:36] LABS: BASO % 0 % (0-3); EOS % 0 % (0-3); HEMATOCRIT 36.8 % (36.0-47.0); HEMOGLOBIN 11.6 g/dL (12.0-15.5); LYMPH # 1.7 x10^3/uL (1.0-4.8); LYMPH % 13 % (24-48); MEAN CORPUSCULAR HEMOGLOBIN 26 pg (25-35); MEAN CORPUSCULAR HGB CONC 32 g/dL (31-37); MEAN CORPUSCULAR VOLUME 83 fL (79-100); MONO # 1.5 x10^3/uL (0.0-1.1); MONO % 11 % (0-9); NEUT # 9.8 x10^3/uL (1.8-7.7); NEUT % 75 % (31-73); PLATELET COUNT 255 x10^3/uL (140-400); RED BLOOD COUNT 4.41 x10^6/uL (3.50-5.40); RED CELL DISTRIBUTION WIDTH 19.8 % (11.5-14.5)
[2021-08-30 05:07] LABS: ALBUMIN 2.6 g/dL (3.4-5.0); ALBUMIN/GLOBULIN RATIO 0.7 (1.0-1.7); CALCIUM 8.1 mg/dL (8.5-10.1); POTASSIUM 4.5 mmol/L (3.5-5.1); TOTAL BILIRUBIN 0.8 mg/dL (0.2-1.0); TOTAL PROTEIN 6.4 g/dL (6.4-8.2)
[2021-08-30 07:00] VITALS: BP 121/61
[2021-08-30] MEDS: LEVOTHYROXINE 100 MCG TABLET PO SCH (07:04)
[2021-08-30] MEDS: LEVOTHYROXINE 112 MCG TABLET PO SCH (07:04)
[2021-08-30] MEDS: IPRATRPIUM/ALBUTEROL 0.5/2.5MG 3 ML NEBU. NEB SCH ×4 (08:09→20:43)
--- NOTE | 2021-08-30 08:32 | PDOC ---
Provider Note Date of Service: DATE: 08/30/21 TIME: 08:31 Provider Note dyspnea better, some diuresis, K+ better, will resume po kcl, dr palomino will have IR reconsider medis bx but poor prognosis regardless as likely malignant per pet findings Justifications for Admission Other Justification JASPER HANNAH MD Aug 30, 2021 08:32
--- NOTE | 2021-08-30 08:43 | NUR ---
Dr. Lowry notified this RN to discontinue telemetry monitoring. Monitor removed from pt by this RN.
[2021-08-30] MEDS: BUMETANIDE 1 MG/4 ML VIAL. IV SCH ×2 (09:03→16:21)
[2021-08-30] MEDS: METOPROLOL TART IMMED RELEASE 25 MG TABLET. PO SCH ×2 (09:03→21:43)
--- NOTE | 2021-08-30 09:07 | NUR ---
Pt requested to have metolazone at 1300. States "I cannot tolerate two diuretics at once." Will hold. Addendum: 08/30/21 at 1615 by NAVDEEP CHAMBERLAIN RN Pt given metolazone at 1341, not wanting to take bumetanide at same time. Bumetanide held, BP obtained. This RN informed pt that she would receive bumetanide if VSS. Pt verbalizes understanding.
[2021-08-30 11:00] VITALS: BP 148/84
--- NOTE | 2021-08-30 11:06 | PDOC ---
PULMONARY PROGRESS NOTES DATE: 08/30/21 TIME: 11:05 Vitals Vital Signs Date Time Temp Pulse Resp B/P (MAP) Pulse Ox O2 Delivery O2 Flow Rate FiO2 08/30/21 09:03 73 121/61 08/30/21 08:30 Nasal Cannula 3.0 08/30/21 08:12 96 08/30/21 07:00 97.3 20 97.3 Labs Laboratory Tests Test 08/29/21 01:05 08/29/21 05:20 08/29/21 08:33 08/29/21 09:50 White Blood Count 12.7 x10^3/uL (4.0-11.0) Red Blood Count 4.34 x10^6/uL (3.50-5.40) Hemoglobin 11.6 g/dL (12.0-15.5) Hematocrit 36.0 % (36.0-47.0) Mean Corpuscular Volume 83 fL (79-100) Mean Corpuscular Hemoglobin 27 pg (25-35) Mean Corpuscular Hemoglobin Concent 32 g/dL (31-37) Red Cell Distribution Width 19.3 % (11.5-14.5) Platelet Count 281 x10^3/uL (140-400) Neutrophils (%) (Auto) 79 % (31-73) Lymphocytes (%) (Auto) 11 % (24-48) Monocytes (%) (Auto) 10 % (0-9) Eosinophils (%) (Auto) 0 % (0-3) Basophils (%) (Auto) 1 % (0-3) Neutrophils # (Auto) 10.1 x10^3/uL (1.8-7.7) Lymphocytes # (Auto) 1.3 x10^3/uL (1.0-4.8) Monocytes # (Auto) 1.2 x10^3/uL (0.0-1.1) Eosinophils # (Auto) 0.0 x10^3/uL (0.0-0.7) Basophils # (Auto) 0.1 x10^3/uL (0.0-0.2) Sodium Level 133 mmol/L (136-145) Potassium Level 5.1 mmol/L (3.5-5.1) Chloride Level 87 mmol/L (98-107) Carbon Dioxide Level 45 mmol/L (21-32) Anion Gap 1 (6-14) Blood Urea Nitrogen 40 mg/dL (7-20) Creatinine 1.0 mg/dL (0.6-1.0) Estimated GFR (Cockcroft-Gault) 55.0 BUN/Creatinine Ratio 40 (6-20) Glucose Level 289 mg/dL (70-99) Calcium Level 8.3 mg/dL (8.5-10.1) Total Bilirubin 1.0 mg/dL (0.2-1.0) Aspartate Amino Transf (AST/SGOT) 77 U/L (15-37) Alanine Aminotransferase (ALT/SGPT) 110 U/L (14-59) Alkaline Phosphatase 476 U/L (46-116) Troponin I High Sensitivity 94 ng/L (4-50) 97 ng/L (4-50) 94 ng/L (4-50) JM-Fmj-L-Type Natriuretic Peptide 8176 pg/mL (0-124) Total Protein 6.6 g/dL (6.4-8.2) Albumin 2.8 g/dL (3.4-5.0) Albumin/Globulin Ratio 0.7 (1.0-1.7) Glucose (Fingerstick) 148 mg/dL (70-99) Test 08/29/21 16:44 08/29/21 19:10 08/30/21 04:00 08/30/21 07:56 Glucose (Fingerstick) 177 mg/dL (70-99) 303 mg/dL (70-99) 168 mg/dL (70-99) White Blood Count 13.0 x10^3/uL (4.0-11.0) Red Blood Count 4.41 x10^6/uL (3.50-5.40) Hemoglobin 11.6 g/dL (12.0-15.5) Hematocrit 36.8 % (36.0-47.0) Mean Corpuscular Volume 83 fL (79-100) Mean Corpuscular Hemoglobin 26 pg (25-35) Mean Corpuscular Hemoglobin Concent 32 g/dL (31-37) Red Cell Distribution Width 19.8 % (11.5-14.5) Platelet Count 255 x10^3/uL (140-400) Neutrophils (%) (Auto) 75 % (31-73) Lymphocytes (%) (Auto) 13 % (24-48) Monocytes (%) (Auto) 11 % (0-9) Eosinophils (%) (Auto) 0 % (0-3) Basophils (%) (Auto) 0 % (0-3) Neutrophils # (Auto) 9.8 x10^3/uL (1.8-7.7) Lymphocytes # (Auto) 1.7 x10^3/uL (1.0-4.8) Monocytes # (Auto) 1.5 x10^3/uL (0.0-1.1) Eosinophils # (Auto) 0.0 x10^3/uL (0.0-0.7) Basophils # (Auto) 0.0 x10^3/uL (0.0-0.2) Sodium Level 132 mmol/L (136-145) Potassium Level 4.5 mmol/L (3.5-5.1) Chloride Level 87 mmol/L (98-107) Carbon Dioxide Level 43 mmol/L (21-32) Anion Gap 2 (6-14) Blood Urea Nitrogen 41 mg/dL (7-20) Creatinine 1.0 mg/dL (0.6-1.0) Estimated GFR (Cockcroft-Gault) 55.0 BUN/Creatinine Ratio 41 (6-20) Glucose Level 253 mg/dL (70-99) Calcium Level 8.1 mg/dL (8.5-10.1) Total Bilirubin 0.8 mg/dL (0.2-1.0) Aspartate Amino Transf (AST/SGOT) 71 U/L (15-37) Alanine Aminotransferase (ALT/SGPT) 97 U/L (14-59) Alkaline Phosphatase 473 U/L (46-116) Total Protein 6.4 g/dL (6.4-8.2) Albumin 2.6 g/dL (3.4-5.0) Albumin/Globulin Ratio 0.7 (1.0-1.7) Laboratory Tests Test 08/29/21 16:44 08/29/21 19:10 08/30/21 04:00 08/30/21 07:56 Glucose (Fingerstick) 177 mg/dL (70-99) 303 mg/dL (70-99) 168 mg/dL (70-99) White Blood Count 13.0 x10^3/uL (4.0-11.0) Red Blood Count 4.41 x10^6/uL (3.50-5.40) Hemoglobin 11.6 g/dL (12.0-15.5) Hematocrit 36.8 % (36.0-47.0) Mean Corpuscular Volume 83 fL (79-100) Mean Corpuscular Hemoglobin 26 pg (25-35) Mean Corpuscular Hemoglobin Concent 32 g/dL (31-37) Red Cell Distribution Width 19.8 % (11.5-14.5) Platelet Count 255 x10^3/uL (140-400) Neutrophils (%) (Auto) 75 % (31-73) Lymphocytes (%) (Auto) 13 % (24-48) Monocytes (%) (Auto) 11 % (0-9) Eosinophils (%) (Auto) 0 % (0-3) Basophils (%) (Auto) 0 % (0-3) Neutrophils # (Auto) 9.8 x10^3/uL (1.8-7.7) Lymphocytes # (Auto) 1.7 x10^3/uL (1.0-4.8) Monocytes # (Auto) 1.5 x10^3/uL (0.0-1.1) Eosinophils # (Auto) 0.0 x10^3/uL (0.0-0.7) Basophils # (Auto) 0.0 x10^3/uL (0.0-0.2) Sodium Level 132 mmol/L (136-145) Potassium Level 4.5 mmol/L (3.5-5.1) Chloride Level 87 mmol/L (98-107) Carbon Dioxide Level 43 mmol/L (21-32) Anion Gap 2 (6-14) Blood Urea Nitrogen 41 mg/dL (7-20) Creatinine 1.0 mg/dL (0.6-1.0) Estimated GFR (Cockcroft-Gault) 55.0 BUN/Creatinine Ratio 41 (6-20) Glucose Level 253 mg/dL (70-99) Calcium Level 8.1 mg/dL (8.5-10.1) Total Bilirubin 0.8 mg/dL (0.2-1.0) Aspartate Amino Transf (AST/SGOT) 71 U/L (15-37) Alanine Aminotransferase (ALT/SGPT) 97 U/L (14-59) Alkaline Phosphatase 473 U/L (46-116) Total Protein 6.4 g/dL (6.4-8.2) Albumin 2.6 g/dL (3.4-5.0) Albumin/Globulin Ratio 0.7 (1.0-1.7) Medications Active Scripts Medications Dose Route/Sig Max Daily Dose Days Date Category Dose Instructions Metolazone 2.5 Mg Tablet 1 Tab PO PRN DAILY PRN 08/22/21 Reported Furosemide 40 Mg Tablet 1 Tab PO BID 08/22/21 Reported Fish Oil 1,000 Mg Softgel ([place]iscoe-3 Fatty Acids/Fish Oil) 1 Each Capsule 1 Cap PO DAILY 30 08/22/21 Reported WITH MEALS Lantus Solostar (Insulin Glargine,Hum.rec.anlog) 100 Unit/1 Ml Insuln.pen 47 Unit SQ QHS 08/22/21 Reported Children's Claritin (Loratadine) 5 Mg Tab.chew 1 Tab PO BID 30 05/03/21 Reported Metoprolol Tartrate 25 Mg Tablet 0.5 Tab PO BID 03/01/21 Reported Synthroid (Levothyroxine Sodium) 100 Mcg Tablet 100 Mcg PO DAILY06 30 09/13/19 Rx Take in combination with 112mcg tablet to equal 212mcg daily Levothyroxine Sodium 112 Mcg Tablet 112 Mcg PO DAILY06 09/13/19 Rx Take in combination with 100mcg tablet to equal 212mcg daily Albuterol Sulfate Neb Soln (Albuterol Sulfate) 1.25 Mg/3 Ml Vial.neb 1 Vial NEB PRN Q6HRS PRN 09/11/19 Reported Combivent Respimat Inhal (Ipratropium/Albuterol Sulfate) 4 Gm Aer.w.adap 2 Inh IH PRN DAILY PRN 09/11/19 Reported Pravastatin Sodium 80 Mg Tablet 1 Tab PO QHS 09/11/19 Reported Multi Vitamin Daily (Multivitamin) 1 Each Tablet 1 Tab PO DAILY 30 09/11/19 Reported Klor-Con 10 (Potassium Chloride) 10 Meq Tablet.er 20 Meq PO TID 03/05/14 Reported Impression . FULL CONSULT DICTATED Discussed with interventional radiology possibly repeat FNA of anterior mediastinal mass, now that we have a PET scan WILLIAM CANELA MD Aug 30, 2021 11:06
[2021-08-30] MEDS: POTASSIUM CHLORIDE 10 MEQ TABLET.ER. PO SCH ×2 (11:46→18:14)
--- NOTE | 2021-08-30 12:53 | NUR ---
SW following. Discussed with RN, pt from [facility] SNF, 3L, regular diet. SW requesting PT/OT from Dr. Lowry. Pulmonology and Cardiology following. Pt will need a COVID PCR to return to [facility]. SW will continue to follow.
[2021-08-30] MEDS: metOLazone 2.5 MG TABLET PO SCH (13:41)
--- NOTE | 2021-08-30 14:48 | PDOC ---
RALF MORRISSEY [employer] VENDOR 08/30/21 1448: CARDIO Progress Notes Date and Time Date of Service 08/30/21 Time of Evaluation 1215 Subjective Subjective: No Chest Pain, No Palpitations, No Dizziness, Other (feels tired today. not more SOA) Vitals Vitals Vital Signs Date Time Temp Pulse Resp B/P (MAP) Pulse Ox O2 Delivery O2 Flow Rate FiO2 08/30/21 09:03 73 121/61 08/30/21 08:30 Nasal Cannula 3.0 08/30/21 08:12 96 08/30/21 07:00 97.3 20 97.3 Weight Weight [ ] Input and Output Intake and Output Intake and Output 08/30/21 07:00 Intake Total 250 ml Output Total 400 ml Balance -150 ml Intake Oral 250 ml Output Urine Total 400 ml # Voids 1 # Bowel Movements 2 Laboratory Labs Laboratory Tests Test 08/29/21 16:44 08/29/21 19:10 08/30/21 04:00 08/30/21 07:56 Glucose (Fingerstick) 177 mg/dL (70-99) 303 mg/dL (70-99) 168 mg/dL (70-99) White Blood Count 13.0 x10^3/uL (4.0-11.0) Red Blood Count 4.41 x10^6/uL (3.50-5.40) Hemoglobin 11.6 g/dL (12.0-15.5) Hematocrit 36.8 % (36.0-47.0) Mean Corpuscular Volume 83 fL (79-100) Mean Corpuscular Hemoglobin 26 pg (25-35) Mean Corpuscular Hemoglobin Concent 32 g/dL (31-37) Red Cell Distribution Width 19.8 % (11.5-14.5) Platelet Count 255 x10^3/uL (140-400) Neutrophils (%) (Auto) 75 % (31-73) Lymphocytes (%) (Auto) 13 % (24-48) Monocytes (%) (Auto) 11 % (0-9) Eosinophils (%) (Auto) 0 % (0-3) Basophils (%) (Auto) 0 % (0-3) Neutrophils # (Auto) 9.8 x10^3/uL (1.8-7.7) Lymphocytes # (Auto) 1.7 x10^3/uL (1.0-4.8) Monocytes # (Auto) 1.5 x10^3/uL (0.0-1.1) Eosinophils # (Auto) 0.0 x10^3/uL (0.0-0.7) Basophils # (Auto) 0.0 x10^3/uL (0.0-0.2) Sodium Level 132 mmol/L (136-145) Potassium Level 4.5 mmol/L (3.5-5.1) Chloride Level 87 mmol/L (98-107) Carbon Dioxide Level 43 mmol/L (21-32) Anion Gap 2 (6-14) Blood Urea Nitrogen 41 mg/dL (7-20) Creatinine 1.0 mg/dL (0.6-1.0) Estimated GFR (Cockcroft-Gault) 55.0 BUN/Creatinine Ratio 41 (6-20) Glucose Level 253 mg/dL (70-99) Calcium Level 8.1 mg/dL (8.5-10.1) Total Bilirubin 0.8 mg/dL (0.2-1.0) Aspartate Amino Transf (AST/SGOT) 71 U/L (15-37) Alanine Aminotransferase (ALT/SGPT) 97 U/L (14-59) Alkaline Phosphatase 473 U/L (46-116) Total Protein 6.4 g/dL (6.4-8.2) Albumin 2.6 g/dL (3.4-5.0) Albumin/Globulin Ratio 0.7 (1.0-1.7) Test 08/30/21 11:26 Glucose (Fingerstick) 348 mg/dL (70-99) Physical Exam HEENT: Neck Supple W Full Motion Chest: Symmetric LUNGS: Other (diminished bases) Heart: RRR Abdomen: Soft N/T, Other (obese) Extremities: Other (2+ bilateral LE edema ) Neurology: alert, oriented, follow commands Assessment Assessment 1. Acute on chronic respiratory failure, multifactorial. 2. AECOPD 3. Acute on chronic cor pulmonale; Continue diuresis. Monitor I and O, renal function 4. Severe pulmonary HTN: no vasoreactivity per recent RHC 5. Large mediastinal mass: S/P bronchoscopy. Biopsy nondiagnostic. 6. Possible cirrhosis per recent PET scan, defer to PCP. LFTs mildly elevated 7. PAFIB: could not ascertain burden. Presently SR. S/p Watchman device 8. CAD: past CABG 9. Hyperlipidemia 10. Diabetes, II 11. Pseudohemoptysis from epistaxis, patient had cauterization by ENT in the past. Justicifation of Admission Dx: Justifications for Admission: Justification of Admission Dx: Yes HAYLIE CAO MD 08/30/213: CARDIO Progress Notes Assessment Assessment Patient seen and examined. Agree with QUALITY CONTROL MICROBIOLOGY SUPERVISOR's assessment and plan. Ac on chr diastolic HF/cor pulmonale continues to be decompensated Patient not wanting to take bumex and metolazone together and currently taking metolazone few hours after bumex We will change metolazone timing to before giving bumex for better diuresis Pulm team planning biopsy for mediastinal mass CAD s/p CABG stable PAF maintaining SR RALF MORRISSEY APRN Aug 30, 2021 14:48 HAYLIE CAO MD Aug 30, 2021 18:13
[2021-08-30 15:00] VITALS: BP 104/67
[2021-08-30 19:00] VITALS: BP 147/68
[2021-08-30] MEDS: ATORVASTATIN CALCIUM 20 MG TABLET PO SCH (21:42)
[2021-08-30] MEDS: INSULIN GLARGINE SYRINGE. SQ SCH (21:47)
--- NOTE | 2021-08-30 22:37 | CONS ---
DATE OF CONSULTATION: 08/30/2021 ATTENDING PHYSICIAN: Mike Lowry MD REASON FOR CONSULTATION: The patient is seen in pulmonary consultation at the request of Dr. Lowry for increasing shortness of breath. HISTORY OF PRESENT ILLNESS: The patient is well known to me. She was recently hospitalized here at [facility] for hemoptysis, underwent bronchoscopy that revealed no endobronchial lesion. She had pseudohemoptysis related to epistaxis, cultures were all negative on the BAL. The patient presents with increasing shortness of breath. She has several reasons to being short of breath. She has underlying COPD, quit tobacco many years ago. She has severe pulmonary hypertension with previous right heart catheterization revealing no evidence of response to vasodilators. She also has a large mediastinal mass with workup in the past with a nondiagnostic biopsy. PAST MEDICAL HISTORY: 1. Pulmonary arterial hypertension. For now, she is not responsive to vasodilator. 2. Mild obstructive sleep apnea. 3. Previously abnormal CT revealing mediastinal mass. She had a biopsy, which was nondiagnostic. 4. Recent admission for hemoptysis/pseudohemoptysis, underwent bronchoscopic evaluation revealed no endobronchial lesion. 5. Coronary artery disease with previous coronary artery bypass grafting. 6. Obesity. 7. Hyperlipidemia. 8. Chronic respiratory failure. PAST SURGICAL HISTORY: As above. ALLERGIES: PENICILLIN. CURRENT MEDICATIONS: List was reviewed. REVIEW OF SYSTEMS: As indicated above, otherwise other systems were reviewed and negative on examination. CURRENT MEDICATIONS: List was reviewed. PHYSICAL EXAMINATION: VITAL SIGNS: Stable. O2 saturation was greater than 92%, currently on 3 liters. HEENT: Eyes: The sclerae were nonicteric. NECK: Jugular venous distention could not be assessed secondary to body habitus. CHEST: Full expansion. LUNGS: Adequate flow with no wheezes. CARDIOVASCULAR: Regular rate and rhythm with S1, S2, no S3. ABDOMEN: Soft, obese. EXTREMITIES: No pitting edema. NEUROLOGIC: She was awake, alert, following commands. A detailed neuro exam was not performed. LABORATORY DATA: Chest x-ray was reviewed. There was some compressive atelectasis in the left base with possible small effusion. No significant vascular congestion. Labs were reviewed. White count was slightly elevated. Electrolytes were noted. BUN was 41, creatinine was 1.0. IMPRESSION: 1. Progressive dyspnea, multifactorial. 2. Chronic respiratory failure. 3. Vkjuw-as-bshassk cor pulmonale. 4. Mediastinal mass. 5. Coronary artery disease with previous coronary artery bypass grafting. 6. Recent hemoptysis status post bronchoscopy. Cultures to date have been negative. 7. 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 8. A 3.5 cm abdominal aortic aneurysm. PLAN: 1. Continue to diurese. 2. Oxygen supplementation. 3. We will review recent PET scan with Dr. Daniels for possible repeat biopsy. DISCUSSION: I have had multiple discussions with interventional hide spreader at [facility]. He informed me that either navigational bronchoscopy or EBUS would not be beneficial in this particular case. He did not think that he could obtain an adequate sample for biopsy. The above has been discussed with Dr. Lowry in the past including the patient. HANNAH/EVETTE/SHIVA DR: Ramin TID: [id number]
[2021-08-30 23:00] VITALS: BP 133/88
[2021-08-31] VITALS (9 sets, daily range): BP systolic 112–156; BP diastolic 49–90
[2021-08-31] MEDS: LEVOTHYROXINE 100 MCG TABLET PO SCH (05:58)
[2021-08-31] MEDS: LEVOTHYROXINE 112 MCG TABLET PO SCH (05:58)
[2021-08-31] MEDS: metOLazone 2.5 MG TABLET PO SCH (07:15)
[2021-08-31] MEDS: IPRATRPIUM/ALBUTEROL 0.5/2.5MG 3 ML NEBU. NEB SCH ×4 (07:48→21:28)
--- NOTE | 2021-08-31 08:42 | PDOC ---
Provider Note Date of Service: DATE: 08/31/21 TIME: 08:41 Provider Note good diuresis w/ 2 meds- K+ 4, status same, cont same care- IR to consider repeat biopsy if she consents Justifications for Admission Other Justification JASPER HANNAH MD Aug 31, 2021 08:42
[2021-08-31] MEDS ORDERED: metOLazone 2.5 MG TABLET PO SCH (09:00)
--- NOTE | 2021-08-31 09:35 | PDOC ---
PULMONARY PROGRESS NOTES DATE: 08/31/21 TIME: 09:35 Subjective Patient at times becomes short of air, no chest pain or pressure Vitals Vital Signs Date Time Temp Pulse Resp B/P (MAP) Pulse Ox O2 Delivery O2 Flow Rate FiO2 08/31/21 07:51 97 Nasal Cannula 3.5 08/31/21 07:15 73 126/58 (80) 08/31/21 07:00 97.8 22 97.8 ROS: No Nausea, No Chest Pain, No Increase Cough General: Alert HEENT: Other Lungs: Clear Cardiovascular: S1, S2, Other Abdomen: Soft Neuro Exam: Alert Extremities: No Edema, Other Skin: Warm Labs Laboratory Tests Test 08/29/21 09:50 08/29/21 16:44 08/29/21 19:10 08/30/21 04:00 Troponin I High Sensitivity 94 ng/L (4-50) Glucose (Fingerstick) 177 mg/dL (70-99) 303 mg/dL (70-99) White Blood Count 13.0 x10^3/uL (4.0-11.0) Red Blood Count 4.41 x10^6/uL (3.50-5.40) Hemoglobin 11.6 g/dL (12.0-15.5) Hematocrit 36.8 % (36.0-47.0) Mean Corpuscular Volume 83 fL (79-100) Mean Corpuscular Hemoglobin 26 pg (25-35) Mean Corpuscular Hemoglobin Concent 32 g/dL (31-37) Red Cell Distribution Width 19.8 % (11.5-14.5) Platelet Count 255 x10^3/uL (140-400) Neutrophils (%) (Auto) 75 % (31-73) Lymphocytes (%) (Auto) 13 % (24-48) Monocytes (%) (Auto) 11 % (0-9) Eosinophils (%) (Auto) 0 % (0-3) Basophils (%) (Auto) 0 % (0-3) Neutrophils # (Auto) 9.8 x10^3/uL (1.8-7.7) Lymphocytes # (Auto) 1.7 x10^3/uL (1.0-4.8) Monocytes # (Auto) 1.5 x10^3/uL (0.0-1.1) Eosinophils # (Auto) 0.0 x10^3/uL (0.0-0.7) Basophils # (Auto) 0.0 x10^3/uL (0.0-0.2) Sodium Level 132 mmol/L (136-145) Potassium Level 4.5 mmol/L (3.5-5.1) Chloride Level 87 mmol/L (98-107) Carbon Dioxide Level 43 mmol/L (21-32) Anion Gap 2 (6-14) Blood Urea Nitrogen 41 mg/dL (7-20) Creatinine 1.0 mg/dL (0.6-1.0) Estimated GFR (Cockcroft-Gault) 55.0 BUN/Creatinine Ratio 41 (6-20) Glucose Level 253 mg/dL (70-99) Calcium Level 8.1 mg/dL (8.5-10.1) Total Bilirubin 0.8 mg/dL (0.2-1.0) Aspartate Amino Transf (AST/SGOT) 71 U/L (15-37) Alanine Aminotransferase (ALT/SGPT) 97 U/L (14-59) Alkaline Phosphatase 473 U/L (46-116) Total Protein 6.4 g/dL (6.4-8.2) Albumin 2.6 g/dL (3.4-5.0) Albumin/Globulin Ratio 0.7 (1.0-1.7) Test 08/30/21 07:56 08/30/21 11:26 08/30/21 16:51 08/30/21 19:53 Glucose (Fingerstick) 168 mg/dL (70-99) 348 mg/dL (70-99) 345 mg/dL (70-99) 173 mg/dL (70-99) Test 08/31/21 05:20 Potassium Level 4.0 mmol/L (3.5-5.1) Laboratory Tests Test 08/30/21 11:26 08/30/21 16:51 08/30/21 19:53 08/31/21 05:20 Glucose (Fingerstick) 348 mg/dL (70-99) 345 mg/dL (70-99) 173 mg/dL (70-99) Potassium Level 4.0 mmol/L (3.5-5.1) Medications Active Scripts Medications Dose Route/Sig Max Daily Dose Days Date Category Dose Instructions Metolazone 2.5 Mg Tablet 1 Tab PO PRN DAILY PRN 08/22/21 Reported Furosemide 40 Mg Tablet 1 Tab PO BID 08/22/21 Reported Fish Oil 1,000 Mg Softgel ([place]-3 Fatty Acids/Fish Oil) 1 Each Capsule 1 Cap PO DAILY 30 08/22/21 Reported WITH MEALS Lantus Solostar (Insulin Glargine,Hum.rec.anlog) 100 Unit/1 Ml Insuln.pen 47 Unit SQ QHS 08/22/21 Reported Children's Claritin (Loratadine) 5 Mg Tab.chew 1 Tab PO BID 30 05/03/21 Reported Metoprolol Tartrate 25 Mg Tablet 0.5 Tab PO BID 03/01/21 Reported Synthroid (Levothyroxine Sodium) 100 Mcg Tablet 100 Mcg PO DAILY06 09/13/19 Rx Take in combination with 112mcg tablet to equal 212mcg daily Levothyroxine Sodium 112 Mcg Tablet 112 Mcg PO DAILY06 30 09/13/19 Rx Take in combination with 100mcg tablet to equal 212mcg daily Albuterol Sulfate Neb Soln (Albuterol Sulfate) 1.25 Mg/3 Ml Vial.neb 1 Vial NEB PRN Q6HRS PRN 09/11/19 Reported Combivent Respimat Inhal (Ipratropium/Albuterol Sulfate) 4 Gm Aer.w.adap 2 Inh IH PRN DAILY PRN 09/11/19 Reported Pravastatin Sodium 80 Mg Tablet 1 Tab PO QHS 09/11/19 Reported Multi Vitamin Daily (Multivitamin) 1 Each Tablet 1 Tab PO DAILY 30 09/11/19 Reported Klor-Con 10 (Potassium Chloride) 10 Meq Tablet.er 20 Meq PO TID 03/05/14 Reported Impression . IMPRESSION: 1. Progressive dyspnea, multifactorial. 2. Chronic respiratory failure. 3. Mgarn-lg-easnqwn cor pulmonale. 4. Mediastinal mass. 5. Coronary artery disease with previous coronary artery bypass grafting. 6. Recent hemoptysis status post bronchoscopy. Cultures to date have been negative. 7. 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 8. A 3.5 cm abdominal aortic aneurysm. Plan . Updated 08/31 Discussed with interventional radiologist, will proceed with repeat FNA Continue diuresis Continue oxygen supplementation PLAN: 1. Continue to diurese. 2. Oxygen supplementation. 3. We will review recent PET scan with Dr. Daniels for possible repeat biopsy. DISCUSSION: I have had multiple discussions with interventional organic section technical lead at [facility]. He informed me that either navigational bronchoscopy or EBUS would not be beneficial in this particular case. He did not think that he could obtain an adequate sample for biopsy. The above has been discussed with Dr. Lowry in the past including the patient. WILLIAM CANELA MD Aug 31, 2021 09:35
[2021-08-31] MEDS: BUMETANIDE 1 MG/4 ML VIAL. IV SCH ×2 (10:25→17:36)
--- NOTE | 2021-08-31 12:07 | PDOC ---
PROGRESS NOTES Date of Service: DATE: 08/31/21 TIME: 12:07 Subjective Subjective Edema improving, still complains of shortness of breath Objective Objective Vital Signs Date Time Temp Pulse Resp B/P (MAP) Pulse Ox O2 Delivery O2 Flow Rate FiO2 08/31/21 11:40 Nasal Cannula 3.5 08/31/21 11:00 97.7 77 18 115/66 (82) 92 97.7 Intake and Output 08/31/21 06:59 Intake Total 480 ml Output Total 1900 ml Balance -1420 ml Intake Oral 480 ml Output Urine Total 1900 ml # Voids 2 # Bowel Movements 2 Assessment Assessment 1. Acute on chronic respiratory failure, multifactorial. 2. AECOPD: Treat per pulmonary team 3. Acute on chronic cor pulmonale; diuresing much better after changing the timing of metolazone in relation to Bumex 4. Severe pulmonary HTN: no vasoreactivity per recent RHC 5. Large mediastinal mass: S/P bronchoscopy. Biopsy nondiagnostic. Plan for repeat biopsy today 6. Possible cirrhosis per recent PET scan, defer to PCP. LFTs mildly elevated 7. PAFIB: could not ascertain burden. Presently SR. S/p Watchman device 8. CAD: past CABG 9. Hyperlipidemia 10. Diabetes, II 11. Pseudohemoptysis from epistaxis, patient had cauterization by ENT in the past. Plan Plan of Care Problems Medical Problems: (1) Acute exacerbation of congestive heart failure Status: Acute (2) Chronic respiratory failure Status: Acute Comment Review of Relevant I have reviewed the following items yoselyn (where applicable) has been applied. Labs Laboratory Tests Test 08/30/21 16:51 08/30/21 19:53 08/31/21 05:20 08/31/21 07:39 Glucose (Fingerstick) 345 mg/dL (70-99) 173 mg/dL (70-99) 249 mg/dL (70-99) Potassium Level 4.0 mmol/L (3.5-5.1) Medications Current Medications Metolazone (Zaroxolyn) 2.5 mg DAILY PO ; Start 08/31/21 at 09:00; Stop 08/30/21 at 16:09; Status DC Metolazone (Zaroxolyn) 2.5 mg DAILY07 PO Last administered on 08/31/21at 07:15; Start 08/31/21 at 07:00 Vitals/I & O Vital Sign - Last 24 Hours 08/30/21 08/30/21 08/30/21 08/30/21 15:00 16:07 19:00 20:00 Temp 97.5 98.0 97.5 98.0 Pulse 77 92 Resp 18 B/P (MAP) 104/67 (79) 147/68 (94) Pulse Ox 91 94 100 O2 Delivery Room Air Nasal Cannula Nasal Cannula Nasal Cannula O2 Flow Rate 3.0 3.0 3.0 08/30/21 08/30/21 08/30/21 08/31/21 20:44 21:43 23:00 03:00 Temp 98.3 98.4 98.3 98.4 Pulse 98 98 77 Resp 20 B/P (MAP) 129/72 133/88 (103) 118/65 (82) Pulse Ox 94 96 90 O2 Delivery Nasal Cannula Nasal Cannula Nasal Cannula O2 Flow Rate 3.0 3.0 3.0 08/31/21 08/31/21 08/31/21 08/31/21 07:00 07:15 07:51 11:00 Temp 97.8 97.7 97.8 97.7 Pulse 72 73 77 Resp 18 B/P (MAP) 112/60 (77) 126/58 (80) 115/66 (82) Pulse Ox 93 97 92 O2 Delivery Nasal Cannula Nasal Cannula O2 Flow Rate 3.5 3.0 08/31/21 11:40 O2 Delivery Nasal Cannula O2 Flow Rate 3.5 Intake and Output 08/30/21 08/30/21 08/31/21 14:59 22:59 06:59 Intake Total 360 ml 120 ml Output Total 600 ml 1300 ml Balance 360 ml -480 ml -1300 ml HAYLIE CAO MD Aug 31, 2021 12:07
[2021-08-31] MEDS ORDERED: MIDAZOLAM HCL/PF 2 MG/2 ML VIAL. ONE (13:07)
[2021-08-31] MEDS ORDERED: fentaNYL PF VIAL 100 MCG/2 ML VIAL ONE (13:07)
[2021-08-31] MEDS ORDERED: LIDOCAINE WITH 8.4% SOD BICARB 3 ML DISP.SYRIN. ONE (13:11)
--- NOTE | 2021-08-31 13:31 | NUR ---
SW following. Discussed with RN, pt having a biopsy today. PT/OT ordered. Pt will need a COVID test prior to return to [facility] - unsure of when this will be at this time. SW will continue to follow.
[2021-08-31] MEDS ORDERED: NALOXONE 0.4 MG/ML VIAL. IV ONE (14:15)
[2021-08-31] MEDS ORDERED: MIDAZOLAM HCL/PF 2 MG/2 ML VIAL. IV ONE (14:15)
[2021-08-31] MEDS ORDERED: LIDOCAINE 1% PF 2 ML VIAL. INJ ONE (14:15)
[2021-08-31] MEDS ORDERED: fentaNYL PF VIAL 100 MCG/2 ML VIAL IV ONE (14:15)
--- NOTE | 2021-08-31 15:25 | RAD ---
CT guided biopsy of right upper mediastinal mass. 08.31.22 Indication: Mass, unknown etiology. Consent: The procedure was explained in its entirety to the patient or the patients designated repres entative by a member of the treatment team, including a discussion of the risks, benefits and commonl y accepted alternatives to the procedure, as well as the expected consequences of no therapy whatsoev er. Discussion of the risks included, but was not limited to, those that are most frequent and thos e that are rare but possibly severe or life-threatening, as well as the possibility of unforeseen com plications. Sedation: The procedure was performed under conscious sedation including continuous cardiopulmonary m onitoring via a dedicated sedation nurse. Jxwi-ow-ozju sedation time: 19 min Procedural detail: The patient was placed in the supine position. A timeout procedure was performed. Anterior chest was prepped and draped using sterile barrier technique. CT imaging demonstrates a larg e mediastinal and right upper chest mass, similar to recent comparison studies. 1% lidocaine was admi nistered for local anesthesia. Under intermittent CT guidance 17-gauge needle was advanced to the mas s. Core biopsy samples were obtained and placed in formalin as well as RPMI fluid. It was removed. Ma nual pressure was held. Repeat CT demonstrates no immediate complication. Sterile dressings were appl ied. IMPRESSION: CT-guided biopsy, right mediastinal/upper chest mass CT DOSING PQRS STATEMENT: One or more of the following individualized dose reduction techniques were utilized for this examinat ion: 1. Automated exposure control 2. Adjustment of the mA and/or kV according to patient size 3. Use of iterative reconstruction technique Electronically signed by: Ramy Daniels MD (08/31/2021 3:23 PM) [id number]
[2021-08-31] MEDS: METOPROLOL TART IMMED RELEASE 25 MG TABLET. PO SCH ×2 (17:36→20:46)
[2021-08-31] MEDS: POTASSIUM CHLORIDE 10 MEQ TABLET.ER. PO SCH ×2 (17:36→18:00)
[2021-08-31] MEDS: ATORVASTATIN CALCIUM 20 MG TABLET PO SCH (20:45)
[2021-08-31] MEDS: INSULIN GLARGINE SYRINGE. SQ SCH (20:49)
[2021-09-01] MEDS: LEVOTHYROXINE 100 MCG TABLET PO SCH (06:32)
[2021-09-01] MEDS: LEVOTHYROXINE 112 MCG TABLET PO SCH (06:32)
[2021-09-01] MEDS: metOLazone 2.5 MG TABLET PO SCH (06:32)
[2021-09-01 07:00] VITALS: BP 122/55
--- NOTE | 2021-09-01 07:32 | PDOC ---
Provider Note Date of Service: DATE: 09/01/21 TIME: 07:30 Provider Note vss, examsmae, still diuresisng bumex/metolozone- plan for repeat medias. mass bx 09/03, cont same for now, follow K+ Justifications for Admission Other Justification JASPER HANNAH MD Sep 01, 2021 07:32
--- NOTE | 2021-09-01 07:47 | PDOC ---
PULMONARY PROGRESS NOTES DATE: 09/01/21 TIME: 07:46 Subjective sob better has occ epistaxis s/p bx yesterday Vitals Vital Signs Date Time Temp Pulse Resp B/P (MAP) Pulse Ox O2 Delivery O2 Flow Rate FiO2 08/31/21 23:27 Nasal Cannula 3.0 08/31/21 20:46 84 118/49 08/31/21 19:42 97.8 24 93 97.8 ROS: No Nausea, No Chest Pain, No Increase Cough General: Alert HEENT: Other Lungs: Clear Cardiovascular: S1, S2, Other Abdomen: Soft Neuro Exam: Alert Extremities: No Edema, Other Skin: Warm Labs Laboratory Tests Test 08/30/21 07:56 08/30/21 11:26 08/30/21 16:51 08/30/21 19:53 Glucose (Fingerstick) 168 mg/dL (70-99) 348 mg/dL (70-99) 345 mg/dL (70-99) 173 mg/dL (70-99) Test 08/31/21 05:20 08/31/21 07:39 08/31/21 12:11 08/31/21 17:02 Potassium Level 4.0 mmol/L (3.5-5.1) Glucose (Fingerstick) 249 mg/dL (70-99) 150 mg/dL (70-99) 192 mg/dL (70-99) Test 08/31/21 20:30 Glucose (Fingerstick) 297 mg/dL (70-99) Laboratory Tests Test 08/31/21 12:11 08/31/21 17:02 08/31/21 20:30 Glucose (Fingerstick) 150 mg/dL (70-99) 192 mg/dL (70-99) 297 mg/dL (70-99) Medications Active Scripts Medications Dose Route/Sig Max Daily Dose Days Date Category Dose Instructions Metolazone 2.5 Mg Tablet 1 Tab PO PRN DAILY PRN 08/22/21 Reported Furosemide 40 Mg Tablet 1 Tab PO BID 08/22/21 Reported Fish Oil 1,000 Mg Softgel ([place]-3 Fatty Acids/Fish Oil) 1 Each Capsule 1 Cap PO DAILY 30 08/22/21 Reported WITH MEALS Lantus Solostar (Insulin Glargine,Hum.rec.anlog) 100 Unit/1 Ml Insuln.pen 47 Unit SQ QHS 08/22/21 Reported Children's Claritin (Loratadine) 5 Mg Tab.chew 1 Tab PO BID 30 05/03/21 Reported Metoprolol Tartrate 25 Mg Tablet 0.5 Tab PO BID 03/01/21 Reported Synthroid (Levothyroxine Sodium) 100 Mcg Tablet 100 Mcg PO DAILY06 09/13/19 Rx Take in combination with 112mcg tablet to equal 212mcg daily Levothyroxine Sodium 112 Mcg Tablet 112 Mcg PO DAILY06 09/13/19 Rx Take in combination with 100mcg tablet to equal 212mcg daily Albuterol Sulfate Neb Soln (Albuterol Sulfate) 1.25 Mg/3 Ml Vial.neb 1 Vial NEB PRN Q6HRS PRN 09/11/19 Reported Combivent Respimat Inhal (Ipratropium/Albuterol Sulfate) 4 Gm Aer.w.adap 2 Inh IH PRN DAILY PRN 09/11/19 Reported Pravastatin Sodium 80 Mg Tablet 1 Tab PO QHS 09/11/19 Reported Multi Vitamin Daily (Multivitamin) 1 Each Tablet 1 Tab PO DAILY 30 09/11/19 Reported Klor-Con 10 (Potassium Chloride) 10 Meq Tablet.er 20 Meq PO TID 03/05/14 Reported Impression . IMPRESSION: 1. Progressive dyspnea, multifactorial. 2. Chronic respiratory failure. 3. Oqlme-xe-gnkqegy cor pulmonale. 4. Mediastinal mass. 5. Coronary artery disease with previous coronary artery bypass grafting. 6. Recent hemoptysis status post bronchoscopy. Cultures to date have been negative. 7. 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 8. A 3.5 cm abdominal aortic aneurysm. Plan . 09/01 02 titration BD s/p ct guided bx fu path keep I<O on home Updated 08/31 Discussed with interventional radiologist, will proceed with repeat FNA Continue diuresis Continue oxygen supplementation PLAN: 1. Continue to diurese. 2. Oxygen supplementation. 3. We will review recent PET scan with Dr. Daniels for possible repeat biopsy. DISCUSSION: I have had multiple discussions with interventional continuing education specialist at [facility]. He informed me that either navigational bronchoscopy or EBUS would not be beneficial in this particular case. He did not think that he could obtain an adequate sample for biopsy. The above has been discussed with Dr. Lowry in the past including the patient. LORI BOTELLO MD Sep 01, 2021 07:47
[2021-09-01] MEDS: IPRATRPIUM/ALBUTEROL 0.5/2.5MG 3 ML NEBU. NEB SCH ×4 (08:36→20:00)
--- NOTE | 2021-09-01 09:35 | NUR ---
ASSESSMENT COMPLETED, PATIENT SLEEPING BUT EASILY AROUSED, DRESSING TO MID CHEST DRY AND INTACT, BILAT. LOWER EXTREMITY EDEMA PERSIST, COMFORT MEASURES AND REQUESTS OF PATIENT COMPLETED, WILL MONITOR.
[2021-09-01 11:00] VITALS: BP 123/62
[2021-09-01] MEDS: POTASSIUM CHLORIDE 10 MEQ TABLET.ER. PO SCH ×2 (11:05→21:18)
[2021-09-01] MEDS: METOPROLOL TART IMMED RELEASE 25 MG TABLET. PO SCH ×2 (11:05→21:19)
[2021-09-01] MEDS: BUMETANIDE 1 MG/4 ML VIAL. IV SCH ×2 (11:06→15:13)
--- NOTE | 2021-09-01 12:57 | PDOC ---
PROGRESS NOTES Date of Service DATE: 09/01/21 TIME: 12:54 Subjective Subjective Patient seen and examined Objective Objective Vital Signs Date Time Temp Pulse Resp B/P (MAP) Pulse Ox O2 Delivery O2 Flow Rate FiO2 09/01/21 12:44 94 Nasal Cannula 5.0 09/01/21 11:05 71 122/55 09/01/21 07:00 97.9 18 97.9 Intake and Output 09/01/21 07:00 Intake Total 710 ml Output Total 1100 ml Balance -390 ml Intake Oral 710 ml Output Urine Total 1100 ml # Voids 2 # Bowel Movements 1 Physical Exam Abdomen: Normal bowel sounds Heart: Regular rate General: mild distress Lungs: Other (Mildly decreased breath sounds) Assessment Assessment Problems Medical Problems: (1) Acute exacerbation of congestive heart failure Status: Acute (2) Chronic respiratory failure Status: Acute Acute on chronic respiratory failure, multifactorial. Slowly improving. 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 Acute on chronic cor pulmonale; diuresing much better after changing the timing of metolazone in relation to Bumex Severe pulmonary HTN: no vasoreactivity per recent RHC Large mediastinal mass: S/P bronchoscopy. Biopsy nondiagnostic. Plan for repeat biopsy possibly Friday. Possible cirrhosis per recent PET scan, defer to PCP. LFTs mildly elevated PAFIB: Presently SR. S/p Watchman device CAD: past CABG Hyperlipidemia Diabetes, II Pseudohemoptysis from epistaxis, patient had cauterization by ENT in the past. Comment Review of Relevant I have reviewed the following items yoselyn (where applicable) has been applied. Labs Laboratory Tests Test 08/30/21 16:51 08/30/21 19:53 08/31/21 05:20 08/31/21 07:39 Glucose (Fingerstick) 345 mg/dL (70-99) 173 mg/dL (70-99) 249 mg/dL (70-99) Potassium Level 4.0 mmol/L (3.5-5.1) Test 08/31/21 12:11 08/31/21 17:02 08/31/21 20:30 09/01/21 07:47 Glucose (Fingerstick) 150 mg/dL (70-99) 192 mg/dL (70-99) 297 mg/dL (70-99) 92 mg/dL (70-99) Test 09/01/21 11:19 Glucose (Fingerstick) 154 mg/dL (70-99) Laboratory Tests Test 08/31/21 17:02 08/31/21 20:30 09/01/21 07:47 09/01/21 11:19 Glucose (Fingerstick) 192 mg/dL (70-99) 297 mg/dL (70-99) 92 mg/dL (70-99) 154 mg/dL (70-99) Medications Current Medications Furosemide (Lasix) 40 mg 1X ONCE IVP Last administered on 08/29/21at 02:19; Start 08/29/21 at 02:15; Stop 08/29/21 at 02:16; Status DC Ondansetron HCl (Zofran) 4 mg PRN Q8HRS PRN IVP NAUSEA/VOMITING; Start 08/29/21 at 03:30; Stop 08/30/21 at 03:29; Status DC Acetaminophen (Tylenol) 650 mg PRN Q4HRS PRN PO FEVER > 100.3'F; Start 08/29/21 at 03:30; Stop 08/30/21 at 03:29; Status DC Levothyroxine Sodium (Synthroid) 112 mcg DAILY06 PO Last administered on 09/01/21at 06:32; Start 08/29/21 at 08:00 Levothyroxine Sodium (Synthroid) 100 mcg DAILY06 PO Last administered on 09/01/21at 06:32; Start 08/29/21 at 08:00 Metoprolol Tartrate (Lopressor) 12.5 mg BID PO Last administered on 09/01/21at 11:05; Start 08/29/21 at 09:00 Albuterol Sulfate (Ventolin Neb Soln) 2.5 mg PRN Q6HRS PRN NEB SHORTNESS OF BREATH; Start 08/29/21 at 09:00 Insulin Glargine (Lantus Syringe) 47 unit QHS SQ Last administered on 08/31/21at 20:49; Start 08/29/21 at 21:00 Non-Formulary Medication (Ipratropium/ Albuterol Sulfate (Combivent Respimat Inhal)) 2 inh PRN DAILY PRN IH SHORTNESS OF BREATH; Start 08/29/21 at 08:30; Status UNV Atorvastatin Calcium (Lipitor) 20 mg QHS PO Last administered on 08/31/21at 20:45; Start 08/29/21 at 21:00 Metolazone (Zaroxolyn) 2.5 mg DAILY PO Last administered on 08/30/21at 13:41; Start 08/29/21 at 17:00; Stop 08/30/21 at 16:08; Status DC Bumetanide (Bumex) 2 mg BID92 IV Last administered on 09/01/21at 11:06; Start 08/29/21 at 09:00 Albuterol/ Ipratropium (Duoneb) 3 ml RTQID NEB Last administered on 09/01/21at 12:43; Start 08/30/21 at 08:00 Potassium Chloride (Klor-Con) 10 meq BID WMEALS PO Last administered on 09/01/21at 11:05; Start 08/30/21 at 12:00 Metolazone (Zaroxolyn) 2.5 mg DAILY PO ; Start 08/31/21 at 09:00; Stop 08/30/21 at 16:09; Status DC Metolazone (Zaroxolyn) 2.5 mg DAILY07 PO Last administered on 09/01/21at 06:32; Start 08/31/21 at 07:00 Midazolam HCl (Versed) 2 mg STK-MED ONCE .ROUTE ; Start 08/31/21 at 13:07; Stop 08/31/21 at 13:07; Status DC Fentanyl Citrate (Fentanyl 2ml Vial) 100 mcg STK-MED ONCE .ROUTE ; Start 08/31/21 at 13:07; Stop 08/31/21 at 13:07; Status DC Lidocaine HCl (Buffered Lidocaine 1%) 3 ml STK-MED ONCE .ROUTE ; Start 08/31/21 at 13:11; Stop 08/31/21 at 13:11; Status DC Midazolam HCl (Versed) 1 mg 1X ONCE IV Last administered on 08/31/21at 13:52; Start 08/31/21 at 14:15; Stop 08/31/21 at 14:16; Status DC Fentanyl Citrate (Fentanyl 2ml Vial) 50 mcg 1X ONCE IV Last administered on 08/31/21at 13:52; Start 08/31/21 at 14:15; Stop 08/31/21 at 14:16; Status DC Lidocaine HCl (Xylocaine-Mpf 1% 2ml Vial) 8 ml 1X ONCE INJ Last administered on 08/31/21at 14:00; Start 08/31/21 at 14:15; Stop 08/31/21 at 14:16; Status DC Naloxone HCl (Narcan) 0.4 mg 1X ONCE IV Last administered on 08/31/21at 13:59; Start 08/31/21 at 14:15; Stop 08/31/21 at 14:16; Status DC Diphenhydramine HCl (Benadryl) 25 mg PRN QHS PRN PO INSOMNIA; Start 08/31/21 at 23:00 Active Scripts Active Synthroid (Levothyroxine Sodium) 100 Mcg Tablet 100 Mcg PO DAILY06 30 Days Take in combination with 112mcg tablet to equal 212mcg daily Levothyroxine Sodium 112 Mcg Tablet 112 Mcg PO DAILY06 30 Days Take in combination with 100mcg tablet to equal 212mcg daily Reported Metolazone 2.5 Mg Tablet 1 Tab PO PRN DAILY PRN Furosemide 40 Mg Tablet 1 Tab PO BID Fish Oil 1,000 Mg Softgel ([place]-3 Fatty Acids/Fish Oil) 1 Each Capsule 1 Cap PO DAILY 30 Days WITH MEALS Lantus Solostar (Insulin Glargine,Hum.rec.anlog) 100 Unit/1 Ml Insuln.pen 47 Unit SQ QHS Children's Claritin (Loratadine) 5 Mg Tab.chew 1 Tab PO BID 30 Days Metoprolol Tartrate 25 Mg Tablet 0.5 Tab PO BID Albuterol Sulfate Neb Soln (Albuterol Sulfate) 1.25 Mg/3 Ml Vial.neb 1 Vial NEB PRN Q6HRS PRN Combivent Respimat Inhal (Ipratropium/Albuterol Sulfate) 4 Gm Aer.w.adap 2 Inh IH PRN DAILY PRN Pravastatin Sodium 80 Mg Tablet 1 Tab PO QHS Multi Vitamin Daily (Multivitamin) 1 Each Tablet 1 Tab PO DAILY 30 Days Klor-Con 10 (Potassium Chloride) 10 Meq Tablet.er 20 Meq PO TID Vitals/I & O Vital Sign - Last 24 Hours 08/31/21 08/31/21 08/31/21 08/31/21 13:49 13:52 13:55 14:02 Pulse 96 86 Resp 14 Pulse Ox 96 78 94 O2 Delivery Nasal Cannula Nasal Cannula Nasal Cannula O2 Flow Rate 4.0 6.0 6.0 08/31/21 08/31/21 08/31/21 08/31/21 14:05 14:39 17:36 19:42 Temp 97.6 97.8 97.6 97.8 Pulse 98 97 97 84 Resp 14 20 24 B/P (MAP) 143/84 (103) 143/84 118/49 (72) Pulse Ox 98 90 93 O2 Delivery Nasal Cannula Nasal Cannula Nasal Cannula O2 Flow Rate 6.0 3.0 3.0 08/31/21 08/31/21 08/31/21 08/31/21 20:00 20:46 21:29 23:27 Pulse 84 B/P (MAP) 118/49 O2 Delivery Nasal Cannula Nasal Cannula Nasal Cannula O2 Flow Rate 3.0 6.0 3.0 09/01/21 09/01/21 09/01/21 09/01/21 07:00 08:00 08:37 11:05 Temp 97.9 97.9 Pulse 71 71 Resp 18 B/P (MAP) 122/55 (77) 122/55 Pulse Ox 95 92 O2 Delivery Nasal Cannula Nasal Cannula Nasal Cannula O2 Flow Rate 3.0 3.0 5.0 09/01/21 12:44 Pulse Ox 94 O2 Delivery Nasal Cannula O2 Flow Rate 5.0 Intake and Output 08/31/21 08/31/21 09/01/21 15:00 23:00 07:00 Intake Total 350 ml 360 ml Output Total 600 ml 500 ml Balance -250 ml -140 ml Justifications for Admission Other Justification NEAL ECHEVARRIA MD Sep 01, 2021 12:57
[2021-09-01 15:00] VITALS: BP 130/49
[2021-09-01 19:00] VITALS: BP 123/73
[2021-09-01] MEDS: ATORVASTATIN CALCIUM 20 MG TABLET PO SCH (21:18)
[2021-09-01] MEDS: INSULIN GLARGINE SYRINGE. SQ SCH (21:30)
[2021-09-01 23:34] VITALS: BP 108/46
[2021-09-02] MEDS: LEVOTHYROXINE 100 MCG TABLET PO SCH (06:29)
[2021-09-02] MEDS: metOLazone 2.5 MG TABLET PO SCH (06:29)
[2021-09-02] MEDS: LEVOTHYROXINE 112 MCG TABLET PO SCH (06:29)
[2021-09-02] MEDS: IPRATRPIUM/ALBUTEROL 0.5/2.5MG 3 ML NEBU. NEB SCH ×4 (07:02→20:13)
--- NOTE | 2021-09-02 07:09 | PDOC ---
PULMONARY PROGRESS NOTES DATE: 09/02/21 TIME: 07:08 Subjective sob better has occ cough has occ epistaxis s/p bx 08/31 Vitals Vital Signs Date Time Temp Pulse Resp B/P (MAP) Pulse Ox O2 Delivery O2 Flow Rate FiO2 09/02/21 07:03 93 Nasal Cannula 4.0 09/01/21 23:34 97.9 97 18 108/46 (66) 97.9 ROS: No Nausea, No Chest Pain, No Increase Cough General: Alert HEENT: Other Lungs: Clear Cardiovascular: S1, S2, Other Abdomen: Soft Neuro Exam: Alert Extremities: No Edema, Other Skin: Warm Labs Laboratory Tests Test 08/31/21 07:39 08/31/21 12:11 08/31/21 17:02 08/31/21 20:30 Glucose (Fingerstick) 249 mg/dL (70-99) 150 mg/dL (70-99) 192 mg/dL (70-99) 297 mg/dL (70-99) Test 09/01/21 07:47 09/01/21 11:19 09/01/21 16:47 09/01/21 19:32 Glucose (Fingerstick) 92 mg/dL (70-99) 154 mg/dL (70-99) 273 mg/dL (70-99) 296 mg/dL (70-99) Laboratory Tests Test 09/01/21 07:47 09/01/21 11:19 09/01/21 16:47 09/01/21 19:32 Glucose (Fingerstick) 92 mg/dL (70-99) 154 mg/dL (70-99) 273 mg/dL (70-99) 296 mg/dL (70-99) Medications Active Scripts Medications Dose Route/Sig Max Daily Dose Days Date Category Dose Instructions Metolazone 2.5 Mg Tablet 1 Tab PO PRN DAILY PRN 08/22/21 Reported Furosemide 40 Mg Tablet 1 Tab PO BID 08/22/21 Reported Fish Oil 1,000 Mg Softgel ([place]-3 Fatty Acids/Fish Oil) 1 Each Capsule 1 Cap PO DAILY 30 08/22/21 Reported WITH MEALS Lantus Solostar (Insulin Glargine,Hum.rec.anlog) 100 Unit/1 Ml Insuln.pen 47 Unit SQ QHS 08/22/21 Reported Children's Claritin (Loratadine) 5 Mg Tab.chew 1 Tab PO BID 30 05/03/21 Reported Metoprolol Tartrate 25 Mg Tablet 0.5 Tab PO BID 03/01/21 Reported Synthroid (Levothyroxine Sodium) 100 Mcg Tablet 100 Mcg PO DAILY06 09/13/19 Rx Take in combination with 112mcg tablet to equal 212mcg daily Levothyroxine Sodium 112 Mcg Tablet 112 Mcg PO DAILY06 09/13/19 Rx Take in combination with 100mcg tablet to equal 212mcg daily Albuterol Sulfate Neb Soln (Albuterol Sulfate) 1.25 Mg/3 Ml Vial.neb 1 Vial NEB PRN Q6HRS PRN 09/11/19 Reported Combivent Respimat Inhal (Ipratropium/Albuterol Sulfate) 4 Gm Aer.w.adap 2 Inh IH PRN DAILY PRN 09/11/19 Reported Pravastatin Sodium 80 Mg Tablet 1 Tab PO QHS 09/11/19 Reported Multi Vitamin Daily (Multivitamin) 1 Each Tablet 1 Tab PO DAILY 30 09/11/19 Reported Klor-Con 10 (Potassium Chloride) 10 Meq Tablet.er 20 Meq PO TID 03/05/14 Reported Impression . IMPRESSION: 1. Progressive dyspnea, multifactorial. 2. Chronic respiratory failure. 3. Xdvyd-jm-fulnxni cor pulmonale. 4. Mediastinal mass. 5. Coronary artery disease with previous coronary artery bypass grafting. 6. Recent hemoptysis status post bronchoscopy. Cultures to date have been negative. 7. 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 8. A 3.5 cm abdominal aortic aneurysm. Plan . 09/02 01 titration to keep sat 90% discussed w her that enough 02 is good not too much BD s/p ct guided bx fu path keep I<O on home 02 increase activity 09/01 02 titration BD s/p ct guided bx fu path keep I<O on home 02 Updated 08/31 Discussed with interventional radiologist, will proceed with repeat FNA Continue diuresis Continue oxygen supplementation PLAN: 1. Continue to diurese. 2. Oxygen supplementation. 3. We will review recent PET scan with Dr. Daniels for possible repeat biopsy. DISCUSSION: I have had multiple discussions with interventional regional liaison at [facility]. He informed me that either navigational bronchoscopy or EBUS would not be beneficial in this particular case. He did not think that he could obtain an adequate sample for biopsy. The above has been discussed with Dr. Lowry in the past including the patient. LORI BOTELLO MD Sep 02, 2021 07:09
[2021-09-02 07:20] VITALS: BP 151/64
[2021-09-02 07:39] LABS: BLOOD UREA NITROGEN 36 mg/dL (7-20); CALCIUM 8.5 mg/dL (8.5-10.1); CHLORIDE 83 mmol/L (98-107); CREATININE 0.9 mg/dL (0.6-1.0); GFR 62.1; GLUCOSE 139 mg/dL (70-99); SODIUM 138 mmol/L (136-145)
[2021-09-02 07:46] LABS: ANION GAP 10 (6-14); CARBON DIOXIDE > 45 mmol/L (21-32)
[2021-09-02] MEDS: METOPROLOL TART IMMED RELEASE 25 MG TABLET. PO SCH ×2 (09:15→21:24)
--- NOTE | 2021-09-02 09:34 | PDOC ---
Provider Note Date of Service: DATE: 09/02/21 TIME: 09:33 Provider Note vss, good diuresis, lots of pedal edema still- K+ now 3 so more of same po- bx report pending Justifications for Admission Other Justification JASPER HANNAH MD Sep 02, 2021 09:34
[2021-09-02] MEDS: BUMETANIDE 1 MG/4 ML VIAL. IV SCH ×2 (09:57→13:22)
[2021-09-02] MEDS: POTASSIUM CHLORIDE 20 MEQ TABLET.ER. PO SCH ×2 (09:57→17:22)
--- NOTE | 2021-09-02 11:15 | NUR ---
Patient had moments of confusion right after waking up from a short nap and stated she thinks this was brought on by the Bumex that was given just prior to her nap. She states that she was just started on this medication and doesn't want to take any more of it. I will hold the afternoon dose as per patient's choice, unless she changes her mind before that time. Will continue to monitor for changes.
[2021-09-02 12:18] VITALS: BP 139/70
--- NOTE | 2021-09-02 14:15 | PDOC ---
PROGRESS NOTES Date of Service DATE: 09/02/21 TIME: 14:13 Subjective Subjective Patient seen and examined She looks and feels better today. Objective Objective Vital Signs Date Time Temp Pulse Resp B/P (MAP) Pulse Ox O2 Delivery O2 Flow Rate FiO2 09/02/21 12:18 98.2 91 18 139/70 (93) 91 Nasal Cannula 3.0 98.2 Intake and Output 09/02/21 07:00 Intake Total 1590 ml Output Total 1850 ml Balance -260 ml Intake Oral 1590 ml Output Urine Total 1850 ml Physical Exam Abdomen: Normal bowel sounds Heart: Regular rate General: mild distress Lungs: Other (Mildly decreased breath sounds) Assessment Assessment Problems Medical Problems: (1) Acute exacerbation of congestive heart failure Status: Acute (2) Chronic respiratory failure Status: Acute Acute on chronic respiratory failure, multifactorial. Slowly improving. 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 Continue present treatment. Acute on chronic cor pulmonale; diuresing much better after changing the timing of metolazone in relation to Bumex Severe pulmonary HTN: no vasoreactivity per recent RHC Large mediastinal mass: S/P bronchoscopy. Biopsy nondiagnostic. Plan for repeat biopsy possibly Friday. Possible cirrhosis per recent PET scan, defer to PCP. LFTs mildly elevated PAFIB: Presently SR. S/p Watchman device CAD: past CABG Hyperlipidemia Diabetes, II Pseudohemoptysis from epistaxis, patient had cauterization by ENT in the past. Hypokalemia. Potassium dose has been increased. BMP in the morning. Comment Review of Relevant I have reviewed the following items yoselyn (where applicable) has been applied. Labs Laboratory Tests Test 08/31/21 17:02 08/31/21 20:30 09/01/21 07:47 09/01/21 11:19 Glucose (Fingerstick) 192 mg/dL (70-99) 297 mg/dL (70-99) 92 mg/dL (70-99) 154 mg/dL (70-99) Test 09/01/21 16:47 09/01/21 19:32 09/02/21 06:35 09/02/21 07:54 Glucose (Fingerstick) 273 mg/dL (70-99) 296 mg/dL (70-99) 140 mg/dL (70-99) Sodium Level 138 mmol/L (136-145) Potassium Level 3.0 mmol/L (3.5-5.1) Chloride Level 83 mmol/L (98-107) Carbon Dioxide Level > 45 mmol/L (21-32) Anion Gap 10 (6-14) Blood Urea Nitrogen 36 mg/dL (7-20) Creatinine 0.9 mg/dL (0.6-1.0) Estimated GFR (Cockcroft-Gault) 62.1 Glucose Level 139 mg/dL (70-99) Calcium Level 8.5 mg/dL (8.5-10.1) Test 09/02/21 11:52 Glucose (Fingerstick) 289 mg/dL (70-99) Laboratory Tests Test 09/01/21 16:47 09/01/21 19:32 09/02/21 06:35 09/02/21 07:54 Glucose (Fingerstick) 273 mg/dL (70-99) 296 mg/dL (70-99) 140 mg/dL (70-99) Sodium Level 138 mmol/L (136-145) Potassium Level 3.0 mmol/L (3.5-5.1) Chloride Level 83 mmol/L (98-107) Carbon Dioxide Level > 45 mmol/L (21-32) Anion Gap 10 (6-14) Blood Urea Nitrogen 36 mg/dL (7-20) Creatinine 0.9 mg/dL (0.6-1.0) Estimated GFR (Cockcroft-Gault) 62.1 Glucose Level 139 mg/dL (70-99) Calcium Level 8.5 mg/dL (8.5-10.1) Test 09/02/21 11:52 Glucose (Fingerstick) 289 mg/dL (70-99) Medications Current Medications Furosemide (Lasix) 40 mg 1X ONCE IVP Last administered on 08/29/21at 02:19; Start 08/29/21 at 02:15; Stop 08/29/21 at 02:16; Status DC Ondansetron HCl (Zofran) 4 mg PRN Q8HRS PRN IVP NAUSEA/VOMITING; Start 08/29/21 at 03:30; Stop 08/30/21 at 03:29; Status DC Acetaminophen (Tylenol) 650 mg PRN Q4HRS PRN PO FEVER > 100.3'F; Start 08/29/21 at 03:30; Stop 08/30/21 at 03:29; Status DC Levothyroxine Sodium (Synthroid) 112 mcg DAILY06 PO Last administered on 09/02/21 06:29; Start 08/29/21 at 08:00 Levothyroxine Sodium (Synthroid) 100 mcg DAILY06 PO Last administered on 09/02/21at 06:29; Start 08/29/21 at 08:00 Metoprolol Tartrate (Lopressor) 12.5 mg BID PO Last administered on 09/02/21at 09:15; Start 08/29/21 at 09:00 Albuterol Sulfate (Ventolin Neb Soln) 2.5 mg PRN Q6HRS PRN NEB SHORTNESS OF BREATH; Start 08/29/21 at 09:00 Insulin Glargine (Lantus Syringe) 47 unit QHS SQ Last administered on 09/01/21at 21:30; Start 08/29/21 at 21:00 Non-Formulary Medication (Ipratropium/ Albuterol Sulfate (Combivent Respimat Inhal)) 2 inh PRN DAILY PRN IH SHORTNESS OF BREATH; Start 08/29/21 at 08:30; Status UNV Atorvastatin Calcium (Lipitor) 20 mg QHS PO Last administered on 09/01/21 21:18; Start 08/29/21 at 21:00 Metolazone (Zaroxolyn) 2.5 mg DAILY PO Last administered on 08/30/21at 13:41; Start 08/29/21 at 17:00; Stop 08/30/21 at 16:08; Status DC Bumetanide (Bumex) 2 mg BID92 IV Last administered on 09/02/21at 09:57; Start 08/29/21 at 09:00 Albuterol/ Ipratropium (Duoneb) 3 ml RTQID NEB Last administered on 09/02/21at 11:35; Start 08/30/21 at 08:00 Potassium Chloride (Klor-Con) 10 meq BID WMEALS PO Last administered on 09/01/21at 21:18; Start 08/30/21 at 12:00; Stop 09/02/21 at 09:15; Status DC Metolazone (Zaroxolyn) 2.5 mg DAILY PO ; Start 08/31/21 at 09:00; Stop 08/30/21 at 16:09; Status DC Metolazone (Zaroxolyn) 2.5 mg DAILY07 PO Last administered on 09/02/21at 06:29; Start 08/31/21 at 07:00 Midazolam HCl (Versed) 2 mg STK-MED ONCE .ROUTE ; Start 08/31/21 at 13:07; Stop 08/31/21 at 13:07; Status DC Fentanyl Citrate (Fentanyl 2ml Vial) 100 mcg STK-MED ONCE .ROUTE ; Start 08/31/21 at 13:07; Stop 08/31/21 at 13:07; Status DC Lidocaine HCl (Buffered Lidocaine 1%) 3 ml STK-MED ONCE .ROUTE ; Start 08/31/21 at 13:11; Stop 08/31/21 at 13:11; Status DC Midazolam HCl (Versed) 1 mg 1X ONCE IV Last administered on 08/31/21at 13:52; Start 08/31/21 at 14:15; Stop 08/31/21 at 14:16; Status DC Fentanyl Citrate (Fentanyl 2ml Vial) 50 mcg 1X ONCE IV Last administered on at 13:52; Start 08/31/21 at 14:15; Stop 08/31/21 at 14:16; Status DC Lidocaine HCl (Xylocaine-Mpf 1% 2ml Vial) 8 ml 1X ONCE INJ Last administered on 08/31/21at 14:00; Start 08/31/21 at 14:15; Stop 08/31/21 at 14:16; Status DC Naloxone HCl (Narcan) 0.4 mg 1X ONCE IV Last administered on 08/31/21at 13:59; Start 08/31/21 at 14:15; Stop 08/31/21 at 14:16; Status DC Diphenhydramine HCl (Benadryl) 25 mg PRN QHS PRN PO INSOMNIA; Start 08/31/21 at 23:00 Potassium Chloride (Klor-Con) 20 meq BID WMEALS PO Last administered on 09/02/21at 09:57; Start 09/02/21 at 10:00 Active Scripts Active Synthroid (Levothyroxine Sodium) 100 Mcg Tablet 100 Mcg PO DAILY06 30 Days Take in combination with 112mcg tablet to equal 212mcg daily Levothyroxine Sodium 112 Mcg Tablet 112 Mcg PO DAILY06 30 Days Take in combination with 100mcg tablet to equal 212mcg daily Reported Metolazone 2.5 Mg Tablet 1 Tab PO PRN DAILY PRN Furosemide 40 Mg Tablet 1 Tab PO BID Fish Oil 1,000 Mg Softgel ([place]-3 Fatty Acids/Fish Oil) 1 Each Capsule 1 Cap PO DAILY 30 Days WITH MEALS Lantus Solostar (Insulin Glargine,Hum.rec.anlog) 100 Unit/1 Ml Insuln.pen 47 Unit SQ QHS Children's Claritin (Loratadine) 5 Mg Tab.chew 1 Tab PO BID 30 Days Metoprolol Tartrate 25 Mg Tablet 0.5 Tab PO BID Albuterol Sulfate Neb Soln (Albuterol Sulfate) 1.25 Mg/3 Ml Vial.neb 1 Vial NEB PRN Q6HRS PRN Combivent Respimat Inhal (Ipratropium/Albuterol Sulfate) 4 Gm Aer.w.adap 2 Inh IH PRN DAILY PRN Pravastatin Sodium 80 Mg Tablet 1 Tab PO QHS Multi Vitamin Daily (Multivitamin) 1 Each Tablet 1 Tab PO DAILY 30 Days Klor-Con 10 (Potassium Chloride) 10 Meq Tablet.er 20 Meq PO TID Vitals/I & O Vital Sign - Last 24 Hours 09/01/21 09/01/21 09/01/21 09/01/21 15:00 17:23 19:00 20:19 Temp 98.3 97.9 98.3 97.9 Pulse 82 95 Resp 18 18 B/P (MAP) 130/49 (76) 123/73 (90) Pulse Ox 93 93 94 O2 Delivery Nasal Cannula Nasal Cannula Nasal Cannula Nasal Cannula O2 Flow Rate 3.0 5.0 3.0 3.0 09/01/21 09/01/21 09/02/21 09/02/21 21:19 23:34 07:03 07:20 Temp 97.9 98.7 97.9 98.7 Pulse 95 97 79 Resp 18 20 B/P (MAP) 123/73 108/46 (66) 151/64 (93) Pulse Ox 94 93 89 O2 Delivery Nasal Cannula Nasal Cannula Nasal Cannula O2 Flow Rate 3.0 4.0 3.0 09/02/21 09/02/21 09/02/21 09/02/21 08:00 09:15 11:35 12:18 Temp 98.2 98.2 Pulse 79 91 Resp 18 B/P (MAP) 151/64 139/70 (93) Pulse Ox 93 91 O2 Delivery Nasal Cannula Nasal Cannula Nasal Cannula O2 Flow Rate 3.0 4.0 3.0 Intake and Output 09/01/21 09/01/21 09/02/21 15:00 23:00 07:00 Intake Total 720 ml 600 ml 270 ml Output Total 900 ml 950 ml Balance -180 ml -350 ml 270 ml Justifications for Admission Other Justification NEAL ECHEVARRIA MD Sep 02, 2021 14:15
[2021-09-02 15:00] VITALS: BP 146/77
[2021-09-02 19:00] VITALS: BP 104/58
[2021-09-02 19:14] LABS: BLOOD UREA NITROGEN 35 mg/dL (7-20); CALCIUM 8.1 mg/dL (8.5-10.1); CHLORIDE 81 mmol/L (98-107); CREATININE 1.1 mg/dL (0.6-1.0); GFR 49.2; GLUCOSE 386 mg/dL (70-99); SODIUM 136 mmol/L (136-145)
[2021-09-02 19:21] LABS: ANION GAP 10 (6-14); CARBON DIOXIDE > 45 mmol/L (21-32)
[2021-09-02 19:30] LABS: POTASSIUM 2.9 mmol/L (3.5-5.1)
[2021-09-02] MEDS: INSULIN GLARGINE SYRINGE. SQ SCH (20:19)
--- NOTE | 2021-09-02 20:20 | NUR ---
Pt. had a critical KCl of 2.9 and BS of 417. Notified Dr. Lowry. He doubled PO KCl earlier and just wants BMP drawn on Friday instead of tomorrow am. He gave one time order for Lantus 50 units and 6 Humalog if pt. will take it.
[2021-09-02] MEDS ORDERED: INSULIN LISPRO 300 UNITS/3 ML VIAL. SQ ONE (20:30)
[2021-09-02] MEDS ORDERED: INSULIN GLARGINE SYRINGE. SQ ONE (21:00)
[2021-09-02] MEDS: ATORVASTATIN CALCIUM 20 MG TABLET PO SCH (21:24)
[2021-09-02] MEDS: diphenhydrAMINE HCL 25 MG CAPSULE PO PRN (21:26)
[2021-09-02 23:27] VITALS: BP 117/69
[2021-09-03] MEDS: LEVOTHYROXINE 100 MCG TABLET PO SCH (06:21)
[2021-09-03] MEDS: LEVOTHYROXINE 112 MCG TABLET PO SCH (06:21)
[2021-09-03] MEDS: metOLazone 2.5 MG TABLET PO SCH (06:21)
[2021-09-03 07:00] VITALS: BP 143/58
[2021-09-03 07:26] LABS: BLOOD UREA NITROGEN 37 mg/dL (7-20); CALCIUM 8.5 mg/dL (8.5-10.1); CHLORIDE 83 mmol/L (98-107); CREATININE 0.8 mg/dL (0.6-1.0); GFR 71.1; GLUCOSE 137 mg/dL (70-99); SODIUM 138 mmol/L (136-145)
[2021-09-03 07:27] LABS: CARBON DIOXIDE > 45 mmol/L (21-32)
--- NOTE | 2021-09-03 07:59 | PDOC ---
Provider Note Date of Service: DATE: 09/03/21 TIME: 07:58 Provider Note STATUS SAME, BX REPORT PENDING- k+ 3 SO UP TO TID kcl, FOLLOW Justifications for Admission Other Justification JASPER HANNAH MD Sep 03, 2021 07:59
[2021-09-03] MEDS: IPRATRPIUM/ALBUTEROL 0.5/2.5MG 3 ML NEBU. NEB SCH ×4 (09:19→21:17)
--- NOTE | 2021-09-03 10:03 | PDOC ---
PULMONARY PROGRESS NOTES DATE: 09/03/21 TIME: 09:59 Subjective The patient was sitting up in her chair this morning on examination, feeling slightly better today then yesterday, SOA better, Occ cough, no overnight events. Would like to discontinue Bumex and restart Lasix, awaiting biopsy results. Vitals Vital Signs Date Time Temp Pulse Resp B/P (MAP) Pulse Ox O2 Delivery O2 Flow Rate FiO2 09/03/21 09:20 100 Nasal Cannula 4.0 09/03/21 07:00 97.8 81 18 143/58 (86) 97.8 ROS: No Nausea, No Chest Pain, No Increase Cough General: Alert HEENT: Other Lungs: Clear Cardiovascular: S1, S2, Other Abdomen: Soft Neuro Exam: Alert Extremities: No Edema, Other (4+ pitting edema bilateral leg, ankle, feet) Skin: Warm Labs Laboratory Tests Test 09/01/21 11:19 09/01/21 16:47 09/01/21 19:32 09/02/21 06:35 Glucose (Fingerstick) 154 mg/dL (70-99) 273 mg/dL (70-99) 296 mg/dL (70-99) Sodium Level 138 mmol/L (136-145) Potassium Level 3.0 mmol/L (3.5-5.1) Chloride Level 83 mmol/L (98-107) Carbon Dioxide Level > 45 mmol/L (21-32) Anion Gap 10 (6-14) Blood Urea Nitrogen 36 mg/dL (7-20) Creatinine 0.9 mg/dL (0.6-1.0) Estimated GFR (Cockcroft-Gault) 62.1 Glucose Level 139 mg/dL (70-99) Calcium Level 8.5 mg/dL (8.5-10.1) Test 09/02/21 07:54 09/02/21 11:52 09/02/21 16:59 09/02/21 18:52 Glucose (Fingerstick) 140 mg/dL (70-99) 289 mg/dL (70-99) 336 mg/dL (70-99) Sodium Level 136 mmol/L (136-145) Potassium Level 2.9 mmol/L (3.5-5.1) Chloride Level 81 mmol/L (98-107) Carbon Dioxide Level > 45 mmol/L (21-32) Anion Gap 10 (6-14) Blood Urea Nitrogen 35 mg/dL (7-20) Creatinine 1.1 mg/dL (0.6-1.0) Estimated GFR (Cockcroft-Gault) 49.2 Glucose Level 386 mg/dL (70-99) Calcium Level 8.1 mg/dL (8.5-10.1) Test 09/02/21 19:49 09/03/21 06:40 09/03/21 08:05 Glucose (Fingerstick) 417 mg/dL (70-99) 128 mg/dL (70-99) Sodium Level 138 mmol/L (136-145) Potassium Level 3.0 mmol/L (3.5-5.1) Chloride Level 83 mmol/L (98-107) Carbon Dioxide Level > 45 mmol/L (21-32) Anion Gap (6-14) Blood Urea Nitrogen 37 mg/dL (7-20) Creatinine 0.8 mg/dL (0.6-1.0) Estimated GFR (Cockcroft-Gault) 71.1 Glucose Level 137 mg/dL (70-99) Calcium Level 8.5 mg/dL (8.5-10.1) Magnesium Level 2.0 mg/dL (1.8-2.4) Laboratory Tests Test 09/02/21 11:52 09/02/21 16:59 09/02/21 18:52 09/02/21 19:49 Glucose (Fingerstick) 289 mg/dL (70-99) 336 mg/dL (70-99) 417 mg/dL (70-99) Sodium Level 136 mmol/L (136-145) Potassium Level 2.9 mmol/L (3.5-5.1) Chloride Level 81 mmol/L (98-107) Carbon Dioxide Level > 45 mmol/L (21-32) Anion Gap 10 (6-14) Blood Urea Nitrogen 35 mg/dL (7-20) Creatinine 1.1 mg/dL (0.6-1.0) Estimated GFR (Cockcroft-Gault) 49.2 Glucose Level 386 mg/dL (70-99) Calcium Level 8.1 mg/dL (8.5-10.1) Test 09/03/21 06:40 09/03/21 08:05 Sodium Level 138 mmol/L (136-145) Potassium Level 3.0 mmol/L (3.5-5.1) Chloride Level 83 mmol/L (98-107) Carbon Dioxide Level > 45 mmol/L (21-32) Anion Gap (6-14) Blood Urea Nitrogen 37 mg/dL (7-20) Creatinine 0.8 mg/dL (0.6-1.0) Estimated GFR (Cockcroft-Gault) 71.1 Glucose Level 137 mg/dL (70-99) Calcium Level 8.5 mg/dL (8.5-10.1) Magnesium Level 2.0 mg/dL (1.8-2.4) Glucose (Fingerstick) 128 mg/dL (70-99) Medications Active Scripts Medications Dose Route/Sig Max Daily Dose Days Date Category Dose Instructions Metolazone 2.5 Mg Tablet 1 Tab PO PRN DAILY PRN 08/22/21 Reported Furosemide 40 Mg Tablet 1 Tab PO BID 08/22/21 Reported Fish Oil 1,000 Mg Softgel ([place]-3 Fatty Acids/Fish Oil) 1 Each Capsule 1 Cap PO DAILY 30 08/22/21 Reported WITH MEALS Lantus Solostar (Insulin Glargine,Hum.rec.anlog) 100 Unit/1 Ml Insuln.pen 47 Unit SQ QHS 08/22/21 Reported Children's Claritin (Loratadine) 5 Mg Tab.chew 1 Tab PO BID 30 05/03/21 Reported Metoprolol Tartrate 25 Mg Tablet 0.5 Tab PO BID 03/01/21 Reported Synthroid (Levothyroxine Sodium) 100 Mcg Tablet 100 Mcg PO DAILY06 30 09/13/19 Rx Take in combination with 112mcg tablet to equal 212mcg daily Levothyroxine Sodium 112 Mcg Tablet 112 Mcg PO DAILY06 30 09/13/19 Rx Take in combination with 100mcg tablet to equal 212mcg daily Albuterol Sulfate Neb Soln (Albuterol Sulfate) 1.25 Mg/3 Ml Vial.neb 1 Vial NEB PRN Q6HRS PRN 09/11/19 Reported Combivent Respimat Inhal (Ipratropium/Albuterol Sulfate) 4 Gm Aer.w.adap 2 Inh IH PRN DAILY PRN 09/11/19 Reported Pravastatin Sodium 80 Mg Tablet 1 Tab PO QHS 09/11/19 Reported Multi Vitamin Daily (Multivitamin) 1 Each Tablet 1 Tab PO DAILY 30 09/11/19 Reported Klor-Con 10 (Potassium Chloride) 10 Meq Tablet.er 20 Meq PO TID 03/05/14 Reported Impression . IMPRESSION: 1. Progressive dyspnea, multifactorial. 2. Chronic respiratory failure. 3. Ghttd-yl-jnimsjn cor pulmonale. 4. Mediastinal mass. 5. Coronary artery disease with previous coronary artery bypass grafting. 6. Recent hemoptysis status post bronchoscopy. Cultures to date have been negative. 7. 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 8. A 3.5 cm abdominal aortic aneurysm. Plan . Updated 09/03 Discussed with pathologist preliminary report malignant special stains pending Discussed with medical oncology, consult placed Continue to titrate FiO2 down; currently on 4L NC Awaiting pathology for Biopsy 08/31 Monitor I&O to keep intake less than output Activity as tolerated Discontinue Bumex and will restart Lasix at 40mg WILLIAM CANELA MD Sep 03, 2021 10:03
[2021-09-03] MEDS: METOPROLOL TART IMMED RELEASE 25 MG TABLET. PO SCH ×2 (10:29→20:49)
[2021-09-03] MEDS: POTASSIUM CHLORIDE 20 MEQ TABLET.ER. PO SCH ×3 (10:30→18:12)
--- NOTE | 2021-09-03 10:31 | PDOC ---
RALF MORRISSEY ADMINISTRATIVE CLERK 09/03/21 1031: CARDIO Progress Notes Date and Time Date of Service 09/03/21 Time of Evaluation 1030 Subjective Subjective: No Chest Pain, No Palpitations, No Dizziness, Other (drowsy, patient thinks Bumex is making her fall asleep) Vitals Vitals Vital Signs Date Time Temp Pulse Resp B/P (MAP) Pulse Ox O2 Delivery O2 Flow Rate FiO2 09/03/21 09:20 100 Nasal Cannula 4.0 09/03/21 07:00 97.8 81 18 143/58 (86) 97.8 Weight Weight [ ] Input and Output Intake and Output Intake and Output 09/03/21 07:00 Intake Total 360 ml Output Total 2800 ml Balance -2440 ml Intake Oral 360 ml Output Urine Total 2800 ml # Voids 2 Laboratory Labs Laboratory Tests Test 09/02/21 11:52 09/02/21 16:59 09/02/21 18:52 09/02/21 19:49 Glucose (Fingerstick) 289 mg/dL (70-99) 336 mg/dL (70-99) 417 mg/dL (70-99) Sodium Level 136 mmol/L (136-145) Potassium Level 2.9 mmol/L (3.5-5.1) Chloride Level 81 mmol/L (98-107) Carbon Dioxide Level > 45 mmol/L (21-32) Anion Gap 10 (6-14) Blood Urea Nitrogen 35 mg/dL (7-20) Creatinine 1.1 mg/dL (0.6-1.0) Estimated GFR (Cockcroft-Gault) 49.2 Glucose Level 386 mg/dL (70-99) Calcium Level 8.1 mg/dL (8.5-10.1) Test 09/03/21 06:40 09/03/21 08:05 Sodium Level 138 mmol/L (136-145) Potassium Level 3.0 mmol/L (3.5-5.1) Chloride Level 83 mmol/L (98-107) Carbon Dioxide Level > 45 mmol/L (21-32) Anion Gap (6-14) Blood Urea Nitrogen 37 mg/dL (7-20) Creatinine 0.8 mg/dL (0.6-1.0) Estimated GFR (Cockcroft-Gault) 71.1 Glucose Level 137 mg/dL (70-99) Calcium Level 8.5 mg/dL (8.5-10.1) Magnesium Level 2.0 mg/dL (1.8-2.4) Glucose (Fingerstick) 128 mg/dL (70-99) Physical Exam HEENT: Neck Supple W Full Motion Chest: Symmetric LUNGS: Other (diminished bases) Heart: RRR (heart tones regular. off tele) Abdomen: Soft N/T, Other (obese) Extremities: Other (3+ bilateral LE edema ) Neurology: alert, other (drowsy, falls asleep talking) Assessment Assessment 1. Acute on chronic respiratory failure, multifactorial. 2. AECOPD: Treat per pulmonary team 3. Acute on chronic cor pulmonale; improved s/p diuresis 4. Severe pulmonary HTN: no vasoreactivity per recent RHC 5. Large mediastinal mass: S/P bronchoscopy. Biopsy nondiagnostic. S/p repeat biopsy, awaiting path 6. Possible cirrhosis per recent PET scan, defer to PCP. LFTs mildly elevated 7. PAFIB: could not ascertain burden. Presently SR. S/p Watchman device. off tele 8. CAD: past CABG 9. Hyperlipidemia 10. Diabetes, II 11. Pseudohemoptysis from epistaxis, patient had cauterization by ENT in the past. 12. Hypokalemia; replacement ongoing Recommendations Check ABG Needs further fluid offloading. Will increase Lasix to 60mg BID (Bumex discontinued as patient refusing- making her fall asleep) Continue metolazone Ongoing pulmonary optimization Secondary prevention Continue metoprolol for rate control Supportive care Justicifation of Admission Dx: Justifications for Admission: Justification of Admission Dx: Yes HAYLIE CAO MD 09/03/21 1539: CARDIO Progress Notes Assessment Assessment Patient seen and examined. Agree with CLINICAL ACCOUNT LIAISON's assessment and plan. Acute on chronic diastolic heart failure/cor pulmonale improved but not resolved Agree with increasing Lasix dose and continue metolazone for better diuresis PAF, presently sinus rhythm CAD s/p CABG clinically stable Continue treatment for acute COPD exacerbation per pulmonary team Pathology report from mediastinal mass biopsy pending RALF MORRISSEY APRN Sep 03, 2021 10:31 HAYLIE CAO MD Sep 03, 2021 15:39
[2021-09-03 11:00] VITALS: BP 150/48
[2021-09-03] MEDS: FUROSEMIDE 40 MG/4 ML VIAL. IVP SCH ×2 (14:53→16:04)
[2021-09-03 17:14] LABS: BASE EXCESS ABG 31 mmol/L (-3-3); HCO3 ABG 61 mmol/L (21-28); PO2 ABG 51 mmHg (65-108); SAT O2 ABG 87 % (92-99)
[2021-09-03 17:16] LABS: PCO2 ABG 89 mmHg (35-46)
[2021-09-03 17:17] LABS: FIO2 ABG 34
[2021-09-03 19:00] VITALS: BP 106/50
[2021-09-03] MEDS: ATORVASTATIN CALCIUM 20 MG TABLET PO SCH (20:48)
[2021-09-03] MEDS: INSULIN GLARGINE SYRINGE. SQ SCH (20:52)
[2021-09-03 23:00] VITALS: BP 123/62
[2021-09-03] MEDS: diphenhydrAMINE HCL 25 MG CAPSULE PO PRN (23:56)
[2021-09-04 03:11] VITALS: BP 110/60
[2021-09-04] MEDS: LEVOTHYROXINE 112 MCG TABLET PO SCH (05:41)
[2021-09-04] MEDS: LEVOTHYROXINE 100 MCG TABLET PO SCH (05:41)
[2021-09-04 07:00] VITALS: BP 137/76
[2021-09-04 08:00] LABS: BLOOD UREA NITROGEN 34 mg/dL (7-20); CALCIUM 8.4 mg/dL (8.5-10.1); CHLORIDE 83 mmol/L (98-107); CREATININE 0.8 mg/dL (0.6-1.0); GFR 71.1; GLUCOSE 130 mg/dL (70-99); SODIUM 140 mmol/L (136-145)
[2021-09-04 08:04] LABS: CARBON DIOXIDE > 45 mmol/L (21-32)
[2021-09-04] MEDS: IPRATRPIUM/ALBUTEROL 0.5/2.5MG 3 ML NEBU. NEB SCH ×3 (08:14→20:10)
--- NOTE | 2021-09-04 08:15 | PDOC ---
Provider Note Date of Service: DATE: 09/04/21 TIME: 08:15 Provider Note status same, K+ still 3 so kcl now tid, onco consult pending, res same Justifications for Admission Other Justification JASPER HANNAH MD Sep 04, 2021 08:15
--- NOTE | 2021-09-04 08:19 | PDOC ---
RALF MORRISSEY MARBLE SETTER 09/04/21 0819: CARDIO Progress Notes Date and Time Date of Service 09/04/21 Time of Evaluation 1150 Subjective Subjective: No Chest Pain, No Palpitations, No Dizziness Vitals Vitals Vital Signs Date Time Temp Pulse Resp B/P (MAP) Pulse Ox O2 Delivery O2 Flow Rate FiO2 09/04/21 03:11 97.8 80 20 110/60 (77) 94 Nasal Cannula 97.8 09/03/21 21:19 3.5 Weight Weight [ ] Input and Output Intake and Output Intake and Output 09/04/21 07:00 Intake Total 460 ml Output Total 250 ml Balance 210 ml Intake Oral 460 ml Output Urine Total 250 ml # Voids 3 Laboratory Labs Laboratory Tests Test 09/03/21 12:10 09/03/21 16:23 09/03/21 16:55 09/03/21 20:25 Glucose (Fingerstick) 155 mg/dL (70-99) 315 mg/dL (70-99) 387 mg/dL (70-99) O2 Saturation 87 % (92-99) Arterial Blood pH 7.45 (7.35-7.45) Arterial Blood pCO2 at Patient Temp 89 mmHg (35-46) Arterial Blood pO2 at Patient Temp 51 mmHg (65-108) Arterial Blood HCO3 61 mmol/L (21-28) Arterial Blood Base Excess 31 mmol/L (-3-3) FiO2 34 Test 09/04/21 06:45 09/04/21 07:59 Sodium Level 140 mmol/L (136-145) Potassium Level 3.0 mmol/L (3.5-5.1) Chloride Level 83 mmol/L (98-107) Carbon Dioxide Level > 45 mmol/L (21-32) Anion Gap (6-14) Blood Urea Nitrogen 34 mg/dL (7-20) Creatinine 0.8 mg/dL (0.6-1.0) Estimated GFR (Cockcroft-Gault) 71.1 Glucose Level 130 mg/dL (70-99) Calcium Level 8.4 mg/dL (8.5-10.1) Glucose (Fingerstick) 114 mg/dL (70-99) Physical Exam HEENT: Neck Supple W Full Motion Chest: Symmetric LUNGS: Other (diminished bases) Heart: RRR (heart tones regular. off tele) Abdomen: Soft N/T, Other (obese) Extremities: Other (3+ bilateral LE edema ) Neurology: alert, oriented, follow commands Assessment Assessment 1. Acute on chronic respiratory failure, multifactorial. 2. AECOPD: Treat per pulmonary team 3. Acute on chronic cor pulmonale; improved s/p diuresis 4. Severe pulmonary HTN: no vasoreactivity per recent RHC 5. Large mediastinal mass: S/P bronchoscopy. Biopsy nondiagnostic. S/p repeat biopsy with non-small cell lung cancer, favoring adenocarcinoma. oncology consulted 6. Possible cirrhosis per recent PET scan, defer to PCP. LFTs mildly elevated 7. PAFIB: could not ascertain burden. Presently SR. S/p Watchman device. off tele 8. CAD: past CABG 9. Hyperlipidemia 10. Diabetes, II 11. Pseudohemoptysis from epistaxis, patient had cauterization by ENT in the past. 12. Hypokalemia; replacement ongoing Recommendations Continue metolazone, Lasix Potassium replacement ongoing Ongoing pulmonary optimization Secondary prevention Continue metoprolol for rate control Supportive care Justicifation of Admission Dx: Justifications for Admission: Justification of Admission Dx: Yes HAYLIE CAO MD 09/04/21 2008: CARDIO Progress Notes Assessment Assessment Patient seen and examined. Agree with BURSAR's assessment and plan. Acute on chronic diastolic heart failure/cor pulmonale improving with diuresis PAF, presently sinus rhythm CAD s/p CABG clinically stable Continue treatment for acute COPD exacerbation per pulmonary team Mediastinal mass biopsy c/w adenocarcinoma - oncology consulted RALF MORRISSEY APRN Sep 04, 2021 08:19 HAYLIE CAO MD Sep 04, 2021 20:08
[2021-09-04] MEDS ORDERED: FUROSEMIDE 40 MG/4 ML VIAL. IVP SCH (09:00)
[2021-09-04] MEDS: POTASSIUM CHLORIDE 20 MEQ TABLET.ER. PO SCH ×3 (09:06→18:16)
[2021-09-04] MEDS: FUROSEMIDE 40 MG/4 ML VIAL. IVP SCH ×2 (09:06→13:41)
[2021-09-04] MEDS: METOPROLOL TART IMMED RELEASE 25 MG TABLET. PO SCH ×2 (09:07→20:52)
--- NOTE | 2021-09-04 09:58 | PDOC ---
PULMONARY PROGRESS NOTES DATE: 09/04/21 TIME: 09:54 Subjective Patient is recommended the chair. Currently on oxygen. Denies any increased shortness of breath. Still has ankle swelling. Vitals Vital Signs Date Time Temp Pulse Resp B/P (MAP) Pulse Ox O2 Delivery O2 Flow Rate FiO2 09/04/21 09:07 77 137/76 09/04/21 08:17 93 Nasal Cannula 3.5 09/04/21 07:00 98.4 20 98.4 ROS: No Nausea, No Chest Pain, No Increase Cough General: Alert, No acute distress Lungs: Clear Cardiovascular: S1, S2, Other Abdomen: Soft Neuro Exam: Alert Extremities: Other (4+ pitting edema bilateral leg, ankle, feet) Skin: Warm Labs Laboratory Tests Test 09/02/21 11:52 09/02/21 16:59 09/02/21 18:52 09/02/21 19:49 Glucose (Fingerstick) 289 mg/dL (70-99) 336 mg/dL (70-99) 417 mg/dL (70-99) Sodium Level 136 mmol/L (136-145) Potassium Level 2.9 mmol/L (3.5-5.1) Chloride Level 81 mmol/L (98-107) Carbon Dioxide Level > 45 mmol/L (21-32) Anion Gap 10 (6-14) Blood Urea Nitrogen 35 mg/dL (7-20) Creatinine 1.1 mg/dL (0.6-1.0) Estimated GFR (Cockcroft-Gault) 49.2 Glucose Level 386 mg/dL (70-99) Calcium Level 8.1 mg/dL (8.5-10.1) Test 09/03/21 06:40 09/03/21 08:05 09/03/21 12:10 09/03/21 16:23 Sodium Level 138 mmol/L (136-145) Potassium Level 3.0 mmol/L (3.5-5.1) Chloride Level 83 mmol/L (98-107) Carbon Dioxide Level > 45 mmol/L (21-32) Anion Gap (6-14) Blood Urea Nitrogen 37 mg/dL (7-20) Creatinine 0.8 mg/dL (0.6-1.0) Estimated GFR (Cockcroft-Gault) 71.1 Glucose Level 137 mg/dL (70-99) Calcium Level 8.5 mg/dL (8.5-10.1) Magnesium Level 2.0 mg/dL (1.8-2.4) Glucose (Fingerstick) 128 mg/dL (70-99) 155 mg/dL (70-99) 315 mg/dL (70-99) Test 09/03/21 16:55 09/03/21 20:25 09/04/21 06:45 09/04/21 07:59 O2 Saturation 87 % (92-99) Arterial Blood pH 7.45 (7.35-7.45) Arterial Blood pCO2 at Patient Temp 89 mmHg (35-46) Arterial Blood pO2 at Patient Temp 51 mmHg (65-108) Arterial Blood HCO3 61 mmol/L (21-28) Arterial Blood Base Excess 31 mmol/L (-3-3) FiO2 34 Glucose (Fingerstick) 387 mg/dL (70-99) 114 mg/dL (70-99) Sodium Level 140 mmol/L (136-145) Potassium Level 3.0 mmol/L (3.5-5.1) Chloride Level 83 mmol/L (98-107) Carbon Dioxide Level > 45 mmol/L (21-32) Anion Gap (6-14) Blood Urea Nitrogen 34 mg/dL (7-20) Creatinine 0.8 mg/dL (0.6-1.0) Estimated GFR (Cockcroft-Gault) 71.1 Glucose Level 130 mg/dL (70-99) Calcium Level 8.4 mg/dL (8.5-10.1) Laboratory Tests Test 09/03/21 12:10 09/03/21 16:23 09/03/21 16:55 09/03/21 20:25 Glucose (Fingerstick) 155 mg/dL (70-99) 315 mg/dL (70-99) 387 mg/dL (70-99) O2 Saturation 87 % (92-99) Arterial Blood pH 7.45 (7.35-7.45) Arterial Blood pCO2 at Patient Temp 89 mmHg (35-46) Arterial Blood pO2 at Patient Temp 51 mmHg (65-108) Arterial Blood HCO3 61 mmol/L (21-28) Arterial Blood Base Excess 31 mmol/L (-3-3) FiO2 34 Test 09/04/21 06:45 09/04/21 07:59 Sodium Level 140 mmol/L (136-145) Potassium Level 3.0 mmol/L (3.5-5.1) Chloride Level 83 mmol/L (98-107) Carbon Dioxide Level > 45 mmol/L (21-32) Anion Gap (6-14) Blood Urea Nitrogen 34 mg/dL (7-20) Creatinine 0.8 mg/dL (0.6-1.0) Estimated GFR (Cockcroft-Gault) 71.1 Glucose Level 130 mg/dL (70-99) Calcium Level 8.4 mg/dL (8.5-10.1) Glucose (Fingerstick) 114 mg/dL (70-99) Medications Active Scripts Medications Dose Route/Sig Max Daily Dose Days Date Category Dose Instructions Metolazone 2.5 Mg Tablet 1 Tab PO PRN DAILY PRN 08/22/21 Reported Furosemide 40 Mg Tablet 1 Tab PO BID 08/22/21 Reported Fish Oil 1,000 Mg Softgel ([place]-3 Fatty Acids/Fish Oil) 1 Each Capsule 1 Cap PO DAILY 30 08/22/21 Reported WITH MEALS Lantus Solostar (Insulin Glargine,Hum.rec.anlog) 100 Unit/1 Ml Insuln.pen 47 Unit SQ QHS 08/22/21 Reported Children's Claritin (Loratadine) 5 Mg Tab.chew 1 Tab PO BID 30 05/03/21 Reported Metoprolol Tartrate 25 Mg Tablet 0.5 Tab PO BID 03/01/21 Reported Synthroid (Levothyroxine Sodium) 100 Mcg Tablet 100 Mcg PO DAILY06 09/13/19 Rx Take in combination with 112mcg tablet to equal 212mcg daily Levothyroxine Sodium 112 Mcg Tablet 112 Mcg PO DAILY06 30 09/13/19 Rx Take in combination with 100mcg tablet to equal 212mcg daily Albuterol Sulfate Neb Soln (Albuterol Sulfate) 1.25 Mg/3 Ml Vial.neb 1 Vial NEB PRN Q6HRS PRN 09/11/19 Reported Combivent Respimat Inhal (Ipratropium/Albuterol Sulfate) 4 Gm Aer.w.adap 2 Inh IH PRN DAILY PRN 09/11/19 Reported Pravastatin Sodium 80 Mg Tablet 1 Tab PO QHS 09/11/19 Reported Multi Vitamin Daily (Multivitamin) 1 Each Tablet 1 Tab PO DAILY 30 09/11/19 Reported Klor-Con 10 (Potassium Chloride) 10 Meq Tablet.er 20 Meq PO TID 03/05/14 Reported Impression . IMPRESSION: 1. Progressive dyspnea, multifactorial. 2. Chronic respiratory failure. On home oxygen at 3 L. 3. Rrqdz-kg-xthilsf cor pulmonale. 4. Mediastinal mass. This has grown progressively. Recent PET scan was positive. Previous mediastinal mass biopsy was nondiagnostic. Status post recent mediastinal mass biopsy. 5. Coronary artery disease with previous coronary artery bypass grafting. 6. Recent hemoptysis status post bronchoscopy. Cultures to date have been negative. 7. 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 8. A 3.5 cm abdominal aortic aneurysm. 9. Severe compensated hypercapnia. Plan . Discussed with pathologist today. The primary diagnosis of mediastinal mass biopsy is non-small cell lung cancer, favoring adenocarcinoma. Likely primary lung. Medical oncology consulted. We will also consult radiation oncology. She is not resectable. I have explained to her about the pulmonary biopsy results Continue to titrate FiO2 down; currently on 4L NC Continue aggressive diuresis. Monitor renal function. Monitor I&O to keep intake less than output Activity as tolerated Monitor for improvement in her feet edema. EFRA BROWNLEE MD Sep 04, 2021 09:58
[2021-09-04] MEDS: metOLazone 2.5 MG TABLET PO SCH (10:49)
[2021-09-04 11:00] VITALS: BP 114/55
[2021-09-04] MEDS ORDERED: POTASSIUM CHLORIDE 20 MEQ TABLET.ER. PO ONE (14:15)
--- NOTE | 2021-09-04 14:25 | NUR ---
SW following. Discussed with RN, Jazz Thompson are declining to accept pt back due to pt continuously declining to participate in physical therapy. New cancer diagnosis - Oncology to see patient tomorrow. SW will continue to follow.
--- NOTE | 2021-09-04 16:09 | PATHOLOGY ---
[facility] Accession Number: [id number] . 01 Material submitted: . lung - RT LUNG MASS CORE. Modifiers: right . 01 Clinical history: . RT LUNG MASS RT LUNG BIOPSY . 02 Diagnosis: Right lung mass, CT guided needle biopsies: - INVOLVEMENT BY POORLY DIFFERENTIATED NON-SMALL CELL CARCINOMA, FAVOR ADENOCARCINOMA. SEE COMMENT. (JPM:pit; 09/04/2021) [facility] 09/04/2021 0940 Local . 02 Comment: Sections of the right lung mass CT guided needle biopsy reveal a malignant epithelial neoplasm. The tumor is composed of sheets of large cells showing no obvious evidence of gland formation or keratinization. The tumor cells have abundant amounts of eosinophilic to focally vacuolated cytoplasm. The tumor cells possess enlarged, moderately pleomorphic hyperchromatic nuclei containing prominent nucleoli. There are scattered admixed lymphocytes within the tumor. A properly controlled panel of immunoperoxidase stains is obtained on A1 and yields the following results: . AE1/AE3: Tumor cells positive Cytokeratin Robbie: Tumor cells positive Cytokeratin 7: Tumor cells negative Cytokeratin 20: Tumor cells negative TTF-1: Tumor cells positive P40: Tumor cells negative CD20: Tumor cells negative CD3: Tumor cells negative; tumor infiltrating lymphocytes positive CD30: Tumor cells negative ALK-1: Tumor cells negative CD15: Tumor cells negative SOX-10 red: Tumor cells negative . The morphologic and immunophenotypic findings are supportive of the diagnosis of poorly differentiated non-small cell carcinoma, favor adenocarcinoma and are consistent with lung origin. . The case is also examined by Dr. Julio César Mccurdy, who concurs with the diagnosis. The results are called to Dr. Willis on 09/04/2021 at 8:54 am. (JPM:alberto; 09/04/2021) . Special stains performed: Immunoperoxidase stains all on A1, AE1/AE3, cytokeratin Robbie, CK7, CK20, TTF-1, p40, CD20, CD3, CD30, ALK-1, CD15, SOX-10 red . 02 Electronically signed: . Lucio Lam MD, Pathologist NPI- [id number] . 01 Gross description: . The specimen is submitted in formalin, labeled "Meri Wu, right lung mass". Received are 5 needle cores of pale fields to dark fields tissue ranging in length from 0.2 cm to 0.8 cm by 0.1 cm in diameter. The specimen is submitted entirely in cassettes A1 to A3.([facility]; 08/31/2021) [facility] 08/31/2021 1749 Local . 02 Pathologist provided ICD-10: C34.91 . 02 CPT . 583211, [id number], [id number] Specimen Comment: A courtesy copy of this report has been sent to [phone], [phone] Specimen Comment: [id number] Specimen Comment: Report sent to / DR MA Specimen Comment: A duplicate report has been generated due to demographic updates. Performed at: 01 [facility] [address], [place], [place] [id number] MD Ashu Garcia MD Phone: [phone] Performed at: 02 [facility] [address], [place] [id number] MD Lucio Lam MD Phone: [phone]
[2021-09-04 19:00] VITALS: BP 124/68
[2021-09-04] MEDS: ATORVASTATIN CALCIUM 20 MG TABLET PO SCH (20:51)
[2021-09-04] MEDS: INSULIN GLARGINE SYRINGE. SQ SCH (20:53)
[2021-09-04] MEDS: IBUPROFEN 200 MG TABLET. PO PRN (21:20)
[2021-09-04 23:00] VITALS: BP 99/64
[2021-09-05] MEDS: LEVOTHYROXINE 100 MCG TABLET PO SCH (05:22)
[2021-09-05] MEDS: LEVOTHYROXINE 112 MCG TABLET PO SCH (05:23)
[2021-09-05 07:00] VITALS: BP 105/56
[2021-09-05] MEDS: IPRATRPIUM/ALBUTEROL 0.5/2.5MG 3 ML NEBU. NEB SCH ×4 (07:46→20:13)
--- NOTE | 2021-09-05 08:19 | PDOC ---
Provider Note Date of Service: DATE: 09/05/21 TIME: 08:19 Provider Note status same, K+ still low so will hold metoozone some, add more kcl- onco consult pending Justifications for Admission Other Justification JASPER HANNAH MD Sep 05, 2021 08:19
[2021-09-05] MEDS: METOPROLOL TART IMMED RELEASE 25 MG TABLET. PO SCH ×2 (08:57→20:37)
[2021-09-05] MEDS: POTASSIUM CHLORIDE 20 MEQ TABLET.ER. PO SCH ×4 (08:57→20:37)
[2021-09-05] MEDS: FUROSEMIDE 40 MG/4 ML VIAL. IVP SCH ×2 (08:58→17:12)
--- NOTE | 2021-09-05 09:59 | PDOC2 ---
CONSULT Date of Consult Date of Consult DATE: 09/05/21 TIME: 09:24 Reason for Consult Reason for Consult: Nonsmall cell lung carcinoma, clinical stage [id number] Referring Physician Referring Physician: Dr Willis Identification/Chief Complaint Chief Complaint Shortness of breath Source Source: Chart review, Patient History of Present Illness Reason for Visit: Mrs. Wu is a 70-year-old woman with oxygen dependent COPD, CAD status post CABG, paroxysmal atrial fibrillation. A scan done at [facility] for her heart procedure found an incidental right lung mass. CT chest at [place] on 02/12/21 confirmed 7.3 cm mass anterior to the superior vena cava. CT-guided biopsy of the right lung mass on 03/01/2021 was nondiagnostic. Patient was scheduled for PET/CT. However, due to logistic issues (patient no- show, high blood sugars, etc), her PET/CT had to be rescheduled several times. On 08/20/2021, PET CT showed 9.7 cm right para mediastinal mass, SUV 16.4. The right hilum showed SUV 5.6. No suspicious hypermetabolic activity outside the chest. She was admitted on 08/21/2021 for dyspnea and hemoptysis. Bronchoscopy on 08/23/2021 showed no endobronchial lesion. No evidence of active bleeding. Vocal cords were moving bilaterally without any dysfunction. She was re-admitted on 08/29/2021 for dyspnea. On 08/31/2021, CT-guided biopsy of right upper mediastinal mass showed non-small cell carcinoma favoring adenocarcinoma. Her oxygen nasal cannula at baseline 3 L/min. No chest pain. No weight loss. She reports dry nasal mucosa with sinus bleeding. No headache, diplopia, or weakness. Her legs, however, are quite swollen. Past Medical History Cardiovascular: CAD, HTN, Hyperlipidemia, Pulmonary hypertension Pulmonary: COPD, Other CENTRAL NERVOUS SYSTEM: Other Psych: Depression Musculoskeletal: Osteoarthritis, Other Endocrine: Diabetes, Hypothyroidism Past Surgical History Past Surgical History: Arthroscopy, CABG, Tonsillectomy Family History Family History: Cancer (Mother with hairy cell leukemia. Maternal grand mother with pancreatic cancer.), Heart Disease Social History Social History Her from lung cancer. Quit ALCOHOL: none Drugs: None Lives: with Family (former smoker) Current Problem List Problem List Problems Medical Problems: (1) Acute exacerbation of congestive heart failure Status: Acute (2) Chronic respiratory failure Status: Acute Current Medications Current Medications Current Medications Furosemide (Lasix) 40 mg 1X ONCE IVP Last administered on 08/29/21at 02:19; Start 08/29/21 at 02:15; Stop 08/29/21 at 02:16; Status DC Ondansetron HCl (Zofran) 4 mg PRN Q8HRS PRN IVP NAUSEA/VOMITING; Start 08/29/21 at 03:30; Stop 08/30/21 at 03:29; Status DC Acetaminophen (Tylenol) 650 mg PRN Q4HRS PRN PO FEVER > 100.3'F; Start 08/29/21 at 03:30; Stop 08/30/21 at 03:29; Status DC Levothyroxine Sodium (Synthroid) 112 mcg DAILY06 PO Last administered on 09/05/21at 05:23; Start 08/29/21 at 08:00 Levothyroxine Sodium (Synthroid) 100 mcg DAILY06 PO Last administered on 09/05/21at 05:22; Start 08/29/21 at 08:00 Metoprolol Tartrate (Lopressor) 12.5 mg BID PO Last administered on 09/05/21at 08:57; Start 08/29/21 at 09:00 Albuterol Sulfate (Ventolin Neb Soln) 2.5 mg PRN Q6HRS PRN NEB SHORTNESS OF BREATH; Start 08/29/21 at 09:00 Insulin Glargine (Lantus Syringe) 47 unit QHS SQ Last administered on 09/03/21at 20:52; Start 08/29/21 at 21:00; Stop 09/04/21 at 08:15; Status DC Non-Formulary Medication (Ipratropium/ Albuterol Sulfate (Combivent Respimat Inhal)) 2 inh PRN DAILY PRN IH SHORTNESS OF BREATH; Start 08/29/21 at 08:30; Status UNV Atorvastatin Calcium (Lipitor) 20 mg QHS PO Last administered on 09/04/21at 20:51; Start 08/29/21 at 21:00 Metolazone (Zaroxolyn) 2.5 mg DAILY PO Last administered on 08/30/21at 13:41; Start 08/29/21 at 17:00; Stop 08/30/21 at 16:08; Status DC Bumetanide (Bumex) 2 mg BID92 IV Last administered on 09/02/21at 09:57; Start 08/29/21 at 09:00; Stop 09/03/21 at 10:24; Status DC Albuterol/ Ipratropium (Duoneb) 3 ml RTQID NEB Last administered on 09/05/21at 07:46; Start 08/30/21 at 08:00 Potassium Chloride (Klor-Con) 10 meq BID WMEALS PO Last administered on 09/01/21at 21:18; Start 08/30/21 at 12:00; Stop 09/02/21 at 09:15; Status DC Metolazone (Zaroxolyn) 2.5 mg DAILY PO ; Start 08/31/21 at 09:00; Stop 08/30/21 at 16:09; Status DC Metolazone (Zaroxolyn) 2.5 mg DAILY07 PO Last administered on 09/04/21at 10:49; Start 08/31/21 at 07:00; Stop 09/05/21 at 06:31; Status DC Midazolam HCl (Versed) 2 mg STK-MED ONCE .ROUTE ; Start 08/31/21 at 13:07; Stop 08/31/21 at 13:07; Status DC Fentanyl Citrate (Fentanyl 2ml Vial) 100 mcg STK-MED ONCE .ROUTE ; Start 08/31/21 at 13:07; Stop 08/31/21 at 13:07; Status DC Lidocaine HCl (Buffered Lidocaine 1%) 3 ml STK-MED ONCE .ROUTE ; Start 08/31/21 at 13:11; Stop 08/31/21 at 13:11; Status DC Midazolam HCl (Versed) 1 mg 1X ONCE IV Last administered on 08/31/21at 13:52; Start 08/31/21 at 14:15; Stop 08/31/21 at 14:16; Status DC Fentanyl Citrate (Fentanyl 2ml Vial) 50 mcg 1X ONCE IV Last administered on 08/31/21at 13:52; Start 08/31/21 at 14:15; Stop 08/31/21 at 14:16; Status DC Lidocaine HCl (Xylocaine-Mpf 1% 2ml Vial) 8 ml 1X ONCE INJ Last administered on 08/31/21at 14:00; Start 08/31/21 at 14:15; Stop 08/31/21 at 14:16; Status DC Naloxone HCl (Narcan) 0.4 mg 1X ONCE IV Last administered on 08/31/21at 13:59; Start 08/31/21 at 14:15; Stop 08/31/21 at 14:16; Status DC Diphenhydramine HCl (Benadryl) 25 mg PRN QHS PRN PO INSOMNIA Last administered on 09/03/21at 23:56; Start 08/31/21 at 23:00; Stop 09/05/21 at 08:26; Status DC Potassium Chloride (Klor-Con) 20 meq BID WMEALS PO Last administered on 09/02at 17:22; Start 09/02/21 at 10:00; Stop 09/03/21 at 07:58; Status DC Insulin Glargine (Lantus Syringe) 50 unit 1X ONCE SQ Last administered on 09/02/21at 21:22; Start 09/02/21 at 21:00; Stop 09/02/21 at 21:01; Status DC Insulin Human Lispro (HumaLOG) 6 units 1X ONCE SQ Last administered on 09/02/21at 21:21; Start 09/02/21 at 20:30; Stop 09/02/21 at 20:31; Status DC Potassium Chloride (Klor-Con) 20 meq TIDAFTMEAL PO Last administered on 09/04/21at 18:16; Start 09/03/21 at 09:00; Stop 09/05/21 at 06:31; Status DC Furosemide (Lasix) 40 mg DAILY IVP ; Start 09/04/21 at 09:00; Stop 09/03/21 at 13:54; Status DC Furosemide (Lasix) 60 mg BID92 IVP Last administered on 09/05/21at 08:58; Start 09/03/21 at 14:00 Insulin Glargine (Lantus Syringe) 50 unit QHS SQ Last administered on 09/04/21at 20:53; Start 09/04/21 at 21:00 Potassium Chloride (Klor-Con) 20 meq 1X ONCE PO Last administered on 09/04/21at 16:36; Start 09/04/21 at 14:15; Stop 09/04/21 at 14:16; Status DC Ibuprofen (Motrin) 600 mg PRN Q6HRS PRN PO INFLAMMATION Last administered on 09/04/21at 21:20; Start 09/04/21 at 21:30 Acetaminophen (Tylenol) 650 mg PRN Q6HRS PRN PO MILD PAIN / TEMP > 100.3'F; Start 09/04/21 at 21:30 Potassium Chloride (Klor-Con) 20 meq QID PO Last administered on 09/05/21at 08:57; Start 09/05/21 at 07:00 Temazepam (Restoril) 15 mg PRN QHS PRN PO INSOMNIA; Start 09/05/21 at 08:30 Active Scripts Active Synthroid (Levothyroxine Sodium) 100 Mcg Tablet 100 Mcg PO DAILY06 30 Days Take in combination with 112mcg tablet to equal 212mcg daily Levothyroxine Sodium 112 Mcg Tablet 112 Mcg PO DAILY06 30 Days Take in combination with 100mcg tablet to equal 212mcg daily Reported Metolazone 2.5 Mg Tablet 1 Tab PO PRN DAILY PRN Furosemide 40 Mg Tablet 1 Tab PO BID Fish Oil 1,000 Mg Softgel ([place]-3 Fatty Acids/Fish Oil) 1 Each Capsule 1 Cap PO DAILY 30 Days WITH MEALS Lantus Solostar (Insulin Glargine,Hum.rec.anlog) 100 Unit/1 Ml Insuln.pen 47 Unit SQ QHS Children's Claritin (Loratadine) 5 Mg Tab.chew 1 Tab PO BID 30 Days Metoprolol Tartrate 25 Mg Tablet 0.5 Tab PO BID Albuterol Sulfate Neb Soln (Albuterol Sulfate) 1.25 Mg/3 Ml Vial.neb 1 Vial NEB PRN Q6HRS PRN Combivent Respimat Inhal (Ipratropium/Albuterol Sulfate) 4 Gm Aer.w.adap 2 Inh IH PRN DAILY PRN Pravastatin Sodium 80 Mg Tablet 1 Tab PO QHS Multi Vitamin Daily (Multivitamin) 1 Each Tablet 1 Tab PO DAILY 30 Days Klor-Con 10 (Potassium Chloride) 10 Meq Tablet.er 20 Meq PO TID Allergies Allergies: Coded Allergies: Penicillins (Verified Adverse Reaction, Mild, yeast infections, 08/29/21) Physical Exam General: Alert, Oriented X3, Cooperative, Other (No facial swelling) HEENT: Atraumatic, PERRLA, EOMI, Other (Dry oral mucosa. Edentulous.) Lungs: Other (no wheezing or crackles) Heart: Regular rate Abdomen: No tenderness, No hepatosplenomegaly Extremities: Other (severe bilateral ankle edema) Neuro: Normal speech, Strength at 5/5 X4 ext, Cranial nerves 3-12 NL Psych/Mental Status: Mental status NL, Mood NL Vitals VITALS Vital Signs Date Time Temp Pulse Resp B/P (MAP) Pulse Ox O2 Delivery O2 Flow Rate FiO2 09/05/21 08:57 70 105/56 09/05/21 07:48 97 Nasal Cannula 3.5 09/04/21 23:00 97.6 18 97.6 Labs Labs Laboratory Tests Test 09/03/21 12:10 09/03/21 16:23 09/03/21 16:55 09/03/21 20:25 Glucose (Fingerstick) 155 mg/dL (70-99) 315 mg/dL (70-99) 387 mg/dL (70-99) O2 Saturation 87 % (92-99) Arterial Blood pH 7.45 (7.35-7.45) Arterial Blood pCO2 at Patient Temp 89 mmHg (35-46) Arterial Blood pO2 at Patient Temp 51 mmHg (65-108) Arterial Blood HCO3 61 mmol/L (21-28) Arterial Blood Base Excess 31 mmol/L (-3-3) FiO2 34 Test 09/04/21 06:45 09/04/21 07:59 09/04/21 11:42 09/04/21 17:03 Sodium Level 140 mmol/L (136-145) Potassium Level 3.0 mmol/L (3.5-5.1) Chloride Level 83 mmol/L (98-107) Carbon Dioxide Level > 45 mmol/L (21-32) Anion Gap (6-14) Blood Urea Nitrogen 34 mg/dL (7-20) Creatinine 0.8 mg/dL (0.6-1.0) Estimated GFR (Cockcroft-Gault) 71.1 Glucose Level 130 mg/dL (70-99) Calcium Level 8.4 mg/dL (8.5-10.1) Glucose (Fingerstick) 114 mg/dL (70-99) 199 mg/dL (70-99) 222 mg/dL (70-99) Test 09/04/21 21:05 09/05/21 04:45 09/05/21 07:47 Glucose (Fingerstick) 299 mg/dL (70-99) 151 mg/dL (70-99) Potassium Level 2.8 mmol/L (3.5-5.1) Laboratory Tests Test 09/04/21 11:42 09/04/21 17:03 09/04/21 21:05 09/05/21 04:45 Glucose (Fingerstick) 199 mg/dL (70-99) 222 mg/dL (70-99) 299 mg/dL (70-99) Potassium Level 2.8 mmol/L (3.5-5.1) Test 09/05/21 07:47 Glucose (Fingerstick) 151 mg/dL (70-99) Assessment/Plan Assessment/Plan 70-year-old female with non-small cell carcinoma of the right upper lung, clinical stage T4 N2 M0. Plan We discussed MRI brain to complete the staging work-up. She may be a candidate for chemoradiation. Radiation would involve a planning CT followed by 6 weeks of daily treatment. The side effects, including the acute and late side effects, were discussed with the patient. Patient understood that the tumor is too large for surgical intervention. She also discussed her DNR status. She, however, agreed to have radiation therapy. She also agreed to a medical oncology consult to assess patient for concurrent chemotherapy. MICHAEL MOORE MD Sep 05, 2021 09:59
--- NOTE | 2021-09-05 10:45 | PDOC ---
RALF MORRISSEY MEETING/EVENT PLANNER 09/05/21 1045: CARDIO Progress Notes Date and Time Date of Service 09/05/21 Time of Evaluation 1040 Subjective Subjective: No Chest Pain, No Palpitations, No Dizziness, Other (not more SOA) Vitals Vitals Vital Signs Date Time Temp Pulse Resp B/P (MAP) Pulse Ox O2 Delivery O2 Flow Rate FiO2 09/05/21 08:57 70 105/56 09/05/21 07:48 97 Nasal Cannula 3.5 09/05/21 07:00 97.7 20 97.7 Weight Weight [ ] Input and Output Intake and Output Intake and Output 09/05/21 07:00 Intake Total 690 ml Output Total 350 ml Balance 340 ml Intake Oral 690 ml Output Urine Total 350 ml # Voids 1 Laboratory Labs Laboratory Tests Test 09/04/21 11:42 09/04/21 17:03 09/04/21 21:05 09/05/21 04:45 Glucose (Fingerstick) 199 mg/dL (70-99) 222 mg/dL (70-99) 299 mg/dL (70-99) Potassium Level 2.8 mmol/L (3.5-5.1) Test 09/05/21 07:47 Glucose (Fingerstick) 151 mg/dL (70-99) Physical Exam HEENT: Neck Supple W Full Motion Chest: Symmetric LUNGS: Other (diminished bases) Heart: RRR (heart tones regular. off tele) Abdomen: Soft N/T, Other (obese) Extremities: Other (3+ bilateral LE edema ) Neurology: alert, oriented, follow commands Assessment Assessment 1. Acute on chronic respiratory failure, multifactorial. 2. AECOPD: Treat per pulmonary team 3. Acute on chronic cor pulmonale; improving s/p diuresis 4. Severe pulmonary HTN: no vasoreactivity per recent RHC 5. Large mediastinal mass: S/P bronchoscopy. Biopsy nondiagnostic. S/p repeat biopsy with non-small cell lung cancer, favoring adenocarcinoma. oncology consulted 6. Possible cirrhosis per recent PET scan, defer to PCP. LFTs mildly elevated 7. PAFIB: could not ascertain burden. Presently SR. S/p Watchman device. off tele 8. CAD: past CABG 9. Hyperlipidemia 10. Diabetes, II 11. Pseudohemoptysis from epistaxis, patient had cauterization by ENT in the past. 12. Hypokalemia Recommendations Fluids offloading. Metolazone held with ongoing hypokalemia Potassium replacement ongoing Pulmonary optimization Secondary prevention Continue metoprolol for rate control Supportive care Justicifation of Admission Dx: Justifications for Admission: Justification of Admission Dx: Yes HAYLIE CAO MD 09/05/210: CARDIO Progress Notes Assessment Assessment Patient seen and examined. Agree with BORE MINER OPERATOR's assessment and plan. Acute on chronic diastolic heart failure/cor pulmonale improving with diuresis - replace K PAF, presently sinus rhythm CAD s/p CABG clinically stable Continue treatment for acute COPD exacerbation per pulmonary team Mediastinal mass biopsy c/w adenocarcinoma - oncology consulted RALF MORRISSEY APRN Sep 05, 2021 10:45 HAYLIE CAO MD Sep 05, 2021 22:00
[2021-09-05 11:00] VITALS: BP 117/75
[2021-09-05] MEDS ORDERED: POTASSIUM CHLORIDE 20 MEQ TABLET.ER. PO ONE (11:30)
--- NOTE | 2021-09-05 11:31 | PDOC ---
PULMONARY PROGRESS NOTES DATE: 09/05/21 TIME: 11:26 Subjective Patient is recommended the chair. Currently on oxygen. Denies any increased shortness of breath. Still has ankle swelling. Vitals Vital Signs Date Time Temp Pulse Resp B/P (MAP) Pulse Ox O2 Delivery O2 Flow Rate FiO2 09/05/21 08:57 70 105/56 09/05/21 08:00 Nasal Cannula 3.5 09/05/21 07:48 97 09/05/21 07:00 97.7 20 97.7 ROS: No Nausea, No Chest Pain, No Increase Cough General: Alert, No acute distress Lungs: Clear Cardiovascular: S1, S2, Other Abdomen: Soft Neuro Exam: Alert Extremities: Other (4+ pitting edema bilateral leg, ankle, feet) Skin: Warm Labs Laboratory Tests Test 09/03/21 12:10 09/03/21 16:23 09/03/21 16:55 09/03/21 20:25 Glucose (Fingerstick) 155 mg/dL (70-99) 315 mg/dL (70-99) 387 mg/dL (70-99) O2 Saturation 87 % (92-99) Arterial Blood pH 7.45 (7.35-7.45) Arterial Blood pCO2 at Patient Temp 89 mmHg (35-46) Arterial Blood pO2 at Patient Temp 51 mmHg (65-108) Arterial Blood HCO3 61 mmol/L (21-28) Arterial Blood Base Excess 31 mmol/L (-3-3) FiO2 34 Test 09/04/21 06:45 09/04/21 07:59 09/04/21 11:42 09/04/21 17:03 Sodium Level 140 mmol/L (136-145) Potassium Level 3.0 mmol/L (3.5-5.1) Chloride Level 83 mmol/L (98-107) Carbon Dioxide Level > 45 mmol/L (21-32) Anion Gap (6-14) Blood Urea Nitrogen 34 mg/dL (7-20) Creatinine 0.8 mg/dL (0.6-1.0) Estimated GFR (Cockcroft-Gault) 71.1 Glucose Level 130 mg/dL (70-99) Calcium Level 8.4 mg/dL (8.5-10.1) Glucose (Fingerstick) 114 mg/dL (70-99) 199 mg/dL (70-99) 222 mg/dL (70-99) Test 09/04/21 21:05 09/05/21 04:45 09/05/21 07:47 Glucose (Fingerstick) 299 mg/dL (70-99) 151 mg/dL (70-99) Potassium Level 2.8 mmol/L (3.5-5.1) Magnesium Level 1.8 mg/dL (1.8-2.4) Laboratory Tests Test 09/04/21 11:42 09/04/21 17:03 09/04/21 21:05 09/05/21 04:45 Glucose (Fingerstick) 199 mg/dL (70-99) 222 mg/dL (70-99) 299 mg/dL (70-99) Potassium Level 2.8 mmol/L (3.5-5.1) Magnesium Level 1.8 mg/dL (1.8-2.4) Test 09/05/21 07:47 Glucose (Fingerstick) 151 mg/dL (70-99) Medications Active Scripts Medications Dose Route/Sig Max Daily Dose Days Date Category Dose Instructions Metolazone 2.5 Mg Tablet 1 Tab PO PRN DAILY PRN 08/22/21 Reported Furosemide 40 Mg Tablet 1 Tab PO BID 08/22/21 Reported Fish Oil 1,000 Mg Softgel ([place]-3 Fatty Acids/Fish Oil) 1 Each Capsule 1 Cap PO DAILY 30 08/22/21 Reported WITH MEALS Lantus Solostar (Insulin Glargine,Hum.rec.anlog) 100 Unit/1 Ml Insuln.pen 47 Unit SQ QHS 08/22/21 Reported Children's Claritin (Loratadine) 5 Mg Tab.chew 1 Tab PO BID 30 05/03/21 Reported Metoprolol Tartrate 25 Mg Tablet 0.5 Tab PO BID 03/01/21 Reported Synthroid (Levothyroxine Sodium) 100 Mcg Tablet 100 Mcg PO DAILY06 30 09/13/19 Rx Take in combination with 112mcg tablet to equal 212mcg daily Levothyroxine Sodium 112 Mcg Tablet 112 Mcg PO DAILY06 30 09/13/19 Rx Take in combination with 100mcg tablet to equal 212mcg daily Albuterol Sulfate Neb Soln (Albuterol Sulfate) 1.25 Mg/3 Ml Vial.neb 1 Vial NEB PRN Q6HRS PRN 09/11/19 Reported Combivent Respimat Inhal (Ipratropium/Albuterol Sulfate) 4 Gm Aer.w.adap 2 Inh IH PRN DAILY PRN 09/11/19 Reported Pravastatin Sodium 80 Mg Tablet 1 Tab PO QHS 09/11/19 Reported Multi Vitamin Daily (Multivitamin) 1 Each Tablet 1 Tab PO DAILY 30 09/11/19 Reported Klor-Con 10 (Potassium Chloride) 10 Meq Tablet.er 20 Meq PO TID 03/05/14 Reported Impression . IMPRESSION: 1. Progressive dyspnea, multifactorial. 2. Chronic respiratory failure. On home oxygen at 3 L. 3. [id number]-fw-[id number] cor pulmonale. 4. Mediastinal mass. This has grown progressively. Recent PET scan was positive. Previous mediastinal mass biopsy was nondiagnostic. Status post recent mediastinal mass biopsy. 5. Coronary artery disease with previous coronary artery bypass grafting. 6. Recent hemoptysis status post bronchoscopy. Cultures to date have been negative. 7. 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 8. A 3.5 cm abdominal aortic aneurysm. 9. Severe compensated hypercapnia. Plan . Clinically unchanged. This is probably her baseline. Discussed with pathologist yesterday.. The primary diagnosis of mediastinal mass biopsy is non-small cell lung cancer, favoring adenocarcinoma. Likely primary lung. Medical oncology consulted. Patient seen by Dr. Roldan/radiation oncology. She is not resectable. Patient would benefit from radiation along with combined chemo. I have discussed with medical oncology as well. Continue to titrate FiO2 down; currently on 4L NC Continue aggressive diuresis. Monitor renal function. Monitor I&O to keep intake less than output Activity as tolerated Monitor for improvement in her feet edema. Possible discharge in next 24 to 48 hours and followed up as an outpatient by oncology. EFRA BROWNLEE MD Sep 05, 2021 11:31
--- NOTE | 2021-09-05 13:24 | PDOC2 ---
CONSULT Date of Consult Date of Consult DATE: 09/05/21 TIME: 13:18 Reason for Consult Reason for Consult: Lung cancer Referring Physician Referring Physician: Dr. Lowry Identification/Chief Complaint Chief Complaint Shortness of breath Source Source: Chart review, Patient History of Present Illness Reason for Visit: Meri Wu is a 70-year-old female with COPD, coronary artery disease, pulmonary hypertension who has been admitted to the hospital with shortness of breath. Patient was found to have fluid overload and has been diuresed. She states that breathing is now back to baseline. Patient has also been evaluated recently for a right upper lobe lung mass. She previously had a biopsy of this mass which was nondiagnostic. PET/CT was obtained in August 2021 when it showed a right upper lobe lung mass, mediastinal lymphadenopathy and no evidence of distant metastasis. Repeat biopsy was recently attempted and showed poorly differentiated lung adenocarcinoma. She has been seen by Dr. Washington. Medical oncology consultation has been requested due to new cancer diagnosis. Patient reports a history of tobacco abuse. Quit in 2006 Currently follows with pulmonology. On 3 L supplemental oxygen Past Medical History Cardiovascular: CAD, HTN, Hyperlipidemia, Pulmonary hypertension Pulmonary: COPD, Other CENTRAL NERVOUS SYSTEM: Other Psych: Depression Musculoskeletal: Osteoarthritis, Other Endocrine: Diabetes, Hypothyroidism Past Surgical History Past Surgical History: Arthroscopy, CABG, Tonsillectomy Family History Family History: Cancer (Mother with hairy cell leukemia. Maternal grand mother with pancreatic cancer.), Heart Disease Social History Quit ALCOHOL: none Drugs: None Lives: with Family (former smoker) Current Problem List Problem List Problems Medical Problems: (1) Acute exacerbation of congestive heart failure Status: Acute (2) Chronic respiratory failure Status: Acute Current Medications Current Medications Current Medications Furosemide (Lasix) 40 mg 1X ONCE IVP Last administered on 08/29/21at 02:19; Start 08/29/21 at 02:15; Stop 08/29/21 at 02:16; Status DC Ondansetron HCl (Zofran) 4 mg PRN Q8HRS PRN IVP NAUSEA/VOMITING; Start 08/29/21 at 03:30; Stop 08/30/21 at 03:29; Status DC Acetaminophen (Tylenol) 650 mg PRN Q4HRS PRN PO FEVER > 100.3'F; Start 08/29/21 at 03:30; Stop 08/30/21 at 03:29; Status DC Levothyroxine Sodium (Synthroid) 112 mcg DAILY06 PO Last administered on 09/05/21 05:23; Start 08/29/21 at 08:00 Levothyroxine Sodium (Synthroid) 100 mcg DAILY06 PO Last administered on 09/05/21at 05:22; Start 08/29/21 at 08:00 Metoprolol Tartrate (Lopressor) 12.5 mg BID PO Last administered on 09/05/21at 08:57; Start 08/29/21 at 09:00 Albuterol Sulfate (Ventolin Neb Soln) 2.5 mg PRN Q6HRS PRN NEB SHORTNESS OF BREATH; Start 08/29/21 at 09:00 Insulin Glargine (Lantus Syringe) 47 unit QHS SQ Last administered on 09/03/21at 20:52; Start 08/29/21 at 21:00; Stop 09/04/21 at 08:15; Status DC Non-Formulary Medication (Ipratropium/ Albuterol Sulfate (Combivent Respimat Inhal)) 2 inh PRN DAILY PRN IH SHORTNESS OF BREATH; Start 08/29/21 at 08:30; Status UNV Atorvastatin Calcium (Lipitor) 20 mg QHS PO Last administered on 09/04/21at 20:51; Start 08/29/21 at 21:00 Metolazone (Zaroxolyn) 2.5 mg DAILY PO Last administered on 08/30/21at 13:41; Start 08/29/21 at 17:00; Stop 08/30/21 at 16:08; Status DC Bumetanide (Bumex) 2 mg BID92 IV Last administered on 09/02/21at 09:57; Start 08/29/21 at 09:00; Stop 09/03/21 at 10:24; Status DC Albuterol/ Ipratropium (Duoneb) 3 ml RTQID NEB Last administered on 09/05/21at 07:46; Start 08/30/21 at 08:00 Potassium Chloride (Klor-Con) 10 meq BID WMEALS PO Last administered on 09/01/21at 21:18; Start 08/30/21 at 12:00; Stop 09/02/21 at 09:15; Status DC Metolazone (Zaroxolyn) 2.5 mg DAILY PO ; Start 08/31/21 at 09:00; Stop 08/30/21 at 16:09; Status DC Metolazone (Zaroxolyn) 2.5 mg DAILY07 PO Last administered on 09/04/21at 10:49; Start 08/31/21 at 07:00; Stop 09/05/21 at 06:31; Status DC Midazolam HCl (Versed) 2 mg STK-MED ONCE .ROUTE ; Start 08/31/21 at 13:07; Stop 08/31/21 at 13:07; Status DC Fentanyl Citrate (Fentanyl 2ml Vial) 100 mcg STK-MED ONCE .ROUTE ; Start 08/31/21 at 13:07; Stop 08/31/21 at 13:07; Status DC Lidocaine HCl (Buffered Lidocaine 1%) 3 ml STK-MED ONCE .ROUTE ; Start 08/31/21 at 13:11; Stop 08/31/21 at 13:11; Status DC Midazolam HCl (Versed) 1 mg 1X ONCE IV Last administered on 08/31/21at 13:52; Start 08/31/21 at 14:15; Stop 08/31/21 at 14:16; Status DC Fentanyl Citrate (Fentanyl 2ml Vial) 50 mcg 1X ONCE IV Last administered on 08/31/21at 13:52; Start 08/31/21 at 14:15; Stop 08/31/21 at 14:16; Status DC Lidocaine HCl (Xylocaine-Mpf 1% 2ml Vial) 8 ml 1X ONCE INJ Last administered on 08/31/21at 14:00; Start 08/31/21 at 14:15; Stop 08/31/21 at 14:16; Status DC Naloxone HCl (Narcan) 0.4 mg 1X ONCE IV Last administered on 08/31/21at 13:59; Start 08/31/21 at 14:15; Stop 08/31/21 at 14:16; Status DC Diphenhydramine HCl (Benadryl) 25 mg PRN QHS PRN PO INSOMNIA Last administered on 09/03/21at 23:56; Start 08/31/21 at 23:00; Stop 09/05/21 at 08:26; Status DC Potassium Chloride (Klor-Con) 20 meq BID WMEALS PO Last administered on 09/02/21at 17:22; Start 09/02/21 at 10:00; Stop 09/03/21 at 07:58; Status DC Insulin Glargine (Lantus Syringe) 50 unit 1X ONCE SQ Last administered on 09/02/21at 21:22; Start 09/02/21 at 21:00; Stop 09/02/21 at 21:01; Status DC Insulin Human Lispro (HumaLOG) 6 units 1X ONCE SQ Last administered on 09/02/21at 21:21; Start 09/02/21 at 20:30; Stop 09/02/21 at 20:31; Status DC Potassium Chloride (Klor-Con) 20 meq TIDAFTMEAL PO Last administered on 09/04/21at 18:16; Start 09/03/21 at 09:00; Stop 09/05/21 at 06:31; Status DC Furosemide (Lasix) 40 mg DAILY IVP ; Start 09/04/21 at 09:00; Stop 09/03/21 at 13:54; Status DC Furosemide (Lasix) 60 mg BID92 IVP Last administered on 09/05/21at 08:58; Start 09/03/21 at 14:00 Insulin Glargine (Lantus Syringe) 50 unit QHS SQ Last administered on 09/04/21at 20:53; Start 09/04/21 at 21:00 Potassium Chloride (Klor-Con) 20 meq 1X ONCE PO Last administered on 09/04/21at 16:36; Start 09/04/21 at 14:15; Stop 09/04/21 at 14:16; Status DC Ibuprofen (Motrin) 600 mg PRN Q6HRS PRN PO INFLAMMATION Last administered on 09/04/21at 21:20; Start 09/04/21 at 21:30 Acetaminophen (Tylenol) 650 mg PRN Q6HRS PRN PO MILD PAIN / TEMP > 100.3'F; Start 09/04/21 at 21:30 Potassium Chloride (Klor-Con) 20 meq QID PO Last administered on 09/05/21at 08:57; Start 09/05/21 at 07:00 Temazepam (Restoril) 15 mg PRN QHS PRN PO INSOMNIA; Start 09/05/21 at 08:30 Potassium Chloride (Klor-Con) 40 meq 1X ONCE PO ; Start 09/05/21 at 11:30; Stop 09/05/21 at 11:31; Status DC Active Scripts Active Synthroid (Levothyroxine Sodium) 100 Mcg Tablet 100 Mcg PO DAILY06 30 Days Take in combination with 112mcg tablet to equal 212mcg daily Levothyroxine Sodium 112 Mcg Tablet 112 Mcg PO DAILY06 30 Days Take in combination with 100mcg tablet to equal 212mcg daily Reported Metolazone 2.5 Mg Tablet 1 Tab PO PRN DAILY PRN Furosemide 40 Mg Tablet 1 Tab PO BID Fish Oil 1,000 Mg Softgel ([place]-3 Fatty Acids/Fish Oil) 1 Each Capsule 1 Cap PO DAILY 30 Days WITH MEALS Lantus Solostar (Insulin Glargine,Hum.rec.anlog) 100 Unit/1 Ml Insuln.pen 47 Unit SQ QHS Children's Claritin (Loratadine) 5 Mg Tab.chew 1 Tab PO BID 30 Days Metoprolol Tartrate 25 Mg Tablet 0.5 Tab PO BID Albuterol Sulfate Neb Soln (Albuterol Sulfate) 1.25 Mg/3 Ml Vial.neb 1 Vial NEB PRN Q6HRS PRN Combivent Respimat Inhal (Ipratropium/Albuterol Sulfate) 4 Gm Aer.w.adap 2 Inh IH PRN DAILY PRN Pravastatin Sodium 80 Mg Tablet 1 Tab PO QHS Multi Vitamin Daily (Multivitamin) 1 Each Tablet 1 Tab PO DAILY 30 Days Klor-Con 10 (Potassium Chloride) 10 Meq Tablet.er 20 Meq PO TID Allergies Allergies: Coded Allergies: Penicillins (Verified Adverse Reaction, Mild, yeast infections, 08/29/21) ROS Review of System Negative unless stated otherwise in HPI Physical Exam General: Alert, Oriented X3 HEENT: Atraumatic Lungs: Clear to auscultation Abdomen: Soft Skin: No rashes MUSCULOSKELETAL: No swelling Vitals VITALS Vital Signs Date Time Temp Pulse Resp B/P (MAP) Pulse Ox O2 Delivery O2 Flow Rate FiO2 09/05/21 11:00 97.8 79 20 117/75 (89) 97 Nasal Cannula 4.0 97.8 Labs Labs Laboratory Tests Test 09/03/21 16:23 09/03/21 16:55 09/03/21 20:25 09/04/21 06:45 Glucose (Fingerstick) 315 mg/dL (70-99) 387 mg/dL (70-99) O2 Saturation 87 % (92-99) Arterial Blood pH 7.45 (7.35-7.45) Arterial Blood pCO2 at Patient Temp 89 mmHg (35-46) Arterial Blood pO2 at Patient Temp 51 mmHg (65-108) Arterial Blood HCO3 61 mmol/L (21-28) Arterial Blood Base Excess 31 mmol/L (-3-3) FiO2 34 Sodium Level 140 mmol/L (136-145) Potassium Level 3.0 mmol/L (3.5-5.1) Chloride Level 83 mmol/L (98-107) Carbon Dioxide Level > 45 mmol/L (21-32) Anion Gap (6-14) Blood Urea Nitrogen 34 mg/dL (7-20) Creatinine 0.8 mg/dL (0.6-1.0) Estimated GFR (Cockcroft-Gault) 71.1 Glucose Level 130 mg/dL (70-99) Calcium Level 8.4 mg/dL (8.5-10.1) Test 09/04/21 07:59 09/04/21 11:42 09/04/21 17:03 09/04/21 21:05 Glucose (Fingerstick) 114 mg/dL (70-99) 199 mg/dL (70-99) 222 mg/dL (70-99) 299 mg/dL (70-99) Test 09/05/21 04:45 09/05/21 07:47 09/05/21 10:51 Potassium Level 2.8 mmol/L (3.5-5.1) Magnesium Level 1.8 mg/dL (1.8-2.4) Glucose (Fingerstick) 151 mg/dL (70-99) 233 mg/dL (70-99) Laboratory Tests Test 09/04/21 17:03 09/04/21 21:05 09/05/21 04:45 09/05/21 07:47 Glucose (Fingerstick) 222 mg/dL (70-99) 299 mg/dL (70-99) 151 mg/dL (70-99) Potassium Level 2.8 mmol/L (3.5-5.1) Magnesium Level 1.8 mg/dL (1.8-2.4) Test 09/05/21 10:51 Glucose (Fingerstick) 233 mg/dL (70-99) Assessment/Plan Assessment/Plan Assessment: Lung adenocarcinoma, T3 N2 M0 Acute on chronic respiratory failure\ COPD Coronary artery disease Pulmonary hypertension Recommendations: -We discussed the results of recently obtain PET/CT. We discussed the natural history and management of lung adenocarcinoma -We discussed the role of staging in defining treatment strategy in patients with non-small cell lung cancer. Plan to obtain brain MRI as outpatient for completion of staging -We discussed that in the absence of brain metastasis, she has stage III disease. We discussed management of stage III non-small cell lung cancer. Given borderline functional -status, we discussed the risks and benefits of conc urrent chemoradiotherapy versus sequential treatment. -Recommend port placement -Plan medical oncology and radiation for oncology follow-up -No additional inpatient oncology work-up required. Will arrange follow-up in the office -Other management per Dr. Alen Coello MD Medical Oncology/Hematology Ph: [phone] JULIA COELLO MD Sep 05, 2021 13:24
[2021-09-05 15:00] VITALS: BP 132/78
[2021-09-05 18:57] VITALS: BP 138/66
[2021-09-05] MEDS: INSULIN GLARGINE SYRINGE. SQ SCH (20:33)
[2021-09-05] MEDS: IBUPROFEN 200 MG TABLET. PO PRN (20:37)
[2021-09-05] MEDS: ATORVASTATIN CALCIUM 20 MG TABLET PO SCH (20:37)
[2021-09-05 23:00] VITALS: BP 148/70
[2021-09-06 03:00] VITALS: BP 134/64
[2021-09-06] MEDS: LEVOTHYROXINE 112 MCG TABLET PO SCH (06:00)
[2021-09-06] MEDS: LEVOTHYROXINE 100 MCG TABLET PO SCH (06:00)
--- NOTE | 2021-09-06 06:30 | NUR ---
Patient transferred from [address] [place] [address] and bedside report rcvd. from MADELAINE Jang. All belongings with pt at time of transfer and pt orientated to room. Patient in bed, bed in lowest/locked position, and call light within reach; no other needs voiced at this time.
[2021-09-06 07:00] VITALS: BP 112/66
[2021-09-06] MEDS: IPRATRPIUM/ALBUTEROL 0.5/2.5MG 3 ML NEBU. NEB SCH ×4 (07:40→19:43)
--- NOTE | 2021-09-06 08:19 | PDOC ---
Provider Note Date of Service: DATE: 09/06/21 TIME: 08:18 Provider Note for port plaacement re planned chemo- stopped metolozone re K+, was 2.8, today pending Justifications for Admission Other Justification JASPER HANNAH MD Sep 06, 2021 08:19
[2021-09-06] MEDS: POTASSIUM CHLORIDE 20 MEQ TABLET.ER. PO SCH ×4 (08:27→20:15)
[2021-09-06] MEDS: FUROSEMIDE 20 MG TABLET PO SCH (08:28)
[2021-09-06] MEDS: IBUPROFEN 200 MG TABLET. PO PRN (08:28)
[2021-09-06] MEDS: METOPROLOL TART IMMED RELEASE 25 MG TABLET. PO SCH ×2 (08:29→20:16)
--- NOTE | 2021-09-06 10:34 | PDOC ---
RALF MORRISSEY DRAIN TILE PRESS OPERATOR 09/06/21 1034: CARDIO Progress Notes Date and Time Date of Service 09/06/21 Time of Evaluation 1030 Subjective Subjective: No Chest Pain, No Palpitations, No Dizziness, Other (sleepy, not more SOA) Vitals Vitals Vital Signs Date Time Temp Pulse Resp B/P (MAP) Pulse Ox O2 Delivery O2 Flow Rate FiO2 09/06/21 08:29 71 112/66 09/06/21 07:41 100 Nasal Cannula 3.5 09/06/21 07:00 97.4 18 97.4 Weight Weight [ ] Input and Output Intake and Output Intake and Output 09/06/21 07:00 Intake Total 1720 ml Balance 1720 ml Intake Oral 1720 ml # Voids 7 Laboratory Labs Laboratory Tests Test 09/05/21 10:51 09/05/21 17:04 09/05/21 18:41 09/06/21 07:55 Glucose (Fingerstick) 233 mg/dL (70-99) 280 mg/dL (70-99) 318 mg/dL (70-99) 157 mg/dL (70-99) Physical Exam HEENT: Neck Supple W Full Motion Chest: Symmetric LUNGS: Other (diminished bases) Heart: RRR (heart tones regular. off tele) Abdomen: Soft N/T, Other (obese) Extremities: Other (3+ bilateral LE edema ) Neurology: alert, oriented, follow commands Assessment Assessment 1. Acute on chronic respiratory failure, multifactorial. 2. AECOPD: Treat per pulmonary team 3. Acute on chronic cor pulmonale; s/p diuresis 4. Severe pulmonary HTN: no vasoreactivity per recent RHC 5. Large mediastinal mass: S/P bronchoscopy. Biopsy nondiagnostic. S/p repeat biopsy with non-small cell lung cancer, favoring adenocarcinoma. Radiation therapy initiated 6. Possible cirrhosis per recent PET scan, defer to PCP. LFTs mildly elevated 7. PAFIB: could not ascertain burden. Presently SR. S/p Watchman device. off tele 8. CAD: past CABG 9. Hyperlipidemia 10. Diabetes, II 11. Pseudohemoptysis from epistaxis, patient had cauterization by ENT in the past. 12. Hypokalemia; replaced Recommendations Lasix therapy Secondary prevention Continue metoprolol for rate control Follow pulmonary recs Guarded prognosis and compliance also problematic Supportive care Justicifation of Admission Dx: Justifications for Admission: Justification of Admission Dx: Yes HAYLIE CAO MD 09/06/21 1724: CARDIO Progress Notes Assessment Assessment Patient seen and examined. Agree with [employer]'s assessment and plan. Acute on chronic diastolic heart failure/cor pulmonale improved with diuresis PAF, presently sinus rhythm CAD s/p CABG clinically stable Continue treatment for acute COPD exacerbation per pulmonary team Mediastinal mass biopsy c/w adenocarcinoma -oncology initiating radiation therapy Guarded prognosis RALF MORRISSEY APRN Sep 06, 2021 10:34 HAYLIE CAO MD Sep 06, 2021 17:24
--- NOTE | 2021-09-06 10:35 | NUR ---
SW following. Discussed with RN, port placement for cancer treatment. SW will continue to follow.
[2021-09-06 11:00] VITALS: BP 91/68
[2021-09-06 15:00] VITALS: BP 91/51
--- NOTE | 2021-09-06 15:43 | PDOC ---
PULMONARY PROGRESS NOTES DATE: 09/06/21 TIME: 15:38 Subjective Patient is confused. Currently on oxygen. Denies any increased shortness of breath. Vitals Vital Signs Date Time Temp Pulse Resp B/P (MAP) Pulse Ox O2 Delivery O2 Flow Rate FiO2 09/06/21 15:00 98.0 74 18 91/51 (64) 90 Nasal Cannula 3.0 98.0 ROS: No Nausea, No Chest Pain, No Increase Cough General: No acute distress Lungs: Clear Cardiovascular: S1, S2, Other Abdomen: Soft Neuro Exam: Alert Extremities: Other (4+ pitting edema bilateral leg, ankle, feet) Skin: Warm Labs Laboratory Tests Test 09/04/21 17:03 09/04/21 21:05 09/05/21 04:45 09/05/21 07:47 Glucose (Fingerstick) 222 mg/dL (70-99) 299 mg/dL (70-99) 151 mg/dL (70-99) Potassium Level 2.8 mmol/L (3.5-5.1) Magnesium Level 1.8 mg/dL (1.8-2.4) Test 09/05/21 10:51 09/05/21 17:04 09/05/21 18:41 09/06/21 07:55 Glucose (Fingerstick) 233 mg/dL (70-99) 280 mg/dL (70-99) 318 mg/dL (70-99) 157 mg/dL (70-99) Test 09/06/21 11:07 09/06/21 12:30 Glucose (Fingerstick) 230 mg/dL (70-99) Potassium Level 3.7 mmol/L (3.5-5.1) Laboratory Tests Test 09/05/21 17:04 09/05/21 18:41 09/06/21 07:55 09/06/21 11:07 Glucose (Fingerstick) 280 mg/dL (70-99) 318 mg/dL (70-99) 157 mg/dL (70-99) 230 mg/dL (70-99) Test 09/06/21 12:30 Potassium Level 3.7 mmol/L (3.5-5.1) Medications Active Scripts Medications Dose Route/Sig Max Daily Dose Days Date Category Dose Instructions Metolazone 2.5 Mg Tablet 1 Tab PO PRN DAILY PRN 08/22/21 Reported Furosemide 40 Mg Tablet 1 Tab PO BID 08/22/21 Reported Fish Oil 1,000 Mg Softgel ([place]-3 Fatty Acids/Fish Oil) 1 Each Capsule 1 Cap PO DAILY 30 08/22/21 Reported WITH MEALS Lantus Solostar (Insulin Glargine,Hum.rec.anlog) 100 Unit/1 Ml Insuln.pen 47 Unit SQ QHS 08/22/21 Reported Children's Claritin (Loratadine) 5 Mg Tab.chew 1 Tab PO BID 30 05/03/21 Reported Metoprolol Tartrate 25 Mg Tablet 0.5 Tab PO BID 03/01/21 Reported Synthroid (Levothyroxine Sodium) 100 Mcg Tablet 100 Mcg PO DAILY06 09/13/19 Rx Take in combination with 112mcg tablet to equal 212mcg daily Levothyroxine Sodium 112 Mcg Tablet 112 Mcg PO DAILY06 09/13/19 Rx Take in combination with 100mcg tablet to equal 212mcg daily Albuterol Sulfate Neb Soln (Albuterol Sulfate) 1.25 Mg/3 Ml Vial.neb 1 Vial NEB PRN Q6HRS PRN 09/11/19 Reported Combivent Respimat Inhal (Ipratropium/Albuterol Sulfate) 4 Gm Aer.w.adap 2 Inh IH PRN DAILY PRN 09/11/19 Reported Pravastatin Sodium 80 Mg Tablet 1 Tab PO QHS 09/11/19 Reported Multi Vitamin Daily (Multivitamin) 1 Each Tablet 1 Tab PO DAILY 30 09/11/19 Reported Klor-Con 10 (Potassium Chloride) 10 Meq Tablet.er 20 Meq PO TID 03/05/14 Reported Impression . IMPRESSION: 1. Progressive dyspnea, multifactorial. 2. Chronic respiratory failure. On home oxygen at 3 L. 3. Rsuoc-qe-ujymodx cor pulmonale. 4. Mediastinal mass. This has grown progressively. Recent PET scan was positive. Previous mediastinal mass biopsy was nondiagnostic. Status post recent mediastinal mass biopsy c/w non-small cell lung cancer, favoring adenocarcinoma. 5. Coronary artery disease with previous coronary artery bypass grafting. 6. Recent hemoptysis status post bronchoscopy. Cultures to date have been negative. 7. 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 8. A 3.5 cm abdominal aortic aneurysm. 9. Severe compensated hypercapnia. Plan . Clinically unchanged. Discussed with pathologist 09/05.. The primary diagnosis of mediastinal mass biopsy is non-small cell lung cancer, favoring adenocarcinoma. Likely primary lung. Medical oncology consulted. Patient seen by Dr. Roldan/radiation oncology. She is not resectable. Patient would benefit from radiation along with combined chemo. I have discussed with medical oncology as well. XRT initiated 09/06 Continue to titrate FiO2 down; currently on 4L NC Continue diuresis. Monitor renal function. Monitor I&O to keep intake less than output Activity as tolerated Monitor for improvement in her feet edema. Poor prognosis. will reach out to family to discuss prognosis/ ? hospice eval will need skill care EFRA BROWNLEE MD Sep 06, 2021 15:43
[2021-09-06 19:00] VITALS: BP 98/57
[2021-09-06] MEDS: ATORVASTATIN CALCIUM 20 MG TABLET PO SCH (20:15)
[2021-09-06] MEDS: TEMAZEPAM 15 MG CAPSULE PO PRN (20:15)
[2021-09-06] MEDS: INSULIN GLARGINE SYRINGE. SQ SCH (21:49)
[2021-09-07 03:00] VITALS: BP 89/47
[2021-09-07] MEDS: LEVOTHYROXINE 100 MCG TABLET PO SCH (06:03)
[2021-09-07] MEDS: LEVOTHYROXINE 112 MCG TABLET PO SCH (06:03)
[2021-09-07 07:00] VITALS: BP 93/66
[2021-09-07] MEDS: IPRATRPIUM/ALBUTEROL 0.5/2.5MG 3 ML NEBU. NEB SCH ×4 (07:29→20:00)
--- NOTE | 2021-09-07 08:34 | PDOC ---
Provider Note Date of Service: DATE: 09/07/21 TIME: 08:32 Provider Note vss, K+ better 3.7 after less diuretic- sleeping now, will need snf as onco workup proceeds and treatment starts Justifications for Admission Other Justification JASPER HANNAH MD Sep 07, 2021 08:34
[2021-09-07] MEDS: FUROSEMIDE 20 MG TABLET PO SCH (09:00)
[2021-09-07] MEDS: POTASSIUM CHLORIDE 20 MEQ TABLET.ER. PO SCH ×2 (09:06→21:05)
[2021-09-07] MEDS: METOPROLOL TART IMMED RELEASE 25 MG TABLET. PO SCH ×2 (09:08→21:06)
--- NOTE | 2021-09-07 10:19 | PDOC ---
PULMONARY PROGRESS NOTES DATE: 09/07/21 TIME: 10:16 Subjective Patient feels much better today. Fully awake. Denies any increased shortness of breath. Vitals Vital Signs Date Time Temp Pulse Resp B/P (MAP) Pulse Ox O2 Delivery O2 Flow Rate FiO2 09/07/21 09:08 97 93/66 09/07/21 08:10 Nasal Cannula 3.5 09/07/21 07:30 96 09/07/21 07:00 98.1 18 98.1 ROS: No Nausea, No Chest Pain, No Increase Cough General: Alert, No acute distress Lungs: Clear Cardiovascular: S1, S2, Other Abdomen: Soft Neuro Exam: Alert Extremities: Other (4+ pitting edema bilateral leg, ankle, feet) Skin: Warm Labs Laboratory Tests Test 09/05/21 10:51 09/05/21 17:04 09/05/21 18:41 09/06/21 07:55 Glucose (Fingerstick) 233 mg/dL (70-99) 280 mg/dL (70-99) 318 mg/dL (70-99) 157 mg/dL (70-99) Test 09/06/21 11:07 09/06/21 12:30 09/06/21 16:48 09/06/21 21:39 Glucose (Fingerstick) 230 mg/dL (70-99) 273 mg/dL (70-99) 383 mg/dL (70-99) Potassium Level 3.7 mmol/L (3.5-5.1) Test 09/07/21 07:45 Glucose (Fingerstick) 203 mg/dL (70-99) Laboratory Tests Test 09/06/21 11:07 09/06/21 12:30 09/06/21 16:48 09/06/21 21:39 Glucose (Fingerstick) 230 mg/dL (70-99) 273 mg/dL (70-99) 383 mg/dL (70-99) Potassium Level 3.7 mmol/L (3.5-5.1) Test 09/07/21 07:45 Glucose (Fingerstick) 203 mg/dL (70-99) Medications Active Scripts Medications Dose Route/Sig Max Daily Dose Days Date Category Dose Instructions Metolazone 2.5 Mg Tablet 1 Tab PO PRN DAILY PRN 08/22/21 Reported Furosemide 40 Mg Tablet 1 Tab PO BID 08/22/21 Reported Fish Oil 1,000 Mg Softgel ([place]-3 Fatty Acids/Fish Oil) 1 Each Capsule 1 Cap PO DAILY 30 08/22/21 Reported WITH MEALS Lantus Solostar (Insulin Glargine,Hum.rec.anlog) 100 Unit/1 Ml Insuln.pen 47 Unit SQ QHS 08/22/21 Reported Children's Claritin (Loratadine) 5 Mg Tab.chew 1 Tab PO BID 30 05/03/21 Reported Metoprolol Tartrate 25 Mg Tablet 0.5 Tab PO BID 03/01/21 Reported Synthroid (Levothyroxine Sodium) 100 Mcg Tablet 100 Mcg PO DAILY06 30 09/13/19 Rx Take in combination with 112mcg tablet to equal 212mcg daily Levothyroxine Sodium 112 Mcg Tablet 112 Mcg PO DAILY06 09/13/19 Rx Take in combination with 100mcg tablet to equal 212mcg daily Albuterol Sulfate Neb Soln (Albuterol Sulfate) 1.25 Mg/3 Ml Vial.neb 1 Vial NEB PRN Q6HRS PRN 09/11/19 Reported Combivent Respimat Inhal (Ipratropium/Albuterol Sulfate) 4 Gm Aer.w.adap 2 Inh IH PRN DAILY PRN 09/11/19 Reported Pravastatin Sodium 80 Mg Tablet 1 Tab PO QHS 09/11/19 Reported Multi Vitamin Daily (Multivitamin) 1 Each Tablet 1 Tab PO DAILY 30 09/11/19 Reported Klor-Con 10 (Potassium Chloride) 10 Meq Tablet.er 20 Meq PO TID 03/05/14 Reported Impression . IMPRESSION: 1. Progressive dyspnea, multifactorial. 2. Chronic respiratory failure. On home oxygen at 3 L. 3. Puxcx-ah-ghmuqgo cor pulmonale. 4. Mediastinal mass. This has grown progressively. Recent PET scan was positive. Previous mediastinal mass biopsy was nondiagnostic. Status post recent mediastinal mass biopsy c/w non-small cell lung cancer, favoring adenocarcinoma. 5. Coronary artery disease with previous coronary artery bypass grafting. 6. Recent hemoptysis status post bronchoscopy. Cultures to date have been negative. 7. 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 8. A 3.5 cm abdominal aortic aneurysm. 9. Severe compensated hypercapnia. Plan . Clinically better. I had a long discussion with patient as well as patient's daughter Audra. I have explained to both of them about patient's severity of lung disease as well as new diagnosis of lung cancer. I also discussed advanced directives. Patient is agreeable to be DNR. She does not want to have any heroic measures in case of any cardiac or pulmonary arrest. She is now done with radiation. She is agreeable for skilled care and evaluation for hospice. Medical oncology consulted. Patient seen by Dr. Roldan/radiation oncology. She is not resectable. Status post radiation. Continue to titrate FiO2 down; currently on 4L NC Continue diuresis. Monitor renal function. Monitor I&O to keep intake less than output Activity as tolerated Monitor for improvement in her feet edema. Discussed with RN. Plan to evaluate for skilled care and hospice. Patient is DNR EFRA BROWNLEE MD Sep 07, 2021 10:19
[2021-09-07 11:00] VITALS: BP 114/53
[2021-09-07] MEDS ORDERED: INSULIN LISPRO 300 UNITS/3 ML VIAL. SQ ONE (13:30)
[2021-09-07] MEDS ORDERED: INSULIN LISPRO 300 UNITS/3 ML VIAL. SQ SCH (13:30)
--- NOTE | 2021-09-07 13:43 | PDOC ---
PROGRESS NOTES Date of Service: DATE: 09/07/21 TIME: 13:42 Subjective Subjective Feeling better today. Objective Objective Vital Signs Date Time Temp Pulse Resp B/P (MAP) Pulse Ox O2 Delivery O2 Flow Rate FiO2 09/07/21 11:32 Nasal Cannula 3.5 09/07/21 11:00 97.6 75 18 114/53 (73) 93 97.6 Intake and Output 09/07/21 07:00 Intake Total 1180 ml Balance 1180 ml Intake Oral 1180 ml # Voids 8 Physical Exam Abdomen: Soft Heart: Regular rate Extremities: Other (severe bilateral ankle edema) General: Alert, Oriented X3 HEENT: Atraumatic Lungs: Clear to auscultation MUSCULOSKELETAL: No swelling Neuro: Normal speech, Strength at 5/5 X4 ext, Cranial nerves 3-12 NL Psych/Mental Status: Mental status NL, Mood NL Skin: No rashes Assessment Assessment 1. Acute on chronic respiratory failure, multifactorial. 2. AECOPD: Treat per pulmonary team 3. Acute on chronic cor pulmonale; s/p diuresis 4. Severe pulmonary HTN: no vasoreactivity per recent RHC 5. Large mediastinal mass: S/P bronchoscopy. Biopsy nondiagnostic. S/p repeat biopsy with non-small cell lung cancer, favoring adenocarcinoma. Radiation therapy initiated 6. Possible cirrhosis per recent PET scan, defer to PCP. LFTs mildly elevated 7. PAFIB: could not ascertain burden. Presently SR. S/p Watchman device. off tele 8. CAD: past CABG 9. Hyperlipidemia 10. Diabetes, II 11. Pseudohemoptysis from epistaxis, patient had cauterization by ENT in the past. 12. Hypokalemia; replaced Recommendations Lasix therapy Secondary prevention Continue metoprolol for rate control Follow pulmonary recs Guarded prognosis and compliance also problematic Supportive care Plan Plan of Care Problems Medical Problems: (1) Acute exacerbation of congestive heart failure Status: Acute (2) Chronic respiratory failure Status: Acute Comment Review of Relevant I have reviewed the following items yoselyn (where applicable) has been applied. Labs Laboratory Tests Test 09/06/21 16:48 09/06/21 21:39 09/07/21 07:45 09/07/21 12:16 Glucose (Fingerstick) 273 mg/dL (70-99) 383 mg/dL (70-99) 203 mg/dL (70-99) 400 mg/dL (70-99) Medications Current Medications Insulin Human Lispro (HumaLOG) 10 units 1X SQ ; Start 09/07/21 at 13:30; Stop 09/07/21 at 13:04; Status DC Insulin Human Lispro (HumaLOG) 10 units 1X ONCE SQ Last administered on 09/07/21at 13:26; Start 09/07/21 at 13:30; Stop 09/07/21 at 13:31; Status DC Potassium Chloride (Klor-Con) 20 meq BID PO Last administered on 09/07/21at 09:06; Start 09/07/21 at 09:00 Vitals/I & O Vital Sign - Last 24 Hours 09/06/21 09/06/21 09/06/21 09/06/21 15:00 19:00 19:46 20:00 Temp 98.0 97.6 98.0 97.6 Pulse 74 66 Resp 18 14 B/P (MAP) 91/51 (64) 98/57 (71) Pulse Ox 90 96 97 O2 Delivery Nasal Cannula Room Air Nasal Cannula Nasal Cannula O2 Flow Rate 3.0 3.5 2.0 09/06/21 09/06/21 09/07/21 09/07/21 20:16 23:00 03:00 07:00 Temp 98.0 98.1 98.0 98.1 Pulse 74 94 97 Resp 14 14 18 B/P (MAP) 91/51 89/47 (61) 93/66 (75) Pulse Ox 93 97 O2 Delivery Room Air Nasal Cannula Nasal Cannula O2 Flow Rate 4.0 4.0 09/07/21 09/07/21 09/07/21 09/07/21 07:30 08:00 08:10 09:08 Pulse 97 B/P (MAP) 93/66 Pulse Ox 96 O2 Delivery Nasal Cannula Nasal Cannula Nasal Cannula O2 Flow Rate 3.5 3.5 3.5 09/07/21 09/07/21 11:00 11:32 Temp 97.6 97.6 Pulse 75 Resp 18 B/P (MAP) 114/53 (73) Pulse Ox 93 O2 Delivery Nasal Cannula Nasal Cannula O2 Flow Rate 4.0 3.5 Intake and Output 09/06/21 09/06/21 09/07/21 15:00 23:00 07:00 Intake Total 240 ml 240 ml 700 ml Balance 240 ml 240 ml 700 ml PASNOORI,HAYLIE R MD Sep 07, 2021 13:43
[2021-09-07] MEDS: ACETAMINOPHEN 325 MG TABLET. PO PRN ×2 (14:57→21:05)
[2021-09-07 15:00] VITALS: BP 114/67
--- NOTE | 2021-09-07 15:19 | NUR ---
NENO following. Discussed with RN, pt now a DNR. Wants to go to [facility] but has been refusing therapy. PT/OT signed off- NENO requested new PT/OT orders. NENO explained to pt's daughter, Audra that if pt does not participate with therapy her only option will be to return home. NENO requested Audra encourage her mother to participate in therapy. NENO spoke with Sudheer in PT about this also. RN notified. NENO will continue to follow.
[2021-09-07 19:00] VITALS: BP 99/50
[2021-09-07] MEDS: ATORVASTATIN CALCIUM 20 MG TABLET PO SCH (21:05)
[2021-09-07] MEDS: INSULIN GLARGINE SYRINGE. SQ SCH (21:09)
[2021-09-07 23:00] VITALS: BP 121/66
[2021-09-08] MEDS: IPRATRPIUM/ALBUTEROL 0.5/2.5MG 3 ML NEBU. NEB SCH ×3 (00:10→20:23)
[2021-09-08 03:00] VITALS: BP 114/67
[2021-09-08] MEDS: LEVOTHYROXINE 100 MCG TABLET PO SCH (06:10)
[2021-09-08] MEDS: LEVOTHYROXINE 112 MCG TABLET PO SCH (06:10)
[2021-09-08 07:00] VITALS: BP 133/62
[2021-09-08] MEDS: ACETAMINOPHEN 325 MG TABLET. PO PRN ×2 (07:53→23:50)
[2021-09-08] MEDS: POTASSIUM CHLORIDE 20 MEQ TABLET.ER. PO SCH ×2 (07:54→22:03)
[2021-09-08] MEDS: FUROSEMIDE 20 MG TABLET PO SCH (07:54)
[2021-09-08] MEDS: METOPROLOL TART IMMED RELEASE 25 MG TABLET. PO SCH ×2 (07:56→22:03)
--- NOTE | 2021-09-08 09:39 | PDOC ---
PROGRESS NOTES Date of Service: DATE: 09/08/21 TIME: 09:38 Subjective Subjective No new complaints Objective Objective Vital Signs Date Time Temp Pulse Resp B/P (MAP) Pulse Ox O2 Delivery O2 Flow Rate FiO2 09/08/21 07:56 72 133/62 09/08/21 07:00 97.4 14 91 Nasal Cannula 3.5 97.4 Intake and Output 09/08/21 07:00 Intake Total 1580 ml Balance 1580 ml Intake Oral 1580 ml # Voids 5 # Bowel Movements 1 Physical Exam Abdomen: Soft Heart: Regular rate Extremities: Other (severe bilateral ankle edema) General: Alert, Oriented X3 HEENT: Atraumatic Lungs: Clear to auscultation MUSCULOSKELETAL: No swelling Neuro: Normal speech, Strength at 5/5 X4 ext, Cranial nerves 3-12 NL Psych/Mental Status: Mental status NL, Mood NL Skin: No rashes Assessment Assessment 1. Acute on chronic respiratory failure, multifactorial. 2. AECOPD: Treat per pulmonary team 3. Acute on chronic cor pulmonale; s/p diuresis 4. Severe pulmonary HTN: no vasoreactivity per recent RHC 5. Large mediastinal mass: S/P bronchoscopy. Biopsy nondiagnostic. S/p repeat biopsy with non-small cell lung cancer, favoring adenocarcinoma. Radiation therapy initiated 6. Possible cirrhosis per recent PET scan, defer to PCP. LFTs mildly elevated 7. PAFIB: could not ascertain burden. Presently SR. S/p Watchman device. off tele 8. CAD: past CABG 9. Hyperlipidemia 10. Diabetes, II 11. Pseudohemoptysis from epistaxis, patient had cauterization by ENT in the past. 12. Hypokalemia; replaced Recommendations We will give additional dose of IV Lasix today, check BMP Continue radiation therapy per oncology team Continue metoprolol for rate control Follow pulmonary recs Poor prognosis -consider hospice Plan Plan of Care Problems Medical Problems: (1) Acute exacerbation of congestive heart failure Status: Acute (2) Chronic respiratory failure Status: Acute Comment Review of Relevant I have reviewed the following items yoselyn (where applicable) has been applied. Labs Laboratory Tests Test 09/07/21 12:16 09/07/21 16:55 09/07/21 21:29 09/08/21 07:25 Glucose (Fingerstick) 400 mg/dL (70-99) 293 mg/dL (70-99) 392 mg/dL (70-99) 141 mg/dL (70-99) Medications Current Medications Insulin Human Lispro (HumaLOG) 10 units 1X SQ ; Start 09/07/21 at 13:30; Stop 09/07/21 at 13:04; Status DC Insulin Human Lispro (HumaLOG) 10 units 1X ONCE SQ Last administered on 09/07/21at 13:26; Start 09/07/21 at 13:30; Stop 09/07/21 at 13:31; Status DC Vitals/I & O Vital Sign - Last 24 Hours 09/07/21 09/07/21 09/07/21 09/07/21 11:00 11:32 15:00 15:59 Temp 97.6 98.5 97.6 98.5 Pulse 75 89 Resp 18 18 B/P (MAP) 114/53 (73) 114/67 (83) Pulse Ox 93 90 O2 Delivery Nasal Cannula Nasal Cannula Nasal Cannula Nasal Cannula O2 Flow Rate 4.0 3.5 4.0 3.5 09/07/21 09/07/21 09/07/21 09/07/21 19:00 20:00 20:35 21:06 Temp 98.2 98.2 Pulse 53 53 Resp 16 B/P (MAP) 99/50 (66) 99/50 Pulse Ox 94 O2 Delivery Nasal Cannula Nasal Cannula Nasal Cannula O2 Flow Rate 3.5 3.5 3.5 09/07/21 09/08/21 09/08/21 09/08/21 23:00 03:00 07:00 07:56 Temp 98.0 98.1 97.4 98.0 98.1 97.4 Pulse 73 65 72 72 Resp 14 14 14 B/P (MAP) 121/66 (84) 114/67 (83) 133/62 (85) 133/62 Pulse Ox 91 97 91 O2 Delivery Nasal Cannula Nasal Cannula Nasal Cannula O2 Flow Rate 3.5 3.5 Intake and Output 09/07/21 09/07/21 09/08/21 15:00 23:00 07:00 Intake Total 390 ml 390 ml 800 ml Balance 390 ml 390 ml 800 ml HAYLIE CAO MD 5, 2022 09:39
[2021-09-08 11:00] VITALS: BP 103/57
--- NOTE | 2021-09-08 12:32 | PN ---
DATE: 09/08/2021 LOCATION: She is in room 408. SUBJECTIVE: This 70-year-old female remains in place with swelling and shortness of breath. She has had biopsy of her lung mass, which shows a poorly differentiated adenocarcinoma. She has had some radiation at least to date. I told her I would surprise, she was still in the hospital and states that she was not leaving any time soon. OBJECTIVE: VITAL SIGNS: Stable. She is afebrile. GENERAL: She is awake and alert, complains of back and upper chest pain. CHEST: Decreased breath sounds, clear. HEART: Regular rate and rhythm. ABDOMEN: Benign. EXTREMITIES: Trace edema. NEUROLOGIC: Intact. O2 remains in place. ASSESSMENT: 1. Edema, improved. 2. Shortness of breath, ongoing, multifactorial with lung tumor, acute on chronic cor pulmonale and chronic respiratory failure, on home O2 at 3 liters per nasal cannula. 3. Coronary artery disease with prior coronary artery bypass graft. PLAN: Continue supportive care, looks like plan for Pulmonary is to custodial and then at that point transition to hospice care. Otherwise, see Radiation Oncology notes, planning chemoradiation, so I am not sure what the ultimate plan is. KITTY DR: Tara TID: [id number]
[2021-09-08] MEDS ORDERED: FUROSEMIDE 40 MG/4 ML VIAL. IVP ONE (13:30)
[2021-09-08 14:39] LABS: BLOOD UREA NITROGEN 45 mg/dL (7-20); CALCIUM 8.6 mg/dL (8.5-10.1); CHLORIDE 80 mmol/L (98-107); CREATININE 1.1 mg/dL (0.6-1.0); GFR 49.2; GLUCOSE 375 mg/dL (70-99); POTASSIUM 4.4 mmol/L (3.5-5.1); SODIUM 132 mmol/L (136-145)
[2021-09-08 14:40] LABS: CARBON DIOXIDE > 45 mmol/L (21-32)
[2021-09-08 15:00] VITALS: BP 114/67
[2021-09-08 19:00] VITALS: BP 115/70
[2021-09-08] MEDS: ATORVASTATIN CALCIUM 20 MG TABLET PO SCH (22:02)
[2021-09-08] MEDS: INSULIN GLARGINE SYRINGE. SQ SCH (22:13)
[2021-09-08 23:00] VITALS: BP 104/58
[2021-09-09 03:00] VITALS: BP 134/62
[2021-09-09] MEDS: LEVOTHYROXINE 112 MCG TABLET PO SCH (06:05)
[2021-09-09] MEDS: LEVOTHYROXINE 100 MCG TABLET PO SCH (06:05)
[2021-09-09 07:00] VITALS: BP 105/51
[2021-09-09] MEDS: IPRATRPIUM/ALBUTEROL 0.5/2.5MG 3 ML NEBU. NEB SCH ×4 (07:25→20:08)
--- NOTE | 2021-09-09 08:25 | PDOC ---
PROGRESS NOTES Date of Service: DATE: 09/09/21 TIME: 08:25 Subjective Subjective Feeling better, denied any shortness of breath, continues to complain of edema Objective Objective Vital Signs Date Time Temp Pulse Resp B/P (MAP) Pulse Ox O2 Delivery O2 Flow Rate FiO2 09/09/21 07:25 92 Nasal Cannula 3.5 09/09/21 03:00 97.0 88 20 134/62 (86) 97.0 Intake and Output 09/09/21 07:00 Intake Total 550 ml Balance 550 ml Intake Oral 550 ml # Voids 2 Physical Exam Abdomen: Soft Heart: Regular rate Extremities: Other (severe bilateral ankle edema) General: Alert, Oriented X3 HEENT: Atraumatic Lungs: Clear to auscultation MUSCULOSKELETAL: No swelling Neuro: Normal speech, Strength at 5/5 X4 ext, Cranial nerves 3-12 NL Psych/Mental Status: Mental status NL, Mood NL Skin: No rashes Assessment Assessment 1. Acute on chronic respiratory failure, multifactorial. 2. AECOPD: Treat per pulmonary team 3. Acute on chronic cor pulmonale; s/p diuresis 4. Severe pulmonary HTN: no vasoreactivity per recent RHC 5. Large mediastinal mass: S/P bronchoscopy. Biopsy nondiagnostic. S/p repeat biopsy with non-small cell lung cancer, favoring adenocarcinoma. Radiation therapy initiated 6. Possible cirrhosis per recent PET scan, defer to PCP. LFTs mildly elevated 7. PAFIB: could not ascertain burden. Presently SR. S/p Watchman device. off tele 8. CAD: past CABG 9. Hyperlipidemia 10. Diabetes, II 11. Pseudohemoptysis from epistaxis, patient had cauterization by ENT in the past. 12. Hypokalemia; replaced Recommendations We will give additional dose of IV Lasix today Continue radiation therapy per oncology team Continue metoprolol for rate control Follow pulmonary recs Poor prognosis -consider hospice Plan Plan of Care Problems Medical Problems: (1) Acute exacerbation of congestive heart failure Status: Acute (2) Chronic respiratory failure Status: Acute Comment Review of Relevant I have reviewed the following items yoselyn (where applicable) has been applied. Labs Laboratory Tests Test 09/08/21 14:10 09/09/21 08:19 Sodium Level 132 mmol/L (136-145) Potassium Level 4.4 mmol/L (3.5-5.1) Chloride Level 80 mmol/L (98-107) Carbon Dioxide Level > 45 mmol/L (21-32) Anion Gap (6-14) Blood Urea Nitrogen 45 mg/dL (7-20) Creatinine 1.1 mg/dL (0.6-1.0) Estimated GFR (Cockcroft-Gault) 49.2 Glucose Level 375 mg/dL (70-99) Calcium Level 8.6 mg/dL (8.5-10.1) Glucose (Fingerstick) 70 mg/dL (70-99) Medications Current Medications Furosemide (Lasix) 40 mg 1X ONCE IVP Last administered on 09/08/21at 16:10; Start 09/08/21 at 13:30; Stop 09/08/21 at 13:31; Status DC Vitals/I & O Vital Sign - Last 24 Hours 09/08/21 09/08/21 09/08/21 09/08/21 11:00 12:11 15:00 19:00 Temp 97.7 98.2 98.0 97.7 98.2 98.0 Pulse 65 88 88 Resp 14 14 14 B/P (MAP) 103/57 (72) 114/67 (83) 115/70 (85) Pulse Ox 97 96 96 O2 Delivery Nasal Cannula Nasal Cannula Nasal Cannula Nasal Cannula O2 Flow Rate 3.5 3.5 3.5 3.5 09/08/21 09/08/21 09/08/21 09/08/21 20:00 20:24 22:03 23:00 Temp 97.0 97.0 Pulse 88 88 Resp 20 B/P (MAP) 115/70 104/58 (73) Pulse Ox 92 O2 Delivery Nasal Cannula Nasal Cannula Nasal Cannula O2 Flow Rate 3.5 3.5 3.5 09/09/21 09/09/21 03:00 07:25 Temp 97.0 97.0 Pulse 88 Resp 20 B/P (MAP) 134/62 (86) Pulse Ox 89 92 O2 Delivery Nasal Cannula Nasal Cannula O2 Flow Rate 3.5 3.5 Intake and Output 09/08/21 09/08/21 09/09/21 15:00 23:00 07:00 Intake Total 100 ml 450 ml Balance 100 ml 450 ml HAYLIE CAO MD Sep 09, 2021 08:25
[2021-09-09] MEDS: METOPROLOL TART IMMED RELEASE 25 MG TABLET. PO SCH ×2 (08:39→21:59)
[2021-09-09] MEDS: POTASSIUM CHLORIDE 20 MEQ TABLET.ER. PO SCH ×2 (08:39→21:59)
[2021-09-09] MEDS: FUROSEMIDE 20 MG TABLET PO SCH (08:40)
--- NOTE | 2021-09-09 09:37 | PDOC ---
PULMONARY PROGRESS NOTES DATE: 09/09/21 TIME: 09:36 Subjective Patient feels much better today. Fully awake. Denies any increased shortness of breath. Vitals Vital Signs Date Time Temp Pulse Resp B/P (MAP) Pulse Ox O2 Delivery O2 Flow Rate FiO2 09/09/21 08:39 81 105/51 09/09/21 07:25 92 Nasal Cannula 3.5 09/09/21 07:00 97.0 20 97.0 ROS: No Nausea, No Chest Pain, No Increase Cough General: Alert, No acute distress Lungs: Clear Cardiovascular: S1, S2, Other Abdomen: Soft Neuro Exam: Alert Extremities: Other (4+ pitting edema bilateral leg, ankle, feet) Skin: Warm Labs Laboratory Tests Test 09/07/21 12:16 09/07/21 16:55 09/07/21 21:29 09/08/21 07:25 Glucose (Fingerstick) 400 mg/dL (70-99) 293 mg/dL (70-99) 392 mg/dL (70-99) 141 mg/dL (70-99) Test 09/08/21 14:10 09/09/21 08:19 Sodium Level 132 mmol/L (136-145) Potassium Level 4.4 mmol/L (3.5-5.1) Chloride Level 80 mmol/L (98-107) Carbon Dioxide Level > 45 mmol/L (21-32) Anion Gap (6-14) Blood Urea Nitrogen 45 mg/dL (7-20) Creatinine 1.1 mg/dL (0.6-1.0) Estimated GFR (Cockcroft-Gault) 49.2 Glucose Level 375 mg/dL (70-99) Calcium Level 8.6 mg/dL (8.5-10.1) Glucose (Fingerstick) 70 mg/dL (70-99) Laboratory Tests Test 09/08/21 14:10 09/09/21 08:19 Sodium Level 132 mmol/L (136-145) Potassium Level 4.4 mmol/L (3.5-5.1) Chloride Level 80 mmol/L (98-107) Carbon Dioxide Level > 45 mmol/L (21-32) Anion Gap (6-14) Blood Urea Nitrogen 45 mg/dL (7-20) Creatinine 1.1 mg/dL (0.6-1.0) Estimated GFR (Cockcroft-Gault) 49.2 Glucose Level 375 mg/dL (70-99) Calcium Level 8.6 mg/dL (8.5-10.1) Glucose (Fingerstick) 70 mg/dL (70-99) Medications Active Scripts Medications Dose Route/Sig Max Daily Dose Days Date Category Dose Instructions Metolazone 2.5 Mg Tablet 1 Tab PO PRN DAILY PRN 08/22/21 Reported Furosemide 40 Mg Tablet 1 Tab PO BID 08/22/21 Reported Fish Oil 1,000 Mg Softgel ([place]-3 Fatty Acids/Fish Oil) 1 Each Capsule 1 Cap PO DAILY 30 08/22/21 Reported WITH MEALS Lantus Solostar (Insulin Glargine,Hum.rec.anlog) 100 Unit/1 Ml Insuln.pen 47 Unit SQ QHS 08/22/21 Reported Children's Claritin (Loratadine) 5 Mg Tab.chew 1 Tab PO BID 30 05/03/21 Reported Metoprolol Tartrate 25 Mg Tablet 0.5 Tab PO BID 03/01/21 Reported Synthroid (Levothyroxine Sodium) 100 Mcg Tablet 100 Mcg PO DAILY06 30 09/13/19 Rx Take in combination with 112mcg tablet to equal 212mcg daily Levothyroxine Sodium 112 Mcg Tablet 112 Mcg PO DAILY06 09/13/19 Rx Take in combination with 100mcg tablet to equal 212mcg daily Albuterol Sulfate Neb Soln (Albuterol Sulfate) 1.25 Mg/3 Ml Vial.neb 1 Vial NEB PRN Q6HRS PRN 09/11/19 Reported Combivent Respimat Inhal (Ipratropium/Albuterol Sulfate) 4 Gm Aer.w.adap 2 Inh IH PRN DAILY PRN 09/11/19 Reported Pravastatin Sodium 80 Mg Tablet 1 Tab PO QHS 09/11/19 Reported Multi Vitamin Daily (Multivitamin) 1 Each Tablet 1 Tab PO DAILY 30 09/11/19 Reported Klor-Con 10 (Potassium Chloride) 10 Meq Tablet.er 20 Meq PO TID 03/05/14 Reported Impression . IMPRESSION: 1. Progressive dyspnea, multifactorial. 2. Chronic respiratory failure. On home oxygen at 3 L. 3. Hjqxy-bb-dwwexmu cor pulmonale. 4. Mediastinal mass. This has grown progressively. Recent PET scan was posi tive. Previous mediastinal mass biopsy was nondiagnostic. Status post recent mediastinal mass biopsy c/w non-small cell lung cancer, favoring adenocarcinoma. 5. Coronary artery disease with previous coronary artery bypass grafting. 6. Recent hemoptysis status post bronchoscopy. Cultures to date have been negative. 7. 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 8. A 3.5 cm abdominal aortic aneurysm. 9. Severe compensated hypercapnia. Plan . Clinically better. I had a long discussion with patient as well as patient's daughter Audra previously.. I have explained to both of them about patient's severity of lung disease as well as new diagnosis of lung cancer. I also discussed advanced directives. Patient is agreeable to be DNR. She does not want to have any heroic measures in case of any cardiac or pulmonary arrest. She is now done with radiation. She is agreeable for skilled care and evaluation for hospice. Medical oncology consulted. Patient seen by Dr. Roldan/radiation oncology. She is not resectable. Status post radiation. At present I have discussed the patient again about her wishes for chemo. She is not interested in chemo at present. As such she does not want to have a port placement. Continue to titrate FiO2 down; currently on 4L NC Continue diuresis. Monitor renal function. Monitor I&O to keep intake less than output Activity as tolerated Monitor for improvement in her feet edema. Discussed with RN. Plan to evaluate for skilled care and hospice. Patient is DNR EFRA BROWNLEE MD Sep 09, 2021 09:37
[2021-09-09 11:00] VITALS: BP 136/67
[2021-09-09] MEDS ORDERED: HYDROcodone/APAP 5/325MG 1 TAB TABLET PO PRN (11:15)
[2021-09-09 15:00] VITALS: BP 128/68
[2021-09-09] MEDS ORDERED: FUROSEMIDE 40 MG/4 ML VIAL. IVP ONE (16:00)
--- NOTE | 2021-09-09 18:29 | NUR ---
refused to have pictures taken on BLE.
[2021-09-09 19:00] VITALS: BP 136/71
[2021-09-09] MEDS: ATORVASTATIN CALCIUM 20 MG TABLET PO SCH (21:59)
[2021-09-09] MEDS: INSULIN GLARGINE SYRINGE. SQ SCH (22:00)
[2021-09-09 23:00] VITALS: BP 137/59
--- NOTE | 2021-09-09 23:25 | PN ---
DATE: 09/09/2021 DAILY PROGRESS NOTE LOCATION: She is in room 408. SUBJECTIVE: This 70-year-old female remains hospitalized with swelling and shortness of breath. She has had a biopsy of her lung mass, which shows a poorly differentiated adenocarcinoma. She had one radiation treatment to date on Friday. Her daughter and granddaughter are present. We had a long discussion today with the reason she is not going home is because she knows she cannot take care of herself and they are looking for alternative avenues at discharge and have been looking at [facility]. OBJECTIVE: VITAL SIGNS: Stable. She is afebrile. GENERAL: She is awake and alert, complains still of back and upper chest pain and [place] will be added. CHEST: Decreased breath sounds. HEART: Regular rate and rhythm. ABDOMEN: Benign. EXTREMITIES: Trace edema. NEUROLOGIC: Intact and O2 remains in place. ASSESSMENT: 1. Shortness of breath, ongoing, multifactorial with lung tumor, acute on chronic cor pulmonale, chronic respiratory failure, on home O2 at 3 liters. 2. Edema, improving. 3. Coronary artery disease. PLAN: Continue supportive care. She is planning on finishing radiation, but at this point has no plans on doing chemotherapy. JACQUE/BARBARA/ALECIA DR: Tara TID: [id number]
[2021-09-10 03:00] VITALS: BP 125/78
[2021-09-10] MEDS: ACETAMINOPHEN 325 MG TABLET. PO PRN ×2 (04:34→18:10)
[2021-09-10] MEDS: LEVOTHYROXINE 112 MCG TABLET PO SCH (06:26)
[2021-09-10] MEDS: LEVOTHYROXINE 100 MCG TABLET PO SCH (06:26)
[2021-09-10 07:00] VITALS: BP 131/65
[2021-09-10] MEDS: IPRATRPIUM/ALBUTEROL 0.5/2.5MG 3 ML NEBU. NEB SCH ×4 (07:29→18:19)
[2021-09-10] MEDS: POTASSIUM CHLORIDE 20 MEQ TABLET.ER. PO SCH ×2 (08:18→21:19)
[2021-09-10] MEDS: FUROSEMIDE 20 MG TABLET PO SCH ×2 (08:19→13:48)
[2021-09-10] MEDS: METOPROLOL TART IMMED RELEASE 25 MG TABLET. PO SCH ×2 (08:19→21:21)
--- NOTE | 2021-09-10 08:55 | PDOC ---
Provider Note Date of Service: DATE: 09/10/21 TIME: 08:53 Provider Note status same, exam same , labs same- await snf , isaias tx in progress Justifications for Admission Other Justification JASPER HANNAH MD Sep 10, 2021 08:55
--- NOTE | 2021-09-10 10:28 | PDOC ---
PULMONARY PROGRESS NOTES DATE: 09/10/21 TIME: 10:25 Subjective Patient seen resting in bed. denies shortness of breath, does not appear in any pain. anticipating discharge to snf when arranged. Vitals Vital Signs Date Time Temp Pulse Resp B/P (MAP) Pulse Ox O2 Delivery O2 Flow Rate FiO2 09/10/21 08:19 64 131/65 09/10/21 08:00 Nasal Cannula 3.5 09/10/21 07:30 94 09/10/21 07:00 98.0 18 98.0 ROS: No Nausea, No Chest Pain, No Increase Cough General: Alert, No acute distress Lungs: Clear Cardiovascular: S1, S2, Other Abdomen: Soft Neuro Exam: Alert Extremities: Other (4+ pitting edema bilateral leg, ankle, feet) Skin: Warm Labs Laboratory Tests Test 09/08/21 14:10 09/09/21 08:19 09/10/21 07:25 Sodium Level 132 mmol/L (136-145) Potassium Level 4.4 mmol/L (3.5-5.1) Chloride Level 80 mmol/L (98-107) Carbon Dioxide Level > 45 mmol/L (21-32) Anion Gap (6-14) Blood Urea Nitrogen 45 mg/dL (7-20) Creatinine 1.1 mg/dL (0.6-1.0) Estimated GFR (Cockcroft-Gault) 49.2 Glucose Level 375 mg/dL (70-99) Calcium Level 8.6 mg/dL (8.5-10.1) Glucose (Fingerstick) 70 mg/dL (70-99) 166 mg/dL (70-99) Laboratory Tests Test 09/10/21 07:25 Glucose (Fingerstick) 166 mg/dL (70-99) Medications Active Scripts Medications Dose Route/Sig Max Daily Dose Days Date Category Dose Instructions Metolazone 2.5 Mg Tablet 1 Tab PO PRN DAILY PRN 08/22/21 Reported Furosemide 40 Mg Tablet 1 Tab PO BID 08/22/21 Reported Fish Oil 1,000 Mg Softgel ([place]-3 Fatty Acids/Fish Oil) 1 Each Capsule 1 Cap PO DAILY 30 08/22/21 Reported WITH MEALS Lantus Solostar (Insulin Glargine,Hum.rec.anlog) 100 Unit/1 Ml Insuln.pen 47 Unit SQ QHS 08/22/21 Reported Children's Claritin (Loratadine) 5 Mg Tab.chew 1 Tab PO BID 30 05/03/21 Reported Metoprolol Tartrate 25 Mg Tablet 0.5 Tab PO BID 03/01/21 Reported Synthroid (Levothyroxine Sodium) 100 Mcg Tablet 100 Mcg PO DAILY06 30 09/13/19 Rx Take in combination with 112mcg tablet to equal 212mcg daily Levothyroxine Sodium 112 Mcg Tablet 112 Mcg PO DAILY06 09/13/19 Rx Take in combination with 100mcg tablet to equal 212mcg daily Albuterol Sulfate Neb Soln (Albuterol Sulfate) 1.25 Mg/3 Ml Vial.neb 1 Vial NEB PRN Q6HRS PRN 09/11/19 Reported Combivent Respimat Inhal (Ipratropium/Albuterol Sulfate) 4 Gm Aer.w.adap 2 Inh IH PRN DAILY PRN 09/11/19 Reported Pravastatin Sodium 80 Mg Tablet 1 Tab PO QHS 09/11/19 Reported Multi Vitamin Daily (Multivitamin) 1 Each Tablet 1 Tab PO DAILY 30 09/11/19 Reported Klor-Con 10 (Potassium Chloride) 10 Meq Tablet.er 20 Meq PO TID 03/05/14 Reported Impression . IMPRESSION: 1. Progressive dyspnea, multifactorial. 2. Chronic respiratory failure. On home oxygen at 3 L. 3. Zygff-ux-paqwzen cor pulmonale. 4. Mediastinal mass. This has grown progressively. Recent PET scan was positive. Previous mediastinal mass biopsy was nondiagnostic. Status post recent mediastinal mass biopsy c/w non-small cell lung cancer, favoring adenocarcinoma. 5. Coronary artery disease with previous coronary artery bypass grafting. 6. Recent hemoptysis status post bronchoscopy. Cultures to date have been negative. 7. Positive PET scan revealing a large right superior paramediastinal mass withinternal necrosis, SUV of 16.4. 8. A 3.5 cm abdominal aortic aneurysm. 9. Severe compensated hypercapnia. Plan . 09/10 patient is a DNR completed radiation, does not wish to pursue chemo planning fro skilled care continue with diuresis activity as tolerated. 09/09 Clinically better. I had a long discussion with patient as well as patient's daughter Audra previously.. I have explained to both of them about patient's severity of lung disease as well as new diagnosis of lung cancer. I also discussed advanced directives. Patient is agreeable to be DNR. She does not want to have any heroic measures in case of any cardiac or pulmonary arrest. She is now done with radiation. She is agreeable for skilled care and evaluation for hospice. Medical oncology consulted. Patient seen by Dr. Roldan/radiation oncology. She is not resectable. Status post radiation. At present I have discussed the patient again about her wishes for chemo. She is not interested in chemo at present. As such she does not want to have a port placement. Continue to titrate FiO2 down; currently on 4L NC Continue diuresis. Monitor renal function. Monitor I&O to keep intake less than output Activity as tolerated Monitor for improvement in her feet edema. Discussed with RN. Plan to evaluate for skilled care and hospice. Patient is DNR EFRA BROWNLEE MD Sep 10, 2021 10:28
[2021-09-10 11:10] VITALS: BP 116/61
--- NOTE | 2021-09-10 12:23 | PDOC ---
GHANSHYAMRALF GUILLEN CLIENT BUSINESS MANAGER 09/10/21 1223: CARDIO Progress Notes Date and Time Date of Service 09/10/21 Time of Evaluation 1230 Subjective Subjective: No Chest Pain, No Palpitations, No Dizziness, Other Vitals Vitals Vital Signs Date Time Temp Pulse Resp B/P (MAP) Pulse Ox O2 Delivery O2 Flow Rate FiO2 09/10/21 11:10 97.5 79 18 116/61 (79) 96 Nasal Cannula 3.5 97.5 Weight Weight [ ] Input and Output Intake and Output Intake and Output 09/10/21 07:00 Intake Total 1000 ml Output Total 4 ml Balance 996 ml Intake Oral 1000 ml Stool Total 4 ml # Voids 3 Laboratory Labs Laboratory Tests Test 09/10/21 07:25 Glucose (Fingerstick) 166 mg/dL (70-99) Physical Exam HEENT: Neck Supple W Full Motion Chest: Symmetric LUNGS: Other (diminished bases) Heart: RRR Abdomen: Soft N/T, Other (obese) Extremities: Other (3-4+ bilateral LE edema ) Neurology: alert, oriented, follow commands Assessment Assessment 1. Acute on chronic respiratory failure, multifactorial. 2. AECOPD: Treat per pulmonary team 3. Acute on chronic cor pulmonale; s/p diuresis 4. Severe pulmonary HTN: no vasoreactivity per recent RHC 5. Large mediastinal mass: S/P bronchoscopy. Biopsy nondiagnostic. S/p repeat biopsy with non-small cell lung cancer, favoring adenocarcinoma. S/p radiation therapy. Patient has declined chemotherapy. 6. Possible cirrhosis per recent PET scan, defer to PCP. LFTs mildly elevated 7. PAFIB: could not ascertain burden. Presently SR. S/p Watchman device. off tele 8. CAD: past CABG 9. Hyperlipidemia 10. Diabetes, II 11. Pseudohemoptysis from epistaxis, patient had cauterization by ENT in the past. 12. Hypokalemia; replaced Recommendations Lasix therapy Continue metoprolol for rate control Follow pulmonary recs Poor prognosis -consider hospice Justicifation of Admission Dx: Justifications for Admission: Justification of Admission Dx: Yes HAYLIE CAO MD 09/10/21 7352: CARDIO Progress Notes Assessment Assessment Patient seen and examined. Agree with BREWERY PUMPER's assessment and plan as stated above. GHANSHYAMRALF APRN Sep 10, 2021 12:23 HAYLIE CAO MD Sep 10, 2021 17:49
--- NOTE | 2021-09-10 13:04 | NUR ---
NENO following. Discussed with RN, pt worked with therapy today. NENO met with pt, pt thinks her daughter has it arranged for her to go to [facility] and to speak with her daughter, Audra about discharge planning. NENO spoke with Audra - she is working on the paperwork for [facility], wants SNF referral to [facility]. NENO phoned and faxed referral to [facility] - awaiting acceptance decision. NENO will continue to follow. Addendum: 09/10/21 at 1305 by ADI LAZCANO SW requested repeat PCR COVID test for placement. Addendum: 09/10/21 at 1510 by ADI LAZCANO Pt accepted at [facility] for SNF. RN, Dr. Lowry and pt's daughter, Audra notified.
[2021-09-10 15:19] VITALS: BP 118/68
[2021-09-10] MEDS: INSULIN GLARGINE SYRINGE. SQ SCH ×2 (21:00→22:32)
[2021-09-10] MEDS: TEMAZEPAM 15 MG CAPSULE PO PRN (21:20)
[2021-09-10] MEDS: ATORVASTATIN CALCIUM 20 MG TABLET PO SCH (21:20)
[2021-09-10 23:00] VITALS: BP 99/58
[2021-09-11 03:00] VITALS: BP 129/54
[2021-09-11] MEDS: LEVOTHYROXINE 112 MCG TABLET PO SCH (06:19)
[2021-09-11] MEDS: LEVOTHYROXINE 100 MCG TABLET PO SCH (06:19)
[2021-09-11 07:00] VITALS: BP 120/62
[2021-09-11] MEDS: IPRATRPIUM/ALBUTEROL 0.5/2.5MG 3 ML NEBU. NEB SCH ×2 (07:34→11:27)
--- NOTE | 2021-09-11 08:30 | SNU/HH DC ---
DISCHARGE ORDERS DISCHARGE INFORMATION: FINAL DIAGNOSIS Problems Medical Problems: (1) Acute exacerbation of congestive heart failure Status: Acute (2) Chronic respiratory failure Status: Acute CONDITION ON DISCHARGE: Stable CODE STATUS: Code Status: DNR/DNI SENIOR CARE: SNF STAY <30 DAYS: Yes HOSPICE: HOSPICE: Yes HOSPICE EVAL & TREAT: Yes POST DISCHARGE ORDERS: ACTIVITY ORDERS: Activity as tolerated WEIGHT BEARING STATUS: As tolerated DIET AFTER DISCHARGE: Regular WOUND/INCISION CARE: No wound care needed CHECKS AFTER DISCHARGE: CHECKS AFTER DISCHARGE: Check blood sugar, ac/hs, Check your Temp as needed, Weigh Yourself Daily TREATMENT/EQUIPMENT ORDERS: ADAPTIVE EQUIPMENT NEEDED: None RESPIRATORY EQUIPMENT NEEDED: Oxygen Physical Therapy For: Evalulation/Treatment Occupational Therapy For: Evaluation/Treatment DISCHARGE MEDICATIONS: Home Meds Active Scripts Levothyroxine Sodium (SYNTHROID) 100 Mcg Tablet, 100 MCG PO DAILY06 for thyroid for 30 Days, #30 TAB 2 Refills Take in combination with 112mcg tablet to equal 212mcg daily Prov:ALEXUS LAZARO MD 09/13/19 Levothyroxine Sodium (LEVOTHYROXINE SODIUM) 112 Mcg Tablet, 112 MCG PO DAILY06 for thyroid for 30 Days, #30 TAB 2 Refills Take in combination with 100mcg tablet to equal 212mcg daily Prov:ALEXUS LAZARO MD 09/13/19 Reported Medications Metolazone (METOLAZONE) 2.5 Mg Tablet, 1 TAB PO PRN DAILY PRN for swelling 08/22/21 Furosemide (FUROSEMIDE) 40 Mg Tablet, 1 TAB PO BID for chf 08/22/21 [place]-3 Fatty Acids/Fish Oil (FISH OIL 1,000 MG SOFTGEL) 1 Each Capsule, 1 CAP PO DAILY for vitamin for 30 Days, #30 CAP 0 Refills WITH MEALS 08/22/21 Insulin Glargine,Hum.rec.anlog (LANTUS SOLOSTAR) 100 Unit/1 Ml Insuln.pen, 47 UNIT SQ QHS for diabetes, #15 ML 3 Refills 08/22/21 Loratadine (CHILDREN'S CLARITIN) 5 Mg Tab.chew, 1 TAB PO BID for allergy symptoms for 30 Days, #60 TAB 0 Refills 05/03/21 Metoprolol Tartrate (METOPROLOL TARTRATE) 25 Mg Tablet, 0.5 TAB PO BID for heart rate, #180 TAB 1 Refill 03/01/21 Albuterol Sulfate (ALBUTEROL SULFATE NEB SOLN) 1.25 Mg/3 Ml Vial.neb, 1 VIAL NEB PRN Q6HRS PRN for SHORTNESS OF BREATH, #150 ML 09/11/19 Ipratropium/Albuterol Sulfate (COMBIVENT RESPIMAT INHAL) 4 Gm Aer.w.adap, 2 INH IH PRN DAILY PRN for SHORTNESS OF BREATH, INHALER 09/11/19 Pravastatin Sodium (PRAVASTATIN SODIUM) 80 Mg Tablet, 1 TAB PO QHS for , #90 TAB 1 Refill 09/11/19 Multivitamin (MULTI VITAMIN DAILY) 1 Each Tablet, 1 TAB PO DAILY for for 30 Days, #30 TAB 0 Refills 09/11/19 Potassium Chloride (KLOR-CON 10) 10 Meq Tablet.er, 20 MEQ PO TID for SUPPLEMENT, TAB 03/05/14 JASPER HANNAH MD Sep 11, 2021 08:30
--- NOTE | 2021-09-11 08:34 | PDOC ---
Provider Note Date of Service: DATE: 09/11/21 TIME: 08:32 Provider Note [id number] Justifications for Admission Other Justification JASPER HANNAH MD Sep 11, 2021 08:34
[2021-09-11] MEDS: METOPROLOL TART IMMED RELEASE 25 MG TABLET. PO SCH (08:54)
[2021-09-11] MEDS: POTASSIUM CHLORIDE 20 MEQ TABLET.ER. PO SCH (08:55)
[2021-09-11] MEDS: FUROSEMIDE 20 MG TABLET PO SCH (08:55)
--- NOTE | 2021-09-11 09:26 | PDOC ---
RALF MORRISSEY HEAD OF PHYSICS 09/11/21 0926: CARDIO Progress Notes Date and Time Date of Service 09/11/21 Time of Evaluation 1015 Subjective Subjective: No Chest Pain, No Palpitations, No Dizziness, Other (not more SOA) Vitals Vitals Vital Signs Date Time Temp Pulse Resp B/P (MAP) Pulse Ox O2 Delivery O2 Flow Rate FiO2 09/11/21 08:54 82 120/62 09/11/21 07:36 94 Nasal Cannula 3.5 09/11/21 07:00 97.8 18 97.8 Weight Weight [ ] Input and Output Intake and Output Intake and Output 09/11/21 07:00 Intake Total 700 ml Balance 700 ml Intake Oral 700 ml # Voids 6 # Bowel Movements 1 Laboratory Labs Laboratory Tests Test 09/10/21 22:25 09/11/21 08:04 Glucose (Fingerstick) 331 mg/dL (70-99) 159 mg/dL (70-99) Physical Exam HEENT: Neck Supple W Full Motion Chest: Symmetric LUNGS: Other (diminished bases) Heart: RRR (heart tones regular) Abdomen: Soft N/T, Other (obese) Extremities: Other (3+ bilateral LE edema ) Neurology: alert, oriented, follow commands Assessment Assessment 1. Acute on chronic respiratory failure, multifactorial. 2. AECOPD: Treat per pulmonary team 3. Acute on chronic cor pulmonale; s/p diuresis 4. Severe pulmonary HTN: no vasoreactivity per recent RHC 5. Large mediastinal mass: S/P bronchoscopy. Biopsy nondiagnostic. S/p repeat biopsy with non-small cell lung cancer, favoring adenocarcinoma. S/p radiation therapy. Patient has declined chemotherapy. 6. Possible cirrhosis per recent PET scan, defer to PCP. LFTs mildly elevated 7. PAFIB: could not ascertain burden. Presently SR. S/p Watchman device. off tele 8. CAD: past CABG 9. Hyperlipidemia 10. Diabetes, II 11. Pseudohemoptysis from epistaxis, patient had cauterization by ENT in the past. 12. Hypokalemia; replaced Recommendations Lasix therapy Continue metoprolol for rate control Follow pulmonary recs Okay to dischargw to SNF from a CV standpoint Justicifation of Admission Dx: Justifications for Admission: Justification of Admission Dx: Yes HAYLIE CAO MD 09/11/21 1604: CARDIO Progress Notes Assessment Assessment Patient seen and examined. Agree with [employer]'s assessment and plan. Acute on chronic diastolic heart failure/cor pulmonale improved with diuresis PAF, presently sinus rhythm CAD s/p CABG clinically stable Continue treatment for acute COPD exacerbation per pulmonary team Mediastinal mass biopsy c/w adenocarcinoma, s/p radiation therapy, patient declining chemotherapy Poor prognosis RALF MORRISSEY APRN Sep 11, 2021 09:26 HAYLIE CAO MD Sep 11, 2021 16:04
--- NOTE | 2021-09-11 09:29 | NUR ---
NENO following. Discussed with RN, discharge orders faxed to [facility]. Awaiting transportation time. NENO will continue to follow. Addendum: 09/11/21 at 1044 by ADI LAZCANO Wilber ALVARADO arranged transport for 1200. RN and family notified.
--- NOTE | 2021-09-11 09:57 | DS ---
DATE OF DISCHARGE: 09/11/2021 HOSPITAL SUMMARY: The patient was admitted with recurrent edema from severe pulmonary hypertension. She has a large necrotic mass in the central mediastinum, which on second biopsy showed evidence of non-small cell carcinoma of the lung. Laboratory studies showed hypokalemia during diuretic therapy, but subsequent potassium was normal at 4.4. She received radiation therapy per Dr. Washington and has declined to do chemotherapy and thus will not have a port placement at this time. She has decided to become DNR and hospice care and will be discharged to [facility] with current medicines the same. FINAL DIAGNOSES: 1. Chronic edema secondary to severe pulmonary hypertension. 2. Non-small cell carcinoma of the lung, stage III. 3. Hypokalemia secondary to diuretic use. PROCEDURES: Mediastinal mass biopsy. COMPLICATIONS: None. CONSULTATION: Dr. Washington, , Dr. Willis. DISPOSITION: Home meds remain the same. She is metolazone as too much potassium loss occurs from this drug. She remains a DNR. Regular diet. PROGNOSIS: Guarded. EVANGELINA/THERON/ROSIE DR: EVANGELINA/vishnu TID: [id number]
[2021-09-11 11:00] VITALS: BP 152/73
--- NOTE | 2021-09-11 11:39 | NUR ---
report called to HCR
== END 2021-09-11 12:10 | DRG 180 ==
LOC: ER 00:40 → ED HOLD 02:07 → 5 SOUTH 15:26 → 4 NORTH 09-06 06:25
PROVIDERS: ADMIT Family Medicine; ATTEND Family Medicine
PROC: 0BBC3ZX Excision of Right Upper Lung Lobe, Percutaneous Approach, Diagnostic (ICD-10-PCS; principal; 2021-08-31)
DX: C34.90 Malignant neoplasm of unspecified part of unspecified bronchus or lung (principal); I50.33 Acute on chronic diastolic (congestive) heart failure; J96.20 Acute and chronic respiratory failure, unspecified whether with hypoxia or hypercapnia; J44.1 Chronic obstructive pulmonary disease with (acute) exacerbation; E44.0 Moderate protein-calorie malnutrition; Z68.41 Body mass index [BMI] 40.0-44.9, adult; E03.9 Hypothyroidism, unspecified; E11.9 Type 2 diabetes mellitus without complications; E78.00 Pure hypercholesterolemia, unspecified; E78.5 Hyperlipidemia, unspecified; E87.6 Hypokalemia; I11.0 Hypertensive heart disease with heart failure; I25.10 Atherosclerotic heart disease of native coronary artery without angina pectoris; I27.21 Secondary pulmonary arterial hypertension; I27.81 Cor pulmonale (chronic); I48.0 Paroxysmal atrial fibrillation; I71.4 Abdominal aortic aneurysm, without rupture; R04.0 Epistaxis; T50.2X5A Adverse effect of carbonic-anhydrase inhibitors, benzothiadiazides and other diuretics, initial encounter; Z79.4 Long term (current) use of insulin; Z80.0 Family history of malignant neoplasm of digestive organs; Z80.6 Family history of leukemia; Z85.118 Personal history of other malignant neoplasm of bronchus and lung; Z87.891 Personal history of nicotine dependence; Z92.3 Personal history of irradiation; Z95.1 Presence of aortocoronary bypass graft; Z95.818 Presence of other cardiac implants and grafts; Z99.81 Dependence on supplemental oxygen; E66.9 Obesity, unspecified; F32.A Depression, unspecified; M19.90 Unspecified osteoarthritis, unspecified site; G47.33 Obstructive sleep apnea (adult) (pediatric); Z20.822 Contact with and (suspected) exposure to COVID-19; Z88.0 Allergy status to penicillin; Z66 Do not resuscitate
CPT/HCPCS: 32408; 36415; 36600; 71045; 76380; 80048; 80053; 82805; 82962; 83735; 83880; 84132; 84484; 85025; 88184; 88185; 88305; 88341; 88342; 93005; 94640; 94760; 96374; 99152; J1815; J1940; J2250; J2310; J3010; J3490; U0003; 97530-GO; 97535-GO; 99285-25; G0378; Q0163

== ENCOUNTER 2021-09-14 21:45 | Inpatient (IN) | payer MEDICARE, BC ==
[~2021-09-14] VITALS: Ht 182.9 cm; Wt 104.5 kg
--- NOTE | 2021-09-14 22:32 | EKG ---
[facility] [address] [place] [address] Test Date: 2021-09-14 Test Time: 22:08:01 Pat Name: WILDA GRECO Department: Room: Gender: F Reconcilement Clerk: : 1950 Requested By: KEI NARAYAN Order Number: [id number] Reading MD: Socrates Krause Measurements Intervals [place] Rate: 70 P: 42 NJ: 220 QRS: 131 QRSD: 90 T: -37 QT: 364 QTc: 396 Interpretive Statements SINUS RHYTHM PROLONGED [place] INTERVAL ST/T ABNORMALITIES, CONSIDER INFERIOR ISCHEMIA OR LV STRAIN ABNORMAL ECG Electronically Signed On 09-15-2021 18:30:56 INDEPENDENT VIDEO PRODUCER by Socrates Krause
[2021-09-14 22:53] LABS: BASO # 0.1 x10^3/uL (0.0-0.2); BASO % 1 % (0-3); EOS % 0 % (0-3); HEMATOCRIT 31.6 % (36.0-47.0); LYMPH # 2.1 x10^3/uL (1.0-4.8); LYMPH % 18 % (24-48); MEAN CORPUSCULAR HEMOGLOBIN 26 pg (25-35); MEAN CORPUSCULAR HGB CONC 32 g/dL (31-37); MEAN CORPUSCULAR VOLUME 83 fL (79-100); MONO # 1.1 x10^3/uL (0.0-1.1); MONO % 10 % (0-9); NEUT % 71 % (31-73); PLATELET COUNT 214 x10^3/uL (140-400); RED BLOOD COUNT 3.81 x10^6/uL (3.50-5.40); RED CELL DISTRIBUTION WIDTH 21.3 % (11.5-14.5); WHITE BLOOD COUNT 11.3 x10^3/uL (4.0-11.0)
[2021-09-14 23:09] LABS: ALBUMIN 2.6 g/dL (3.4-5.0); ALBUMIN/GLOBULIN RATIO 0.8 (1.0-1.7); ALK PHOS 341 U/L (46-116); ALT (SGPT) 27 U/L (14-59); AST (SGOT) 25 U/L (15-37); BLOOD UREA NITROGEN 51 mg/dL (7-20); BUN/CREATININE RATIO 51 (6-20); CALCIUM 8.4 mg/dL (8.5-10.1); CHLORIDE 88 mmol/L (98-107); GLUCOSE 246 mg/dL (70-99); SODIUM 132 mmol/L (136-145); TOTAL BILIRUBIN 1.3 mg/dL (0.2-1.0); TOTAL PROTEIN 5.9 g/dL (6.4-8.2)
[2021-09-14 23:14] LABS: CARBON DIOXIDE > 45 mmol/L (21-32); POTASSIUM 6.1 mmol/L (3.5-5.1)
--- NOTE | 2021-09-14 23:29 | PHYS DOC ---
Past Medical History Past Medical History: CAD, CHF, COPD, Diabetes-Type II, High Cholesterol, Heart Disease, Hypertension, Hypothyroid, Other Additional Past Medical Histor: 0xygen dependent Past Surgical History: Other Additional Past Surgical Histo: see surgical history Smoking Status: Unknown if ever smoked Alcohol Use: None Drug Use: None General Adult EDM: Chief Complaint: SHORTNESS OF BREATH HPI: HPI: Patient is a 70 year old female who [facility]. She states she is not going [facility] because they have not been helping her looks a day. Patient is a DNR now on hospice. Patient has a history of CAD, COPD, CHF, UTI, hypothyroidism, diabetes, high cholesterol, lung cancer stage III., Pulmonary hypertension, hypokalemia due to diuretics. Patient states that she has chronic pain but no new pain. She denies chest pain, numbness or tingling, focal weakness, headache, dizziness, syncope, fever, chills, abdominal pain, nausea, vomiting, diarrhea. Review of Systems: Review of Systems: Constitutional: Denies fever or chills. [] Eyes: Denies change in visual acuity. [] HENT: Denies nasal congestion or sore throat. [] Respiratory: Denies cough or +shortness of breath. [] Cardiovascular: Denies chest pain or +edema. [] GI: Denies abdominal pain, nausea, vomiting, bloody stools or diarrhea. [] : Denies dysuria. [] Musculoskeletal: Denies back pain or joint pain. [] Integument: Denies rash. [] Neurologic: Denies headache, focal weakness or sensory changes. [] Endocrine: Denies polyuria or polydipsia. [] Lymphatic: Denies swollen glands. [] Psychiatric: Denies depression or anxiety. [] Heart Score: C/O Chest Pain: No HEART Score for Chest Pain: HEART Score for Chest Pain Response (Comments) Value History Slighlty/Non-Suspicious 0 ECG Nonspecific Repolarizatio 1 Age > 65 2 Risk Factors >3 Risk Factors or Hx CAD 2 Troponin >1-<3x Normal Limit 1 Total 6 Risk Factors: Risk Factors: DM, Current or recent (<one month) smoker, HTN, HLP, family history of CAD, obesity. Risk Scores: Score 0 - 3: 2.5% MACE over next 6 weeks - Discharge Home Score 4 - 6: 20.3% MACE over next 6 weeks - Admit for Clinical Observation Score 7 - 10: 72.7% MACE over next 6 weeks - Early Invasive Strategies Allergies: Allergies: Allergies Coded Allergies Type Severity Reaction Last Updated Verified Penicillins Adverse Reaction Mild yeast infections 08/29/21 Yes Physical Exam: PE: Constitutional: Well developed, well nourished, no acute distress, non-toxic appearance. [] HENT: Normocephalic, atraumatic, bilateral external ears normal, oropharynx moist, no oral exudates, nose normal. [] Eyes: PERRLA, EOMI, conjunctiva normal, no discharge. [] Neck: Normal range of motion, no tenderness, supple, no stridor. [] Cardiovascular:Heart rate regular rhythm, no murmur [] Lungs & Thorax: Bilateral upper breath sounds coarse and lower diminished to auscultation [] Abdomen: Bowel sounds normal, soft, no tenderness, no masses, no pulsatile masses. [] Skin: Warm, dry, no erythema, no rash. [] Back: No tenderness, no CVA tenderness. [] Extremities: No tenderness, no cyanosis, no clubbing, ROM intact, bilateral lower extremity 4+ edema. [] Neurologic: Alert and oriented X 3, normal motor function, normal sensory function, no focal deficits noted. [] Psychologic: Affect normal, judgement normal, mood normal. [] Current Patient Data: Labs: Laboratory Tests Test 09/14/21 22:45 White Blood Count 11.3 x10^3/uL (4.0-11.0) H Red Blood Count 3.81 x10^6/uL (3.50-5.40) Hemoglobin 10.0 g/dL (12.0-15.5) L Hematocrit 31.6 % (36.0-47.0) L Mean Corpuscular Volume 83 fL (79-100) Mean Corpuscular Hemoglobin 26 pg (25-35) Mean Corpuscular Hemoglobin Concent 32 g/dL (31-37) Red Cell Distribution Width 21.3 % (11.5-14.5) H Platelet Count 214 x10^3/uL (140-400) Neutrophils (%) (Auto) 71 % (31-73) Lymphocytes (%) (Auto) 18 % (24-48) L Monocytes (%) (Auto) 10 % (0-9) H Eosinophils (%) (Auto) 0 % (0-3) Basophils (%) (Auto) 1 % (0-3) Neutrophils # (Auto) 8.0 x10^3/uL (1.8-7.7) H Lymphocytes # (Auto) 2.1 x10^3/uL (1.0-4.8) Monocytes # (Auto) 1.1 x10^3/uL (0.0-1.1) Eosinophils # (Auto) 0.0 x10^3/uL (0.0-0.7) Basophils # (Auto) 0.1 x10^3/uL (0.0-0.2) Platelet Estimate Pending Sodium Level 132 mmol/L (136-145) L Potassium Level 6.1 mmol/L (3.5-5.1) *H Chloride Level 88 mmol/L (98-107) L Carbon Dioxide Level > 45 mmol/L (21-32) H Anion Gap (6-14) Blood Urea Nitrogen 51 mg/dL (7-20) H Creatinine 1.0 mg/dL (0.6-1.0) Estimated GFR (Cockcroft-Gault) 55.0 BUN/Creatinine Ratio 51 (6-20) H Glucose Level 246 mg/dL (70-99) H Calcium Level 8.4 mg/dL (8.5-10.1) L Total Bilirubin 1.3 mg/dL (0.2-1.0) H Aspartate Amino Transferase (AST) 25 U/L (15-37) Alanine Aminotransferase (ALT) 27 U/L (14-59) Alkaline Phosphatase 341 U/L (46-116) H Troponin I High Sensitivity 69 ng/L (4-50) H IE-Jch-I-Type Natriuretic Peptide 7324 pg/mL (0-124) H Total Protein 5.9 g/dL (6.4-8.2) L Albumin 2.6 g/dL (3.4-5.0) L Albumin/Globulin Ratio 0.8 (1.0-1.7) L Laboratory Tests 09/14/21 22:45 Laboratory Tests 09/14/21 22:45 Vital Signs: Vital Signs Date Time Temp Pulse Resp B/P (MAP) Pulse Ox O2 Delivery O2 Flow Rate FiO2 3/11/22 23:17 68 22 113/58 (60) 93 Nasal Cannula 6.0 09/14/21 21:55 98.6 98.6 EKG: EK and read by Dr. Patterson as sinus rhythm with LVH repolarization and new T wave inversions in V3 through V6, no STEMI. Radiology/Procedures: Radiology/Procedures: [] Impression: [facility] [address] [place] [address] IMAGING REPORT Signed PATIENT: WILDA GRECO ACCOUNT: [id number] : 1950 LOCATION: ER AGE: 70 SEX: F EXAM STATUS: REG ER ORD. PHYSICIAN: KEI NARAYAN APRN REASON: soa PROCEDURE: PORTABLE CHEST 1V XR CHEST 1V History: Reason: soa / Spl. Instructions: / History: Comparison: August 29, 2021 Findings: Cardiac megaly. Enlarged pulmonary vasculature. Prior median sternotomy. Elevation the right hemidiaphragm, unchanged. No pleural effusion. Mild ill- defined mid and bibasilar opacities. No pneumothorax. Impression: 1. Mild ill-defined mid and bibasilar opacities, may represent atelectasis or infiltrates. Electronically signed by: Devang Barnard DO (09/14/2021 11:28 PM) [facility] DICTATED and SIGNED BY: DEVANG BARNARD DO DATE: 09/14/21 [id number] 0 Course & Med Decision Making: Course & Med Decision Making Pertinent Labs and Imaging studies reviewed. (See chart for details) See HPI. Alert and oriented x4. Speaks in full clear sentences. Bilateral lower extremity 4+ edema. Patient skin is dusky. She is on her normal 4 L of oxygen satting at 95%. Lab work is at her norm levels. Her potassium is actually high at 6.1 today. Lungs are coarse in upper lobes and diminished in lower lobes. She does have a loose cough. No respiratory distress. Currently laying on her side trying to sleep. Patient does have some EKG changes with T wave inversion in V3 through V6 compared to August 22, 2021. I spoke to Dr. Hannah and he states to put her on MedSurg and restart her medications except for the potassium. States she does not need to be on telemetry. [] Dragon Disclaimer: Macy Disclaimer: This electronic medical record was generated, in whole or in part, using a voice recognition dictation system. Departure Departure Impression: Primary Impression: CHF exacerbation Qualified Codes: I50.9 - Heart failure, unspecified Disposition: ADMITTED INPATIENT Admitting Physician: Jasper Hannah Condition: STABLE Referrals: JASPER HANNAH MD (PCP) KEI NARAYAN HAZARDOUS WASTE TECHNICIAN Sep 14, 2021 23:29
--- NOTE | 2021-09-14 23:31 | RAD ---
XR CHEST 1V History: Reason: soa / Spl. Instructions: / History: Comparison: August 29, 2021 Findings: Cardiac megaly. Enlarged pulmonary vasculature. Prior median sternotomy. Elevation the right hemidiap hragm, unchanged. No pleural effusion. Mild ill-defined mid and bibasilar opacities. No pneumothorax. Impression: 1. Mild ill-defined mid and bibasilar opacities, may represent atelectasis or infiltrates. Electronically signed by: Devang Barnard DO (09/14/2021 11:28 PM) [facility]
[2021-09-15 00:16] LABS: BASE EXCESS COOX 15 mmol/L (-3-3); HCO3 COOX 42 mmol/L (21-28); METHEMOGLOBIN 0.5 % (0.0-1.9); OXYHEMOGLOBIN 86.8 %; PO2 COOX 57 mmHg (65-108); SAT O2 COOX 88 % (92-99)
[2021-09-15 00:19] LABS: PCO2 COOX 62 mmHg (35-46)
[2021-09-15 02:30] LABS: AMORPHOUS SEDIMENT,UR PRESENT /HPF; BACTERIA,URINE MODERATE /HPF (0-FEW); BILIRUBIN,URINE SMALL (NEG); CLARITY,URINE CLEAR; COLOR,URINE YELLOW; HYALINE CASTS, URINE MODERATE /HPF; NITRITE,URINE NEGATIVE (NEG); PH,URINE 5.5 (<5.0-8.0); PROTEIN,URINE 100 mg/dL (NEG-TRACE); RBC,URINE 0 /HPF (0-2); WBC,URINE OCC /HPF (0-4)
--- NOTE | 2021-09-15 02:30 | NUR ---
Call to Dr. Lowry prior to arrival of Patient to see idf he wanted Covid swab done. Dr. Lowry did not want swab done. Dr. Lowry wanted Home medications on chart renewed except for Potassium per telephone orders.
--- NOTE | 2021-09-15 02:45 | NUR ---
The patient, WILDA GRECO, 70 y/o, F admitted by JASPER HANNAH MD, was given written information regarding hospital policies, unit procedures and contact persons. Wilda admitted from ED. Patient alert and oriented x 4. Patient oriented to room, bed, call light, phone and POC. Call light in reach Patient instructed on need to call for assistance. Valuables were checked and Patient stated her daughter has all valuables. Patient denies having wallet or any valuables needing security lock up..
[2021-09-15 03:18] VITALS: BP 172/82
[2021-09-15 03:58] LABS: ANISOCYTOSIS MOD; PLT ESTIMATE ADEQUATE (ADEQUATE); POLYCHROMASIA SLIGHT
[2021-09-15] MEDS ORDERED: C.DIFF MED SCREEN BY RX. MC ONE (04:00)
[2021-09-15] MEDS ORDERED: metOLazone 2.5 MG TABLET PO PRN (04:00)
[2021-09-15] MEDS ORDERED: NON FORMULARY ITEM (Ipratropium/Albuterol Sulfate (Combivent Respimat Inhal) 2 INH) IH PRN (04:00)
[2021-09-15] MEDS ORDERED: ALBUTEROL SULFATE 2.5 MG/3 ML NEBU. NEB PRN (04:15)
[2021-09-15] MEDS: LEVOTHYROXINE 100 MCG TABLET PO SCH (06:31)
[2021-09-15] MEDS: LEVOTHYROXINE 112 MCG TABLET PO SCH (06:31)
[2021-09-15 07:00] VITALS: BP 103/54
[2021-09-15] MEDS: IPRATRPIUM/ALBUTEROL 0.5/2.5MG 3 ML NEBU. NEB SCH ×4 (07:41→21:00)
[2021-09-15] MEDS: METOPROLOL TART IMMED RELEASE 25 MG TABLET. PO SCH ×2 (09:00→22:05)
[2021-09-15] MEDS ORDERED: CETIRIZINE HCL 10 MG TABLET. PO SCH (09:00)
[2021-09-15] MEDS: MULTIVITAMIN with MINERAL TABLET. PO SCH (09:38)
[2021-09-15] MEDS: FUROSEMIDE 40 MG TABLET. PO SCH ×2 (09:39→16:00)
[2021-09-15] MEDS: OMEGA-3 FATTY ACIDS/FISH OIL 1,000 MG CAPSULE. PO SCH (09:40)
--- NOTE | 2021-09-15 10:39 | PDOC ---
Provider Note Date of Service: DATE: 09/15/21 TIME: 10:38 Provider Note dictated, declines metolozone, wants new placement, still dnr Justifications for Admission Other Justification JASPER HANNAH MD Sep 15, 2021 10:39
[2021-09-15 10:53] VITALS: BP 98/60
--- NOTE | 2021-09-15 13:20 | NUR ---
Pharmacy Medication Review S: Consulted for medication review re: C.diff Risk Assessment score of 4 O: WILDA GRECO is a 70 year old with: Previous C.diff infection: No Previous hospitalization: Within 30 days Recent antibiotics: No Use of gastric acid suppressor: No Transfer from [place]/[facility]: Yes Current antibiotic regimen: NONE Current acid suppression regimen: NONE A: Patient has been identified as having risk factors for C.diff infection as noted above. P: Antibiotic Regimen recommendation made: N/A Probiotic ordered: NO PPI changed to [id number]: N/A ALAN BENAVIDES RP, 09/15/21 [id number]
--- NOTE | 2021-09-15 17:20 | HP ---
DATE OF SERVICE: 09/15/2021 ADMIT DATE: 09/15/2021 CHIEF COMPLAINT: Does not like the [facility]. HISTORY OF PRESENT ILLNESS: The patient is well known with non-small cell lung cancer with a large mass in the mediastinum who has just started radiation therapy. She has chronic edema from severe pulmonary hypertension, intractable to diuretic use, but was transferred to her nursing residence about 24 hours ago. She did not receive which she felt was adequate care and came back to the hospital for further evaluation and placement. There are no specific complaints otherwise at this time. PAST MEDICAL HISTORY: Well documented in the old chart. ALLERGIES: LISTED. MEDICATIONS: No new medications. She takes chronic Lasix for edema with only mild benefit. SOCIAL HISTORY: , nonsmoker, nondrinker. Family in the area. Lives alone. FAMILY HISTORY: Unremarkable. REVIEW OF SYSTEMS: Unremarkable. OBJECTIVE: ENT: Within normal limits. NECK: No masses, nodes or JVD. LUNGS: Clear with decreased breath sounds. CARDIOVASCULAR: Regular rate. No murmur or tachycardia. ABDOMEN: Obese, nontender in nature equal bilaterally. NEUROLOGIC: . ASSESSMENT: Multiple problems including stage 3 nonresectable non-small cell lung cancer, undergoing radiation therapy. She has chronic edema from severe pulmonary hypertension and other medical problems, stable. PLAN: Admitted. She remains a DNR for her choice. Radiation Oncology consult to continue radiation therapy and professor of social work for placement. EVANGELINA/SUSHMA/ROSIE DR: Dave TID: [id number]
[2021-09-15 19:00] VITALS: BP 109/56
[2021-09-15] MEDS ORDERED: INSULIN GLARGINE SYRINGE. SQ SCH ×2 (21:00)
[2021-09-15] MEDS: ATORVASTATIN CALCIUM 20 MG TABLET PO SCH (22:05)
[2021-09-15 23:00] VITALS: BP 110/47
[2021-09-16 03:00] VITALS: BP 115/47
[2021-09-16] MEDS: LEVOTHYROXINE 100 MCG TABLET PO SCH (06:00)
[2021-09-16] MEDS: LEVOTHYROXINE 112 MCG TABLET PO SCH (06:00)
[2021-09-16 07:15] VITALS: BP 138/71
[2021-09-16] MEDS: IPRATRPIUM/ALBUTEROL 0.5/2.5MG 3 ML NEBU. NEB SCH ×4 (07:29→20:00)
[2021-09-16] MEDS: OMEGA-3 FATTY ACIDS/FISH OIL 1,000 MG CAPSULE. PO SCH (10:16)
[2021-09-16] MEDS: MULTIVITAMIN with MINERAL TABLET. PO SCH (10:16)
[2021-09-16] MEDS: FUROSEMIDE 40 MG TABLET. PO SCH ×2 (10:17→15:50)
[2021-09-16] MEDS: METOPROLOL TART IMMED RELEASE 25 MG TABLET. PO SCH ×2 (10:18→21:46)
--- NOTE | 2021-09-16 10:38 | PDOC ---
Provider Note Date of Service: DATE: 09/16/21 TIME: 10:37 Provider Note status same but lower glucose from more lantus, reduce from 52 to 48, rest same- she declines metozone for edema Justifications for Admission Other Justification JASPER HANNAH MD Sep 16, 2021 10:38
[2021-09-16 11:00] VITALS: BP 127/61
--- NOTE | 2021-09-16 14:54 | PDOC2 ---
CONSULT Date of Consult Date of Consult DATE: 09/16/21 TIME: 14:48 Reason for Consult Reason for Consult: Coronary artery disease, pulmonary hypertension. Referring Physician Referring Physician: Dr. Lowry Identification/Chief Complaint Chief Complaint Lower extremity swelling, fatigue Source Source: Chart review, Patient History of Present Illness Reason for Visit: The patient is a 70-year-old female with a history of non-small cell lung cancer with a mediastinal mass who is started on radiation treatment. She also has a history of severe pulmonary hypertension with lower extremity edema, coronary artery disease status post bypass surgery in 2013, diabetes mellitus and hy pertension. She is recently discharged from the hospital after treatment on 09/11/21. She returned from the care home with chief complaints as above. This morning she reports feeling mildly better. Her swelling is still very prominent. She denies chest pain. Radiation oncology consult is pending. Past Medical History Cardiovascular: CAD, HTN, Hyperlipidemia, Pulmonary hypertension Pulmonary: COPD, Other (Non-small cell lung cancer.) CENTRAL NERVOUS SYSTEM: Other Heme/Onc: Cancer Psych: Depression Musculoskeletal: Osteoarthritis, Other Endocrine: Diabetes, Hypothyroidism Past Surgical History Past Surgical History: Arthroscopy, CABG, Tonsillectomy Family History Family History: Cancer, Heart Disease Social History No ALCOHOL: none Drugs: None Lives: with Family Current Medications Current Medications Current Medications Pharmacy Consult (C.diff Med Screen By Rx) 1 each 1X ONCE [facility] ; Start 09/15/21 at 04:00; Stop 09/15/21 at 04:01; Status DC Furosemide (Lasix) 40 mg BID94 PO Last administered on 09/16/21at 10:17; Start 09/15/21 at 09:00 Levothyroxine Sodium (Synthroid) 112 mcg DAILY06 PO Last administered on 09/16/21at 06:00; Start 09/15/21 at 06:00 Levothyroxine Sodium (Synthroid) 100 mcg DAILY06 PO Last administered on 09/16/21at 06:00; Start 09/15/21 at 06:00 Metolazone (Zaroxolyn) 2.5 mg PRN DAILY PRN PO swelling; Start 09/15/21 at 04:00 Metoprolol Tartrate (Lopressor) 12.5 mg BID PO Last administered on 09/16/21at 10:18; Start 09/15/21 at 09:00 Albuterol Sulfate (Ventolin Neb Soln) 2.5 mg PRN Q6HRS PRN NEB SHORTNESS OF BREATH; Start 09/15/21 at 04:15 Insulin Glargine (Lantus Syringe) 47 unit QHS SQ ; Start 09/15/21 at 21:00; Sto p 09/15/21 at 10:38; Status DC Non-Formulary Medication (Ipratropium/ Albuterol Sulfate (Combivent Respimat Inhal)) 2 inh PRN DAILY PRN IH SHORTNESS OF BREATH; Start 09/15/21 at 04:00; Status UNV Cetirizine HCl (ZyrTEC) 10 mg DAILY PO Last administered on 09/15/21at 09:39; Start 09/15/21 at 09:00; Stop 09/15/21 at 10:28; Status DC Multivitamins (Thera M Plus) 1 tab DAILY PO Last administered on 09/16/21at 10:16; Start 09/15/21 at 09:00 Fish Oil (Fish Oil) 1,000 mg DAILY PO Last administered on 09/16/21at 10:16; Start 09/15/21 at 09:00 Atorvastatin Calcium (Lipitor) 20 mg QHS PO Last administered on 09/15/21at 22:05; Start 09/15/21 at 21:00 Albuterol/ Ipratropium (Duoneb) 3 ml RTQID NEB Last administered on 09/16/21at 11:35; Start 09/15/21 at 08:00 Insulin Glargine (Lantus Syringe) 52 unit QHS SQ Last administered on 09/15/21at 22:14; Start 09/15/21 at 21:00; Stop 09/16/21 at 10:37; Status DC Temazepam (Restoril) 15 mg PRN QHS PRN PO INSOMNIA; Start 09/15/21 at 10:45 Insulin Glargine (Lantus Syringe) 48 unit QHS SQ ; Start 09/16/21 at 21:00 Active Scripts Active Synthroid (Levothyroxine Sodium) 100 Mcg Tablet 100 Mcg PO DAILY06 30 Days Take in combination with 112mcg tablet to equal 212mcg daily Levothyroxine Sodium 112 Mcg Tablet 112 Mcg PO DAILY06 30 Days Take in combination with 100mcg tablet to equal 212mcg daily Reported Metolazone 2.5 Mg Tablet 1 Tab PO PRN DAILY PRN Furosemide 40 Mg Tablet 1 Tab PO BID Fish Oil 1,000 Mg Softgel ([place]-3 Fatty Acids/Fish Oil) 1 Each Capsule 1 Cap PO DAILY 30 Days WITH MEALS Lantus Solostar (Insulin Glargine,Hum.rec.anlog) 100 Unit/1 Ml Insuln.pen 47 Unit SQ QHS Children's Claritin (Loratadine) 5 Mg Tab.chew 1 Tab PO BID 30 Days Metoprolol Tartrate 25 Mg Tablet 0.5 Tab PO BID Albuterol Sulfate Neb Soln (Albuterol Sulfate) 1.25 Mg/3 Ml Vial.neb 1 Vial NEB PRN Q6HRS PRN Combivent Respimat Inhal (Ipratropium/Albuterol Sulfate) 4 Gm Aer.w.adap 2 Inh IH PRN DAILY PRN Pravastatin Sodium 80 Mg Tablet 1 Tab PO QHS Multi Vitamin Daily (Multivitamin) 1 Each Tablet 1 Tab PO DAILY 30 Days Klor-Con 10 (Potassium Chloride) 10 Meq Tablet.er 20 Meq PO TID Allergies Allergies: Coded Allergies: Penicillins (Verified Adverse Reaction, Mild, yeast infections, 08/29/21) ROS General: YES: Fatigue Respiratory: YES: Shortness of breath Physical Exam General: mild distress Lungs: Other (Mildly decreased breath sound) Heart: Regular rate Abdomen: Normal bowel sounds Extremities: Other (Severe bilateral edema) MUSCULOSKELETAL: No joint tenderness Vitals VITALS Vital Signs Date Time Temp Pulse Resp B/P (MAP) Pulse Ox O2 Delivery O2 Flow Rate FiO2 09/16/21 11:36 Nasal Cannula 4.0 09/16/21 11:00 98.8 89 18 127/61 (83) 92 98.8 Labs Labs Laboratory Tests Test 09/14/21 22:45 09/14/21 23:31 09/15/21 02:10 09/15/21 08:19 White Blood Count 11.3 x10^3/uL (4.0-11.0) Red Blood Count 3.81 x10^6/uL (3.50-5.40) Hemoglobin 10.0 g/dL (12.0-15.5) Hematocrit 31.6 % (36.0-47.0) Mean Corpuscular Volume 83 fL (79-100) Mean Corpuscular Hemoglobin 26 pg (25-35) Mean Corpuscular Hemoglobin Concent 32 g/dL (31-37) Red Cell Distribution Width 21.3 % (11.5-14.5) Platelet Count 214 x10^3/uL (140-400) Neutrophils (%) (Auto) 71 % (31-73) Lymphocytes (%) (Auto) 18 % (24-48) Monocytes (%) (Auto) 10 % (0-9) Eosinophils (%) (Auto) 0 % (0-3) Basophils (%) (Auto) 1 % (0-3) Neutrophils # (Auto) 8.0 x10^3/uL (1.8-7.7) Lymphocytes # (Auto) 2.1 x10^3/uL (1.0-4.8) Monocytes # (Auto) 1.1 x10^3/uL (0.0-1.1) Eosinophils # (Auto) 0.0 x10^3/uL (0.0-0.7) Basophils # (Auto) 0.1 x10^3/uL (0.0-0.2) Platelet Estimate Adequate (ADEQUATE) Polychromasia Slight Anisocytosis Mod Sodium Level 132 mmol/L (136-145) Potassium Level 6.1 mmol/L (3.5-5.1) Chloride Level 88 mmol/L (98-107) Carbon Dioxide Level > 45 mmol/L (21-32) Anion Gap (6-14) Blood Urea Nitrogen 51 mg/dL (7-20) Creatinine 1.0 mg/dL (0.6-1.0) Estimated GFR (Cockcroft-Gault) 55.0 BUN/Creatinine Ratio 51 (6-20) Glucose Level 246 mg/dL (70-99) Calcium Level 8.4 mg/dL (8.5-10.1) Total Bilirubin 1.3 mg/dL (0.2-1.0) Aspartate Amino Transf (AST/SGOT) 25 U/L (15-37) Alanine Aminotransferase (ALT/SGPT) 27 U/L (14-59) Alkaline Phosphatase 341 U/L (46-116) Troponin I High Sensitivity 69 ng/L (4-50) MT-Fqh-F-Type Natriuretic Peptide 7324 pg/mL (0-124) Total Protein 5.9 g/dL (6.4-8.2) Albumin 2.6 g/dL (3.4-5.0) Albumin/Globulin Ratio 0.8 (1.0-1.7) O2 Saturation 88 % (92-99) Arterial Blood pH 7.44 (7.35-7.45) Arterial Blood pCO2 at Patient Temp 62 mmHg (35-46) Arterial Blood pO2 at Patient Temp 57 mmHg (65-108) Arterial Blood HCO3 42 mmol/L (21-28) Arterial Blood Base Excess 15 mmol/L (-3-3) Oxyhemoglobin 86.8 % Methemoglobin 0.5 % (0.0-1.9) Carbon Monoxide, Quantitative 0.9 % (0.0-1.9) FiO2 3l Urine Collection Type Unknown Urine Color Yellow Urine Clarity Clear Urine pH 5.5 (<5.0-8.0) Urine Specific [place] 1.025 (1.000-1.030) Urine Protein 100 mg/dL (NEG-TRACE) Urine Glucose (UA) Negative mg/dL (NEG) Urine Ketones (Stick) Negative mg/dL (NEG) Urine Blood Negative (NEG) Urine Nitrite Negative (NEG) Urine Bilirubin Small (NEG) Urine Urobilinogen Dipstick 4.0 mg/dL (0.2 mg/dL) Urine Leukocyte Esterase Negative (NEG) Urine RBC 0 /HPF (0-2) Urine WBC Occ /HPF (0-4) Urine Squamous Epithelial Cells Mod /LPF Urine Amorphous Sediment Present /HPF Urine Bacteria Moderate /HPF (0-FEW) Urine Hyaline Casts Moderate /HPF Urine Mucus Marked /LPF Glucose (Fingerstick) 80 mg/dL (70-99) Test 09/15/21 11:31 09/15/21 20:25 09/16/21 07:53 Glucose (Fingerstick) 210 mg/dL (70-99) 286 mg/dL (70-99) 48 mg/dL (70-99) Laboratory Tests Test 09/15/21 20:25 09/16/21 07:53 Glucose (Fingerstick) 286 mg/dL (70-99) 48 mg/dL (70-99) Images Images Chest x-ray with mild mid and bibasilar opacities. Nuclear stress test on 10/06/18 with no evidence of ischemia and an ejection fraction of 69%. Assessment/Plan Assessment/Plan 1. Non-small cell lung cancer. Patient has been undergoing radiation treatment. Radiology oncology consult has been requested. 2. Severe pulmonary hypertension documented on previous catheterization. Severe bilateral lower extremity edema. At this time would continue present medications will obtain further old records. 3. Coronary artery disease with a history of bypass surgery in 2013. Nuclear medicine scan on 10/06/18 showed no evidence of ischemia or infarct and intact LV systolic function. 4. Diabetes mellitus. Continuing present treatment. 4. Hypertension. Continue present treatment and will monitor. NEAL ECHEVARRIA MD Sep 16, 2021 14:54
[2021-09-16 19:00] VITALS: BP 145/61
[2021-09-16] MEDS: ATORVASTATIN CALCIUM 20 MG TABLET PO SCH (21:45)
[2021-09-16] MEDS: INSULIN GLARGINE SYRINGE. SQ SCH (21:56)
[2021-09-16 23:00] VITALS: BP 103/48
[2021-09-17] MEDS: TEMAZEPAM 15 MG CAPSULE PO PRN (01:30)
[2021-09-17 04:42] LABS: BASO # 0.1 x10^3/uL (0.0-0.2); BASO % 1 % (0-3); EOS # 0.1 x10^3/uL (0.0-0.7); EOS % 1 % (0-3); HEMATOCRIT 29.9 % (36.0-47.0); HEMOGLOBIN 9.5 g/dL (12.0-15.5); LYMPH # 2.1 x10^3/uL (1.0-4.8); LYMPH % 20 % (24-48); MEAN CORPUSCULAR HEMOGLOBIN 27 pg (25-35); MEAN CORPUSCULAR HGB CONC 32 g/dL (31-37); MEAN CORPUSCULAR VOLUME 85 fL (79-100); MONO # 1.3 x10^3/uL (0.0-1.1); MONO % 12 % (0-9); NEUT # 7.2 x10^3/uL (1.8-7.7); NEUT % 67 % (31-73); PLATELET COUNT 202 x10^3/uL (140-400); RED BLOOD COUNT 3.52 x10^6/uL (3.50-5.40); RED CELL DISTRIBUTION WIDTH 22.2 % (11.5-14.5); WHITE BLOOD COUNT 10.7 x10^3/uL (4.0-11.0)
[2021-09-17 05:10] LABS: BLOOD UREA NITROGEN 47 mg/dL (7-20); CALCIUM 8.5 mg/dL (8.5-10.1); CHLORIDE 89 mmol/L (98-107); GLUCOSE 215 mg/dL (70-99); MAGNESIUM 2.3 mg/dL (1.8-2.4); POTASSIUM 5.1 mmol/L (3.5-5.1); SODIUM 132 mmol/L (136-145)
[2021-09-17 05:14] LABS: CARBON DIOXIDE > 45 mmol/L (21-32)
[2021-09-17] MEDS: LEVOTHYROXINE 100 MCG TABLET PO SCH (06:05)
[2021-09-17] MEDS: LEVOTHYROXINE 112 MCG TABLET PO SCH (06:05)
[2021-09-17 07:00] VITALS: BP 112/36
--- NOTE | 2021-09-17 08:08 | PDOC ---
Provider Note Date of Service: DATE: 09/17/21 TIME: 08:07 Provider Note status same, placement Justifications for Admission Other Justification JASPER HANNAH MD Sep 17, 2021 08:08
[2021-09-17] MEDS: IPRATRPIUM/ALBUTEROL 0.5/2.5MG 3 ML NEBU. NEB SCH ×4 (08:28→20:00)
[2021-09-17] MEDS: OMEGA-3 FATTY ACIDS/FISH OIL 1,000 MG CAPSULE. PO SCH (08:50)
[2021-09-17] MEDS: FUROSEMIDE 40 MG TABLET. PO SCH ×2 (08:50→16:33)
[2021-09-17] MEDS: MULTIVITAMIN with MINERAL TABLET. PO SCH (08:50)
[2021-09-17] MEDS: METOPROLOL TART IMMED RELEASE 25 MG TABLET. PO SCH ×2 (08:51→21:18)
--- NOTE | 2021-09-17 09:45 | PDOC ---
PROGRESS NOTES Date of Service: DATE: 09/17/21 TIME: 09:45 Subjective Subjective c/o fatigue and edema Objective Objective Vital Signs Date Time Temp Pulse Resp B/P (MAP) Pulse Ox O2 Delivery O2 Flow Rate FiO2 09/17/21 08:51 80 112/36 09/17/21 08:28 91 Nasal Cannula 4.0 09/17/21 07:00 97.5 11 97.5 Intake and Output 09/17/21 06:59 Intake Total 360 ml Balance 360 ml Intake Oral 360 ml # Voids 5 Physical Exam Abdomen: Normal bowel sounds Heart: Regular rate Extremities: Other (3+ pitting pedal edema) General: Alert, No acute distress HEENT: Atraumatic Lungs: Other (Mildly decreased breath sound) MUSCULOSKELETAL: No joint tenderness Neck: Supple Neuro: Normal speech Assessment Assessment 1. Acute on chronic cor pulmonale. Patient declining metolazone. She did not tolerate Bumex last hospital admission. Difficult to diurese more aggressively due to patient's noncompliance with recommendations. 2. Severe pulmonary hypertension without any vasoreactivity. Patient could not afford medications recommended by pulmonary hypertension clinic at [facility] in the past. 3. Non-small cell lung cancer and large mediastinal mass, currently undergoing radiation therapy. Patient declined chemotherapy. Treat per oncology team. 4. Coronary artery disease s/p CABG, stable. Continue current secondary prevention measures. 5. Paroxysmal atrial fibrillation, presently sinus rhythm. s/p watchman device for left atrial appendage closure 6. COPD: Clinically stable 7. Hyperlipidemia: Continue statins 8. DM2: Treat per IM 9. Hypothyroidism: Continue levothyroxine Comment Review of Relevant I have reviewed the following items yoselyn (where applicable) has been applied. Labs Laboratory Tests Test 09/16/21 19:53 09/17/21 03:55 09/17/21 05:02 09/17/21 07:54 Glucose (Fingerstick) 274 mg/dL (70-99) 230 mg/dL (70-99) 187 mg/dL (70-99) White Blood Count 10.7 x10^3/uL (4.0-11.0) Red Blood Count 3.52 x10^6/uL (3.50-5.40) Hemoglobin 9.5 g/dL (12.0-15.5) Hematocrit 29.9 % (36.0-47.0) Mean Corpuscular Volume 85 fL (79-100) Mean Corpuscular Hemoglobin 27 pg (25-35) Mean Corpuscular Hemoglobin Concent 32 g/dL (31-37) Red Cell Distribution Width 22.2 % (11.5-14.5) Platelet Count 202 x10^3/uL (140-400) Neutrophils (%) (Auto) 67 % (31-73) Lymphocytes (%) (Auto) 20 % (24-48) Monocytes (%) (Auto) 12 % (0-9) Eosinophils (%) (Auto) 1 % (0-3) Basophils (%) (Auto) 1 % (0-3) Neutrophils # (Auto) 7.2 x10^3/uL (1.8-7.7) Lymphocytes # (Auto) 2.1 x10^3/uL (1.0-4.8) Monocytes # (Auto) 1.3 x10^3/uL (0.0-1.1) Eosinophils # (Auto) 0.1 x10^3/uL (0.0-0.7) Basophils # (Auto) 0.1 x10^3/uL (0.0-0.2) Sodium Level 132 mmol/L (136-145) Potassium Level 5.1 mmol/L (3.5-5.1) Chloride Level 89 mmol/L (98-107) Carbon Dioxide Level > 45 mmol/L (21-32) Anion Gap (6-14) Blood Urea Nitrogen 47 mg/dL (7-20) Creatinine 1.0 mg/dL (0.6-1.0) Estimated GFR (Cockcroft-Gault) 55.0 Glucose Level 215 mg/dL (70-99) Calcium Level 8.5 mg/dL (8.5-10.1) Magnesium Level 2.3 mg/dL (1.8-2.4) Microbiology 09/15/21 Urine Culture - Final, Complete Medications Current Medications Insulin Glargine (Lantus Syringe) 48 unit QHS SQ Last administered on 09/16/21at 21:56; Start 09/16/21 at 21:00 Vitals/I & O Vital Sign - Last 24 Hours 09/16/21 09/16/21 09/16/21 09/16/21 10:18 11:00 11:36 16:12 Temp 98.8 98.8 Pulse 73 89 Resp 18 B/P (MAP) 138/71 127/61 (83) Pulse Ox 92 O2 Delivery Nasal Cannula Nasal Cannula Nasal Cannula O2 Flow Rate 4.0 4.0 4.0 09/16/21 09/16/21 09/16/21 09/16/21 19:00 20:00 20:00 21:46 Temp 97.5 97.5 Pulse 82 82 Resp 22 B/P (MAP) 145/61 (89) 145/61 Pulse Ox 93 O2 Delivery Nasal Cannula Nasal Cannula Nasal Cannula O2 Flow Rate 4.0 4.0 4.0 09/16/21 09/17/21 09/17/21 09/17/21 23:00 07:00 08:28 08:51 Temp 98.8 97.5 98.8 97.5 Pulse 81 80 80 Resp 22 11 B/P (MAP) 103/48 (66) 112/36 (61) 112/36 Pulse Ox 90 82 91 O2 Delivery Nasal Cannula Nasal Cannula Nasal Cannula O2 Flow Rate 4.0 4.0 4.0 Intake and Output 09/16/21 09/16/21 09/17/21 14:59 22:59 06:59 Intake Total 240 ml 120 ml Balance 240 ml 120 ml HAYLIE CAO MD Sep 17, 2021 09:45
[2021-09-17 11:00] VITALS: BP 138/72
--- NOTE | 2021-09-17 12:39 | NUR ---
SW following. Discussed with RN, pt here from [facility] - here for placement again. PT/OT was not ordered upon admission - ordered today. SW will continue to follow.
[2021-09-17 15:00] VITALS: BP 117/60
[2021-09-17 19:00] VITALS: BP 136/72
[2021-09-17] MEDS: ATORVASTATIN CALCIUM 20 MG TABLET PO SCH (21:18)
[2021-09-17] MEDS: INSULIN GLARGINE SYRINGE. SQ SCH (21:24)
[2021-09-17] MEDS ORDERED: ACETAMINOPHEN 500 MG TABLET PO ONE (22:00)
[2021-09-18 03:00] VITALS: BP 120/56
[2021-09-18] MEDS: LEVOTHYROXINE 112 MCG TABLET PO SCH (06:22)
[2021-09-18] MEDS: LEVOTHYROXINE 100 MCG TABLET PO SCH (06:22)
[2021-09-18 07:00] VITALS: BP 105/50
--- NOTE | 2021-09-18 08:09 | PDOC ---
Provider Note Date of Service: DATE: 09/18/21 TIME: 08:08 Provider Note status samwe, placement in progress Justifications for Admission Other Justification JASPER HANNAH MD Sep 18, 2021 08:09
[2021-09-18] MEDS: MULTIVITAMIN with MINERAL TABLET. PO SCH (08:18)
[2021-09-18] MEDS: OMEGA-3 FATTY ACIDS/FISH OIL 1,000 MG CAPSULE. PO SCH (08:18)
[2021-09-18] MEDS: FUROSEMIDE 40 MG TABLET. PO SCH ×2 (08:18→16:00)
[2021-09-18] MEDS: METOPROLOL TART IMMED RELEASE 25 MG TABLET. PO SCH ×2 (08:20→20:52)
[2021-09-18] MEDS: IPRATRPIUM/ALBUTEROL 0.5/2.5MG 3 ML NEBU. NEB SCH ×4 (08:33→20:06)
[2021-09-18 11:00] VITALS: BP 111/58
--- NOTE | 2021-09-18 11:09 | PDOC ---
SHY PARRISH [employer] 09/18/21 1109: CARDIO Progress Notes Date and Time Date of Service 09/18/2021 Time of Evaluation 1100 Subjective Subjective: No Chest Pain, No shortness of breath, No Palpitations Vitals Vitals Vital Signs Date Time Temp Pulse Resp B/P (MAP) Pulse Ox O2 Delivery O2 Flow Rate FiO2 09/18/21 08:34 Nasal Cannula 4.0 09/18/21 08:20 70 105/50 09/18/21 07:00 98.4 16 91 98.4 Weight Weight [ ] Input and Output Intake and Output Intake and Output 09/18/21 07:00 Output Total 300 ml Balance -300 ml Output Urine Total 300 ml # Voids 2 # Bowel Movements 3 Laboratory Labs Laboratory Tests Test 09/17/21 15:14 09/17/21 20:19 09/18/21 07:30 09/18/21 11:02 Glucose (Fingerstick) 323 mg/dL (70-99) 465 mg/dL (70-99) 350 mg/dL (70-99) 324 mg/dL (70-99) Microbiology Micro Microbiology 09/15/21 Urine Culture - Final, Complete Physical Exam HEENT: Neck Supple W Full Motion Chest: Symmetric LUNGS: Other (diminished) Heart: RRR Abdomen: Soft N/T Extremities: Other (4+ bilateral LE pitting edema with mild erythema ) Neurology: alert, oriented, follow commands Assessment Assessment 1. Acute on chronic cor pulmonale. Patient declining metolazone. She did not tolerate Bumex last hospital admission. Difficult to diurese more aggressively due to patient's noncompliance with recommendations. No changes. Pt continues to direct when she needs her diuretics 2. Severe pulmonary hypertension without any vasoreactivity. Patient could not afford medications recommended by pulmonary hypertension clinic at [facility] in the past. 3. Non-small cell lung cancer and large mediastinal mass, currently undergoing radiation therapy. Patient declined chemotherapy. Treat per oncology team. 4. Coronary artery disease s/p CABG, stable. Continue current secondary prevention measures. 5. Paroxysmal atrial fibrillation, presently sinus rhythm. s/p watchman device for left atrial appendage closure 6. COPD: Clinically stable 7. Hyperlipidemia: Continue statins 8. DM2: Treat per IM 9. Hypothyroidism: Continue levothyroxine Justicifation of Admission Dx: Justifications for Admission: Justification of Admission Dx: Yes HAYLIE CAO MD 09/19/21 0731: CARDIO Progress Notes Assessment Assessment Patient seen and examined 09/18/2021. Agree with TABLE INSPECTOR's assessment and plan as stated above without any changes. SHY PARRISH APRN Sep 18, 2021 11:09 HAYLIE CAO MD Sep 19, 2021 07:31
[2021-09-18] MEDS ORDERED: INSULIN GLARGINE SYRINGE. SQ ONE (12:45)
[2021-09-18 15:00] VITALS: BP 122/63
[2021-09-18 19:45] VITALS: BP 156/70
[2021-09-18] MEDS: ATORVASTATIN CALCIUM 20 MG TABLET PO SCH (20:52)
[2021-09-18] MEDS: INSULIN GLARGINE SYRINGE. SQ SCH (20:58)
[2021-09-18] MEDS: TEMAZEPAM 15 MG CAPSULE PO PRN (22:12)
[2021-09-18 23:24] VITALS: BP 108/53
[2021-09-19] MEDS: LEVOTHYROXINE 100 MCG TABLET PO SCH (06:00)
[2021-09-19] MEDS: LEVOTHYROXINE 112 MCG TABLET PO SCH (06:00)
--- NOTE | 2021-09-19 16:13 | DS ---
DATE OF DISCHARGE: 09/19/2021 SUMMARY HOSPITAL SUMMARY: The patient was admitted with continued edema in both legs from cor pulmonale, also secondary non-small cell cancer in her mediastinum, currently undergoing radiation therapy. She was given comfort care as a DNR patient with meds as needed, oxygen and diuretics and Radiation Oncology was seeing her as well. Placement was in progress and she early in the morning of 09/19/2021. FINAL DIAGNOSES: 1. Chronic venous edema secondary to cor pulmonale. 2. Non-small cell cancer of the lung, stage III. OPERATIONS, PROCEDURES, AND COMPLICATIONS: None. CONSULTATION: Dr. Willis, Dr. James. DISPOSITION: No postmortem examination was requested, released to the home per family. EVANGELINA/JULIANO/ROSIE DR: EVANGELINA/vishnu TID: [id number]
--- NOTE | 2021-09-21 05:56 | NUR ---
During shift, pt was talking and moving around. Pt stated she wanted her sleeping medicine because she had a hard time sleeping the night before. This RN administered pts Tamazepam. Pt was checked at hourly rounds around 0500 on 09/19/2021 and was sleeping, SIXTH GRADE TEACHER verified that patient was breathing. At 0555, this RN went to give her her synthroid. RN said her name, and there was no response, so RN shook pt to wake her, and pt still didn't respond. At that time, RN had SIXTH GRADE TEACHER help reposition her so RN could check for heart and lung sounds. No sounds were heard. RN notified charge nurse. Charge nurse contacted pts family, and the doctor to inform them. Pronouncement of was made at 0603 on 09/19/2021. Family came up to see pt. Addendum: 09/21/21 at 0623 by DESMOND MONTOYA RN RN Late entry:
== END 2021-09-19 16:04 | DRG 314 ==
LOC: ER 21:45 → 4 NORTH 23:45
PROVIDERS: ADMIT Family Medicine; ATTEND Family Medicine
DX: I27.81 Cor pulmonale (chronic) (principal); J96.01 Acute respiratory failure with hypoxia; C34.90 Malignant neoplasm of unspecified part of unspecified bronchus or lung; I27.20 Pulmonary hypertension, unspecified; E03.9 Hypothyroidism, unspecified; E11.9 Type 2 diabetes mellitus without complications; E78.00 Pure hypercholesterolemia, unspecified; E78.5 Hyperlipidemia, unspecified; E87.6 Hypokalemia; G89.29 Other chronic pain; I11.0 Hypertensive heart disease with heart failure; I25.10 Atherosclerotic heart disease of native coronary artery without angina pectoris; I48.0 Paroxysmal atrial fibrillation; I50.9 Heart failure, unspecified; J44.9 Chronic obstructive pulmonary disease, unspecified; T50.2X5A Adverse effect of carbonic-anhydrase inhibitors, benzothiadiazides and other diuretics, initial encounter; Z66 Do not resuscitate; Z85.118 Personal history of other malignant neoplasm of bronchus and lung; Z91.19 Patient's noncompliance with other medical treatment and regimen; Z95.1 Presence of aortocoronary bypass graft; Z95.818 Presence of other cardiac implants and grafts; F32.A Depression, unspecified; M19.90 Unspecified osteoarthritis, unspecified site; Z92.3 Personal history of irradiation; Y92.89 Other specified places as the place of occurrence of the external cause
CPT/HCPCS: 36415; 36600; 71045; 80048; 80053; 81001; 82805; 82962; 83735; 83880; 84484; 85025; 87086; 93005; 94640; 94760; 96372; J1815; 97535-GO; 99285-25; G0378